=== PATIENT | male | born 1940 | race Caucasian/White ===

== ENCOUNTER 2019-03-25 20:19 | Inpatient (IN) | payer OTHER ==
[~2019-03-25] VITALS: Ht 180.3 cm; Wt 81.6 kg
[~2019-03-25 20:19] MED LIST: METF-370 PO
[2019-03-25 21:56] LABS: Alanine Aminotransferase 54 U/L (16-61); Albumin 3.9 g/dL (3.4-5.0); Anion Gap 9 (5-15); Aspartate Aminotransferase 32 U/L (15-37); BUN/Creatinine Ratio 21.2; Blood Urea Nitrogen 28 mg/dL (7-18); Carbon Dioxide 22 mmol/L (21-32); Chloride 105 mmol/L (98-107); GFR African American 68 mL/min; GFR Non-African American 56 mL/min; Glucose 263 mg/dL (74-106); Potassium 4.4 mmol/L (3.5-5.1); Sodium 136 mmol/L (136-145)
[2019-03-25 22:01] LABS: Alkaline Phosphatase 55 U/L (45-117); Bilirubin, Total 0.8 mg/dL (0.2-1.0); Partial Thromboplastin Time 23.2 sec (23.64-32.05); Total Protein 7.2 g/dL (6.4-8.2)
[2019-03-25 22:23] LABS: Basophils # (auto) 0.1 uL; Basophils % (auto) 0.8 % (0.0-2.0); Eosinophils # (auto) 0.1 uL; Eosinophils % (auto) 1.8 % (0.0-7.0); Hematocrit 40.2 % (41.0-53.0); Hemoglobin 14.5 g/dL (13.5-17.5); Lymphocytes # (auto) 1.3 uL; Lymphocytes % (auto) 18.1 % (10.0-50.0); Mean Corpuscular Hemoglobin 32.6 pg (28.0-32.0); Mean Corpuscular Volume 90.7 fL (80.0-100.0); Monocytes # (auto) 0.6 uL; Monocytes % (auto) 8.8 % (0.0-12.0); Neutrophils # (auto) 4.9 uL; Neutrophils % (auto) 70.5 % (37.0-80.0); Nucleated Red Blood Cells % 0.1 %; Platelet Count (auto) 210 10^3/uL (140-450); Red Blood Cells 4.43 10^6/uL (4.5-5.90); Red Cell Distribution Width 13.5 % (11.8-14.3)
[2019-03-26 03:18] LABS: Alcohol, Urine < 3.0 mg/dL (0-5); Amphetamine Screen, Urine NEGATIVE (NEGATIVE); Barbiturate Scree,Urine NEGATIVE (NEGATIVE); Benzodiazephine Screen, Urine NEGATIVE (NEGATIVE); Cannabinoid Screen, Urine POSITIVE (NEGATIVE); Cocaine Screen, Urine NEGATIVE (NEGATIVE)
[2019-03-26 03:26] LABS: Opiate Scree,Urine NEGATIVE (NEGATIVE); Phencyclidine Screen, Urine NEGATIVE (NEGATIVE)
[2019-03-26 03:48] LABS: Urine Bacteria NONE SEEN /hpf (None Seen); Urine Blood Negative /uL (Negative); Urine Specific Gravity 1.028 (1.001-1.035); Urine WBC 15 /hpf (0 - 3)
[2019-03-26] MEDS ORDERED: DEXTROSE (50%) 50ML SYRG IV PRN (06:45)
[2019-03-26] MEDS ORDERED: ACETAMINOPHEN 325 MG TAB PO PRN (06:45)
[2019-03-26] MEDS ORDERED: TEMAZEPAM 15 MG CAP PO PRN (06:45)
[2019-03-26] MEDS ORDERED: ONDANSETRON HCL 4 MG/2 ML VIAL IV PRN (06:45)
[2019-03-26] MEDS ORDERED: cefTRIAXone 1GM/50ML D5W 50 ML IV ONE (07:30)
[2019-03-26] MEDS ORDERED: ASPirin-EC 81 mg tab PO SCH (10:00)
[2019-03-26] MEDS ORDERED: LISINOPRIL 10 MG TAB PO SCH (10:00)
[2019-03-26] MEDS ORDERED: ENOXAPARIN SOD 30 MG/0.3 ML SYRINGE SC SCH (10:00)
[2019-03-26] MEDS ORDERED: PANTOPRAZOLE 40 MG TAB PO SCH (10:00)
[2019-03-26] MEDS ORDERED: GEMFIBROZIL 600 MG TAB PO SCH (10:00)
[2019-03-26 11:41] VITALS: BP 125/79
[2019-03-26] MEDS ORDERED: ACCU-CHEK COMFORT CURVE STRIP VI SCH (12:00)
[2019-03-26] MEDS ORDERED: InsuLIN REG 1unit/0.01ml Soln (100units/ml) SC SCH (12:00)
[2019-03-26] MEDS ORDERED: INFLUENZA QUAD 2019-2020 0.5ml SYRG IM ONE (12:45)
[2019-03-26 12:55] VITALS: BP 144/79
[2019-03-26] MEDS ORDERED: TAMSULOSIN HYDROCHLORIDE 0.4 MG CAP PO SCH (18:00)
[2019-03-26] MEDS ORDERED: ATORVASTATIN 20 MG TAB PO SCH (22:00)
== END 2019-03-26 13:45 | disposition left against medical advice (07) | DRG 689 ==
LOC: ER 20:21 → MERGE 21:22 → OVERFLOW 21:22 → TELE-WESTW 03-26 10:46
PROVIDERS: ADMIT Nurse Practitioner; ATTEND Internal Medicine Pulmonary Disease
DX: N39.0 Urinary tract infection, site not specified (principal); G93.41 Metabolic encephalopathy; G45.9 Transient cerebral ischemic attack, unspecified; E11.22 Type 2 diabetes mellitus with diabetic chronic kidney disease; N40.0 Benign prostatic hyperplasia without lower urinary tract symptoms; N18.2 Chronic kidney disease, stage 2 (mild); E66.9 Obesity, unspecified; Z53.21 Procedure and treatment not carried out due to patient leaving prior to being seen by health care provider; I13.10 Hypertensive heart and chronic kidney disease without heart failure, with stage 1 through stage 4 chronic kidney disease, or unspecified chronic kidney disease; I67.2 Cerebral atherosclerosis; Z79.899 Other long term (current) drug therapy; Z79.82 Long term (current) use of aspirin; Z90.49 Acquired absence of other specified parts of digestive tract; Z83.3 Family history of diabetes mellitus; Z68.25 Body mass index [BMI] 25.0-25.9, adult; Z88.2 Allergy status to sulfonamides; Z79.84 Long term (current) use of oral hypoglycemic drugs
CPT/HCPCS: 36415; 70450; 71045; 80053; 80307; 80320; 81001; 82962; 83036; 84484; 85025; 85610; 85730; 93005; 93886; 96365; 96372; G0378; J0696; J1815

== ENCOUNTER → 2019-08-13 | Outpatient (CLI) | payer OTHER | END | disposition home or self-care (01) | LOC: XYW 09:57 | PROVIDERS: ATTEND Internal Medicine | DX: R94.31 Abnormal electrocardiogram [ECG] [EKG] (principal) | CPT/HCPCS: 93306 ==

== ENCOUNTER → 2020-10-19 | Outpatient (CLI) | payer OTHER ==
[2020-10-19 09:53] LABS: Urine Bacteria NONE SEEN /hpf (None Seen); Urine Blood Negative /uL (Negative); Urine Hyaline Cast FEW /lpf (0 - 2); Urine Mucus FEW (None Seen); Urine Specific Gravity 1.029 (1.001-1.035); Urine WBC 2 /hpf (0 - 3)
[2020-10-19 10:26] LABS: Albumin 4.2 g/dL (3.4-5.0); Potassium 4.1 mmol/L (3.5-5.1)
[2020-10-19 10:32] LABS: Basophils # (auto) 0 10 ^3/uL (0-0.2); Basophils % (auto) 0.6 % (0.0-2.0); Eosinophils # (auto) 0.2 10 ^3/uL (0-0.8); Eosinophils % (auto) 3.1 % (0.0-7.0); Hematocrit 46.6 % (41.0-53.0); Hemoglobin 16.4 g/dL (13.5-17.5); Lymphocytes # (auto) 1.5 10 ^3/uL (0.4-5.4); Lymphocytes % (auto) 22.2 % (10.0-50.0); Mean Corpuscular Hemoglobin 32.2 pg (28.0-32.0); Mean Corpuscular Hgb Conc. 35.1 g/dL (32.0-36.0); Mean Corpuscular Volume 91.8 fL (80.0-100.0); Monocytes # (auto) 0.6 10 ^3/uL (0-1.3); Neutrophils # (auto) 4.4 10 ^3/uL (1.6-8.6); Neutrophils % (auto) 65.1 % (37.0-80.0); Nucleated Red Blood Cells % 0.1 %; Platelet Count (auto) 198 10^3/uL (140-450); Red Blood Cells 5.07 10^6/uL (4.5-5.90); White Blood Cell 6.8 10^3/uL (4.4-10.8)
[2020-10-19 10:33] LABS: Protein, Urine 60.8 mg/dL (0.0-11.9)
[2020-10-19 10:34] LABS: BUN/Creatinine Ratio 21.9; Bilirubin, Total 1.3 mg/dL (0.2-1.0); Calcium 9.5 mg/dL (8.5-10.1); Total Protein 7.6 g/dL (6.4-8.2)
== END | disposition home or self-care (01) ==
LOC: LAB 09:27
PROVIDERS: ATTEND Internal Medicine Nephrology
DX: E11.9 Type 2 diabetes mellitus without complications (principal); I10 Essential (primary) hypertension
CPT/HCPCS: 36415; 80053; 80061; 81001; 82043; 82570; 83036; 84156; 85025

== ENCOUNTER → 2020-12-27 | Outpatient (CLI) | payer OTHER | END | disposition home or self-care (01) | LOC: XYW 09:48 | PROVIDERS: ATTEND Internal Medicine Nephrology | DX: I08.1 Rheumatic disorders of both mitral and tricuspid valves (principal); R06.02 Shortness of breath | CPT/HCPCS: 93306 ==

== ENCOUNTER → 2021-04-06 | Outpatient (CLI) | payer OTHER ==
[2021-04-06 13:33] LABS: Calcium 9.3 mg/dL (8.5-10.1); Potassium 4.3 mmol/L (3.5-5.1)
[2021-04-06 13:35] LABS: BUN/Creatinine Ratio 19.5
== END | disposition home or self-care (01) ==
LOC: LAB 12:52
PROVIDERS: ATTEND Internal Medicine Nephrology
DX: E11.9 Type 2 diabetes mellitus without complications (principal); I10 Essential (primary) hypertension
CPT/HCPCS: 36415; 80048; 83036

== ENCOUNTER → 2021-11-26 | Outpatient (CLI) | payer OTHER ==
[2021-11-26 09:54] LABS: Potassium 4.5 mmol/L (3.5-5.1)
[2021-11-26 09:55] LABS: Urine Bacteria NONE SEEN /hpf (None Seen); Urine Blood Negative /uL (Negative); Urine Specific Gravity 1.032 (1.001-1.035); Urine WBC 1 /hpf (0 - 3)
[2021-11-26 09:58] LABS: Eosinophils # (auto) 0.3 10 ^3/uL (0-0.8); Hemoglobin 17.9 g/dL (13.5-17.5); Mean Corpuscular Hemoglobin 32.5 pg (28.0-32.0); Monocytes # (auto) 0.9 10 ^3/uL (0-1.3); Red Blood Cells 5.51 10^6/uL (4.5-5.90)
[2021-11-26 09:59] LABS: Basophils # (auto) 0.1 10 ^3/uL (0-0.2); Basophils % (auto) 1.1 % (0.0-2.0); Eosinophils % (auto) 3.6 % (0.0-7.0); Hematocrit 48.9 % (41.0-53.0); Lymphocytes # (auto) 2.1 10 ^3/uL (0.4-5.4); Lymphocytes % (auto) 24.1 % (10.0-50.0); Mean Corpuscular Volume 88.7 fL (80.0-100.0); Monocytes % (auto) 9.9 % (0.0-12.0); Neutrophils # (auto) 5.4 10 ^3/uL (1.6-8.6); Neutrophils % (auto) 61.3 % (37.0-80.0); Nucleated Red Blood Cells % 0.6 %; Red Cell Distribution Width 13.2 % (11.8-14.3); White Blood Cell 8.7 10^3/uL (4.4-10.8)
[2021-11-26 10:00] LABS: Mean Corpuscular Hgb Conc. 36.2 g/dL (32.0-36.0)
[2021-11-26 10:03] LABS: Albumin 4.2 g/dL (3.4-5.0); BUN/Creatinine Ratio 23.3; Bilirubin, Total 1.6 mg/dL (0.2-1.0); Calcium 9.4 mg/dL (8.5-10.1)
[2021-11-26 10:24] LABS: Micro Albumin 17.6 mg/L (0-30.0)
== END | disposition home or self-care (01) ==
LOC: LAB 08:19
PROVIDERS: ATTEND Internal Medicine Nephrology
DX: I10 Essential (primary) hypertension (principal); E11.9 Type 2 diabetes mellitus without complications
CPT/HCPCS: 36415; 80053; 80061; 81001; 82043; 82570; 83036; 84439; 84443; 85025

== ENCOUNTER → 2022-01-01 | Outpatient (CLI) | payer OTHER | END | disposition home or self-care (01) | LOC: XYW 13:17 | PROVIDERS: ATTEND Internal Medicine Nephrology | DX: I07.1 Rheumatic tricuspid insufficiency (principal); I42.0 Dilated cardiomyopathy | CPT/HCPCS: 93306 ==

== ENCOUNTER → 2022-10-01 | Outpatient (CLI) | payer OTHER ==
[2022-10-01 10:34] LABS: Basophils # (auto) 0 10 ^3/uL (0-0.2); Basophils % (auto) 0.4 % (0.0-2.0); Eosinophils # (auto) 0.2 10 ^3/uL (0-0.8); Eosinophils % (auto) 2.8 % (0.0-7.0); Hematocrit 50.1 % (41.0-53.0); Hemoglobin 17.6 g/dL (13.5-17.5); Lymphocytes # (auto) 1.5 10 ^3/uL (0.4-5.4); Lymphocytes % (auto) 17.8 % (10.0-50.0); Mean Corpuscular Hemoglobin 31.4 pg (28.0-32.0); Mean Corpuscular Hgb Conc. 35.2 g/dL (32.0-36.0); Mean Corpuscular Volume 89.1 fL (80.0-100.0); Monocytes # (auto) 0.7 10 ^3/uL (0-1.3); Monocytes % (auto) 8.5 % (0.0-12.0); Neutrophils # (auto) 5.9 10 ^3/uL (1.6-8.6); Neutrophils % (auto) 70.5 % (37.0-80.0); Nucleated Red Blood Cells % 0.1 %; Red Blood Cells 5.62 10^6/uL (4.5-5.90); Red Cell Distribution Width 13.2 % (11.8-14.3); White Blood Cell 8.4 10^3/uL (4.4-10.8)
[2022-10-01 10:56] LABS: Potassium 4.5 mmol/L (3.5-5.1)
[2022-10-01 11:00] LABS: Free T4 (Free Thyroxine) 0.97 ng/dL (0.89-1.76)
[2022-10-01 11:02] LABS: Prostate Specific Antigen 4.65 ng/mL (0.0-4.0)
[2022-10-01 11:05] LABS: Albumin 4.1 g/dL (3.4-5.0); BUN/Creatinine Ratio 24.3 (10.0-20.0); Bilirubin, Total 1.4 mg/dL (0.2-1.0); Calcium 9.8 mg/dL (8.5-10.1); Total Protein 8.3 g/dL (6.4-8.2)
[2022-10-01 13:10] LABS: Micro Albumin 19.6 mg/L (0-30.0)
== END | disposition home or self-care (01) ==
LOC: LAB 09:25
PROVIDERS: ATTEND Nurse Practitioner Family
DX: I13.0 Hypertensive heart and chronic kidney disease with heart failure and stage 1 through stage 4 chronic kidney disease, or unspecified chronic kidney disease (principal); E11.65 Type 2 diabetes mellitus with hyperglycemia; N18.9 Chronic kidney disease, unspecified
CPT/HCPCS: 36415; 80053; 80061; 82043; 82570; 83036; 84153; 84154; 84439; 84443; 85025

== ENCOUNTER 2022-10-10 18:11 | Emergency (ER) | payer OTHER ==
[~2022-10-10] VITALS: Ht 170.2 cm; Wt 78.1 kg
[2022-10-10 18:25] VITALS: BP 159/81
== END 2022-10-10 20:03 | disposition home or self-care (01) ==
LOC: ER 18:11
DX: M77.31 Calcaneal spur, right foot (principal); E11.9 Type 2 diabetes mellitus without complications; I10 Essential (primary) hypertension; Z88.2 Allergy status to sulfonamides; Z90.49 Acquired absence of other specified parts of digestive tract
CPT/HCPCS: 73630

== ENCOUNTER 2023-04-18 22:36 | Inpatient (IN) | payer OTHER ==
[~2023-04-18] VITALS: Ht 172.7 cm; Wt 75.5 kg
[2023-04-18 23:18] LABS: Basophils # (auto) 0 10 ^3/uL (0-0.2); Basophils % (auto) 0.3 % (0.0-2.0); Eosinophils # (auto) 0 10 ^3/uL (0-0.8); Eosinophils % (auto) 0.2 % (0.0-7.0); Hematocrit 50.2 % (41.0-53.0); Hemoglobin 16.7 g/dL (13.5-17.5); Lymphocytes # (auto) 1.3 10 ^3/uL (0.4-5.4); Lymphocytes % (auto) 9.5 % (10.0-50.0); Mean Corpuscular Hemoglobin 31.1 pg (28.0-32.0); Mean Corpuscular Hgb Conc. 33.3 g/dL (32.0-36.0); Mean Corpuscular Volume 93.4 fL (80.0-100.0); Monocytes % (auto) 7.6 % (0.0-12.0); Neutrophils # (auto) 11.3 10 ^3/uL (1.6-8.6); Neutrophils % (auto) 82.4 % (37.0-80.0); Red Blood Cells 5.37 10^6/uL (4.5-5.90); Red Cell Distribution Width 14.3 % (11.8-14.3); White Blood Cell 13.7 10^3/uL (4.4-10.8)
[2023-04-18 23:25] LABS: Alanine Aminotransferase 66 U/L (7-40); Albumin 4.5 g/dL (3.2-4.8); Alkaline Phosphatase 82 U/L (46-116); Anion Gap 9 (5-15); Aspartate Aminotransferase 44 U/L (13-40); BUN/Creatinine Ratio 15.8 (10.0-20.0); Bilirubin, Total 1.5 mg/dL (0.2-1.0); Blood Urea Nitrogen 22 mg/dL (9-23); Calcium 9.4 mg/dL (8.7-10.4); Carbon Dioxide 21 mmol/L (20-30); Chloride 107 mmol/L (98-107); Glucose 325 mg/dL (74-106); Magnesium 2.4 mg/dL (1.6-2.6); Potassium 5.1 mmol/L (3.5-5.1); Sodium 137 mmol/L (136-145); Total Protein 7.1 g/dL (5.7-8.2)
[2023-04-18 23:37] LABS: INR 1.23 (0.9-1.15); Partial Thromboplastin Time 26.7 SEC (24.5-34.5); Prothrombin Time 12.7 sec (9.3-11.8)
[2023-04-18 23:44] LABS: COVID19 ANTIGEN SOFIA FIA NEGATIVE (NEGATIVE); Rapid Influenza A Negative (Negative); Rapid Influenza B Negative (Negative)
[2023-04-19 00:45] LABS: Urine Bacteria NONE SEEN /hpf (None Seen); Urine Blood Negative /uL (Negative); Urine Clarity Clear (Clear); Urine Color Yellow (Yellow); Urine Protein, UAD TRACE (Negative); Urine Specific Gravity 1.028 (1.001-1.035); Urine Urobilinogen Normal (Negative); Urine WBC <1 /hpf (0 - 3)
[2023-04-19] MEDS ORDERED: ENOXAPARIN SOD 40 MG/0.4 ML SYRINGE SC ONE (02:00)
[2023-04-19] MEDS ORDERED: INSULIN LISPRO (HUMAN) 100 UNITS/ML ML SC ONE (02:00)
[2023-04-19] MEDS ORDERED: FUROSEMIDE 40 MG/4 ML VIAL IV ONE (02:00)
[2023-04-19 03:15] VITALS: PULSE 89; RESP 27
[2023-04-19] MEDS ORDERED: IOHEXOL 350 MG/ML 100ML IJ ONE (09:07)
[2023-04-19] MEDS ORDERED: AZITHROMYCIN 500MG/ 250ML 250 ML IV ONE (10:45)
[2023-04-19] MEDS ORDERED: DEXTROSE (50%) 50ML SYRG IV PRN (10:45)
[2023-04-19] MEDS ORDERED: DOCUSATE SOD 100 MG CAP PO PRN (10:45)
[2023-04-19] MEDS ORDERED: NITROGLYCERIN 0.4 MG SL TAB SL PRN (10:45)
[2023-04-19] MEDS ORDERED: MORPHINE SULFATE INJ 2 MG/ml SYRG IV PRN (10:45)
[2023-04-19] MEDS ORDERED: ACETAMINOPHEN 325 MG TAB PO PRN (10:45)
[2023-04-19] MEDS ORDERED: cefTRIAXone 1GM/50ML D5W 50 ML IV ONE (10:45)
[2023-04-19] MEDS ORDERED: CARV3.1240 PO (10:46)
[2023-04-19] MEDS ORDERED: EMPA1TAB PO (10:46)
[2023-04-19] MEDS ORDERED: TAMS0.4C36 PO (10:46)
[2023-04-19] MEDS ORDERED: ALBUTEROL MEDNEB 2.5 mg/3ml NEB NEB PRN (11:00)
[2023-04-19] MEDS ORDERED: IPRATROPIUM BROM 0.5 MG/2.5ML INH SOL NEB PRN (11:00)
[2023-04-19] MEDS: DOXYCYCLINE 100MG/250ML 250 ML IV SCH ×2 (11:15→23:27)
[2023-04-19] MEDS: InsuLIN REG 1unit/0.01ml Soln (100units/ml) SC SCH ×3 (11:30→21:50)
[2023-04-19] MEDS: ACCU-CHEK COMFORT CURVE STRIP VI SCH ×3 (11:50→21:35)
[2023-04-19 11:56] VITALS: BP 143/93; PULSE 85; RESP 22; TEMP 98.1; O2SAT 96
[2023-04-19 15:30] VITALS: PULSE 95; RESP 22; O2SAT 96
[2023-04-19] MEDS: FUROSEMIDE 20 MG/2 ML VIAL IV SCH (18:30)
[2023-04-19 18:55] VITALS: O2SAT 97
[2023-04-19 18:59] LABS: Chloride 107 mmol/L (98-107); Sodium 141 mmol/L (136-145)
[2023-04-19 19:00] LABS: Anion Gap 9 (5-15); Calcium 9.6 mg/dL (8.5-10.1); Carbon Dioxide 25 mmol/L (20-30)
[2023-04-19 19:05] LABS: BUN/Creatinine Ratio 19.1 (10.0-20.0); Blood Urea Nitrogen 25 mg/dL (9-23)
[2023-04-19 19:06] LABS: Glucose 140 mg/dL (74-106)
[2023-04-19 19:38] VITALS: PULSE 77; RESP 19; O2SAT 93
[2023-04-19] MEDS: CARVEDILOL 3.125 MG TAB PO SCH (21:53)
[2023-04-20] VITALS (12 sets, daily range): BP systolic 91–139; BP diastolic 53–95; PULSE 44–99; RESP 17–22; TEMP 96.5–97.9; O2SAT 95–99
[2023-04-20] MEDS ORDERED: TAMS-35 PO (02:20)
[2023-04-20] MEDS: FUROSEMIDE 20 MG/2 ML VIAL IV SCH ×2 (06:17→17:47)
[2023-04-20] MEDS: ACCU-CHEK COMFORT CURVE STRIP VI SCH ×4 (06:17→22:02)
[2023-04-20] MEDS: InsuLIN REG 1unit/0.01ml Soln (100units/ml) SC SCH ×4 (06:20→22:08)
[2023-04-20 08:03] LABS: Basophils # (auto) 0.1 10 ^3/uL (0-0.2); Eosinophils # (auto) 0.4 10 ^3/uL (0-0.8); Mean Corpuscular Volume 91.3 fL (80.0-100.0); Monocytes # (auto) 1.5 10 ^3/uL (0-1.3)
[2023-04-20 08:06] LABS: Basophils % (auto) 0.8 % (0.0-2.0); Eosinophils % (auto) 3.2 % (0.0-7.0); Hematocrit 51.7 % (41.0-53.0); Hemoglobin 17.8 g/dL (13.5-17.5); Lymphocytes # (auto) 2.1 10 ^3/uL (0.4-5.4); Lymphocytes % (auto) 14.7 % (10.0-50.0); Mean Corpuscular Hemoglobin 31.5 pg (28.0-32.0); Mean Corpuscular Hgb Conc. 34.5 g/dL (32.0-36.0); Monocytes % (auto) 10.4 % (0.0-12.0); Neutrophils # (auto) 9.9 10 ^3/uL (1.6-8.6); Neutrophils % (auto) 70.9 % (37.0-80.0); Nucleated Red Blood Cells % 0.1 %; Red Blood Cells 5.66 10^6/uL (4.5-5.90)
[2023-04-20 08:22] LABS: Alanine Aminotransferase 69 U/L (7-40); Albumin 4.8 g/dL (3.2-4.8); Alkaline Phosphatase 85 U/L (46-116); Anion Gap 10 (5-15); Aspartate Aminotransferase 33 U/L (13-40); BUN/Creatinine Ratio 29.1 (10.0-20.0); Calcium 9.9 mg/dL (8.5-10.1); Carbon Dioxide 24 mmol/L (20-30); Chloride 106 mmol/L (98-107); Glucose 156 mg/dL (74-106); Potassium 4.5 mmol/L (3.5-5.1); Sodium 140 mmol/L (136-145); Total Protein 7.3 g/dL (5.7-8.2)
[2023-04-20 08:24] LABS: Blood Urea Nitrogen 39 mg/dL (9-23)
[2023-04-20] MEDS: cefTRIAXone 1GM/50ML D5W 50 ML IV SCH (09:41)
[2023-04-20] MEDS: CARVEDILOL 3.125 MG TAB PO SCH ×2 (09:42→22:00)
[2023-04-20] MEDS: TAMSULOSIN HYDROCHLORIDE 0.4 MG CAP PO SCH (09:42)
[2023-04-20] MEDS: EMPAGLIFLOZIN 10 MG TAB PO SCH (09:42)
[2023-04-20] MEDS ORDERED: AZITHROMYCIN 500MG/ 250ML 250 ML IV SCH (10:00)
[2023-04-20 11:04] LABS: Urine Bacteria NONE SEEN /hpf (None Seen); Urine Blood Negative /uL (Negative); Urine Clarity Clear (Clear); Urine Color Yellow (Yellow); Urine Protein, UAD TRACE (Negative); Urine Specific Gravity 1.024 (1.001-1.035); Urine Urobilinogen Normal (Negative); Urine WBC 1 /hpf (0 - 3); Urine pH 5.5 (5.0-8.0)
[2023-04-20] MEDS: DOXYCYCLINE 100MG/250ML 250 ML IV SCH ×2 (11:35→22:10)
[2023-04-21] VITALS (7 sets, daily range): BP systolic 104–121; BP diastolic 62–72; PULSE 56–67; RESP 17–20; TEMP 97.8–98.2; O2SAT 95–99
[2023-04-21] MEDS: FUROSEMIDE 20 MG/2 ML VIAL IV SCH (06:18)
[2023-04-21] MEDS: ACCU-CHEK COMFORT CURVE STRIP VI SCH ×3 (06:21→17:00)
[2023-04-21] MEDS: InsuLIN REG 1unit/0.01ml Soln (100units/ml) SC SCH ×3 (06:25→17:00)
[2023-04-21 08:18] LABS: Basophils # (auto) 0.1 10 ^3/uL (0-0.2); Basophils % (auto) 0.7 % (0.0-2.0); Eosinophils # (auto) 0.5 10 ^3/uL (0-0.8); Eosinophils % (auto) 5.1 % (0.0-7.0); Lymphocytes # (auto) 1.4 10 ^3/uL (0.4-5.4); Monocytes # (auto) 1.1 10 ^3/uL (0-1.3); Neutrophils # (auto) 6.4 10 ^3/uL (1.6-8.6)
[2023-04-21 08:20] LABS: Hematocrit 51.4 % (41.0-53.0); Hemoglobin 17.7 g/dL (13.5-17.5); Mean Corpuscular Hemoglobin 31.5 pg (28.0-32.0); Mean Corpuscular Hgb Conc. 34.4 g/dL (32.0-36.0); Mean Corpuscular Volume 91.5 fL (80.0-100.0); Monocytes % (auto) 11.8 % (0.0-12.0); Neutrophils % (auto) 67.4 % (37.0-80.0); Nucleated Red Blood Cells % 0.3 %; Red Blood Cells 5.62 10^6/uL (4.5-5.90); Red Cell Distribution Width 13.7 % (11.8-14.3); White Blood Cell 9.5 10^3/uL (4.4-10.8)
[2023-04-21 08:41] LABS: Alanine Aminotransferase 57 U/L (7-40); Albumin 4.5 g/dL (3.2-4.8); Alkaline Phosphatase 85 U/L (46-116); Anion Gap 9 (5-15); Aspartate Aminotransferase 29 U/L (13-40); Calcium 9.6 mg/dL (8.5-10.1); Carbon Dioxide 25 mmol/L (20-30); Chloride 104 mmol/L (98-107); Glucose 161 mg/dL (74-106); Potassium 4.1 mmol/L (3.5-5.1); Sodium 138 mmol/L (136-145)
[2023-04-21 08:42] LABS: Bilirubin, Total 2.2 mg/dL (0.2-1.0); Total Protein 7.5 g/dL (5.7-8.2)
[2023-04-21 08:52] LABS: Blood Urea Nitrogen 24 mg/dL (9-23)
[2023-04-21] MEDS: CARVEDILOL 3.125 MG TAB PO SCH (09:45)
[2023-04-21] MEDS: cefTRIAXone 1GM/50ML D5W 50 ML IV SCH (09:45)
[2023-04-21] MEDS: TAMSULOSIN HYDROCHLORIDE 0.4 MG CAP PO SCH (09:45)
[2023-04-21] MEDS: EMPAGLIFLOZIN 10 MG TAB PO SCH (09:46)
[2023-04-21] MEDS: DOXYCYCLINE 100MG/250ML 250 ML IV SCH (12:26)
[2023-04-21 17:13] LABS: Triglycerides 185 mg/dL (< 150)
[2023-04-21 17:14] LABS: LDL Cholesterol 97 mg/dL (< 100)
[2023-04-21 17:15] LABS: Cholesterol 150 mg/dL (< 200); HDL Cholesterol 29 mg/dL (40-59)
== END 2023-04-21 17:09 | disposition home or self-care (01) | DRG 193 ==
LOC: ER 22:36 → TELE 04-19 10:42 → TELE-WESTW 04-19 23:39
PROVIDERS: ADMIT Internal Medicine
DX: J18.9 Pneumonia, unspecified organism (principal); I50.43 Acute on chronic combined systolic (congestive) and diastolic (congestive) heart failure; J96.01 Acute respiratory failure with hypoxia; I13.0 Hypertensive heart and chronic kidney disease with heart failure and stage 1 through stage 4 chronic kidney disease, or unspecified chronic kidney disease; N17.9 Acute kidney failure, unspecified; I42.0 Dilated cardiomyopathy; R74.01 Elevation of levels of liver transaminase levels; N40.0 Benign prostatic hyperplasia without lower urinary tract symptoms; E11.65 Type 2 diabetes mellitus with hyperglycemia; Z20.822 Contact with and (suspected) exposure to COVID-19; I27.20 Pulmonary hypertension, unspecified; N18.2 Chronic kidney disease, stage 2 (mild); I44.0 Atrioventricular block, first degree; E11.22 Type 2 diabetes mellitus with diabetic chronic kidney disease; E78.5 Hyperlipidemia, unspecified; E66.9 Obesity, unspecified; I34.0 Nonrheumatic mitral (valve) insufficiency; Z79.899 Other long term (current) drug therapy; Z90.49 Acquired absence of other specified parts of digestive tract; Z68.25 Body mass index [BMI] 25.0-25.9, adult
CPT/HCPCS: 36415; 71045; 71275; 76775; 80048; 80053; 80061; 81001; 82962; 83036; 83735; 83880; 84443; 84484; 85025; 85379; 85610; 85730; 87040; 87070; 87205; 87426; 87804; 93005; 93306; G0378; J0696; J1815; J3490

== ENCOUNTER → 2023-04-22 | Outpatient (CLI) | payer OTHER ==
[~2023-04-22] MED LIST changes: +CARV3.1240 PO; +EMPA1TAB PO; +TAMS-35 PO; +TAMS0.4C36 PO
[2023-04-22 12:21] LABS: Alanine Aminotransferase 56 U/L (7-40); Albumin 4.5 g/dL (3.2-4.8); Alkaline Phosphatase 87 U/L (46-116); Anion Gap 10 (5-15); Aspartate Aminotransferase 32 U/L (13-40); BUN/Creatinine Ratio 20.9 (10.0-20.0); Blood Urea Nitrogen 28 mg/dL (9-23); Calcium 10.3 mg/dL (8.5-10.1); Carbon Dioxide 25 mmol/L (20-30); Chloride 103 mmol/L (98-107); Glucose 201 mg/dL (74-106); Potassium 4.7 mmol/L (3.5-5.1); Sodium 138 mmol/L (136-145)
[2023-04-22 12:22] LABS: Total Protein 7.4 g/dL (5.7-8.2)
== END | disposition home or self-care (01) ==
LOC: LAB 11:31
PROVIDERS: ATTEND Student in an Organized Health Care Education/Training Program
DX: I50.42 Chronic combined systolic (congestive) and diastolic (congestive) heart failure (principal); E11.9 Type 2 diabetes mellitus without complications; R06.2 Wheezing; J42 Unspecified chronic bronchitis
CPT/HCPCS: 36415; 80053; 83880

== ENCOUNTER 2023-05-28 06:43 | Day surgery (SDC) | payer OTHER ==
[2023-05-26 15:15] LABS: Basophils # (auto) 0.1 10 ^3/uL (0-0.2); Basophils % (auto) 0.9 % (0.0-2.0); Eosinophils # (auto) 0.5 10 ^3/uL (0-0.8); Eosinophils % (auto) 5.9 % (0.0-7.0); Hematocrit 49.6 % (41.0-53.0); Lymphocytes # (auto) 1.6 10 ^3/uL (0.4-5.4); Lymphocytes % (auto) 19.9 % (10.0-50.0); Mean Corpuscular Hemoglobin 30.7 pg (28.0-32.0); Mean Corpuscular Hgb Conc. 34.2 g/dL (32.0-36.0); Mean Corpuscular Volume 89.8 fL (80.0-100.0); Monocytes % (auto) 12.1 % (0.0-12.0); Neutrophils # (auto) 4.8 10 ^3/uL (1.6-8.6); Neutrophils % (auto) 61.2 % (37.0-80.0); Nucleated Red Blood Cells % 0.2 %; Red Blood Cells 5.52 10^6/uL (4.5-5.90); Red Cell Distribution Width 13.9 % (11.8-14.3); White Blood Cell 7.9 10^3/uL (4.4-10.8)
[2023-05-26 15:30] LABS: INR 1.07 (0.9-1.15); Partial Thromboplastin Time 26.2 SEC (24.5-34.5); Prothrombin Time 11.2 sec (9.3-11.8)
[2023-05-26 17:43] LABS: Alanine Aminotransferase 27 U/L (7-40); Albumin 4.6 g/dL (3.2-4.8); Alkaline Phosphatase 75 U/L (46-116); Anion Gap 8 (5-15); Aspartate Aminotransferase 24 U/L (13-40); Blood Urea Nitrogen 29 mg/dL (9-23); Carbon Dioxide 24 mmol/L (20-30); Chloride 105 mmol/L (98-107); Glucose 135 mg/dL (74-106); Potassium 4.9 mmol/L (3.5-5.1); Sodium 137 mmol/L (136-145)
[2023-05-26 17:44] LABS: Bilirubin, Total 0.9 mg/dL (0.2-1.0); Total Protein 7.2 g/dL (5.7-8.2)
[~2023-05-28] VITALS: Ht 172.7 cm; Wt 76.7 kg
[~2023-05-28 06:43] MED LIST changes: +ASPI-543 PO; +ATOR20TA50 PO; +FURO20TA3 PO; +HYDR-4296 PO; -METF-370 PO; +PANT40TA2 PO; +POTA1TAB61 PO; -TAMS-35 PO
[2023-05-28] MEDS ORDERED: IODIXANOL 320MG/ML 100ML BTL IV ONE (11:29)
[2023-05-28] MEDS ORDERED: LIDOCAINE 2%HCL (LOCAL ANESTH.) INJ 20ML MDV ONE (11:29)
[2023-05-28] MEDS ORDERED: ANGIOMAX 250 MG VIAL IV ONE (12:18)
[2023-05-28] MEDS ORDERED: VERAPAMIL 2.5MG/ML INJ 2ML VIAL IV ONE (12:19)
[2023-05-28] MEDS ORDERED: HEPARIN SODIUM (PORCINE) 5000 UNITS/ML 1ML VIAL ONE (12:19)
[2023-05-28] MEDS ORDERED: fentaNYL CITRATE 100 MCG/2 ML VL ONE (12:19)
[2023-05-28] MEDS ORDERED: MIDAZOLAM HCL 2MG/2ML 2ml VIAL (1mg/ml) ONE (12:19)
[2023-05-28] MEDS ORDERED: SODIUM CHL 0.9% 0 ML ONE (12:20)
== END 2023-05-28 14:58 | disposition home or self-care (01) ==
LOC: CATH 06:43
PROVIDERS: ATTEND Student in an Organized Health Care Education/Training Program
DX: I25.10 Atherosclerotic heart disease of native coronary artery without angina pectoris (principal); I13.0 Hypertensive heart and chronic kidney disease with heart failure and stage 1 through stage 4 chronic kidney disease, or unspecified chronic kidney disease; E11.22 Type 2 diabetes mellitus with diabetic chronic kidney disease; N18.30 Chronic kidney disease, stage 3 unspecified; I50.43 Acute on chronic combined systolic (congestive) and diastolic (congestive) heart failure; I34.0 Nonrheumatic mitral (valve) insufficiency; I27.20 Pulmonary hypertension, unspecified; E78.5 Hyperlipidemia, unspecified; E11.65 Type 2 diabetes mellitus with hyperglycemia; G47.33 Obstructive sleep apnea (adult) (pediatric); Z88.8 Allergy status to other drugs, medicaments and biological substances; Z79.82 Long term (current) use of aspirin; Z79.51 Long term (current) use of inhaled steroids; Z79.899 Other long term (current) drug therapy
CPT/HCPCS: 36415; 80053; 85025; 85610; 85730; 93458; C1887; C1894; J1644; J2250; J3010; Q9967; 99152

== ENCOUNTER → 2023-06-09 | Outpatient (CLI) | payer OTHER ==
[2023-06-09 10:42] LABS: Alanine Aminotransferase 16 U/L (7-40); Albumin 4.5 g/dL (3.2-4.8); Alkaline Phosphatase 70 U/L (46-116); Anion Gap 7 (5-15); Aspartate Aminotransferase 20 U/L (13-40); BUN/Creatinine Ratio 17.2 (10.0-20.0); Bilirubin, Total 1.2 mg/dL (0.2-1.0); Blood Urea Nitrogen 20 mg/dL (9-23); Calcium 10.1 mg/dL (8.5-10.1); Carbon Dioxide 25 mmol/L (20-30); Chloride 106 mmol/L (98-107); Glucose 166 mg/dL (74-106); Potassium 4.3 mmol/L (3.5-5.1); Sodium 138 mmol/L (136-145); Total Protein 7.3 g/dL (5.7-8.2)
== END | disposition home or self-care (01) ==
LOC: LAB 10:05
PROVIDERS: ATTEND Student in an Organized Health Care Education/Training Program
DX: I11.0 Hypertensive heart disease with heart failure (principal); I50.33 Acute on chronic diastolic (congestive) heart failure; I34.0 Nonrheumatic mitral (valve) insufficiency
CPT/HCPCS: 36415; 80053

== ENCOUNTER 2024-03-27 10:44 | Inpatient (IN) | payer OTHER ==
[~2024-03-27] VITALS: Ht 171.4 cm; Wt 75.8 kg
[~2024-03-27 10:44] MED LIST changes: -HYDR-4296 PO; +HYDR25TA88 PO; +ISOS1TAB28 PO; +POTA-215 PO; -POTA1TAB61 PO; -TAMS0.4C36 PO; +TAMS0.4C39 PO
[2024-03-27 11:09] LABS: Basophils # (auto) 0 10 ^3/uL (0-0.2); Basophils % (auto) 0.5 % (0.0-2.0); Eosinophils # (auto) 0.1 10 ^3/uL (0-0.8); Eosinophils % (auto) 1.2 % (0.0-7.0); Hematocrit 44.2 % (41.0-53.0); Lymphocytes # (auto) 1.4 10 ^3/uL (0.4-5.4); Mean Corpuscular Hemoglobin 32.3 pg (28.0-32.0); Mean Corpuscular Hgb Conc. 36.2 g/dL (32.0-36.0); Mean Corpuscular Volume 89.5 fL (80.0-100.0); Monocytes # (auto) 0.9 10 ^3/uL (0-1.3); Monocytes % (auto) 9.4 % (0.0-12.0); Neutrophils # (auto) 7.3 10 ^3/uL (1.6-8.6); Neutrophils % (auto) 74.9 % (37.0-80.0); Nucleated Red Blood Cells % 0.1 %; Platelet Count (auto) 209 10^3/uL (140-450); Red Blood Cells 4.94 10^6/uL (4.5-5.90); Red Cell Distribution Width 13.2 % (11.8-14.3); White Blood Cell 9.8 10^3/uL (4.4-10.8)
[2024-03-27 11:17] VITALS: PULSE 83; RESP 14; O2SAT 94
[2024-03-27] MEDS: ASPirin 81 mg TAB PO ONE (11:24)
[2024-03-27 11:30] LABS: Alanine Aminotransferase 44 U/L (7-40); Albumin 4.5 g/dL (3.2-4.8); Alkaline Phosphatase 91 U/L (46-116); Anion Gap 8 (5-15); Aspartate Aminotransferase 30 U/L (13-40); BUN/Creatinine Ratio 18.2 (10.0-20.0); Blood Urea Nitrogen 24 mg/dL (9-23); Calcium 9.4 mg/dL (8.7-10.4); Carbon Dioxide 21 mmol/L (20-31); Chloride 105 mmol/L (98-107); Glucose 274 mg/dL (74-106); Magnesium 2.1 mg/dL (1.6-2.6); Potassium 4.5 mmol/L (3.5-5.1); Sodium 134 mmol/L (136-145)
[2024-03-27 11:31] LABS: Bilirubin, Total 2.2 mg/dL (0.2-1.0); Total Protein 7.1 g/dL (5.7-8.2)
[2024-03-27 11:35] LABS: Urine Bacteria None Seen /hpf (None Seen)
[2024-03-27 11:44] LABS: Urine Blood Negative /uL (Negative); Urine Clarity Clear (Clear); Urine Color Light-Yellow (Yellow); Urine Hyaline Cast FEW /lpf (0 - 2); Urine Protein, UAD Negative (Negative); Urine Urobilinogen Normal (Negative); Urine WBC 2 /hpf (0 - 3)
[2024-03-27 12:00] LABS: Rapid Influenza A Negative (Negative); Rapid Influenza B Negative (Negative)
[2024-03-27 12:01] LABS: COVID19 ANTIGEN SOFIA FIA NEGATIVE (NEGATIVE)
[2024-03-27] MEDS: ALPRAZolam 0.25 MG TAB PO ONE (15:04)
[2024-03-27 15:06] LABS: Base Excess -2.3 mmol/L (-2.0-3.0)
[2024-03-27] MEDS ORDERED: HYDROcodone-ACET 5/325MG TAB PO PRN (17:30)
[2024-03-27] MEDS ORDERED: ONDANSETRON HCL 4 MG/2 ML VIAL IV PRN (17:30)
[2024-03-27] MEDS ORDERED: ACETAMINOPHEN 325 MG TAB PO PRN (17:30)
[2024-03-27] MEDS ORDERED: NITROGLYCERIN 0.4 MG SL TAB SL PRN (17:30)
[2024-03-27] MEDS ORDERED: DOCUSATE SOD 100 MG CAP PO PRN (17:30)
[2024-03-27] MEDS ORDERED: DEXTROSE (50%) 50ML SYRG IV PRN (17:30)
[2024-03-27] MEDS ORDERED: MORPHINE SULFATE INJ 2 MG/ml SYRG IV PRN (17:30)
[2024-03-27] MEDS: FUROSEMIDE 20 MG/2 ML VIAL IV ONE (18:24)
[2024-03-27 19:20] VITALS: PULSE 74; RESP 13; O2SAT 94
[2024-03-27 21:00] VITALS: BP 111/74; PULSE 67; RESP 18; TEMP 98; O2SAT 94
[2024-03-27] MEDS: hydrALAZINE HCL 25 MG TAB PO SCH (22:00)
[2024-03-27] MEDS: ATORVASTATIN 20 MG TAB PO SCH (23:22)
[2024-03-27] MEDS: CARVEDILOL 3.125 MG TAB PO SCH (23:22)
[2024-03-27] MEDS: InsuLIN REG 1unit/0.01ml Soln (100units/ml) SC SCH (23:24)
[2024-03-27] MEDS: SODIUM CHLOR 0.9% PF (SALINE LOCK) 10ML VIAL/SYR IV SCH (23:29)
[2024-03-27] MEDS: ACCU-CHEK COMFORT CURVE STRIP VI SCH (23:29)
[2024-03-27 23:31] VITALS: BP 111/74; PULSE 67; RESP 18; TEMP 98; O2SAT 94
[2024-03-28] VITALS (14 sets, daily range): BP systolic 105–128; BP diastolic 64–80; PULSE 39–84; RESP 15–20; TEMP 96.3–97.9; O2SAT 94–99
[2024-03-28] MEDS: InsuLIN REG 1unit/0.01ml Soln (100units/ml) SC SCH (06:32)
[2024-03-28 08:01] LABS: Basophils # (auto) 0 10 ^3/uL (0-0.2); Basophils % (auto) 0.4 % (0.0-2.0); Eosinophils # (auto) 0.2 10 ^3/uL (0-0.8); Eosinophils % (auto) 2.1 % (0.0-7.0); Hemoglobin 15.5 g/dL (13.5-17.5); Lymphocytes # (auto) 1.7 10 ^3/uL (0.4-5.4); Lymphocytes % (auto) 18.9 % (10.0-50.0); Mean Corpuscular Hemoglobin 32.1 pg (28.0-32.0); Mean Corpuscular Hgb Conc. 35.3 g/dL (32.0-36.0); Monocytes % (auto) 11.1 % (0.0-12.0); Neutrophils # (auto) 6.1 10 ^3/uL (1.6-8.6); Neutrophils % (auto) 67.5 % (37.0-80.0); Nucleated Red Blood Cells % 0.3 %; Platelet Count (auto) 190 10^3/uL (140-450); Red Blood Cells 4.83 10^6/uL (4.5-5.90); Red Cell Distribution Width 13.4 % (11.8-14.3); White Blood Cell 9.1 10^3/uL (4.4-10.8)
[2024-03-28 08:19] LABS: Alanine Aminotransferase 38 U/L (7-40); Albumin 4.3 g/dL (3.2-4.8); Alkaline Phosphatase 81 U/L (46-116); Anion Gap 9 (5-15); Aspartate Aminotransferase 31 U/L (13-40); BUN/Creatinine Ratio 22.2 (10.0-20.0); Blood Urea Nitrogen 28 mg/dL (9-23); Calcium 9.5 mg/dL (8.7-10.4); Carbon Dioxide 23 mmol/L (20-31); Chloride 106 mmol/L (98-107); Magnesium 2.4 mg/dL (1.6-2.6); Potassium 4.1 mmol/L (3.5-5.1); Sodium 138 mmol/L (136-145)
[2024-03-28 08:20] LABS: Total Protein 6.7 g/dL (5.7-8.2)
[2024-03-28 08:21] LABS: Glucose 162 mg/dL (74-106)
[2024-03-28] MEDS: ALBUTEROL SULF 2.5 MG/0.5ML(0.5%) NEB SOLN NEB PRN (08:40)
[2024-03-28] MEDS: TAMSULOSIN HYDROCHLORIDE 0.4 MG CAP PO SCH (10:06)
[2024-03-28] MEDS: PANTOPRAZOLE 40 MG TAB PO SCH (10:07)
[2024-03-28] MEDS: FUROSEMIDE 20 MG TAB PO SCH (10:07)
[2024-03-28] MEDS: EMPAGLIFLOZIN 10 MG TAB PO SCH (10:07)
[2024-03-28] MEDS: ASPirin-EC 81 mg tab PO SCH (10:08)
[2024-03-28] MEDS: SPIRONOLACTONE 25 MG TAB PO ONE (12:18)
[2024-03-28] MEDS: FUROSEMIDE 40 MG/4 ML VIAL IV ONE (15:13)
[2024-03-28] MEDS: ISOSORBIDE MONONITRATE ER 60 MG TAB PO ONE (16:53)
[2024-03-28] MEDS ORDERED: FUROSEMIDE 40 MG/4 ML VIAL IV SCH (18:00)
[2024-03-28] MEDS: FUROSEMIDE 40 MG/4 ML VIAL IV SCH (18:00)
[2024-03-28] MEDS ORDERED: SACUBITRIL-VALSARTAN 24mg/26mg TAB PO SCH (22:00)
[2024-03-29] VITALS (7 sets, daily range): BP systolic 97–119; BP diastolic 48–75; PULSE 52–67; RESP 18–20; TEMP 96.1–97.8; O2SAT 93–97
[2024-03-29 07:12] LABS: Basophils # (auto) 0 10 ^3/uL (0-0.2); Basophils % (auto) 0.4 % (0.0-2.0); Eosinophils # (auto) 0.3 10 ^3/uL (0-0.8); Eosinophils % (auto) 3.2 % (0.0-7.0); Hematocrit 42.9 % (41.0-53.0); Hemoglobin 15.6 g/dL (13.5-17.5); Lymphocytes # (auto) 1.7 10 ^3/uL (0.4-5.4); Mean Corpuscular Hgb Conc. 36.4 g/dL (32.0-36.0); Mean Corpuscular Volume 90.6 fL (80.0-100.0); Monocytes # (auto) 0.8 10 ^3/uL (0-1.3); Monocytes % (auto) 9.3 % (0.0-12.0); Neutrophils # (auto) 5.4 10 ^3/uL (1.6-8.6); Neutrophils % (auto) 66.1 % (37.0-80.0); Nucleated Red Blood Cells % 0.5 %; Platelet Count (auto) 193 10^3/uL (140-450); Red Blood Cells 4.74 10^6/uL (4.5-5.90); Red Cell Distribution Width 13.4 % (11.8-14.3); White Blood Cell 8.2 10^3/uL (4.4-10.8)
[2024-03-29 07:20] LABS: Anion Gap 7 (5-15); Calcium 9.7 mg/dL (8.7-10.4); Carbon Dioxide 27 mmol/L (20-31); Chloride 106 mmol/L (98-107); Potassium 3.9 mmol/L (3.5-5.1); Sodium 140 mmol/L (136-145)
[2024-03-29 07:25] LABS: Glucose 111 mg/dL (74-106)
[2024-03-29 07:27] LABS: Magnesium 2.4 mg/dL (1.6-2.6)
[2024-03-29 08:05] LABS: BUN/Creatinine Ratio 21.6 (10.0-20.0); Blood Urea Nitrogen 30 mg/dL (9-23)
[2024-03-29] MEDS: ISOSORBIDE MONONITRATE ER 60 MG TAB PO SCH (10:00)
[2024-03-29] MEDS ORDERED: SPIRONOLACTONE 25 MG TAB PO SCH (10:00)
[2024-03-29] MEDS ORDERED: FURO1TAB33 PO (14:38)
[2024-03-29] MEDS ORDERED: FUROSEMIDE 20 MG TAB PO SCH (18:00)
== END 2024-03-29 17:10 | disposition home or self-care (01) | DRG 291 ==
LOC: ER 10:44 → TELE 17:31 → TELE-WESTW 20:20
PROVIDERS: ADMIT Internal Medicine; ATTEND Internal Medicine
DX: I13.0 Hypertensive heart and chronic kidney disease with heart failure and stage 1 through stage 4 chronic kidney disease, or unspecified chronic kidney disease (principal); I50.23 Acute on chronic systolic (congestive) heart failure; J96.21 Acute and chronic respiratory failure with hypoxia; J44.1 Chronic obstructive pulmonary disease with (acute) exacerbation; E11.22 Type 2 diabetes mellitus with diabetic chronic kidney disease; N18.9 Chronic kidney disease, unspecified; I08.1 Rheumatic disorders of both mitral and tricuspid valves; I25.10 Atherosclerotic heart disease of native coronary artery without angina pectoris; N40.0 Benign prostatic hyperplasia without lower urinary tract symptoms; I35.8 Other nonrheumatic aortic valve disorders; E78.5 Hyperlipidemia, unspecified; Z79.899 Other long term (current) drug therapy; Z79.84 Long term (current) use of oral hypoglycemic drugs; Z79.82 Long term (current) use of aspirin; Z82.3 Family history of stroke; Z82.0 Family history of epilepsy and other diseases of the nervous system; I27.20 Pulmonary hypertension, unspecified
CPT/HCPCS: 36415; 36600; 71046; 80048; 80053; 81001; 82805; 82962; 83036; 83735; 83880; 84443; 84484; 85025; 85379; 87426; 87804; 93005; 93306; 94640; 99291; G0378; J1815

== ENCOUNTER 2024-04-26 16:59 | Inpatient (IN) | payer OTHER ==
[~2024-04-26] VITALS: Ht 170.2 cm; Wt 72.8 kg
[~2024-04-26 16:59] MED LIST changes: -EMPA1TAB PO; +FURO1TAB33 PO; -PANT40TA2 PO; -POTA-215 PO
--- NOTE | 2024-04-26 17:48 | ED.PDOC ---
SOB-HPI HPI Comments This is an 83-year-old male comes to the ED with chief complain of shortness of breath. He has a past medical history relevant for type 2 diabetes, hypertension, hyperlipidemia, CHF with an ejection fraction of 10%, severe mitral regurgitation, pulmonary hypertension, BPH. Patient stated that since the last two weeks he has been experiencing worsening shortness of breath, dry cough, he says it was associated with fevers, chills, weakness, fatigue, low appetite. He said that his was recently discharged with pneumonia. He also mentioned that he has unable to lay flat due to shortness of breath. Patient also stated to the he fell lightheaded and has a loss of consciousness event, he said that it was unwitnessed, and at her thought he was sleeping so he does not know for how long he passed out but denies any loss of sphincters. He currently denies any chest pain, abdominal pain, nausea, vomiting, dizziness, lightheadedness, gait disturbances. Chief Complaint: Shortness of Breath Time Seen by MD: 17:07 Primary Care Provider: ELLIOTT August notes: Nurses Notes Information Source: Patient Mode of Arrival: Ambulatory Severity: Moderate Timing: Weeks Duration: Since onset Context: At Rest, With Light Exertion History of: CHF Modifying Factors: Laying flat If cough with SOB: Non-Productive Past Medical History PAST MEDICAL HISTORY: CHF, DM, HTN Surgical History: Appendectomy Family History Family History: Reviewed,noncontributory to illness Social History Smoker: Non-Smoker Alcohol: Denies ETOH Use Drugs: Denies Drug Use Lives In: Home Constitutional: reports: chills, fatigue, fever, malaise, weakness; denies: camilo phoresis, sweats, others EENTM: reports: nasal discharge, nose congestion, throat pain; denies: blurred vision, double vision, ear bleeding, ear discharge, ear drainage, ear pain, ear ringing, eye pain, eye redness, hearing loss, mouth pain, mouth swelling, nose bleeding, nose pain, photophobia, tearing, throat swelling, voice changes, others Respiratory: reports: cough, orthopnea, SOB at rest, shortness of breath, SOB with excertion; denies: hemoptysis, stridor, wheezing, others Cardiovascular: reports: lightheadedness, syncope; denies: chest pain, dizzy spells, diaphoresis, Dyspnea on exertion, edema, irregular heart beat, left arm pain, palpitations, PND, others Gastrointestinal: denies: abdomen distended, abdominal pain, blood streaked bowels, constipated, diarrhea, dysphagia, difficulty swallowing, hematemesis, melena, nausea, poor appetite, poor fluid intake, rectal bleeding, rectal pain, vomiting, others Genitourinary: denies: burning, dysuria, flank pain, frequency, hematuria, incontinence, penile discharge, penile sore, pain, testicle pain, testicle swelling, urgency, others Neurological: denies: dizziness, fainting, headache, left sided numbness, left sided weakness, numbness, paresthesia, pre-existing deficit, right sided numbness, right sided weakness, seizure, speech problems, tingling, tremors, weakness, others Musculoskeletal: denies: back pain, gout, joint pain, joint swelling, muscle pain, muscle stiffness, neck pain, others Integumetry: denies: bruises, change in color, change in hair/nails, dryness, laceration, lesions, lumps, rash, wounds, others Allergic/Immunocompromised: denies: Difficulty Healing, Frequent Infections, Hives, Itching, others Hematologic/Lymphatic: denies: anemia, blood clots, easy bleeding, easy bruising, swollen glands, others Endocrine: denies: excessive hunger, excessive sweating, excessive thirst, excessive urination, flushing, intolerance to cold, intolerance to heat, unexplained weight gain, unexplained weight loss, others Psychiatric: denies: anxiety, bipolar disorder, depression, hopeless, panic disorder, schizophrenia, sleepless, suicidal, others Physical Exam General Appearance: Mild Distress, Normal HEENT: Normal ENT Inspection, Pharynx Normal, TMs Normal Neck: Full Range of Motion, Non-Tender, Normal, Normal Inspection Respiratory: Chest Non-Tender, Crackles, Inspiration, No Accessory Muscle Use, Respiratory Distress Cardiovascular: Irregular, No Edema, No JVD, No Gallop, Normal Peripheral Pulses, Regular Rate/Rhythm, Systolic Murmur Breast Exam: Deferred Gastrointestinal: No Organomegaly, Non Tender, No Pulsatile Mass, Normal Bowel Sounds, Soft Genitalia: Deferred Pelvic: Deferred Rectal: Deferred Extremities: No calf tenderness, Normal capillary refill, Normal inspection, Normal range of motion, Non-tender, No pedal edema Neurologic: Alert, steel plate caulker II-XII nml as Tested, No Motor Deficits, Normal Affect, Normal Mood, No Sensory Deficits Cerebellar Function: NOT DONE Reflexes: NOT DONE Skin: Dry, Normal Color, Warm Lymphatic: No Adenopathy Was a procedure done? Was a procedure done?: No Differential Dx Differential Diagnosis: Bronchitis, CHF, Pneumonia, Pulmonary Embolism, Respiratory Distress, URI X-Ray, Labs, Meds, VS Vital Signs Date Time Temp Pulse Resp B/P (MAP) Pulse Ox O2 Delivery O2 Flow Rate FiO2 04/26/24 18:08 94 94 Room Air* 0 21 04/26/24 17:30 98.4 94 19 120/85 (97) 96 04/26/24 17:25 93 04/26/24 17:20 19 96 Room Air* 0 21 Lab Test 04/26/24 18:55 04/26/24 18:16 04/26/24 18:12 Range/Units Urine Color Pending Urine Clarity Pending Urine pH Pending Urine Specific [place] Pending Urine Protein Pending Urine Ketones Pending Urine Blood Pending Urine Nitrite Pending Urine Bilirubin Pending Urine Urobilinogen Pending Urine Leukocyte Esterase Pending Urine RBC Pending Urine WBC Pending Urine Squamous Epithelial Cells Pending Urine Bacteria Pending Urine Glucose Pending Influenza Type A Antigen Pending Influenza Type B Antigen Pending SARS-CoV-2 Antigen (Rapid) Pending White Blood Count 11.9 H 4.4-10.8 10^3/uL Red Blood Count 5.01 4.5-5.90 10^6/uL Hemoglobin 16.2 13.5-17.5 g/dL Hematocrit 45.0 41.0-53.0 % Mean Corpuscular Volume 89.7 80.0-100.0 fL Mean Corpuscular Hemoglobin 32.3 H 28.0-32.0 pg Mean Corpuscular Hemoglobin Concent 36.0 32.0-36.0 g/dL Red Cell Distribution Width 13.1 11.8-14.3 % Platelet Count 285 140-450 10^3/uL Mean Platelet Volume 8.1 6.9-10.8 fL Neutrophils (%) (Auto) 75.1 37.0-80.0 % Lymphocytes (%) (Auto) 13.1 10.0-50.0 % Monocytes (%) (Auto) 10.4 0.0-12.0 % Eosinophils (%) (Auto) 0.9 0.0-7.0 % Basophils (%) (Auto) 0.5 0.0-2.0 % Neutrophils # (Auto) 9.0 H 1.6-8.6 10 ^3/uL Lymphocytes # (Auto) 1.6 0.4-5.4 10 ^3/uL Monocytes # (Auto) 1.2 0-1.3 10 ^3/uL Eosinophils # (Auto) 0.1 0-0.8 10 ^3/uL Basophils # (Auto) 0.1 0-0.2 10 ^3/uL Nucleated Red Blood Cells 0.0 % Sodium Level 132 L 136-145 mmol/L Potassium Level 4.8 3.5-5.1 mmol/L Chloride Level 99 98-107 mmol/L Carbon Dioxide Level 25 20-31 mmol/L Anion Gap 8 5-15 Blood Urea Nitrogen 32 H 9-23 mg/dL Creatinine 1.74 H 0.700-1.30 mg/dL Glomerular Filtration Rate Calc 39 >90 mL/min BUN/Creatinine Ratio 18.4 10.0-20.0 Serum Glucose 400 H 74-106 mg/dL Calcium Level 10.3 8.7-10.4 mg/dL Magnesium Level 2.5 1.6-2.6 mg/dL Troponin I High Sensitivity 27 </=54 ng/L B-Type Natriuretic Peptide 3260.56 0-100 pg/mL Current Medications Medications (Trade) Dose Ordered Sig/Peter Route Start Time Stop Time Status Last Admin Levalbuterol HCl (Xopenex Medneb) 0.625 mg ONCE ONCE NEB 04/26/24 17:30 04/26/24 17:34 DC 04/26/24 18:07 Ipratropium [place] (Atrovent Medneb) 0.5 mg ONCE ONCE NEB 04/26/24 17:30 04/26/24 17:34 DC 04/26/24 18:07 On my initial examination, patient is in mild distress due to shortness of breath, we will order a CBC, BMP, BNP, magnesium, UA, head CT, chest x-ray, DuoNebs, influenza test, COVID test. We will continue to reassess WBC count was 11.9, BNP was about 3000, patient is noted to have an DEVAN, we will prescribe Lasix 40 mg IV once, patient will be admitted for further management of CHF exacerbation Images Reviewed?: Images reviewed and evaluated by me Time of 1ST Reevaluation: 17:42 Reevaluation 1ST: Unchanged Time of 2ND Reevaluation: 19:10 Reevaluation 2ND: Unchanged Patient Education/Counseling: Diagnosis, Treatment Family Education/Counseling: No Family Present Departure 1 Departure Time of Disposition: 19:12 Impression: Primary Impression: CHF (congestive heart failure) Additional Impressions: Hyperglycemia due to diabetes mellitus Renal failure (ARF), acute on chronic Shortness of breath Disposition: ADMITTED INPATIENT Condition: Guarded Critical Care Note Critical Care Time?: No Stability Stability form required: No Heart Score Heart Score: Heart Score Response (Comments) Value History Slightly Suspicious 0 EKG Normal 0 Age >65 2 Risk Factors >3 or Hx ASHD 2 Troponin Normal limit 0 Total 4 DIPAK IBARRA RESIDENT Apr 26, 2024 17:48
[2024-04-26] MEDS: LEVALBUTEROL HCL 1.25 MG/3 ML NEB NEB ONE (18:07)
[2024-04-26] MEDS: IPRATROPIUM BROM 0.5 MG/2.5ML INH SOL NEB ONE (18:07)
--- NOTE | 2024-04-26 18:08 | DVH ---
EXAM: CT HEAD WITHOUT CONTRAST INDICATION: syncope TECHNIQUE: CT of the head without intravenous contrast. Radiation dose : Head: CT Dose: CTDI volume is 50.77 mGy. Dose-length product is 813.99 mGy*cm The dose indicators for CT are the volume computed tomography (CT) dose index (CTDIvol) and the dose length product (DLP), and are measured in units of mGy and mGy-cm, respectively. These indicators are not patient dose, but values generated from the CT scanner acquisition factors. The report includes radiation exposure data for exposures received during this examination. COMPARISON: None FINDINGS: There is no evidence of acute intracranial hemorrhage, extra-axial collection, mass effect, midline s hift, herniation or hydrocephalus. The ventricles, sulci and cisterns are age appropriate. The marmolejo-white differentiation is intact. 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 The surrounding soft tissues and osseous structures are unremarkable. IMPRESSION: 1. No acute intracranial abnormality. 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 This could be further evaluated with MRI of the brain if clinically indicated Radiation optimization: All CT scans at this facility use at least one of these dose optimization rudy hniques: Automated exposure control mA and/or kV adjustment per patient size (includes targeted exams where dose is matched to clinical indication) or iterative reconstruction. HS:Y
--- NOTE | 2024-04-26 18:10 | DVH ---
EXAM: XY CHEST TWO VIEWS ROUTINE TECHNIQUE: Two radiographic views of the chest CLINICAL HISTORY: sob COMPARISON: XY CHEST TWO VIEWS ROUTINE on DOS: 03/27/24, XY CHEST TWO VIEWS ROUTINE on DOS: 04/19/23 Findings/Impression: Frontal and lateral chest radiographs demonstrate no acute osseous or superficial soft tissue abnorma lities. The trachea is midline. Mild cardiomegaly. Prominent right pulmonary artery. Correlate for pulmonary artery hypertension. No pneumothorax, pleural effusions, or consolidations.
[2024-04-26 18:35] LABS: Basophils # (auto) 0.1 10 ^3/uL (0-0.2); Basophils % (auto) 0.5 % (0.0-2.0); Eosinophils # (auto) 0.1 10 ^3/uL (0-0.8); Eosinophils % (auto) 0.9 % (0.0-7.0); Hemoglobin 16.2 g/dL (13.5-17.5); Lymphocytes # (auto) 1.6 10 ^3/uL (0.4-5.4); Lymphocytes % (auto) 13.1 % (10.0-50.0); Mean Corpuscular Hemoglobin 32.3 pg (28.0-32.0); Mean Corpuscular Volume 89.7 fL (80.0-100.0); Monocytes # (auto) 1.2 10 ^3/uL (0-1.3); Monocytes % (auto) 10.4 % (0.0-12.0); Neutrophils % (auto) 75.1 % (37.0-80.0); Platelet Count (auto) 285 10^3/uL (140-450); Red Blood Cells 5.01 10^6/uL (4.5-5.90); Red Cell Distribution Width 13.1 % (11.8-14.3); White Blood Cell 11.9 10^3/uL (4.4-10.8)
[2024-04-26 18:50] LABS: Chloride 99 mmol/L (98-107); Potassium 4.8 mmol/L (3.5-5.1); Sodium 132 mmol/L (136-145)
[2024-04-26 18:51] LABS: Anion Gap 8 (5-15); Calcium 10.3 mg/dL (8.7-10.4); Carbon Dioxide 25 mmol/L (20-31)
[2024-04-26 18:55] LABS: Urine Bacteria None Seen /hpf (None Seen)
[2024-04-26 18:56] LABS: BUN/Creatinine Ratio 18.4 (10.0-20.0); Blood Urea Nitrogen 32 mg/dL (9-23); Glucose 400 mg/dL (74-106)
[2024-04-26 18:57] LABS: Magnesium 2.5 mg/dL (1.6-2.6)
[2024-04-26 19:38] LABS: Urine Blood Negative /uL (Negative); Urine Clarity Turbid (Clear); Urine Color Dark-Yellow (Yellow); Urine Hyaline Cast MANY /lpf (0 - 2); Urine Mucus FEW (None Seen); Urine Protein, UAD 1+ (Negative); Urine Specific Gravity 1.025 (1.001-1.035); Urine Urobilinogen Normal (Negative); Urine WBC 6 /hpf (0 - 3)
[2024-04-26 19:40] LABS: Rapid Influenza A Negative (Negative); Rapid Influenza B Negative (Negative)
[2024-04-26 19:41] LABS: COVID19 ANTIGEN SOFIA FIA NEGATIVE (NEGATIVE)
[2024-04-26] MEDS ORDERED: ONDANSETRON HCL 4 MG/2 ML VIAL IV PRN (21:00)
[2024-04-26] MEDS ORDERED: NITROGLYCERIN 0.4 MG SL TAB SL PRN (21:00)
[2024-04-26] MEDS ORDERED: MORPHINE SULFATE INJ 2 MG/ml SYRG IV PRN ×2 (21:00)
[2024-04-26] MEDS ORDERED: DEXTROSE (50%) 50ML SYRG IV PRN (21:15)
[2024-04-26] MEDS: FUROSEMIDE 40 MG/4 ML VIAL IV ONE (21:20)
[2024-04-26 21:45] VITALS: PULSE 70; RESP 15; O2SAT 99
[2024-04-26] MEDS: FUROSEMIDE 40 MG/4 ML VIAL IV SCH (21:45)
--- NOTE | 2024-04-26 21:50 | DVHHPRES ---
History of Present Illness Resident Creating Document: FRANCINE MCDONNELL RESIDENT History of Present Illness CRUZ JO is a 83-year-old male with PMH of diabetes, hypertension, hyperlipidemia, CHF, severe mitral valve regurgitation, pulmonary hypertension, and BPH who comes in with complaints of shortness of breath since 2 weeks. Patient reported has been having shortness of breath for the last 2 weeks which is worsening with dry cough, cold, sore throat but for past 2 days has been having fever and chills. Friday he went to PCP and use some antibiotic but patient did not find any relief. Patient reported having difficulty in sleeping due to orthopnea and PND. On my assessment patient denies palpitations, nausea, vomiting, diarrhea, chest pain, and other associated symptoms Past Medical History T2 DM, hypertension, hyperlipidemia, CHF, severe mitral valve regurgitation, pulmonary hypertension, and BPH Past Surgical History Appendectomy Family History: None Past Social History Lives with . Denies smoking, alcohol and other drug abuse Review of Systems Constitutional: Yes: Fever, Chills, Weakness Eyes: No: Pain, Vision change, Conjunctivae inflammation, Eyelid inflammation, Other, Redness ENT: No: Ear pain, Ear discharge, Nose pain, Nose discharge, Nose congestion, Mouth pain, Mouth swelling, Throat pain, Throat swelling, Other Respiratory: Cough, Dry, Shortness of breath, SOB with excertion Cardiovascular: Orthopnea, Paroxysmal Noc. Dyspnea, Lt Headedness Gastrointestinal: No: Nausea, Vomiting, Abdominal Pain, Diarrhea, Constipation, Melena, Hematochezia, Other Genitourinary: No Dysuria, No Frequency, No Incontinence, No Hematuria, No Retention, No Other Musculoskeletal: No: other, neck pain, shoulder pain, arm pain, back pain, hand pain, leg pain, foot pain Skin: No: Rash, Lesions, Jaundice, Bruising, Other Neurological: No: Weakness, Numbness, Incoordination, Change in speech, Confusion, Seizures, Other Allergies: Coded Allergies: Glipizide (Verified Allergy, Intermediate, 05/28/23) Hydromorphone (Verified Allergy, Unknown, 04/26/24) Medications Current Medications Medications Dose Ordered Sig/Peter Route Start Time Stop Time Status Last Admin Dose Admin Sodium Chloride 10 ml Q8HR IV 04/26/24 22:00 Acetaminophen 325 mg Q4HP PRN PO 04/26/24 21:00 Ondansetron HCl 4 mg Q4HP PRN IV 04/26/24 21:00 Morphine Sulfate 2 mg Q4HPRN PRN IV 04/26/24 21:00 Enoxaparin Sodium 40 mg DAILY@2100 SC 04/26/24 21:00 Nitroglycerin 0.4 mg Q5MINP PRN SL 04/26/24 21:00 Morphine Sulfate 2 mg Q30M PRN IV 04/26/24 21:00 Diagnostic Test (Pha) 1 strip ACHS 04/26/24 22:00 Insulin Human Regular HS SC 04/26/24 22:00 Insulin Human Regular AC SC 04/27/24 07:00 Dextrose 50 ml UD PRN IV 04/26/24 21:15 Insulin Glargine 15 units QAM SC 04/27/24 07:00 Furosemide 40 mg DAILY IV 04/26/24 21:45 UNV Aspirin 81 mg DAILY PO 04/27/24 10:00 UNV Atorvastatin Calcium 20 mg DAILY PO 04/27/24 10:00 UNV Carvedilol 3.125 mg BID PO 04/26/24 22:00 UNV Hydralazine HCl 25 mg BID PO 04/26/24 22:00 UNV Tamsulosin HCl 0.4 mg DAILY PO 04/27/24 10:00 UNV Exam Vital Signs Vital Signs Date Time Temp Pulse Resp B/P (MAP) Pulse Ox O2 Delivery O2 Flow Rate FiO2 04/26/24 21:20 119/85 04/26/24 21:01 97 16 97 Room Air 04/26/24 21:01 97.4 97.4 04/26/24 18:08 0 21 Exam Pt is lying on bed General Appearance: Alert, Oriented X3, Cooperative, Not in acute distress HEENT: Atraumatic, Mucous membranes moist/pink Respiratory: Clear to auscultation, Normal air movement, No added sounds Cardiovascular: Systolic murmur heard at apex Abdominal: Active bowel sounds, Soft, no distention, no tenderness Extremities: No edema, Normal pulses, No tenderness/swelling Skin: No Significant rash, except past surgical scars Neuro: Normal speech, sensorimotor deficits none Psych/Mental Status: Mental status NL, Mood NL Nurse was there as sharperone during examination Labs/Xrays Labs Test 04/26/24 18:55 04/26/24 18:16 04/26/24 18:12 Range/Units Urine Color Dark-yellow Yellow Urine Clarity Turbid H Clear Urine pH 5.0 5.0-9.0 Urine Specific [place] 1.025 1.001-1.035 Urine Protein 1+ H Negative Urine Ketones Negative Negative Urine Blood Negative Negative /uL Urine Nitrite Negative Negative Urine Bilirubin Negative Negative Urine Urobilinogen Normal Negative mg/dL Urine Leukocyte Esterase Negative Negative /uL Urine RBC 7 0 - 3 /hpf Urine WBC 6 0 - 3 /hpf Urine Squamous Epithelial Cells Few <5 /hpf Urine Bacteria None seen None Seen /hpf Urine Hyaline Casts Many 0 - 2 /lpf Urine Mucus Few None Seen Urine Glucose 4+ H Normal mg/dL Influenza Type A Antigen Negative Negative Influenza Type B Antigen Negative Negative SARS-CoV-2 Antigen (Rapid) Negative NEGATIVE White Blood Count 11.9 H 4.4-10.8 10^3/uL Red Blood Count 5.01 4.5-5.90 10^6/uL Hemoglobin 16.2 13.5-17.5 g/dL Hematocrit 45.0 41.0-53.0 % Mean Corpuscular Volume 89.7 80.0-100.0 fL Mean Corpuscular Hemoglobin 32.3 H 28.0-32.0 pg Mean Corpuscular Hemoglobin Concent 36.0 32.0-36.0 g/dL Red Cell Distribution Width 13.1 11.8-14.3 % Platelet Count 285 140-450 10^3/uL Mean Platelet Volume 8.1 6.9-10.8 fL Neutrophils (%) (Auto) 75.1 37.0-80.0 % Lymphocytes (%) (Auto) 13.1 10.0-50.0 % Monocytes (%) (Auto) 10.4 0.0-12.0 % Eosinophils (%) (Auto) 0.9 0.0-7.0 % Basophils (%) (Auto) 0.5 0.0-2.0 % Neutrophils # (Auto) 9.0 H 1.6-8.6 10 ^3/uL Lymphocytes # (Auto) 1.6 0.4-5.4 10 ^3/uL Monocytes # (Auto) 1.2 0-1.3 10 ^3/uL Eosinophils # (Auto) 0.1 0-0.8 10 ^3/uL Basophils # (Auto) 0.1 0-0.2 10 ^3/uL Nucleated Red Blood Cells 0.0 % Sodium Level 132 L 136-145 mmol/L Potassium Level 4.8 3.5-5.1 mmol/L Chloride Level 99 98-107 mmol/L Carbon Dioxide Level 25 20-31 mmol/L Anion Gap 8 5-15 Blood Urea Nitrogen 32 H 9-23 mg/dL Creatinine 1.74 H 0.700-1.30 mg/dL Glomerular Filtration Rate Calc 39 >90 mL/min BUN/Creatinine Ratio 18.4 10.0-20.0 Serum Glucose 400 H 74-106 mg/dL Calcium Level 10.3 8.7-10.4 mg/dL Magnesium Level 2.5 1.6-2.6 mg/dL Troponin I High Sensitivity 27 </=54 ng/L B-Type Natriuretic Peptide 3260.56 0-100 pg/mL Assessment/Plan Assessment/Plan # acute on chronic HFrEF # Severe mitral regurgitation # Pulmonary HTN -elevated BNP -echo on 03/28/2024 showed severely dilated LV with EF 10%, dilated RV with RV pressure 70, dilated right and left atrium -consulted cardiology for further management -strict I&O -continue IV Lasix -monitor lab and correct electrolytes if needed -resumed home meds # leukocytosis unspecified # rule out sepsis -continuously monitor lab -elevated WBC # uncontrolled type 2 DM -pending HbA1c -moderate ISS and Lantus 15 units -continuously monitor # Ronal likely VMN -continuously monitor lab # mild hyponatremia -monitor lab Lovenox for now No GI PPX Cardiac diet Reconciled home meds Goals of care discussed with the patient for more than 27 minutes: Full code status Case management discussed with Dr. Leiva, patient and nurse Plan discussed with: Patient My Orders Orders - FRANCINE MCDONNELL RESIDENT Procedure Category Date Status Time Admit ADMIT 04/26/24 Transmitted 20:54 Allergies MANUEL 04/26/24 In Process 20:54 Code Status CODE 04/26/24 Transmitted 20:54 2 Gm Sodium Diet DIET 04/27/24 Transmitted Breakfast Sodium Chloride Lock PHA 04/26/24 In Process (Saline Lock Ns) 22:00 Acetaminophen Tablet PHA 04/26/24 In Process (Tylenol Tablet) 21:00 Ondansetron Hcl PHA 04/26/24 In Process (Zofran) 21:00 Complete Blood Count LAB 04/27/24 Verified 04:00 Comprehensive LAB 04/27/24 Verified Metabolic Panel 04:00 Cardiac DIET 04/27/24 Transmitted Diet-2gna,Lofat,Lochol Breakfast Echo 2d Mode Cardiac US 04/26/24 Logged DOP 20:54 Carotid Duplx W Color US 04/26/24 Taken DOP 20:54 Morphine Sulfate PHA 04/26/24 In Process Injection 21:00 Enoxaparin Sodium PHA 04/26/24 In Process (Lovenox) 21:00 Nitroglycerin PHA 04/26/24 In Process Sublingual (Ntrostat 21:00 Morphine Sulfate PHA 04/26/24 In Process Injection 21:00 Oxygen By Nasal RT 04/26/24 Transmitted Cannula 20:54 Stat Ekg For Chest MANUEL 04/26/24 In Process Pain 20:54 Notify Of Changes MANUEL 04/26/24 In Process From Base 20:54 Gymnastics Coach Or Instructor For [facility] 04/26/24 In Process 24 Hours 20:54 Emergency Dysrhythmia [facility] 04/26/24 In Process Protocol 20:54 Rhythm Strips Once [facility] 04/26/24 In Process Every Shift 20:54 Glucose Blood PHA 04/26/24 In Process (Accu-Chek Comfort 22:00 Insulin R (Human) PHA 04/26/24 In Process (Insulin R) 22:00 Insulin R (Human) PHA 04/27/24 In Process (Insulin R) 07:00 Dextrose 50% Syringe PHA 04/26/24 In Process 21:15 Insulin Lantus PHA 04/27/24 In Process (Glargine) (Lantus) 07:00 * Cardiology Consult CONS 04/26/24 Transmitted 21:08 Comprehensive LAB 04/26/24 Logged Metabolic Panel 21:10 PTPTT LAB 04/27/24 Verified 04:00 Thyroid Stimulating LAB 04/26/24 Logged Hormone 21:10 Vitamin B12 LAB 04/26/24 Logged 21:10 Vitamin D, 25-Hydroxy LAB 04/26/24 Logged 21:10 Furosemide Injection PHA 04/26/24 Logged (Lasix Injection) 21:45 Aspirin Enteric PHA 04/27/24 Logged Coated Tablet 10:00 Atorvastatin (Lipitor) PHA 04/27/24 Logged 10:00 Carvedilol Tablet PHA 04/26/24 Logged (Coreg Tablet) 22:00 Hydralazine Hcl PHA 04/26/24 Logged Tablet (Apresoline 22:00 Tamsulosin PHA 04/27/24 Logged Hydrochloride (Flomax) 10:00 Date of Service: Apr 26, 2024 Billing Provider: ROSETTE LEIVA MD Common Visit Codes: [id number] INP/OBS CARE (HIGH) Secondary Visit Codes: 48811-OERNIPID CARE PLAN 30 MINUTES FRANCINE MCDONNELL RESIDENT Apr 26, 2024 21:50 ROSETTE LEIVA MD Apr 27, 2024 09:32
[2024-04-26] MEDS: ACETAMINOPHEN 325 MG TAB PO PRN (22:04)
[2024-04-26] MEDS: ENOXAPARIN SOD 40 MG/0.4 ML SYRINGE SC SCH (22:05)
[2024-04-26] MEDS: ACCU-CHEK COMFORT CURVE STRIP VI SCH (22:05)
[2024-04-26] MEDS: SODIUM CHLOR 0.9% PF (SALINE LOCK) 10ML VIAL/SYR IV SCH (22:05)
[2024-04-26] MEDS: hydrALAZINE HCL 25 MG TAB PO SCH (22:09)
[2024-04-26] MEDS: InsuLIN REG 1unit/0.01ml Soln (100units/ml) SC SCH (22:10)
[2024-04-26] MEDS: CARVEDILOL 3.125 MG TAB PO SCH (22:10)
--- NOTE | 2024-04-26 22:12 | DVH ---
Carotid Doppler Examination CLINICAL HISTORY: dizziness TECHNIQUE: Real-time high resolution grayscale imaging and color Doppler flow imaging with pulsed du plex sonography of the carotid and vertebral arteries is performed. Velocity criteria are extrapolated from angiographic diameter data as defined by the Society of Radio logists in Ultrasound Consensus Conference (Radiology 2003; 229: 340-346). FINDINGS: There is no significant marmolejo scale stenosis. Scattered plaquing noted bilaterally. Arterial wavefor ms are satisfactory. Antegrade flow noted in the bilateral vertebral arteries. Peak systolic velocities: Right ICA proximal: 25.7 Right ICA mid: 29.8 Right ICA distal: 37.7 Right systolic ICA/CCA ratio: 1.4 Left ICA proximal:21.0 Left ICA mid:23.6 Left ICA distal:26.7 Left systolic ICA/CCA ratio:1.6 IMPRESSION: No hemodynamically significant carotid stenosis or occlusion identified at this time. Antegrade flow in the vertebral arteries.
[2024-04-26] MEDS ORDERED: AZITHROMYCIN 500MG/ 250ML 250 ML IV SCH (23:00)
[2024-04-27] VITALS (10 sets, daily range): BP systolic 79–110; BP diastolic 50–81; PULSE 48–85; RESP 16–24; TEMP 96.7–98.3; O2SAT 94–98
[2024-04-27] MEDS: FUROSEMIDE 40 MG/4 ML VIAL IV ONE (04:30)
[2024-04-27] MEDS: InsuLIN REG 1unit/0.01ml Soln (100units/ml) SC SCH (05:21)
[2024-04-27] MEDS: INSULIN LANTUS (GLARGINE) 1 /0.01ml (100units/ml) SC SCH (05:26)
[2024-04-27 06:15] LABS: Alanine Aminotransferase 69 U/L (7-40); Albumin 4.1 g/dL (3.2-4.8); Alkaline Phosphatase 98 U/L (46-116); Anion Gap 9 (5-15); Aspartate Aminotransferase 68 U/L (13-40); BUN/Creatinine Ratio 20.8 (10.0-20.0); Bilirubin, Total 1.7 mg/dL (0.2-1.0); Blood Urea Nitrogen 33 mg/dL (9-23); Calcium 9.7 mg/dL (8.7-10.4); Carbon Dioxide 25 mmol/L (20-31); Chloride 101 mmol/L (98-107); INR 1.19 (0.9-1.15); Partial Thromboplastin Time 30.2 SEC (24.5-34.5); Potassium 4.2 mmol/L (3.5-5.1); Prothrombin Time 12.5 sec (9.3-11.8); Sodium 135 mmol/L (136-145)
[2024-04-27 06:16] LABS: Total Protein 6.9 g/dL (5.7-8.2)
[2024-04-27 06:18] LABS: Glucose 141 mg/dL (74-106)
[2024-04-27 06:21] LABS: Hematocrit 43.6 % (41.0-53.0); Hemoglobin 15.2 g/dL (13.5-17.5); Mean Corpuscular Hemoglobin 31.2 pg (28.0-32.0); Mean Corpuscular Hgb Conc. 34.9 g/dL (32.0-36.0); Mean Corpuscular Volume 89.4 fL (80.0-100.0); Platelet Count (auto) 259 10^3/uL (140-450); Red Blood Cells 4.88 10^6/uL (4.5-5.90); Red Cell Distribution Width 13.3 % (11.8-14.3); White Blood Cell 11.7 10^3/uL (4.4-10.8)
[2024-04-27 06:29] LABS: Band Neutrophils % (manual) 0; Basophils % (manual) 0 (0.0-2.0); Blast Cells 0; Myelocytes % 0; Promyelocytes % 0; Reactive Lymphocytes 0
--- NOTE | 2024-04-27 07:14 | ECG ---
[facility] Test Date: 2024-04-26 Test Time: 17:25:00 Pat Name: CRUZ JO Department: ER Room: 0250T A Gender: M Van Loader: AMEE : 1940 Requested By: DIPAK WILDE Order Number: [id number] Reading MD: Mark Correa Measurements Intervals [place] Rate: 93 P: 182 SD: 227 QRS: 146 QRSD: 168 T: 1 QT: 437 QTc: 544 Interpretive Statements Sinus or ectopic atrial rhythm Prolonged SD interval Nonspecific intraventricular conduction delay Anterolateral infarct, old Baseline wander in lead(s) V3,V5 Electronically Signed On 04-29-2024 11:17:45 PST by Mark Correa Please click the below link to view image of tracing.
[2024-04-27 08:29] LABS: Eosinophils % (manual) 2 (0-7); Lymphocytes % (manual) 22 (10.0-50.0); Metamyelocytes % 3; Monocytes % (manual) 4 (0-12); Platelet Estimate Adequate
[2024-04-27] MEDS ORDERED: LEVALBUTEROL HCL 1.25 MG/3 ML NEB NEB PRN (08:30)
[2024-04-27] MEDS ORDERED: IPRATROPIUM BROM 0.5 MG/2.5ML INH SOL NEB PRN (08:30)
--- NOTE | 2024-04-27 08:40 | DVH ---
INDICATION: Transaminitis. TECHNIQUE: Multiple real-time sonographic images of the abdomen were obtained. COMPARISON: None FINDINGS: The liver is homogenous in echogenicity. Nodular contour of the liver. The liver measures 14.4 cm. No intrahepatic biliary ductal dilatation is noted. Hepatopetal flow in the main portal vei n. The gallbladder wall measures 0.6 cm and is unremarkable. No gallstones or sludge is seen. Common b ile duct is not visualized. There is pericholecystic free fluid. The right kidney measures 9.3 cm. No hydronephrosis. The pancreas is not well visualized due to obscuration from bowel gas. The visualized portions of the IVC and aorta are grossly unremarkable. IMPRESSION: 1. Nodular contour of the liver which may reflect cirrhosis. 2. Gallbladder wall thickening and pericholecystic free fluid, nonspecific. No positive sonographic m urphy's sign or gallstones are present to suggest acute cholecystitis.
[2024-04-27] MEDS ORDERED: DOXYCYCLINE 100MG/250ML 250 ML IV ONE (08:45)
[2024-04-27] MEDS ORDERED: cefTRIAXone 1GM/50ML D5W 50 ML IV SCH ×2 (09:00)
[2024-04-27 09:31] LABS: Amphetamine Screen, Urine Neg (NEGATIVE); Barbiturate Scree,Urine Neg (NEGATIVE); Benzodiazephine Screen, Urine Neg (NEGATIVE); Cocaine Screen, Urine Neg (NEGATIVE); Opiate Scree,Urine Neg (NEGATIVE)
[2024-04-27 09:32] LABS: Cannabinoid Screen, Urine Neg (NEGATIVE); Phencyclidine Screen, Urine Neg (NEGATIVE)
[2024-04-27] MEDS: ATORVASTATIN 20 MG TAB PO SCH (09:39)
[2024-04-27] MEDS: cefTRIAXone 1GM/50ML D5W 50 ML IV ONE (09:39)
[2024-04-27] MEDS: FUROSEMIDE 40 MG/4 ML VIAL IV SCH (09:40)
[2024-04-27] MEDS: ASPirin-EC 81 mg tab PO SCH (09:40)
[2024-04-27] MEDS: PIPERACILLIN-TAZOB 3.375GM 100 ML IV SCH (10:30)
[2024-04-27] MEDS: DOXYCYCLINE 100MG/250ML 250 ML IV SCH (10:52)
--- NOTE | 2024-04-27 13:55 | CONS ---
Pharmacy Clinical Information: From Concurrent Heart Failure CQM, Nestor Grimes is a 83 year old male with PMH of DM, HTN, HLD, CHF (LVEF 10%), mitral valve regurgitation, pulmonary hypertension, and BPH. His home medications for heart failure include carvedilol, furosemide, hydralazine, and isosorbide mononitrate. Previous hospitalization discharge [facility] [place] from 03/29/24 noted that patient was continued on empaglilozin, spironolactone, entresto, carvedilol, hydralazine, and isosorbide mononitrate. His current inpatient medications include carvedilol, furosemide. ARNi/ARB/ACEi and SGLT2i are not recommended due to elevated sCr and BUN, and hypotensive episodes. Consider initiating spironolactone 12.5 mg PO QD since patient is symptomatic with K <5 and eGFR > 30. Consider initiating entresto 24/ PO BID and empagliflzoin 10 mg PO QD once patient is hemodynamically stable and renal function stabilizes. TONE ROJAS PHARMACIST Apr 27, 2024 13:55
[2024-04-27] MEDS ORDERED: AUG875T PO (14:33)
--- NOTE | 2024-04-27 14:55 | DVHINCON2 ---
Date Seen: Apr 27, [address] Ambrose Reason for Consultation CHF exacerbation History of Present Illness Nestor Grimes is a 83-year-old male patient who presents to the ED with chief complaint of progressive dyspnea which started in functional class II and progressive functional class IV one week before admission, he also reports paroxysmal nocturnal dyspnea which evolved to orthopnea, fever, chills, sore throat and productive cough with white phlegm. Denies palpitation, chest pain, syncope, nausea, vomiting, diarrhea, bleeding, dysuria, unintentional weight loss, sick contacts and motor or sensory deficits. Past medical history: Hypertension, diabetes, dyslipidemia, CAD, ischemic cardiomyopathy with severe biventricular dilation, HFrEF (LVEF 10%, RVSP 70 mmHg), severe MR, planning to be evaluated by Korey Cardona to decide treatment (CABG plus MVR versus mitral clip), pending evaluation. Patient had refused LifeVest previously. Intestinal perforation, BPH Surgical history: 2009 intestinal resection due to perforation. 05/2023 coronary angiography with severe multivessel disease (proximal LAD 75%, distal LAD 80%, distal circumflex 90%, 2nd OM 70%, RCA diffuse 90%) Family history: Noncontributory Social history: Lives in [place] with . Denies current tobacco, alcoho l and other drug abuse. Allergies: Glipizide, Dilaudid. Home medication: Tamsulosin 0.4 mg p.o. daily, hydralazine 25 mg p.o. daily, carvedilol 3.125 mg p.o. b.i.d., atorvastatin 20 mg p.o. daily, isosorbide mononitrate 30 mg p.o. daily, aspirin 81 mg p.o. daily Patient seen and examined at bedside. Currently has no new complaints. Past Medical History Per HPI Past Surgical History Per HPI Family History: Alcoholism G8 SISTER, Onset:50's - 60 Alzheimer's disease G8 SISTER, Onset:50's - 60 Cerebrovascular accident (CVA) G8 FATHER, Onset:60 years & older Family History Per HPI Social History Per HPI Allergies: Coded Allergies: Glipizide (Verified Allergy, Intermediate, 05/28/23) Hydromorphone (Verified Allergy, Unknown, 04/26/24) Home Meds Active Scripts Amoxicillin & Pot Clavulanate (AUGMENTIN TABLET) 875 Mg Tb, 875 MG PO BID for 7 Days, #14 TAB Prov:DRUDEMETRIO RESIDENT 04/27/24 Furosemide (Lasix) 20 Mg Tb, 20 MG PO BID for 30 Days, #60 TAB Prov:DELISA GAFFNEY RESIDENT 03/29/24 Reported Medications Isosorbide Mononitrate (Isosorbide Mononitrate Er) 30 Mg Tab, 1 TAB PO DAILY for 30 Days, #30 03/29/24 Aspirin (Aspir-Low) 81 Mg Tab, 81 MG PO DAILY for 30 Days, MG 05/26/23 Hydralazine Hcl (Hydralazine Hcl) 25 Mg Tab, 25 MG PO BID for 30 Days, MG 05/26/23 Furosemide (Furosemide) 20 Mg Tab, 20 MG PO DAILY for 30 Days, MG 05/26/23 Atorvastatin Calcium (ATORVASTATIN CALCIUM) 20 Mg Tab, 1 TAB PO DAILY, #30 TAB 5 Refills 05/26/23 Tamsulosin Hcl (Tamsulosin Hcl) 0.4 Mg Cap, 1 CAP PO DAILY 04/19/23 Carvedilol (Carvedilol) 3.125 Mg Tab, 1 TAB PO BID 04/19/23 Current Medications Current Medications Medications (Trade) Dose Ordered Sig/Peter Route PRN Reason Start Time Stop Time Status Last Admin Sodium Chloride (Saline Lock Ns) 10 ml Q8HR IV 04/26/24 22:00 04/27/24 14:06 Acetaminophen (Tylenol Tablet) 325 mg Q4HP PRN PO MILD PAIN (1-3 PAIN SCALE) 04/26/24 21:00 04/26/24 22:04 Ondansetron HCl (Zofran) 4 mg Q4HP PRN IV NAUSEA / VOMITING 04/26/24 21:00 Morphine Sulfate 2 mg Q4HPRN PRN IV SEVERE PAIN (7-10 PAIN SCALE) 04/26/24 21:00 Enoxaparin Sodium (Lovenox) 40 mg DAILY@2100 SC 04/26/24 21:00 04/26/24 22:05 Nitroglycerin (Ntrostat Sublingual) 0.4 mg Q5MINP PRN SL FOR CHEST PAIN 04/26/24 21:00 Morphine Sulfate 2 mg Q30M PRN IV FOR CHEST PAIN 04/26/24 21:00 Diagnostic Test (Pha) (Accu-Chek Comfort Curve T) 1 strip ACHS 04/26/24 22:00 04/27/24 12:36 Insulin Human Regular (InsuLIN R) HS SC 04/26/24 22:00 04/26/24 22:10 Insulin Human Regular (InsuLIN R) AC SC 04/27/24 07:00 04/27/24 12:41 Dextrose 50 ml UD PRN IV Blood Sugar LESS THAN 60 04/26/24 21:15 Insulin Glargine (Lantus) 15 units QAM SC 04/27/24 07:00 04/27/24 05:26 Furosemide (Lasix Injection) 40 mg DAILY IV 04/26/24 21:45 04/27/24 08:58 DC Aspirin (Ecotrin Enteric Coated Tablet) 81 mg DAILY PO 04/27/24 10:00 04/27/24 09:40 Atorvastatin Calcium (Lipitor) 20 mg HS PO 04/27/24 22:00 04/27/24 08:58 DC Carvedilol (Coreg Tablet) 3.125 mg BID PO 04/26/24 22:00 Hold 04/26/24 22:10 Hydralazine HCl (Apresoline Tablet) 25 mg BID PO 04/26/24 22:00 04/26/24 22:09 Tamsulosin HCl (Flomax) 0.4 mg QPM PO 04/27/24 18:00 04/27/24 09:01 DC Azithromycin 250 ml @ 125 mls/hr DAILY IV 04/26/24 23:00 04/27/24 08:44 DC Levalbuterol HCl (Xopenex Medneb) 0.625 mg Q6HR PRN NEB SHORTNESS OF BREATH 04/27/24 08:30 Ipratropium [place] (Atrovent Medneb) 0.5 mg Q6HPRN PRN NEB SHORTNESS OF BREATH 04/27/24 08:30 Doxycycline Hyclate 250 ml @ 125 mls/hr Q12H IV 04/27/24 08:45 04/27/24 10:52 Ceftriaxone Sodium 50 ml @ 100 mls/hr DAILY@09 IV 04/27/24 09:00 04/27/24 08:46 DC Ceftriaxone Sodium 50 ml @ 100 mls/hr DAILY@ IV 04/27/24 09:00 04/27/24 08:46 DC Ceftriaxone Sodium 50 ml @ 100 mls/hr DAILY@09 IV 04/28/24 09:00 04/27/24 10:26 DC Atorvastatin Calcium (Lipitor) 40 mg HS PO 04/27/24 09:00 04/27/24 09:39 Furosemide (Lasix Injection) 20 mg DAILY IV 04/27/24 10:00 Piperacillin Sod/ Tazobactam Sod 100 ml @ 25 mls/hr Q8HR IV 04/27/24 10:30 04/27/24 14:05 Review of Systems Per HPI Vital Signs Vital Signs Date Time Temp Pulse Resp B/P (MAP) Pulse Ox O2 Delivery O2 Flow Rate FiO2 04/27/24 14:11 98 Room Air* 0 21 04/27/24 14:07 98.3 48 18 107/65 98.3 Physical Exam Patient lying in bed, in no acute distress General: Lucid, afebrile, mucosae are moist Cardiovascular: Normal S1 and S2. No murmurs, gallops or rubs Respiratory: Normal ventilation mechanics. Clear lung sounds on auscultation Abdomen: Soft, nontender, no organomegaly, normal bowel sounds MSK/skin: Mobilizes 4 limbs. Skin is dry and cool, capillary refill approximately 3 seconds. Has dark macule in right hallux. Neurological: Oriented in 3 spheres. No motor no sensitive deficits. Pupils are isocoric and reactive Labs/Diagnostic Data Labs Test 04/27/24 12:35 04/27/24 10:08 04/27/24 04:50 04/26/24 18:55 Range/Units POC Glucose 226 H 70-106 mg/dl Lactic Acid Level 1.5 0.4-2.0 mmol/L White Blood Count 11.7 H 4.4-10.8 10^3/uL Red Blood Count 4.88 4.5-5.90 10^6/uL Hemoglobin 15.2 13.5-17.5 g/dL Hematocrit 43.6 41.0-53.0 % Mean Corpuscular Volume 89.4 80.0-100.0 fL Mean Corpuscular Hemoglobin 31.2 28.0-32.0 pg Mean Corpuscular Hemoglobin Concent 34.9 32.0-36.0 g/dL Red Cell Distribution Width 13.3 11.8-14.3 % Platelet Count 259 140-450 10^3/uL Mean Platelet Volume 8.4 6.9-10.8 fL Neutrophils (%) (Auto) 37.0-80.0 % Lymphocytes (%) (Auto) 10.0-50.0 % Monocytes (%) (Auto) 0.0-12.0 % Basophils (%) (Auto) 0.0-2.0 % Neutrophils # (Auto) 1.6-8.6 10 ^3/uL Lymphocytes # (Auto) 0.4-5.4 10 ^3/uL Monocytes # (Auto) 0-1.3 10 ^3/uL Differential Total Cells Counted 100.0 100 Neutrophils % (Manual) 69 37.0-80.0 Band Neutrophils % (Manual) 0 Lymphocytes % (Manual) 22 10.0-50.0 Monocytes % (Manual) 4 0-12 Eosinophils % (Manual) 2 0-7 Basophils % (Manual) 0 0.0-2.0 Metamyelocytes % (manual) 3 Myelocytes % (Manual) 0 Promyelocytes % (Manual) 0 Blast Cells % (Manual) 0 Reactive Lymphocytes 0 Platelet Estimate Adequate Prothrombin Time 12.5 H 9.3-11.8 sec Prothrombin Time INR 1.19 H 0.9-1.15 Activated Partial Thromboplast Time 30.2 24.5-34.5 SEC Sodium Level 135 L 136-145 mmol/L Potassium Level 4.2 3.5-5.1 mmol/L Chloride Level 101 98-107 mmol/L Carbon Dioxide Level 25 20-31 mmol/L Anion Gap 9 5-15 Blood Urea Nitrogen 33 H 9-23 mg/dL Creatinine 1.59 H 0.700-1.30 mg/dL Glomerular Filtration Rate Calc 43 >90 mL/min BUN/Creatinine Ratio 20.8 H 10.0-20.0 Serum Glucose 141 #H 74-106 mg/dL Calcium Level 9.7 8.7-10.4 mg/dL Total Bilirubin 1.7 H 0.2-1.0 mg/dL Aspartate Amino Transferase (AST) 68 H 13-40 U/L Alanine Aminotransferase (ALT) 69 H 7-40 U/L Alkaline Phosphatase 98 46-116 U/L Total Protein 6.9 5.7-8.2 g/dL Albumin 4.1 3.2-4.8 g/dL Vitamin B12 Level 2485 H 211-911 pg/mL Vitamin D 25-Hydroxy 108.3 H 30.0-100 ng/mL Thyroid Stimulating Hormone (TSH) 3.24 0.55-4.78 uIU/mL Urine Color Dark-yellow Yellow Urine Clarity Turbid H Clear Urine pH 5.0 5.0-9.0 Urine Specific [place] 1.025 1.001-1.035 Urine Protein 1+ H Negative Urine Ketones Negative Negative Urine Blood Negative Negative /uL Urine Nitrite Negative Negative Urine Bilirubin Negative Negative Urine Urobilinogen Normal Negative mg/dL Urine Leukocyte Esterase Negative Negative /uL Urine RBC 7 0 - 3 /hpf Urine WBC 6 0 - 3 /hpf Urine Squamous Epithelial Cells Few <5 /hpf Urine Bacteria None seen None Seen /hpf Urine Hyaline Casts Many 0 - 2 /lpf Urine Mucus Few None Seen Urine Microalbumin 261.0 H <30.0 mg/L Urine Glucose 4+ H Normal mg/dL Urine Opiates Screen Neg NEGATIVE Urine Fentanyl Screen Neg NEGATIVE Urine Barbiturates Screen Neg NEGATIVE Urine Phencyclidine Screen Neg NEGATIVE Urine Amphetamines Screen Neg NEGATIVE Urine Benzodiazepines Screen Neg NEGATIVE Urine Cocaine Screen Neg NEGATIVE Urine Cannabinoids Screen Neg NEGATIVE Test 04/26/24 18:16 04/26/24 18:12 Range/Units Influenza Type A Antigen Negative Negative Influenza Type B Antigen Negative Negative SARS-CoV-2 Antigen (Rapid) Negative NEGATIVE Eosinophils (%) (Auto) 0.9 0.0-7.0 % Eosinophils # (Auto) 0.1 0-0.8 10 ^3/uL Basophils # (Auto) 0.1 0-0.2 10 ^3/uL Nucleated Red Blood Cells 0.0 % Magnesium Level 2.5 1.6-2.6 mg/dL Troponin I High Sensitivity 27 </=54 ng/L B-Type Natriuretic Peptide 3260.56 0-100 pg/mL Assessment Acute on chronic systolic congestive heart failure (HFrEF, LVEF 10%, RVSP 70 mmHg) Ischemic cardiomyopathy with severe biventricular dilation Probable community-acquired pneumonia Gram-positive/Gram-negative Transaminitis DEVAN hemodynamically mediated on CKD Coronary artery disease pending evaluation higher level of care Severe mitral regurgitation Prolonged QT Plan/Recommendation Patient is compliant with medication, also is compliant with diet (avoids sodium in diet and process foods). Probable cause of CHF exacerbation is pneumonia. Continue IV antibiotics per hospitalist, recommend avoiding azithromycin due to prolonged QT. Patient presents soft blood pressures at this point. Had to discontinue GDM T. suggest re titrating once pneumonia has resolved. Patient also has DEVAN on CKD, titrating GDM T at low dose once acute disease has resolved. Patient currently is on furosemide 40 mg IV daily. Can eventually switch to p.o. Patient refused once again life vest. Patient will benefit from annual COVID and influenza vaccination, and pneumococcal vaccination. Discussed plan with Dr. Hopkins, patient and nurses: Patient has acute on chronic CHF exacerbation secondary to probable pneumonia, suggest adjusting GDMT once blood pressure and EDVAN on CKD has resolved, IV antibiotics per hospitalist, recommended annual vaccination for flu and COVID and pneumococcal vaccination, patient refused once again life vest. Patient has poor prognosis. Pending evaluation by higher level of care center ([place]) Plan discussed with: Patient, Other (Nurses) Date of Service: Apr 27, 2024 Billing Provider: NIGEL HOPKINS MD Cardiology Common Codes: [id number] INP/OBS CARE (High), [id number] CARE 30-74 MIN TREVOR TEAGUE RESIDENT Apr 27, 2024 14:55
--- NOTE | 2024-04-27 16:09 | DVHDSRES ---
Discharge Summary Date of Admission Resident Creating Document: KAMI AMAYA RESIDENT Apr 26, 2024 at 20:54 Date of Discharge: Apr 27, 2024 Admitting Diagnosis Shortness of breath Labs/Diagnostic Data: Laboratory Results Test 04/27/24 12:35 04/27/24 10:08 04/27/24 04:50 04/26/24 18:55 POC Glucose 226 mg/dl (70-106) Lactic Acid Level 1.5 mmol/L (0.4-2.0) White Blood Count 11.7 10^3/uL (4.4-10.8) Red Blood Count 4.88 10^6/uL (4.5-5.90) Hemoglobin 15.2 g/dL (13.5-17.5) Hematocrit 43.6 % (41.0-53.0) Mean Corpuscular Volume 89.4 fL (80.0-100.0) Mean Corpuscular Hemoglobin 31.2 pg (28.0-32.0) Mean Corpuscular Hemoglobin Concent 34.9 g/dL (32.0-36.0) Red Cell Distribution Width 13.3 % (11.8-14.3) Platelet Count 259 10^3/uL (140-450) Mean Platelet Volume 8.4 fL (6.9-10.8) Neutrophils (%) (Auto) % (37.0-80.0) Lymphocytes (%) (Auto) % (10.0-50.0) Monocytes (%) (Auto) % (0.0-12.0) Basophils (%) (Auto) % (0.0-2.0) Neutrophils # (Auto) 10 ^3/uL (1.6-8.6) Lymphocytes # (Auto) 10 ^3/uL (0.4-5.4) Monocytes # (Auto) 10 ^3/uL (0-1.3) Differential Total Cells Counted 100.0 (100) Neutrophils % (Manual) 69 (37.0-80.0) Band Neutrophils % (Manual) 0 Lymphocytes % (Manual) 22 (10.0-50.0) Monocytes % (Manual) 4 (0-12) Eosinophils % (Manual) 2 (0-7) Basophils % (Manual) 0 (0.0-2.0) Metamyelocytes % (manual) 3 Myelocytes % (Manual) 0 Promyelocytes % (Manual) 0 Blast Cells % (Manual) 0 Reactive Lymphocytes 0 Platelet Estimate Adequate Prothrombin Time 12.5 sec (9.3-11.8) Prothrombin Time INR 1.19 (0.9-1.15) Activated Partial Thromboplast Time 30.2 SEC (24.5-34.5) Sodium Level 135 mmol/L (136-145) Potassium Level 4.2 mmol/L (3.5-5.1) Chloride Level 101 mmol/L (98-107) Carbon Dioxide Level 25 mmol/L (20-31) Anion Gap 9 (5-15) Blood Urea Nitrogen 33 mg/dL (9-23) Creatinine 1.59 mg/dL (0.700-1.30) Glomerular Filtration Rate Calc 43 mL/min (>90) BUN/Creatinine Ratio 20.8 (10.0-20.0) Serum Glucose 141 mg/dL (74-106) Calcium Level 9.7 mg/dL (8.7-10.4) Total Bilirubin 1.7 mg/dL (0.2-1.0) Aspartate Amino Transferase (AST) 68 U/L (13-40) Alanine Aminotransferase (ALT) 69 U/L (7-40) Alkaline Phosphatase 98 U/L (46-116) Total Protein 6.9 g/dL (5.7-8.2) Albumin 4.1 g/dL (3.2-4.8) Vitamin B12 Level 2485 pg/mL (211-911) Vitamin D 25-Hydroxy 108.3 ng/mL (30.0-100) Thyroid Stimulating Hormone (TSH) 3.24 uIU/mL (0.55-4.78) Urine Color Dark-yellow (Yellow) Urine Clarity Turbid (Clear) Urine pH 5.0 (5.0-9.0) Urine Specific Rousseau 1.025 (1.001-1.035) Urine Protein 1+ (Negative) Urine Ketones Negative (Negative) Urine Blood Negative /uL (Negative) Urine Nitrite Negative (Negative) Urine Bilirubin Negative (Negative) Urine Urobilinogen Normal mg/dL (Negative) Urine Leukocyte Esterase Negative /uL (Negative) Urine RBC 7 /hpf (0 - 3) Urine WBC 6 /hpf (0 - 3) Urine Squamous Epithelial Cells Few /hpf (<5) Urine Bacteria None seen /hpf (None Seen) Urine Hyaline Casts Many /lpf (0 - 2) Urine Mucus Few (None Seen) Urine Microalbumin 261.0 mg/L (<30.0) Urine Glucose 4+ mg/dL (Normal) Urine Opiates Screen Neg (NEGATIVE) Urine Fentanyl Screen Neg (NEGATIVE) Urine Barbiturates Screen Neg (NEGATIVE) Urine Phencyclidine Screen Neg (NEGATIVE) Urine Amphetamines Screen Neg (NEGATIVE) Urine Benzodiazepines Screen Neg (NEGATIVE) Urine Cocaine Screen Neg (NEGATIVE) Urine Cannabinoids Screen Neg (NEGATIVE) Test 04/26/24 18:16 04/26/24 18:12 Influenza Type A Antigen Negative (Negative) Influenza Type B Antigen Negative (Negative) SARS-CoV-2 Antigen (Rapid) Negative (NEGATIVE) Eosinophils (%) (Auto) 0.9 % (0.0-7.0) Eosinophils # (Auto) 0.1 10 ^3/uL (0-0.8) Basophils # (Auto) 0.1 10 ^3/uL (0-0.2) Nucleated Red Blood Cells 0.0 % Magnesium Level 2.5 mg/dL (1.6-2.6) Troponin I High Sensitivity 27 ng/L (</=54) B-Type Natriuretic Peptide 3260.56 pg/mL (0-100) Other Laboratory Tests 04/27/24 04:50 Brief Hx & Hospital Course: Nestor Grimes is a 83-year-old male patient with PMHx of congestive heart failure ejection fraction diagnosed 8 months back EF 10%, seizure mitral regurgitation, pulmonary hypertension, type 2 diabetes mellitus, dyslipidemia, BPH who presented to the ER with the chief complaint of shortness of breath. Patient reports that he was experiencing sore throat for the past week associated with fever and chills and generalized weakness for which he visited his primary care physician Paulina Gallagher who prescribed antibiotics starting 04/23 which the patient took for the next 3 days. Following this, patient reports worsening shortness of breath, orthopnea, paroxysmal nocturnal dyspnea associated with generalized fatigue, low appetite and a dry cough. Denies chest pain, syncope, nausea, vomiting, diarrhea, dysuria, or palpitations. He reports taking his heart failure medications regularly. Patient could not speak in full sentences when he came in. Patient was last seen in this facility on March 29 for CHF exacerbation, Cardiology was consulted he was recommended to follow with [facility] for mitral valve repair versus CABG which the patient never did. During the hospital workup, troponin was stable at 27. BNP was elevated at 3260. Chest x-ray was completed which showed mild cardiomegaly and prominent right pulmonary artery. EKG was completed which showed prolonged QTC. Cardiology was consulted and patient was diagnosed with acute on chronic systolic congestive heart failure exacerbation probably secondary to community- acquired pneumonia and therefore he was started on IV Zosyn and doxycycline given his recent hospitalization. Patient received 1 dose of furosemide 40 mg IV and was continued on furosemide 20 mg daily IV which was later put on hold given the low blood pressure. He was also continued on aspirin 81 mg and atorvastatin 40 mg daily along with nebulized treatment with levalbuterol and ipratropium. Coreg was discontinued given the low blood pressure. Given his recent echocardiogram which was completed on 03/28/2024 which showed LVEF 10%. Dilated RV with RVSP 70 mmHg and dilated RA and LA, cardiology suggested the placement of LifeVest which the patient refused. Cardiology also suggested adjusting GDMT once the blood pressure and DEVAN on CKD resolve along with a strong recommendation to receive annual flu/COVID/pneumococcal vaccinations. Patient has poor prognosis per Cardiology. 04/27/2024-patient feels fine, wants to go home, clinically and hemodynamically stable and is therefore being discharged home with the recommendation to follow up with higher level of care - [place] for severe MR versus CABG, he is also advised to follow up with his discharge clinic appointment, follow up with his primary care physician within 7-14 days and follow up with his minister helper within 7-14 days of discharge. Patient is being discharged on Augmentin 875 mg twice daily for the next 7 days. Examination on the day of discharge: Elderly male patient lying in bed, in no acute distress General: Well-built, afebrile, palor, mucosae are moist Cardiovascular: Regular S1 and S2. No murmurs, gallops or rubs. No JVD elevation. 1+ lower extremity pitting edema noticed. Respiratory: Normal B/L air entry on room air. Clear lung sounds on auscultation Abdomen: Midline umbilical scar seen. Soft, nontender, nondistended, normoactive bowel sounds, no rebound tenderness, no organomegaly, no masses Genitourinary: Deferred MSK/skin: Mobilizes 4 limbs. Skin is dry and warm Neurological: No motor, no sensitive deficits, normal speech. Pupils are isocoric and reactive. Psych/Mental Status: A/Ox4 Goals of care discussed with the patient and his for 20 minutes; undecided Discussed with Dr. Michaels Consults/Reason for consult Cardiology consulted for CHF exacerbation Operations or Procedures ORDERING PHYSICIAN: KAMI AMAYA PROCEDURE(s): LIVUS - LIVER REASON: transamnitis ORDER NUMBER(s): [id number], ACCESSION NUMBER(s): [id number] INDICATION: Transaminitis. TECHNIQUE: Multiple real-time sonographic images of the abdomen were obtained. COMPARISON: None FINDINGS: The liver is homogenous in echogenicity. Nodular contour of the liver. The liver measures 14.4 cm. No intrahepatic biliary ductal dilatation is noted. Hepatopetal flow in the main portal vein. The gallbladder wall measures 0.6 cm and is unremarkable. No gallstones or sludge is seen. Common bile duct is not visualized. There is pericholecystic free fluid. The right kidney measures 9.3 cm. No hydronephrosis. The pancreas is not well visualized due to obscuration from bowel gas. The visualized portions of the IVC and aorta are grossly unremarkable. IMPRESSION: 1. Nodular contour of the liver which may reflect cirrhosis. 2. Gallbladder wall thickening and pericholecystic free fluid, nonspecific. No positive sonographic dodson's sign or gallstones are present to suggest acute cholecystitis. ATED BY: ALMAS BLANCO MD DICTATED DATE/TIME: 04/27/24836 SIGNED BY: ALMAS BLANCO MD SIGNED DATE/TIME: 04/27/24836 CC: ORDERING PHYSICIAN: FRANCINE MCDONNELL PROCEDURE(s): CARCL - CAROTID DUPLX W COLOR DOP REASON: dizziness ORDER NUMBER(s): [id number], ACCESSION NUMBER(s): [id number] Carotid Doppler Examination CLINICAL HISTORY: dizziness TECHNIQUE: Real-time high resolution grayscale imaging and color Doppler flow imaging with pulsed duplex sonography of the carotid and vertebral arteries is performed. Velocity criteria are extrapolated from angiographic diameter data as defined by the Society of Radiologists in Ultrasound Consensus Conference (Radiology 2003; 229: 340-346). FINDINGS: There is no significant marmolejo scale stenosis. Scattered plaquing noted bilaterally. Arterial waveforms are satisfactory. Antegrade flow noted in the bilateral vertebral arteries. Peak systolic velocities: Right ICA proximal: 25.7 Right ICA mid: 29.8 Right ICA distal: 37.7 Right systolic ICA/CCA ratio: 1.4 Left ICA proximal:21.0 Left ICA mid:23.6 Left ICA distal:26.7 Left systolic ICA/CCA ratio:1.6 IMPRESSION: No hemodynamically significant carotid stenosis or occlusion identified at this time. Antegrade flow in the vertebral arteries. ATED BY: ANDREW SEN MD DICTATED DATE/TIME: 04/26/242209 SIGNED BY: ANDREW SEN MD SIGNED DATE/TIME: 04/26/242209 CC: ORDERING PHYSICIAN: DIPAK IBARRA PROCEDURE(s): HWOCT - HEAD WITHOUT CONTRAST REASON: syncope ORDER NUMBER(s): [id number], ACCESSION NUMBER(s): [id number] EXAM: CT HEAD WITHOUT CONTRAST INDICATION: syncope TECHNIQUE: CT of the head without intravenous contrast. Radiation dose : Head: CT Dose: CTDI volume is 50.77 mGy. Dose-length product is 813.99 mGy*cm The dose indicators for CT are the volume computed tomography (CT) dose index (CTDIvol) and the dose length product (DLP), and are measured in units of mGy and mGy-cm, respectively. These indicators are not patient dose, but values generated from the CT scanner acquisition factors. The report includes radiation exposure data for exposures received during this examination. COMPARISON: None FINDINGS: There is no evidence of acute intracranial hemorrhage, extra-axial collection, mass effect, midline shift, herniation or hydrocephalus. The ventricles, sulci and cisterns are age appropriate. The marmolejo-white differentiation is intact. 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 The surrounding soft tissues and osseous structures are unremarkable. IMPRESSION: 1. No acute intracranial abnormality. 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 This could be further evaluated with MRI of the brain if clinically indicated Radiation optimization: All CT scans at this facility use at least one of these dose optimization techniques: Automated exposure control mA and/or kV adjustment per patient size (includes targeted exams where dose is matched to clinical indication) or iterative reconstruction. HS:Y ATED BY: ANGELO PALOMO MD DICTATED DATE/TIME: 04/26/241804 SIGNED BY: ANGELO PALOMO MD SIGNED DATE/TIME: 04/26/241804 CC: ORDERING PHYSICIAN: DIPAK IBARRA RESIDENT PROCEDURE(s): CXR2 - CHEST TWO VIEWS ROUTINE REASON: sob ORDER NUMBER(s): [id number], ACCESSION NUMBER(s): [id number] EXAM: XY CHEST TWO VIEWS ROUTINE TECHNIQUE: Two radiographic views of the chest CLINICAL HISTORY: sob COMPARISON: XY CHEST TWO VIEWS ROUTINE on DOS: 03/27/24, XY CHEST TWO VIEWS ROUTINE on DOS: 04/19/23 Findings/Impression: Frontal and lateral chest radiographs demonstrate no acute osseous or superficial soft tissue abnormalities. The trachea is midline. Mild cardiomegaly. Prominent right pulmonary artery. Correlate for pulmonary artery hypertension. No pneumothorax, pleural effusions, or consolidations. ATED BY: BETTY CARROLL DO DICTATED DATE/TIME: 04/26/241808 SIGNED BY: BETTY CARROLL DO SIGNED DATE/TIME: 04/26/241808 CC: Condition at Discharge: Poor (The patient refused LifeVest) Final Diagnosis/Problems List Acute on chronic congestive heart failure exacerbation(HFrEF, LVEF 10%, RVSP 70 mmHg) Acute community-acquired pneumonia, Gram-positive and Gram-negative Presyncope/Dizziness secondary to above Severe mitral regurgitation Ischemic cardiomyopathy with severe biventricular dilation Transaminitis secondary to probable acalculous cholecystitis Coronary artery disease pending evaluation at eye level of care Prolonged QTC Type 2 diabetes mellitus-hemoglobin A1c 7.0 DEVAN likely secondary to vasomotor nephropathy-resolving Dyslipidemia Probable Pulmonary hypertension Benign prostatic hyperplasia Discharge Disposition: Home Discharge Instruct/Medications Diet: Consistent carbohydrate, Cardiac 2g Na,low cholest Activity: Light activity Follow Up/Referral: Follow up with a higher level of care-[facility] for severe MR Follow up with discharge clinic appointment Follow up with primary care physician within 7-14 days for resuming GDMT after the pneumonia resolves Follow up with minister helper outpatient within 7-14 days Medications: Augmentin tablets 875 mg twice daily for the next 7 days Continue home medications Discharge Statement: "Patient was advised to return to the ER or call 911 if any headaches, dizziness, shortness of breath, chest pain, abdominal pain, bleeding, fevers, or worsening of medical condition. Patient was counseled about treatment plan, medications, possible side effects, patientverbalized understanding. All questions were answered to the best of my ability. This discharge took greater then 30 minutes in planning, reviewing documentation, counseling the patient, and discussing with other team members." ASSESSMENT ASSESSMENT Assessment Acute on chronic congestive heart failure exacerbation Acute community-acquired pneumonia, Gram-positive and Gram-negative Addendum Addendum Addendum I was physically present for the camarena portions of the service provided to patient by THE RESIDENT. I have reviewed the documentation, discussed the case with resident and agree with the resident's documentation except as noted. Also the patient's clinical case was discussed with the patient's nurse. This medical document was created using an electronic medical record system with computerized dictation system. Although this document has been carefully reviewed, there might still be some phonetic and typographical errors. These areas are purely typographical due to imperfections of the software programs, and do not reflect any compromise in the patient's medical care. Late signature. Date of Service: Apr 27, 2024 Billing Provider: YOLANDE MICHAELS MD Common Visit Codes: 19506-CQK/OBS DISCH DAY >30min Secondary Visit Codes: 76150-[id number] CARE PLAN 30 MINUTES (20 minutes) KAMI AMAYA RESIDENT Apr 27, 2024 16:09 YOLANDE MICHAELS MD Apr 28, 2024 04:47
[2024-04-27] MEDS ORDERED: TAMSULOSIN HYDROCHLORIDE 0.4 MG CAP PO SCH (18:00)
[2024-04-27] MEDS ORDERED: ATORVASTATIN 20 MG TAB PO SCH (22:00)
[2024-04-28] MEDS ORDERED: cefTRIAXone 1GM/50ML D5W 50 ML IV SCH (09:00)
== END 2024-04-27 18:55 | disposition home or self-care (01) | DRG 177 ==
LOC: ER 17:02 → TELE 20:54 → TELE-EAST 23:32
PROVIDERS: ADMIT Internal Medicine; ATTEND Internal Medicine
DX: J15.69 Pneumonia due to other Gram-negative bacteria (principal); I50.23 Acute on chronic systolic (congestive) heart failure; N17.0 Acute kidney failure with tubular necrosis; I13.0 Hypertensive heart and chronic kidney disease with heart failure and stage 1 through stage 4 chronic kidney disease, or unspecified chronic kidney disease; J15.9 Unspecified bacterial pneumonia; Z20.822 Contact with and (suspected) exposure to COVID-19; I34.0 Nonrheumatic mitral (valve) insufficiency; I27.20 Pulmonary hypertension, unspecified; E11.22 Type 2 diabetes mellitus with diabetic chronic kidney disease; E11.65 Type 2 diabetes mellitus with hyperglycemia; N18.9 Chronic kidney disease, unspecified; N40.0 Benign prostatic hyperplasia without lower urinary tract symptoms; E78.5 Hyperlipidemia, unspecified; I25.5 Ischemic cardiomyopathy; I25.10 Atherosclerotic heart disease of native coronary artery without angina pectoris; R94.31 Abnormal electrocardiogram [ECG] [EKG]; Z90.49 Acquired absence of other specified parts of digestive tract; Z82.3 Family history of stroke; Z82.0 Family history of epilepsy and other diseases of the nervous system; Z88.5 Allergy status to narcotic agent; Z88.8 Allergy status to other drugs, medicaments and biological substances; Z79.899 Other long term (current) drug therapy
CPT/HCPCS: 36415; 70450; 71046; 76705; 80048; 80053; 80307; 81001; 82043; 82306; 82607; 82962; 83605; 83735; 83880; 84443; 84484; 85007; 85025; 85027; 85610; 85730; 87040; 87081; 87426; 87804; 93005; 93886; 94640; G0378; J1815; J2543; J3490

== ENCOUNTER 2024-05-17 15:38 | Emergency (ER) | payer OTHER ==
[~2024-05-17] VITALS: Ht 160 cm; Wt 84.0 kg
[~2024-05-17 15:38] MED LIST changes: +AUG875T PO
[2024-05-17 15:40] VITALS: BP 122/81; RESP 28; O2SAT 99
[2024-05-17 15:42] VITALS: PULSE 84
--- NOTE | 2024-05-17 18:40 | ED.PDOC ---
HPI Comments 83-year-old male complaining of shortness a breath over the last 10 months. Patient was frequent visits to this emergency department. Called EMS today because he was feeling more short of breath. Last visit was on . He was admitted overnight. Patient has a history of CHF. Ejection fraction 10%. Patient states he did make a phone call to [place] and has been appointment next week. Patient was requesting to be transferred/transported down to [place] since he has appointments there. Patient refused x-rays and lab works. Chief Complaint: Shortness of Breath Time Seen by MD: 15:44 Primary Care Provider: ELLIOTT Reviewed Notes: Nurses Notes Allergies: Coded Allergies: Glipizide (Verified Allergy, Intermediate, 05/28/23) Hydromorphone (Verified Allergy, Unknown, 04/26/24) Home Meds Active Scripts Amoxicillin & Pot Clavulanate (AUGMENTIN TABLET) 875 Mg Tb, 875 MG PO BID for 7 Days, #14 TAB Prov:DEMETRIO GONSALES RESIDENT 04/27/24 Furosemide (Lasix) 20 Mg Tb, 20 MG PO BID for 30 Days, #60 TAB Prov:DELISA GAFFNEY RESIDENT 03/29/24 Reported Medications Isosorbide Mononitrate (Isosorbide Mononitrate Er) 30 Mg Tab, 1 TAB PO DAILY for 30 Days, #30 03/29/24 Aspirin (Aspir-Low) 81 Mg Tab, 81 MG PO DAILY for 30 Days, MG 05/26/23 Hydralazine Hcl (Hydralazine Hcl) 25 Mg Tab, 25 MG PO BID for 30 Days, MG 05/26/23 Furosemide (Furosemide) 20 Mg Tab, 20 MG PO DAILY for 30 Days, MG 05/26/23 Atorvastatin Calcium (ATORVASTATIN CALCIUM) 20 Mg Tab, 1 TAB PO DAILY, #30 TAB 5 Refills 05/26/23 Tamsulosin Hcl (Tamsulosin Hcl) 0.4 Mg Cap, 1 CAP PO DAILY 04/19/23 Carvedilol (Carvedilol) 3.125 Mg Tab, 1 TAB PO BID 04/19/23 Information Source: Patient Mode of Arrival: EMS Past Medical History PAST MEDICAL HISTORY: CHF, DM, HTN Surgical History: Appendectomy Family History Family History: Reviewed,noncontributory to illness Social History Smoker: Non-Smoker Alcohol: Denies ETOH Use Drugs: Denies Drug Use Lives In: Home Constitutional: denies: chills, diaphoresis, fatigue, fever, malaise, sweats, weakness, others EENTM: denies: blurred vision, double vision, ear bleeding, ear discharge, ear drainage, ear pain, ear ringing, eye pain, eye redness, hearing loss, mouth brianna n, mouth swelling, nasal discharge, nose bleeding, nose congestion, nose pain, photophobia, tearing, throat pain, throat swelling, voice changes, others Respiratory: reports: SOB at rest, shortness of breath; denies: cough, hemoptysis, orthopnea, SOB with excertion, stridor, wheezing, others Cardiovascular: denies: chest pain, dizzy spells, diaphoresis, Dyspnea on exertion, edema, irregular heart beat, left arm pain, lightheadedness, palpitations, PND, syncope, others Gastrointestinal: denies: abdomen distended, abdominal pain, blood streaked bowels, constipated, diarrhea, dysphagia, difficulty swallowing, hematemesis, melena, nausea, poor appetite, poor fluid intake, rectal bleeding, rectal pain, vomiting, others Genitourinary: denies: burning, dysuria, flank pain, frequency, hematuria, incontinence, penile discharge, penile sore, pain, testicle pain, testicle swelling, urgency, others Neurological: denies: dizziness, fainting, headache, left sided numbness, left sided weakness, numbness, paresthesia, pre-existing deficit, right sided numbness, right sided weakness, seizure, speech problems, tingling, tremors, weakness, others Musculoskeletal: denies: back pain, gout, joint pain, joint swelling, muscle pain, muscle stiffness, neck pain, others Integumetry: denies: bruises, change in color, change in hair/nails, dryness, laceration, lesions, lumps, rash, wounds, others Physical Exam General Appearance: Moderate Distress, Normal HEENT: Normal ENT Inspection, Pharynx Normal, TMs Normal Neck: Full Range of Motion, Non-Tender, Normal, Normal Inspection Respiratory: Chest Non-Tender, Lungs Clear, No Accessory Muscle Use, No Respiratory Distress, Normal Breath Sounds Cardiovascular: No Edema, No JVD, No Murmur, No Gallop, Normal Peripheral Pulses, Regular Rate/Rhythm Breast Exam: Deferred Gastrointestinal: No Organomegaly, Non Tender, No Pulsatile Mass, Normal Bowel Sounds, Soft Genitalia: Deferred Pelvic: Deferred Rectal: Deferred Extremities: No calf tenderness, Normal capillary refill, No pedal edema Musculoskeletal : Apperance: Normal Neurologic: Alert, rfp writer II-XII nml as Tested, No Motor Deficits, Normal Affect, Normal Mood, No Sensory Deficits Cerebellar Function: Normal Reflexes: Normal Skin: Dry, Normal Color, Warm Lymphatic: No Adenopathy Was a procedure done? Was a procedure done?: No CP Differential Dx Differential Diagnosis: Angina, Anxiety / Panic Attack, Atrial Dysrhythmia, Heart Failure X-Ray, Labs, Meds, VS Vital Signs Date Time Temp Pulse Resp B/P (MAP) Pulse Ox O2 Delivery O2 Flow Rate FiO2 05/17/24 15:42 84 05/17/24 15:40 97.8 90 28 122/81 (95) 99 X-Ray, Labs, Meds, VS Comment Patient refusing medical treatment. Patient adamant that he would prefer to be transferred to [place]. He was explained to patient that patient could not be transferred, that he will need medical transport to take him down to [place]. Patient states he has had multiple blood work and chest x-rays he does not want any further work done in his facility he would prefer to have it done at [facility]. 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 Patient signed AMA paperwork Time of 1ST Reevaluation: 18:40 Reevaluation 1ST: Unchanged Patient Education/Counseling: Diagnosis, Treatment Family Education/Counseling: Diagnosis, Treatment Departure 1 Departure Time of Disposition: 18:39 Impression: Primary Impression: CHF (congestive heart failure) Qualified Codes: I50.22 - Chronic systolic (congestive) heart failure Disposition: LEFT AGAINST MEDICAL ADVICE Condition: Stable Discharged With: Self Critical Care Note Critical Care Time?: No Stability Stability form required: No Heart Score Heart Score: Heart Score Response (Comments) Value History Slightly Suspicious 0 EKG Normal 0 Age >65 2 Risk Factors >3 or Hx ASHD 2 Troponin N/A 0 Total 4 RADHA MONROE May 17, 2024 18:40
--- NOTE | 2024-05-18 10:58 | ECG ---
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
== END 2024-05-17 20:39 | disposition left against medical advice (07) ==
LOC: ER 15:38 → EDBD 15:38 → ER 20:39
DX: I11.0 Hypertensive heart disease with heart failure (principal); I50.9 Heart failure, unspecified; E11.9 Type 2 diabetes mellitus without complications; Z79.82 Long term (current) use of aspirin; Z79.899 Other long term (current) drug therapy; Z90.49 Acquired absence of other specified parts of digestive tract; Z88.5 Allergy status to narcotic agent
CPT/HCPCS: 93005

== ENCOUNTER 2024-06-10 15:39 | Emergency (ER) | payer OTHER ==
[~2024-06-10] VITALS: Ht 172.7 cm; Wt 67.0 kg
[2024-06-10 16:00] VITALS: BP 118/71; PULSE 90; RESP 16; TEMP 98.3; O2SAT 95
--- NOTE | 2024-06-10 16:01 | ED.PDOC ---
History of Present Illness HPI Comments 84 year old male presents to the ED with chief complaint of surgical site bleeding. Patient reports that he had a pacemaker placed 2 weeks ago at [place], however, since then he has been experiencing uncontrolled bleeding to the surgical site. Patient relays that on Friday he had visited [place] due to the bleeding and had the site glued and wrapped with relief noted, however, the site opened again and the bleeding continued. Patient states he has bruising to the site, but there is no pain or discomfort due to it. Patient notes his post- op follow up is on 06/21/24. Patient denies any chest pain, SOB, discharge, or fever. Chief Complaint: Wound Check Time Seen by MD: 15:54 Primary Care Provider: ELLIOTT Reviewed Notes: Nurses Notes, Medications, Allergies Allergies: Coded Allergies: Glipizide (Verified Allergy, Intermediate, 05/28/23) Hydromorphone (Verified Allergy, Unknown, 04/26/24) Home Meds Active Scripts Amoxicillin & Pot Clavulanate (AUGMENTIN TABLET) 875 Mg Tb, 875 MG PO BID for 7 Days, #14 TAB Prov:DEMETRIO GONSALES RESIDENT 04/27/24 Furosemide (Lasix) 20 Mg Tb, 20 MG PO BID for 30 Days, #60 TAB Prov:DELISA GAFFNEY RESIDENT 03/29/24 Reported Medications Isosorbide Mononitrate (Isosorbide Mononitrate Er) 30 Mg Tab, 1 TAB PO DAILY for 30 Days, #30 03/29/24 Aspirin (Aspir-Low) 81 Mg Tab, 81 MG PO DAILY for 30 Days, MG 05/26/23 Hydralazine Hcl (Hydralazine Hcl) 25 Mg Tab, 25 MG PO BID for 30 Days, MG 05/26/23 Furosemide (Furosemide) 20 Mg Tab, 20 MG PO DAILY for 30 Days, MG 05/26/23 Atorvastatin Calcium (ATORVASTATIN CALCIUM) 20 Mg Tab, 1 TAB PO DAILY, #30 TAB 5 Refills 05/26/23 Tamsulosin Hcl (Tamsulosin Hcl) 0.4 Mg Cap, 1 CAP PO DAILY 04/19/23 Carvedilol (Carvedilol) 3.125 Mg Tab, 1 TAB PO BID 04/19/23 Information Source: Patient Mode of Arrival: Ambulatory Severity: Mild Timing: Days Duration: Since onset Prehospital treatment: None Past Medical History PAST MEDICAL HISTORY: CHF, DM, HTN Surgical History: Appendectomy, Pacemaker Surgical History (Other): Intestinal surgery Family History Family History: Reviewed,noncontributory to illness Social History Smoker: Non-Smoker Alcohol: Denies ETOH Use Drugs: Denies Drug Use Lives In: Home Constitutional: denies: chills, diaphoresis, fatigue, fever, malaise, sweats, weakness, others EENTM: denies: blurred vision, double vision, ear bleeding, ear discharge, ear drainage, ear pain, ear ringing, eye pain, eye redness, hearing loss, mouth pain, mouth swelling, nasal discharge, nose bleeding, nose congestion, nose pain, photophobia, tearing, throat pain, throat swelling, voice changes, others Respiratory: denies: cough, hemoptysis, orthopnea, SOB at rest, shortness of breath, SOB with excertion, stridor, wheezing, others Cardiovascular: denies: chest pain, dizzy spells, diaphoresis, Dyspnea on exertion, edema, irregular heart beat, left arm pain, lightheadedness, palpitations, PND, syncope, others Gastrointestinal: denies: abdomen distended, abdominal pain, blood streaked bowels, constipated, diarrhea, dysphagia, difficulty swallowing, hematemesis, melena, nausea, poor appetite, poor fluid intake, rectal bleeding, rectal pain, vomiting, others Genitourinary: denies: burning, dysuria, flank pain, frequency, hematuria, inc ontinence, penile discharge, penile sore, pain, testicle pain, testicle swelling, urgency, others Neurological: denies: dizziness, fainting, headache, left sided numbness, left sided weakness, numbness, paresthesia, pre-existing deficit, right sided numbness, right sided weakness, seizure, speech problems, tingling, tremors, weakness, others Musculoskeletal: denies: back pain, gout, joint pain, joint swelling, muscle pain, muscle stiffness, neck pain, others Integumetry: reports: bruises, wounds (surgical site wound to chest with bleeding); denies: change in color, change in hair/nails, dryness, laceration, lesions, lumps, rash, others Allergic/Immunocompromised: denies: Difficulty Healing, Frequent Infections, Hives, Itching, others Hematologic/Lymphatic: denies: anemia, blood clots, easy bleeding, easy bruising, swollen glands, others Endocrine: denies: excessive hunger, excessive sweating, excessive thirst, excessive urination, flushing, intolerance to cold, intolerance to heat, unexplained weight gain, unexplained weight loss, others Psychiatric: denies: anxiety, bipolar disorder, depression, hopeless, panic disorder, schizophrenia, sleepless, suicidal, others All Other Systems: Reviewed and Negative Physical Exam General Appearance: No Apparent Distress (Patient is in no distress at time of evaluation.), Normal HEENT: Normal ENT Inspection, Pharynx Normal, TMs Normal Neck: Full Range of Motion, Non-Tender, Normal, Normal Inspection Respiratory: Chest Non-Tender, Lungs Clear, No Accessory Muscle Use, No Respiratory Distress, Normal Breath Sounds Cardiovascular: No Edema, No JVD, No Murmur, No Gallop, Normal Peripheral Pulses, Regular Rate/Rhythm Breast Exam: Deferred Gastrointestinal: No Organomegaly, Non Tender, No Pulsatile Mass, Normal Bowel Sounds, Soft Genitalia: Deferred Pelvic: Deferred Rectal: Deferred Extremities: No calf tenderness, Normal capillary refill, Normal inspection, Normal range of motion, Non-tender, No pedal edema Neurologic: Alert, antenna specialist II-XII nml as Tested, No Motor Deficits, Normal Affect, Normal Mood, No Sensory Deficits Cerebellar Function: Normal Reflexes: Normal Skin: Wounds (Serosanguineous weepage noted from a surgical site on the left side superior chest were a pacemaker was placed. No signs of infection. Distal and lateral end of the incision site shows some mild dehiscence.) Lymphatic: No Adenopathy Was a procedure done? Was a procedure done?: Yes Sedation Sedation?: No Other Procedure Notes Copious irrigation was performed throughout the site area. Dermabond was utilized on the distal end of the surgical site with the mild dehiscence that occurred. Clean dressing was applied afterwards. Patient tolerated procedure well. Differential Dx Considerations may include: Complication at surgical site X-Ray, Labs, Meds, VS Vital Signs Date Time Temp Pulse Resp B/P (MAP) Pulse Ox O2 Delivery O2 Flow Rate FiO2 06/10/24 15:54 98.3 90 16 118/71 (87) 95 X-Ray, Labs, Meds, VS Comment Patient tolerated procedure well and wound was secured. Advised patient to gino oviedo his surgical follow up appointment in 10 days. Time of 1ST Reevaluation: 16:23 Reevaluation 1ST: Improved Consultation: PCP, Other (Surgery center) Patient Education/Counseling: Diagnosis, Treatment Family Education/Counseling: Diagnosis, Treatment, No Family Present Departure 1 Departure Time of Disposition: 16:23 Impression: Primary Impression: Reaction at surgical site Disposition: HOME / SELF CARE / HOMELESS Condition: Stable Additional Instructions: Advised patient continue with daily dressing changes and follow up with his surgeon as scheduled. Discharged With: Self, Friend Critical Care Note Critical Care Time?: No Stability Stability form required: No Heart Score Heart Score: Heart Score Response (Comments) Value History N/A 0 EKG N/A 0 Age N/A 0 Risk Factors N/A 0 Troponin N/A 0 Total 0 I personally scribed for CARRIE RAWLS PAC ([email or web address]) on 06/10/24 at 16:01. Electronically submitted by Keyshawn Langley ([email or web address]). CARRIE RAWLS PAC Jun 10, 2024 16:01
== END 2024-06-10 17:22 | disposition home or self-care (01) ==
LOC: ER 15:39
DX: T81.89XA Other complications of procedures, not elsewhere classified, initial encounter (principal); E11.9 Type 2 diabetes mellitus without complications; I11.0 Hypertensive heart disease with heart failure; I50.89 Other heart failure; Z88.6 Allergy status to analgesic agent; Z79.899 Other long term (current) drug therapy; Z79.84 Long term (current) use of oral hypoglycemic drugs; Z90.49 Acquired absence of other specified parts of digestive tract; Z90.89 Acquired absence of other organs; Z98.890 Other specified postprocedural states

== ENCOUNTER → 2024-09-15 | Outpatient (CLI) | payer OTHER ==
[~2024-09-15] MED LIST changes: +DIPH25CA66 PO; +EMPA1TAB PO; +LOSA-533 PO; +METO25TA93 PO; +PANT40T PO
[2024-09-15 09:10] VITALS: BP 133/67; PULSE 65; RESP 18; O2SAT 97
--- NOTE | 2024-09-15 11:05 | DVH ---
XY CHEST TWO VIEWS ROUTINE CLINICAL HISTORY: PRE OP COMPARISON: XY CHEST TWO VIEWS ROUTINE on DOS: 04/26/24, XY CHEST TWO VIEWS ROUTINE on DOS: 03/27/24, X Y CHEST TWO VIEWS ROUTINE on DOS: 04/19/23 TECHNIQUE: Frontal and lateral view of the chest was obtained FINDINGS: Lines and Tubes: Left pacemaker/ AICD. Lungs: No focal consolidation. Pleura: No effusion. No pneumothorax. Cardiomediastinal contours: Unremarkable Bones: No acute osseous abnormality. IMPRESSION: No acute cardiopulmonary disease.
== END | disposition home or self-care (01) ==
LOC: Rad HDHVI 08:39
PROVIDERS: ATTEND Internal Medicine Cardiovascular Disease
DX: Z01.818 Encounter for other preprocedural examination (principal)
CPT/HCPCS: 71046; G0463

== ENCOUNTER 2024-09-17 11:34 | Inpatient (IN) | payer OTHER ==
[2024-09-15 10:16] LABS: INR 1.08 (0.9-1.15); Partial Thromboplastin Time 26.2 SEC (24.5-34.5); Prothrombin Time 11.4 sec (9.3-11.8)
[2024-09-15 10:34] LABS: Basophils # (auto) 0 10 ^3/uL (0-0.2); Basophils % (auto) 0.5 % (0.0-2.0); Eosinophils # (auto) 0.3 10 ^3/uL (0-0.8); Eosinophils % (auto) 3.8 % (0.0-7.0); Hemoglobin 16.7 g/dL (13.5-17.5); Lymphocytes # (auto) 1.7 10 ^3/uL (0.4-5.4); Lymphocytes % (auto) 19.4 % (10.0-50.0); Mean Corpuscular Hemoglobin 31.5 pg (28.0-32.0); Mean Corpuscular Hgb Conc. 34.7 g/dL (32.0-36.0); Mean Corpuscular Volume 90.8 fL (80.0-100.0); Monocytes # (auto) 0.8 10 ^3/uL (0-1.3); Monocytes % (auto) 9.5 % (0.0-12.0); Neutrophils # (auto) 5.8 10 ^3/uL (1.6-8.6); Neutrophils % (auto) 66.8 % (37.0-80.0); Nucleated Red Blood Cells % 0.1 %; Platelet Count (auto) 172 10^3/uL (140-450); Red Blood Cells 5.29 10^6/uL (4.5-5.90); Red Cell Distribution Width 14.5 % (11.8-14.3); White Blood Cell 8.7 10^3/uL (4.4-10.8)
[2024-09-15 10:37] LABS: Calcium 10.1 mg/dL (8.7-10.4); Chloride 104 mmol/L (98-107); Potassium 4.3 mmol/L (3.5-5.1); Sodium 140 mmol/L (136-145)
[2024-09-15 10:38] LABS: Anion Gap 10 (5-15); Carbon Dioxide 26 mmol/L (20-31)
[2024-09-15 10:43] LABS: BUN/Creatinine Ratio 18.7 (10.0-20.0)
[2024-09-15 10:46] LABS: Blood Urea Nitrogen 23 mg/dL (9-23); Glucose 202 mg/dL (74-106)
[~2024-09-17] VITALS: Ht 172.7 cm; Wt 72.6 kg
[2024-09-17] VITALS (11 sets, daily range): BP systolic 104–130; BP diastolic 65–79; PULSE 61–82; RESP 16–18; TEMP 97.7–98.3; O2SAT 91–98
[~2024-09-17 11:34] MED LIST changes: -ASPI-543 PO; -AUG875T PO; -CARV3.1240 PO; -FURO1TAB33 PO; -HYDR25TA88 PO; -ISOS1TAB28 PO
[2024-09-17] MEDS: fentaNYL CITRATE 100 MCG/2 ML VL ONE (12:30)
[2024-09-17] MEDS: MIDAZOLAM HCL 2MG/2ML 2ml VIAL (1mg/ml) ONE (12:30)
[2024-09-17] MEDS: LIDOCAINE 2%HCL (LOCAL ANESTH.) INJ 20ML MDV ONE (12:31)
[2024-09-17] MEDS: VANCOMYCIN 1GM/200ML PM 250 ML IV ONE ×2 (12:31→12:53)
[2024-09-17] MEDS: VANCOMYCIN HCL 1000 MG VL ONE (12:57)
[2024-09-17] MEDS: ceFAZolin 1GM VL ONE (13:33)
--- NOTE | 2024-09-17 14:39 | DVHOP ---
DATE OF SURGERY: 09/17/2024 PROCEDURES PERFORMED: * Explantation of Bi-V AICD. * Extraction of all leads including LV lead, RV lead, and RA lead. * Conscious sedation. DESCRIPTION OF PROCEDURE: The patient was prepped and draped under sterile condition. Xylocaine 1% used to anesthetize the left subclavicular region. The patient had an AICD implanted some two to three months ago at [place] which has dehisced and has been managed by [facility] physicians for the last three months without any avail. He now has an infected and exposed dehisced pacemaker with exposure of the leads. The patient now to undergo emergent extraction of all leads and the AICD since the patient is infected and has episodes of bacteremia. The patient has been maintained on antibiotic therapy. Now to undergo the above-mentioned procedure. The patient was given 1% Xylocaine. Then, using 2% lidocaine, the entire pocket was then appropriately anesthetized. Using a 10 blade, linear incision was made. Using blunt dissection and electrocautery, the pocket was then dissected out and all the leads were exposed. The leads were removed from the suture sleeves. Then, gentle countertraction was applied. The LV lead, RV lead, and the RA lead were easily extracted. The pocket was then completely debrided. Irrigated with vancomycin and saline solution and was closed using surgical grant. There were no complications. The patient tolerated the procedure well. Thus, the patient with infected AICD Bi-V with dehisced wound. Now, the patient is clinically stable. All leads were exposed. The patient is not pacemaker/AICD dependent at this time. I will keep him on antibiotics for at least three to four days and then will re-implant an AICD on the right side early next week. Risks and benefits were explained to the patient. The patient understands and agrees. Mark Rubi MD SA/LILLIAM/JESUS MANUEL TID: [id number] RECEIPT: [id number]
[2024-09-17] MEDS ORDERED: DEXTROSE (50%) 50ML SYRG IV PRN (16:00)
[2024-09-17] MEDS: ceFAZolin 2 GM/D5W50ml 50 ML IV SCH (16:38)
[2024-09-17] MEDS: InsuLIN REG 1unit/0.01ml Soln (100units/ml) SC SCH (17:09)
[2024-09-17] MEDS: TAMSULOSIN HYDROCHLORIDE 0.4 MG CAP PO SCH (17:09)
[2024-09-17] MEDS: ACCU-CHEK COMFORT CURVE STRIP VI SCH (17:09)
[2024-09-17] MEDS: ATORVASTATIN 20 MG TAB PO SCH (21:40)
[2024-09-18] VITALS (8 sets, daily range): BP systolic 105–143; BP diastolic 55–80; PULSE 40–78; RESP 16–18; TEMP 97.4–98.3; O2SAT 93–100
[2024-09-18] MEDS: FUROSEMIDE 20 MG TAB PO SCH (09:46)
[2024-09-18] MEDS: LOSARTAN POTASSIUM 25 MG TAB PO SCH (09:46)
[2024-09-18] MEDS: METOPROLOL SUCCINATE XL 50 MG TAB PO SCH (09:49)
[2024-09-19] VITALS (8 sets, daily range): BP systolic 105–123; BP diastolic 42–72; PULSE 45–85; RESP 16–18; TEMP 97.4–98.1; O2SAT 96–99
--- NOTE | 2024-09-19 12:08 | ECG ---
[facility] Test Date: 2024-09-17 Test Time: 18:03:35 Pat Name: CRUZ JO Department: Room: 0298T A Gender: M Manager Rental: : 1940 Requested By: ALENA RENEE Order Number: [id number] Reading MD: Mark Correa Measurements Intervals Ramona Rate: 126 P: 0 RI: 0 QRS: -22 QRSD: 167 T: 166 QT: 475 QTc: 688 Interpretive Statements Atrial fibrillation Paired ventricular premature complexes Left bundle branch block Electronically Signed On 09-22-2024 20:52:59 PDT by Mark Correa Please click the below link to view image of tracing.
[2024-09-19 12:53] LABS: Basophils # (auto) 0 10 ^3/uL (0-0.2); Basophils % (auto) 0.4 % (0.0-2.0); Eosinophils # (auto) 0.4 10 ^3/uL (0-0.8); Eosinophils % (auto) 5.1 % (0.0-7.0); Hematocrit 44.9 % (41.0-53.0); Hemoglobin 16.2 g/dL (13.5-17.5); Lymphocytes # (auto) 1.6 10 ^3/uL (0.4-5.4); Lymphocytes % (auto) 19.3 % (10.0-50.0); Mean Corpuscular Hemoglobin 32.5 pg (28.0-32.0); Mean Corpuscular Hgb Conc. 36.2 g/dL (32.0-36.0); Mean Corpuscular Volume 89.9 fL (80.0-100.0); Monocytes # (auto) 0.9 10 ^3/uL (0-1.3); Monocytes % (auto) 10.7 % (0.0-12.0); Neutrophils # (auto) 5.4 10 ^3/uL (1.6-8.6); Neutrophils % (auto) 64.5 % (37.0-80.0); Nucleated Red Blood Cells % 0.1 %; Platelet Count (auto) 157 10^3/uL (140-450); Red Cell Distribution Width 14.2 % (11.8-14.3); White Blood Cell 8.4 10^3/uL (4.4-10.8)
[2024-09-19 13:16] LABS: Alanine Aminotransferase 13 U/L (7-40); Albumin 4.2 g/dL (3.2-4.8); Alkaline Phosphatase 85 U/L (46-116); Anion Gap 8 (5-15); Aspartate Aminotransferase 17 U/L (13-40); BUN/Creatinine Ratio 21.5 (10.0-20.0); Calcium 9.7 mg/dL (8.7-10.4); Carbon Dioxide 27 mmol/L (20-31); Chloride 101 mmol/L (98-107); Magnesium 2.1 mg/dL (1.6-2.6); Potassium 4.6 mmol/L (3.5-5.1); Sodium 136 mmol/L (136-145); Total Protein 6.8 g/dL (5.7-8.2)
[2024-09-19 13:17] LABS: Bilirubin, Total 1.4 mg/dL (0.2-1.0); Blood Urea Nitrogen 26 mg/dL (9-23); Glucose 202 mg/dL (74-106)
[2024-09-20] VITALS (9 sets, daily range): BP systolic 95–124; BP diastolic 47–80; PULSE 64–82; RESP 16–18; TEMP 97.3–97.9; O2SAT 95–98
--- NOTE | 2024-09-20 09:15 | DVHPN2 ---
Progress Note - Dictate Date Seen: Sep 20, 2024 Subjective PT WITH ISCHEMIC CM S/P AICD IMPLANTATION AT [facility] NOW WITH INFECTED AICD S/P EXPLANTATION OF AICD ABX vital signs Vital Sign Date Time Temp Pulse Resp B/P (MAP) Pulse Ox O2 Delivery O2 Flow Rate FiO2 09/20/24 05:00 97.3 66 18 116/66 (83) 98 97.3 09/19/24 20:00 Room Air* 0 21 Total Intake and Output 09/19/24 09/19/24 09/20/24 14:59 22:59 06:59 Intake Total 1150 ml 500 ml Balance 1150 ml 500 ml medications Current Medications Medications Dose Ordered Sig/Peter Route Start Time Stop Time Status Last Admin Dose Admin Cefazolin Sodium/ Dextrose 50 ml @ 50 mls/hr Q8HR IV 09/17/24 15:00 09/20/24 06:43 50 MLS/HR Atorvastatin Calcium 20 mg HS PO 09/17/24 22:00 09/19/24 21:42 20 MG Furosemide 20 mg DAILY PO 09/18/24 10:00 09/19/24 11:28 20 MG Losartan Potassium 25 mg DAILY PO 09/18/24 10:00 09/19/24 11:29 25 MG Metoprolol Succinate 25 mg DAILY PO 09/18/24 10:00 09/18/24 09:49 25 MG Tamsulosin HCl 0.4 mg QPM PO 09/17/24 18:00 09/19/24 17:08 0.4 MG Diagnostic Test (Pha) 1 strip ACHS 09/17/24 17:00 09/20/24 06:23 1 STRIP Insulin Human Regular ACHS SC 09/17/24 17:00 09/20/24 06:43 3 UNITS Dextrose 50 ml UD PRN IV 09/17/24 16:00 laboratory and microbiology Laboratory Tests 09/19/24 12:38 Test 09/19/24 12:38 Range/Units Serum Glucose 202 H 74-106 mg/dL Problem List ISCHEMIC CM S/P AICD IMPLANTATION AT [facility] NOW WITH INFECTED AICD S/P EXPLANTATION OF AICD ABX Assessment/Plan ABX X 5 DAYS IV IMPLANTATION OF AICD 09/21/24 Plan discussed with: Patient ALENA RENEE MD Sep 20, 2024 09:15
--- NOTE | 2024-09-20 09:16 | DVHPN2 ---
Progress Note - Dictate Date Seen: Sep 19, 2024 Subjective PT WITH ISCHEMIC CM S/P AICD IMPLANTATION AT [facility] NOW WITH INFECTED AICD S/P EXPLANTATION OF AICD ABX vital signs Vital Sign Date Time Temp Pulse Resp B/P (MAP) Pulse Ox O2 Delivery O2 Flow Rate FiO2 09/20/24 05:00 97.3 66 18 116/66 (83) 98 97.3 09/19/24 20:00 Room Air* 0 21 Total Intake and Output 09/19/24 09/19/24 09/20/24 14:59 22:59 06:59 Intake Total 1150 ml 500 ml Balance 1150 ml 500 ml medications Current Medications Medications Dose Ordered Sig/Peter Route Start Time Stop Time Status Last Admin Dose Admin Cefazolin Sodium/ Dextrose 50 ml @ 50 mls/hr Q8HR IV 09/17/24 15:00 09/20/24 06:43 50 MLS/HR Atorvastatin Calcium 20 mg HS PO 09/17/24 22:00 09/19/24 21:42 20 MG Furosemide 20 mg DAILY PO 09/18/24 10:00 09/19/24 11:28 20 MG Losartan Potassium 25 mg DAILY PO 09/18/24 10:00 09/19/24 11:29 25 MG Metoprolol Succinate 25 mg DAILY PO 09/18/24 10:00 09/18/24 09:49 25 MG Tamsulosin HCl 0.4 mg QPM PO 09/17/24 18:00 09/19/24 17:08 0.4 MG Diagnostic Test (Pha) 1 strip ACHS 09/17/24 17:00 09/20/24 06:23 1 STRIP Insulin Human Regular ACHS SC 09/17/24 17:00 09/20/24 06:43 3 UNITS Dextrose 50 ml UD PRN IV 09/17/24 16:00 laboratory and microbiology Laboratory Tests 09/19/24 12:38 Test 09/19/24 12:38 Range/Units Serum Glucose 202 H 74-106 mg/dL Problem List ISCHEMIC CM S/P AICD IMPLANTATION AT [facility] NOW WITH INFECTED AICD S/P EXPLANTATION OF AICD ABX Assessment/Plan ABX X 5 DAYS IV IMPLANTATION OF AICD 09/21/24 Plan discussed with: Patient ALENA RENEE MD Sep 20, 2024 09:16
--- NOTE | 2024-09-20 12:58 | DVHHP2 ---
Review of Systems Allergies: Coded Allergies: Glipizide (Verified Allergy, Intermediate, 09/15/24) Hydromorphone (Verified Allergy, Unknown, 09/15/24) Medications Current Medications Medications Dose Ordered Sig/Peter Route Start Time Stop Time Status Last Admin Dose Admin Cefazolin Sodium/ Dextrose 50 ml @ 50 mls/hr Q8HR IV 09/17/24 15:00 09/20/24 06:43 50 MLS/HR Atorvastatin Calcium 20 mg HS PO 09/17/24 22:00 09/19/24 21:42 20 MG Furosemide 20 mg DAILY PO 09/18/24 10:00 09/20/24 09:55 20 MG Losartan Potassium 25 mg DAILY PO 09/18/24 10:00 09/20/24 09:54 25 MG Metoprolol Succinate 25 mg DAILY PO 09/18/24 10:00 09/20/24 09:54 25 MG Tamsulosin HCl 0.4 mg QPM PO 09/17/24 18:00 09/19/24 17:08 0.4 MG Diagnostic Test (Pha) 1 strip ACHS 09/17/24 17:00 09/20/24 06:23 1 STRIP Insulin Human Regular ACHS SC 09/17/24 17:00 09/20/24 10:59 3 UNITS Dextrose 50 ml UD PRN IV 09/17/24 16:00 Exam Vital Signs Vital Signs Date Time Temp Pulse Resp B/P (MAP) Pulse Ox O2 Delivery O2 Flow Rate FiO2 09/20/24 09:55 124/80 09/20/24 09:54 68 09/20/24 09:00 97.5 18 98 97.5 09/20/24 08:10 Room Air* 0 21 Labs/Xrays Labs Test 09/20/24 10:42 09/19/24 12:38 09/15/24 09:38 Range/Units POC Glucose 200 H 70-106 mg/dl White Blood Count 8.4 4.4-10.8 10^3/uL Red Blood Count 5.00 4.5-5.90 10^6/uL Hemoglobin 16.2 13.5-17.5 g/dL Hematocrit 44.9 41.0-53.0 % Mean Corpuscular Volume 89.9 80.0-100.0 fL Mean Corpuscular Hemoglobin 32.5 H 28.0-32.0 pg Mean Corpuscular Hemoglobin Concent 36.2 H 32.0-36.0 g/dL Red Cell Distribution Width 14.2 11.8-14.3 % Platelet Count 157 140-450 10^3/uL Mean Platelet Volume 8.2 6.9-10.8 fL Neutrophils (%) (Auto) 64.5 37.0-80.0 % Lymphocytes (%) (Auto) 19.3 10.0-50.0 % Monocytes (%) (Auto) 10.7 0.0-12.0 % Eosinophils (%) (Auto) 5.1 0.0-7.0 % Basophils (%) (Auto) 0.4 0.0-2.0 % Neutrophils # (Auto) 5.4 1.6-8.6 10 ^3/uL Lymphocytes # (Auto) 1.6 0.4-5.4 10 ^3/uL Monocytes # (Auto) 0.9 0-1.3 10 ^3/uL Eosinophils # (Auto) 0.4 0-0.8 10 ^3/uL Basophils # (Auto) 0 0-0.2 10 ^3/uL Nucleated Red Blood Cells 0.1 % Sodium Level 136 136-145 mmol/L Potassium Level 4.6 3.5-5.1 mmol/L Chloride Level 101 98-107 mmol/L Carbon Dioxide Level 27 20-31 mmol/L Anion Gap 8 5-15 Blood Urea Nitrogen 26 H 9-23 mg/dL Creatinine 1.21 0.700-1.30 mg/dL Glomerular Filtration Rate Calc 59 >90 mL/min BUN/Creatinine Ratio 21.5 H 10.0-20.0 Serum Glucose 202 H 74-106 mg/dL Calcium Level 9.7 8.7-10.4 mg/dL Magnesium Level 2.1 1.6-2.6 mg/dL Total Bilirubin 1.4 H 0.2-1.0 mg/dL Aspartate Amino Transferase (AST) 17 13-40 U/L Alanine Aminotransferase (ALT) 13 7-40 U/L Alkaline Phosphatase 85 46-116 U/L Total Protein 6.8 5.7-8.2 g/dL Albumin 4.2 3.2-4.8 g/dL Prothrombin Time 11.4 9.3-11.8 sec Prothrombin Time INR 1.08 0.9-1.15 Activated Partial Thromboplast Time 26.2 24.5-34.5 SEC Assessment/Plan Assessment/Plan see dictated note Plan discussed with: Patient My Orders Orders - ELVIS ANGULO MD Procedure Category Date Status Time Urinalysis LAB 09/20/24 Uncollected 12:56 Date of Service: Sep 20, 2024 Billing Provider: ELVIS ANGULO MD Common Visit Codes: 80617-URRFGNQ INP/OBS CARE (HIGH) Secondary Visit Codes: 91416-[id number] CARE PLAN 30 MINUTES ELVIS ANGULO MD Sep 20, 2024 12:58
--- NOTE | 2024-09-20 13:10 | DVHHP ---
ADMIT DATE: 09/17/2024 HISTORY OF PRESENT ILLNESS: The patient is an 84-year-old gentleman who has been admitted after he had an infected AICD that had been placed at [place]. The patient had the AICD removed and is scheduled to have a new AICD. At this time, he denies any chest pain. No shortness of breath. No nausea or vomiting. No history of fevers. REVIEW OF SYSTEMS: Review of rest of systems are otherwise currently negative. PAST MEDICAL HISTORY: Significant for chronic systolic heart failure, ischemic cardiomyopathy, severe mitral regurgitation, pulmonary hypertension, diabetes mellitus, BPH, and hyperlipidemia. MEDICATIONS: Include Lasix, Jardiance, Lipitor, metoprolol, losartan, Flomax. ALLERGIES: GLIPIZIDE and HYDROMORPHONE. SOCIAL HISTORY: Denies smoking or alcohol. Lives at home with his . FAMILY HISTORY: Negative. PHYSICAL EXAMINATION: GENERAL: The patient is awake and alert. VITAL SIGNS: Temperature 97.5, pulse 68 per minute, blood pressure 124/80. SHEENT: Unremarkable. There is no JVD. No pedal edema. LUNGS: Equal bilaterally. No added sounds. CARDIOVASCULAR: S1 and S2 is regular. There are no murmurs. ABDOMEN: Soft. There is no organomegaly. NEUROLOGIC: Nonfocal. MUSCULOSKELETAL: There is a dressing at the site of the recently removed AICD. ASSESSMENT AND PLAN: * Automatic implantable cardioverter-defibrillator infection, status post removal with plan to install new automatic implantable cardioverter-defibrillator. * Ischemic cardiomyopathy with chronic systolic heart failure. * Severe mitral regurgitation. * Diabetes mellitus. * Hypertension. * Benign prostatic hypertrophy. * Hyperlipidemia. ADVANCE CARE PLANNING: The patient is a full code Time spent was 18 minutes. MD DAXA Leon/LILLIAM TID: [id number] RECEIPT: [id number]
[2024-09-20 17:06] LABS: Urine Bacteria None Seen /hpf (None Seen)
--- NOTE | 2024-09-20 17:09 | DVHPN2 ---
Progress Note - Dictate Date Seen: Sep 18, 2024 Subjective PT WITH ISCHEMIC CM S/P AICD IMPLANTATION AT [facility] NOW WITH INFECTED AICD S/P EXPLANTATION OF AICD ABX vital signs Vital Sign Date Time Temp Pulse Resp B/P (MAP) Pulse Ox O2 Delivery O2 Flow Rate FiO2 09/20/24 17:00 97.9 64 16 95/49 (64) 96 97.9 09/20/24 08:10 Room Air* 0 21 Total Intake and Output 09/19/24 09/19/24 09/20/24 15:00 23:00 07:00 Intake Total 1150 ml 500 ml Balance 1150 ml 500 ml medications Current Medications Medications Dose Ordered Sig/Peter Route Start Time Stop Time Status Last Admin Dose Admin Cefazolin Sodium/ Dextrose 50 ml @ 50 mls/hr Q8HR IV 09/17/24 15:00 09/20/24 06:43 50 MLS/HR Atorvastatin Calcium 20 mg HS PO 09/17/24 22:00 09/19/24 21:42 20 MG Furosemide 20 mg DAILY PO 09/18/24 10:00 09/20/24 09:55 20 MG Losartan Potassium 25 mg DAILY PO 09/18/24 10:00 09/20/24 09:54 25 MG Metoprolol Succinate 25 mg DAILY PO 09/18/24 10:00 09/20/24 09:54 25 MG Tamsulosin HCl 0.4 mg QPM PO 09/17/24 18:00 09/19/24 17:08 0.4 MG Diagnostic Test (Pha) 1 strip ACHS 09/17/24 17:00 09/20/24 06:23 1 STRIP Insulin Human Regular ACHS SC 09/17/24 17:00 09/20/24 10:59 3 UNITS Dextrose 50 ml UD PRN IV 09/17/24 16:00 laboratory and microbiology Laboratory Tests 09/19/24 12:38 Test 09/19/24 12:38 Range/Units Serum Glucose 202 H 74-106 mg/dL Problem List ISCHEMIC CM S/P AICD IMPLANTATION AT [facility] NOW WITH INFECTED AICD S/P EXPLANTATION OF AICD ABX Assessment/Plan ABX X 5 DAYS IV IMPLANTATION OF AICD 09/21/24 Dietary Evaluation Review Comments: 1) CCHO 75 + cardiac diet 2) Continue current plan of care Expected Outcomes/Goals: Pt will have improved lab results fu 3-5 days Plan discussed with: Patient ALENA RENEE MD Sep 20, 2024 17:09
--- NOTE | 2024-09-20 17:12 | DVHDS2 ---
Discharge Summary Date of Admission Sep 17, 2024 at 13:57 Date of Discharge: Sep 20, 2024 Admitting Diagnosis ISCHEMIC CM S/P AICD IMPLANTATION AT [facility] NOW WITH INFECTED AICD S/P EXPLANTATION OF AICD ABX Wounds: EXPLANTED AICD Labs/Diagnostic Data: Laboratory Results Test 09/20/24 16:50 09/20/24 10:42 09/19/24 12:38 09/15/24 09:38 POC Glucose 200 mg/dl (70-106) White Blood Count 8.4 10^3/uL (4.4-10.8) Red Blood Count 5.00 10^6/uL (4.5-5.90) Hemoglobin 16.2 g/dL (13.5-17.5) Hematocrit 44.9 % (41.0-53.0) Mean Corpuscular Volume 89.9 fL (80.0-100.0) Mean Corpuscular Hemoglobin 32.5 pg (28.0-32.0) Mean Corpuscular Hemoglobin Concent 36.2 g/dL (32.0-36.0) Red Cell Distribution Width 14.2 % (11.8-14.3) Platelet Count 157 10^3/uL (140-450) Mean Platelet Volume 8.2 fL (6.9-10.8) Neutrophils (%) (Auto) 64.5 % (37.0-80.0) Lymphocytes (%) (Auto) 19.3 % (10.0-50.0) Monocytes (%) (Auto) 10.7 % (0.0-12.0) Eosinophils (%) (Auto) 5.1 % (0.0-7.0) Basophils (%) (Auto) 0.4 % (0.0-2.0) Neutrophils # (Auto) 5.4 10 ^3/uL (1.6-8.6) Lymphocytes # (Auto) 1.6 10 ^3/uL (0.4-5.4) Monocytes # (Auto) 0.9 10 ^3/uL (0-1.3) Eosinophils # (Auto) 0.4 10 ^3/uL (0-0.8) Basophils # (Auto) 0 10 ^3/uL (0-0.2) Nucleated Red Blood Cells 0.1 % Sodium Level 136 mmol/L (136-145) Potassium Level 4.6 mmol/L (3.5-5.1) Chloride Level 101 mmol/L (98-107) Carbon Dioxide Level 27 mmol/L (20-31) Anion Gap 8 (5-15) Blood Urea Nitrogen 26 mg/dL (9-23) Creatinine 1.21 mg/dL (0.700-1.30) Glomerular Filtration Rate Calc 59 mL/min (>90) BUN/Creatinine Ratio 21.5 (10.0-20.0) Serum Glucose 202 mg/dL (74-106) Calcium Level 9.7 mg/dL (8.7-10.4) Magnesium Level 2.1 mg/dL (1.6-2.6) Total Bilirubin 1.4 mg/dL (0.2-1.0) Aspartate Amino Transferase (AST) 17 U/L (13-40) Alanine Aminotransferase (ALT) 13 U/L (7-40) Alkaline Phosphatase 85 U/L (46-116) Total Protein 6.8 g/dL (5.7-8.2) Albumin 4.2 g/dL (3.2-4.8) Prothrombin Time 11.4 sec (9.3-11.8) Prothrombin Time INR 1.08 (0.9-1.15) Activated Partial Thromboplast Time 26.2 SEC (24.5-34.5) Other Laboratory Tests 09/19/24 12:38 Brief Hx & Hospital Course: ISCHEMIC CM S/P AICD IMPLANTATION AT [facility] NOW WITH INFECTED AICD S/P EXPLANTATION OF AICD ABX Operations or Procedures EXPLANTATION OF BiV AICD Condition at Discharge: Good Final Diagnosis/Problems List ISCHEMIC CM S/P AICD IMPLANTATION AT [facility] NOW WITH INFECTED AICD S/P EXPLANTATION OF AICD ABX Discharge Disposition: Home Discharge Instruct/Medications Diet: Cardiac 2g Na,low cholest Activity: No Restrictions, As Tolerated Follow Up/Referral: 1 WEEK Medications: CONT HOME MEDS Discharge Statement: "Patient was advised to return to the ER or call 911 if any headaches, dizziness, shortness of breath, chest pain, abdominal pain, bleeding, fevers, or worsening of medical condition. Patient was counseled about treatment plan, medications, possible side effects, patientverbalized understanding. All questions were answered to the best of my ability. This discharge took greater then 30 minutes in planning, reviewing documentation, counseling the patient, and discussing with other team members." ASSESSMENT ASSESSMENT Assessment ALENA RENEE MD Sep 20, 2024 17:12
[2024-09-20 17:31] LABS: Urine Blood Negative /uL (Negative); Urine Clarity Clear (Clear); Urine Color Light-Yellow (Yellow); Urine Protein, UAD Negative (Negative); Urine Specific Gravity 1.015 (1.001-1.035); Urine Squamous Epithelial Cell None Seen /hpf (<5); Urine Urobilinogen Normal (Negative); Urine WBC 1 /HPF (0-3)
[2024-09-21] VITALS (10 sets, daily range): BP systolic 100–125; BP diastolic 50–73; PULSE 62–77; RESP 12–20; TEMP 97.6–97.8; O2SAT 93–97
--- NOTE | 2024-09-21 12:20 | DVHPN2 ---
Progress Note Date Seen: Sep 21, 2024 Medical Necessity Reason Pt with a Central, PICC or Fol: No Subjective Patient reports: No new complaints Review of Systems: HEENT:Normal, CVS:Normal, RESPIRATORY:Normal, GI:Normal, :Normal, MSK:Normal, NEURO:Normal Objective vital signs Vital Sign Date Time Temp Pulse Resp B/P (MAP) Pulse Ox O2 Delivery O2 Flow Rate FiO2 09/21/24 10:00 63 111/72 09/21/24 09:00 97.6 20 95 97.6 09/21/24 08:15 Room Air* 0 21 Total Intake and Output 09/20/24 09/20/24 09/21/24 15:00 23:00 07:00 Intake Total 50 ml 1140 ml 50 ml Balance 50 ml 1140 ml 50 ml medications Current Medications Medications Dose Ordered Sig/Peter Route Start Time Stop Time Status Last Admin Dose Admin Cefazolin Sodium/ Dextrose 50 ml @ 50 mls/hr Q8HR IV 09/17/24 15:00 09/21/24 05:32 50 MLS/HR Atorvastatin Calcium 20 mg HS PO 09/17/24 22:00 09/20/24 21:39 20 MG Furosemide 20 mg DAILY PO 09/18/24 10:00 09/20/24 09:55 20 MG Losartan Potassium 25 mg DAILY PO 09/18/24 10:00 09/20/24 09:54 25 MG Metoprolol Succinate 25 mg DAILY PO 09/18/24 10:00 09/20/24 09:54 25 MG Tamsulosin HCl 0.4 mg QPM PO 09/17/24 18:00 09/20/24 18:00 0.4 MG Diagnostic Test (Pha) 1 strip ACHS 09/17/24 17:00 09/21/24 11:58 1 STRIP Insulin Human Regular ACHS SC 09/17/24 17:00 09/20/24 21:28 6 UNITS Dextrose 50 ml UD PRN IV 09/17/24 16:00 Examination: GENERAL:Normal, HEENT:Normal, NECK:Normal, LUNGS:Normal, CVS:Normal, ABDOMEN:Normal, MSK:Normal, SKIN:Normal, NEURO:Normal, :Normal laboratory and microbiology Laboratory Tests 09/19/24 12:38 Test 09/19/24 12:38 Range/Units Serum Glucose 202 H 74-106 mg/dL Problem List/Assessment/Plan Problem List/Assessment/Plan * Automatic implantable cardioverter-defibrillator infection, status post removal with plan to install new automatic implantable cardioverter-defibrillator today * Ischemic cardiomyopathy with chronic systolic heart failure. * Severe mitral regurgitation. * Diabetes mellitus. * Hypertension. * Benign prostatic hypertrophy. * Hyperlipidemia. advance care planning- full code- time spent 19 mins Plan discussed with: Other (rn) My Orders My Orders Orders - ELVIS ANGULO MD Procedure Category Date Status Time Basic Metabolic Panel LAB 09/22/24 Verified 06:00 Complete Blood Count LAB 09/22/24 Verified 06:00 Chest Portable XY 09/22/24 Verified 06:00 Dietary Evaluation Review Comments: 1) CCHO 75 + cardiac diet 2) Continue current plan of care Expected Outcomes/Goals: Pt will have improved lab results fu 3-5 days Date of Service: Sep 21, 2024 Billing Provider: ELVIS ANGULO MD Common Visit Codes: 09430-[id number] INP/OBS CARE(HIGH) Secondary Visit Codes: [id number] CARE PLAN 30 MINUTES ELVIS ANGULO MD Sep 21, 2024 12:20
[2024-09-21] MEDS: VANCOMYCIN HCL 1000 MG VL ONE (12:43)
[2024-09-21] MEDS: HEPARIN IN NS 1000Units/500mL 0 ML ONE (12:44)
[2024-09-21] MEDS: VANCOMYCIN 1GM/200ML PM 250 ML IV ONE (12:44)
[2024-09-21] MEDS: LIDOCAINE 2%HCL (LOCAL ANESTH.) INJ 20ML MDV ONE ×3 (12:44→14:08)
[2024-09-21] MEDS: MIDAZOLAM HCL 2MG/2ML 2ml VIAL (1mg/ml) ONE (12:44)
[2024-09-21] MEDS: fentaNYL CITRATE 100 MCG/2 ML VL ONE (12:44)
[2024-09-21] MEDS: IOHEXOL 350 MG/ML 100ML IJ ONE (13:09)
[2024-09-21] MEDS: FUROSEMIDE 20 MG/2 ML VIAL ONE (14:50)
--- NOTE | 2024-09-21 15:56 | DVH ---
CHEST RADIOGRAPH Indication: S/P PACEMAKER Technique: Single frontal view of the chest was obtained Comparison: XY CHEST PORTABLE on DOS: 04/21/23 FINDINGS: Lines and Tubes: Biventricular AICD pacemaker in place with pulse generator over the right chest. Lungs: No focal consolidation. Pleura: No effusion. No pneumothorax. Cardiomediastinal contours: Cardiac size is normal. Bones: No acute osseous abnormality. IMPRESSION: 1. Biventricular AICD pacemaker in place with pulse generator over the right chest. 2. No pneumothorax
--- NOTE | 2024-09-21 16:08 | DVHPN2 ---
Progress Note - Dictate Date Seen: Sep 21, 2024 Medical Necessity Reason Pt with a Central, PICC or Fol: No Subjective PT WITH ISCHEMIC CM S/P AICD IMPLANTATION AT [facility] NOW WITH INFECTED AICD S/P EXPLANTATION OF AICD ABX vital signs Vital Sign Date Time Temp Pulse Resp B/P (MAP) Pulse Ox O2 Delivery O2 Flow Rate FiO2 09/21/24 10:00 63 111/72 09/21/24 09:00 97.6 20 95 97.6 09/21/24 08:15 Room Air* 0 21 Total Intake and Output 09/20/24 09/20/24 09/21/24 15:00 23:00 07:00 Intake Total 50 ml 1140 ml 50 ml Balance 50 ml 1140 ml 50 ml medications Current Medications Medications Dose Ordered Sig/Peter Route Start Time Stop Time Status Last Admin Dose Admin Cefazolin Sodium/ Dextrose 50 ml @ 50 mls/hr Q8HR IV 09/17/24 15:00 09/21/24 05:32 50 MLS/HR Atorvastatin Calcium 20 mg HS PO 09/17/24 22:00 09/20/24 21:39 20 MG Furosemide 20 mg DAILY PO 09/18/24 10:00 09/20/24 09:55 20 MG Losartan Potassium 25 mg DAILY PO 09/18/24 10:00 09/20/24 09:54 25 MG Metoprolol Succinate 25 mg DAILY PO 09/18/24 10:00 09/20/24 09:54 25 MG Tamsulosin HCl 0.4 mg QPM PO 09/17/24 18:00 09/20/24 18:00 0.4 MG Diagnostic Test (Pha) 1 strip ACHS 09/17/24 17:00 09/21/24 11:58 1 STRIP Insulin Human Regular ACHS SC 09/17/24 17:00 09/20/24 21:28 6 UNITS Dextrose 50 ml UD PRN IV 09/17/24 16:00 Vancomycin HCl 200 ml @ 200 mls/hr Q12HR IV 09/22/24 02:00 09/22/24 02:59 laboratory and microbiology Laboratory Tests 09/19/24 12:38 Test 09/19/24 12:38 Range/Units Serum Glucose 202 H 74-106 mg/dL Problem List ISCHEMIC CM S/P AICD IMPLANTATION AT [facility] NOW WITH INFECTED AICD S/P EXPLANTATION OF AICD ABX Assessment/Plan ABX X 5 DAYS IV IMPLANTATION OF AICD 09/21/24 S/P BiV AICD IMPLANTATION Dietary Evaluation Review Comments: 1) CCHO 75 + cardiac diet 2) Continue current plan of care Expected Outcomes/Goals: Pt will have improved lab results fu 3-5 days Plan discussed with: Patient ALENA RENEE MD Sep 21, 2024 16:08
--- NOTE | 2024-09-21 16:35 | ECG ---
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
--- NOTE | 2024-09-21 16:45 | DVHOP ---
DATE OF SURGERY: 09/21/2024 INDICATIONS: The patient is an 84-year-old with ischemic cardiomyopathy, depressed left ventricular ejection fraction, explantation of Bi-V AICD, underlying rhythm is atrial fibrillation. The initial AICD was implanted at [place] with erosion of the pocket. In fact, the pocket has been ongoing now for months. The patient finally now underwent explantation of the Bi-V AICD approximately 5 days ago. Now to undergo an implantation of Bi-V AICD through the right subclavian. Risks and benefits were explained to the patient. The patient understands and agrees. DESCRIPTION OF PROCEDURE: The patient was prepped and draped in a sterile condition. 1% Xylocaine used to anesthetize the right subclavicular region. Venography was performed. Then, following that, Conscious sedation was given and using a #10 blade, linear incision was made using blunt dissection, electrocautery, pocket was then dissected out. Two wires were placed into the left subclavian. The initial Glidewire was used for 10.5-American sheath and a right coronary sinus guide catheter was implanted. The coronary sinus lead was then appropriately positioned. Threshold parameters obtained, lead was secured to the wall using 0 Ethibond. Similarly, another 10.5-American sheath through the second Glidewire was inserted and using that, right ventricular shock lead then was appropriately positioned. Threshold parameters obtained and lead was secured to the chest wall using 0 Ethibond. Similarly, a 7-American peel-away sheath was implanted, through which RA lead was then implanted. Threshold parameters obtained, lead was secured to the chest wall using 0 Ethibond. Generator was implanted. Pocket was irrigated using vancomycin saline solution. Pocket was then closed using the 3.0 Monoderm subcutaneous sutures and 3.0 Monoderm subcuticular sutures. There were no complications. The patient tolerated the procedure well. RESULTS: The patient had implantation of Biotronik Rivacor 7 HF-T QP, model #466789, serial #[id number]. LV lead is Sentus ProMRI, model #011101, serial #[id number]. RV lead is Plexa ProMRI, model #031258, serial #[id number]. RA lead is Solia S45, model #129848, serial #[id number]. The patient's underlying rhythm is atrial fibrillation, but the RA lead was placed for better discrimination of VT versus SVT. Threshold parameters: Atrium P-wave amplitude of 3.9 millivolts, threshold of 0.9 volts at 0.4 milliseconds pulse duration, pacing impedance of 615 ohms. Right ventricular lead, R-wave amplitude of 24.2 millivolts, threshold of 0.5 volts at 0.4 milliseconds pulse duration, pacing impedance of 577 ohms. Left ventricular lead threshold parameters, R-wave amplitude of 11.4 millivolts, capture 0.8 volts at 0.4 milliseconds pulse duration, pacing impedance of 655 ohms. CONCLUSION: The patient has successful implantation of Bi-V AICD Biotronik MRI compatible system. Mark Rubi MD SA/MERRILL TID: [id number] RECEIPT: [id number]
--- NOTE | 2024-09-21 16:45 | DVHHP ---
ADMIT DATE: 09/17/2024 ADMITTING DIAGNOSES: * Congestive heart failure. * Permanent pacemaker, implanted right, left subclavian approach has infected and dehisced. Initial pacemaker was implanted in [facility]. It is dehisced now to undergo explantation and the implantation of new AICD at a later date. Risks and benefits were explained to the patient. The patient understands and agrees. PERTINENT MEDICAL HISTORY: Significant for hypertension, hyperlipidemia, history of congestive heart failure, history of COPD, history of peripheral vascular disease. No history of CVA. No history of premature coronary stenosis. The patient, however, has severe mitral regurgitation resulted in decompensation. Positive for diabetes. History of heart failure, systolic. EF less than 30%. CURRENT MEDICATIONS: Include Lipitor, losartan, Lasix and metoprolol. Now with a dehisced permanent pacemaker/AICD and infected septic. Antibiotics have been maintained for the last 2 weeks in preparation for explantation of the device. The patient denies any seizure disorder. No melena, hematochezia. No hematemesis, hemoptysis. No history of bleeding diathesis. The patient however is infected and septic and bacteremic. Gram-positive cocci are positive. No valvular vegetation noted on echocardiography at this time. FAMILY HISTORY: Negative. SOCIAL HISTORY: Negative. Denies any history of any CVA. No history of movement disorder. No history of irritable bowel syndrome, inflammatory bowel disease, or rheumatologic disorders. PHYSICAL EXAMINATION: VITAL SIGNS: Blood pressure is 129/68, pulse of 60-70 and regular, O2 saturation 98%. HEENT: Pupils are reactive. Funduscopic exam is benign. Sclerae anicteric. Extraocular muscles are intact. Oral mucosa moist. Posterior pharynx without any exudate. No JVD appreciated. PULMONARY: Clear to auscultation. Tympanic to percussion. CARDIOVASCULAR: Regular rate without S3, without S4. PMI is slightly diffuse, laterally and inferiorly displaced. ABDOMEN: Obese. Unable to appreciate organomegaly. Stool guaiac is negative. EXTREMITIES: 1+ pulses bilaterally. ASSESSMENT AND PLAN: Thus, the patient with heart failure, systolic, chronic. Now with the infected AICD. The patient will be put on antibiotics and admitted for explantation, and in about 5 days time to undergo reimplantation on the right side. Mark Rubi MD SA/MELLY TID: [id number] RECEIPT: [id number]
[2024-09-21] MEDS: ACETAMINOPHEN 325 MG TAB PO PRN (17:17)
[2024-09-22 01:00] VITALS: BP 134/67; PULSE 58; RESP 20; TEMP 97.8; O2SAT 94
[2024-09-22] MEDS: VANCOMYCIN 1GM/200ML PM 200 ML IV SCH (01:32)
[2024-09-22 05:00] VITALS: BP 119/62; PULSE 70; RESP 19; TEMP 97.6; O2SAT 94
--- NOTE | 2024-09-22 05:14 | DVHDS ---
DATE OF DISCHARGE: 09/22/2024 ANTICIPATED DATE OF DISCHARGE: 09/22/2024 DISCHARGE DIAGNOSES: The patient underwent successful explantation of Bi-V AICD, implantation of new Bi-V AICD through the right subclavian approach and venography. HOSPITAL COURSE: The patient is clinically stable at this time, may be discharged home. Follow up with me in 1 week. Stable at the time of discharge. Activity as instructed. Antibiotics will be continued, Keflex 500 mg q.i.d. for 7 days. Mark Rubi MD SA/THEODORE/JESUS MANUEL TID: [id number] RECEIPT: [id number]
--- NOTE | 2024-09-22 07:08 | DVH ---
EXAM: XR Chest, 1 View CLINICAL INDICATION: chf TECHNIQUE: Frontal view of the chest. COMPARISON: XY CHEST PORTABLE on DOS: 09/21/24, XY CHEST PORTABLE on DOS: 04/21/23 FINDINGS: LUNGS AND PLEURAL SPACES: Pulmonary venous congestion. No consolidation. No pneumothorax. HEART: Unremarkable. No cardiomegaly. MEDIASTINUM: Unremarkable. Normal mediastinal contour. BONES/JOINTS: Unremarkable. No acute fracture. TUBES, LINES AND DEVICES: Right-sided cardiac pacemaker. OTHER FINDINGS: . .. IMPRESSION: Pulmonary venous congestion.
[2024-09-22 07:50] LABS: Chloride 106 mmol/L (98-107); Potassium 4.3 mmol/L (3.5-5.1)
[2024-09-22 07:51] LABS: Anion Gap 9 (5-15); Basophils # (auto) 0 10 ^3/uL (0-0.2); Basophils % (auto) 0.3 % (0.0-2.0); Calcium 9.4 mg/dL (8.7-10.4); Carbon Dioxide 21 mmol/L (20-31); Eosinophils # (auto) 0.7 10 ^3/uL (0-0.8); Hematocrit 42.5 % (41.0-53.0); Hemoglobin 15.5 g/dL (13.5-17.5); Lymphocytes # (auto) 1.2 10 ^3/uL (0.4-5.4); Lymphocytes % (auto) 12.2 % (10.0-50.0); Mean Corpuscular Hemoglobin 32.6 pg (28.0-32.0); Mean Corpuscular Hgb Conc. 36.4 g/dL (32.0-36.0); Mean Corpuscular Volume 89.5 fL (80.0-100.0); Monocytes % (auto) 9.9 % (0.0-12.0); Neutrophils # (auto) 6.9 10 ^3/uL (1.6-8.6); Neutrophils % (auto) 70.6 % (37.0-80.0); Nucleated Red Blood Cells % 0.2 %; Platelet Count (auto) 144 10^3/uL (140-450); Red Blood Cells 4.75 10^6/uL (4.5-5.90); Red Cell Distribution Width 14.1 % (11.8-14.3); White Blood Cell 9.8 10^3/uL (4.4-10.8)
[2024-09-22 07:53] LABS: Sodium 136 mmol/L (136-145)
[2024-09-22 07:56] LABS: BUN/Creatinine Ratio 21.3 (10.0-20.0); Blood Urea Nitrogen 23 mg/dL (9-23)
[2024-09-22 07:57] LABS: Glucose 171 mg/dL (74-106)
[2024-09-22 08:15] VITALS: PULSE 77
[2024-09-22 08:39] VITALS: BP 134/66; PULSE 78; RESP 18; TEMP 98.1; O2SAT 98
--- NOTE | 2024-09-22 08:47 | DVHPN2 ---
Progress Note - Dictate Date Seen: Sep 22, 2024 Medical Necessity Reason Pt with a Central, PICC or Fol: No Subjective PT WITH ISCHEMIC CM S/P AICD IMPLANTATION AT [facility] NOW WITH INFECTED AICD S/P EXPLANTATION OF AICD ABX vital signs Vital Sign Date Time Temp Pulse Resp B/P (MAP) Pulse Ox O2 Delivery O2 Flow Rate FiO2 09/22/24 08:39 98.1 78 18 134/66 (88) 98 98.1 09/21/24 20:00 Room Air* 0 21 Total Intake and Output 09/21/24 09/21/24 09/22/24 15:00 23:00 07:00 Intake Total 300 ml 280 ml Output Total 200 ml Balance 100 ml 280 ml medications Current Medications Medications Dose Ordered Sig/Peter Route Start Time Stop Time Status Last Admin Dose Admin Cefazolin Sodium/ Dextrose 50 ml @ 50 mls/hr Q8HR IV 09/17/24 15:00 09/22/24 05:09 50 MLS/HR Atorvastatin Calcium 20 mg HS PO 09/17/24 22:00 09/21/24 21:15 20 MG Furosemide 20 mg DAILY PO 09/18/24 10:00 09/20/24 09:55 20 MG Losartan Potassium 25 mg DAILY PO 09/18/24 10:00 09/20/24 09:54 25 MG Metoprolol Succinate 25 mg DAILY PO 09/18/24 10:00 09/20/24 09:54 25 MG Tamsulosin HCl 0.4 mg QPM PO 09/17/24 18:00 09/21/24 17:17 0.4 MG Diagnostic Test (Pha) 1 strip ACHS 09/17/24 17:00 09/22/24 06:13 1 STRIP Insulin Human Regular ACHS SC 09/17/24 17:00 09/22/24 06:28 3 UNITS Dextrose 50 ml UD PRN IV 09/17/24 16:00 Acetaminophen 650 mg Q6HP PRN PO 09/21/24 17:00 09/22/24 05:16 650 MG laboratory and microbiology Laboratory Tests 09/22/24 06:47 Test 09/22/24 06:47 Range/Units Serum Glucose 171 H 74-106 mg/dL Problem List ISCHEMIC CM S/P AICD IMPLANTATION AT [facility] NOW WITH INFECTED AICD S/P EXPLANTATION OF AICD ABX Assessment/Plan ABX X 5 DAYS IV IMPLANTATION OF AICD 09/21/24 S/P BiV AICD IMPLANTATION MAY DC HOME ON KEFLEX X 10DAYS F/U IN 1 WEEK Dietary Evaluation Review Comments: 1) CCHO 75 + cardiac diet 2) Continue current plan of care Expected Outcomes/Goals: Pt will have improved lab results fu 3-5 days Plan discussed with: Patient ALENA RENEE MD Sep 22, 2024 08:47
[2024-09-22] MEDS ORDERED: CEPH250C PO (10:16)
== END 2024-09-22 12:15 | disposition home or self-care (01) | DRG 277 ==
LOC: CATH 11:34 → OVERFLOW 13:57 → TELE-WESTW 15:26
PROVIDERS: ADMIT Internal Medicine; ATTEND Internal Medicine
PROC: 02PA0MZ Removal of Cardiac Lead from Heart, Open Approach (ICD-10-PCS; principal; 2024-09-17)
PROC: 0JPT0PZ Removal of Cardiac Rhythm Related Device from Trunk Subcutaneous Tissue and Fascia, Open Approach (ICD-10-PCS; 2024-09-17)
PROC: 0JH609Z Insertion of Cardiac Resynchronization Defibrillator Pulse Generator into Chest Subcutaneous Tissue and Fascia, Open Approach (ICD-10-PCS; 2024-09-21)
PROC: 02HK3KZ Insertion of Defibrillator Lead into Right Ventricle, Percutaneous Approach (ICD-10-PCS; 2024-09-21)
PROC: 02HL3KZ Insertion of Defibrillator Lead into Left Ventricle, Percutaneous Approach (ICD-10-PCS; 2024-09-21)
PROC: 02H63KZ Insertion of Defibrillator Lead into Right Atrium, Percutaneous Approach (ICD-10-PCS; 2024-09-21)
PROC: B5161ZZ Fluoroscopy of Right Subclavian Vein using Low Osmolar Contrast (ICD-10-PCS; 2024-09-21)
DX: T82.7XXA Infection and inflammatory reaction due to other cardiac and vascular devices, implants and grafts, initial encounter (principal); T81.30XA Disruption of wound, unspecified, initial encounter; I50.22 Chronic systolic (congestive) heart failure; R78.81 Bacteremia; E11.51 Type 2 diabetes mellitus with diabetic peripheral angiopathy without gangrene; I11.0 Hypertensive heart disease with heart failure; I25.5 Ischemic cardiomyopathy; I27.20 Pulmonary hypertension, unspecified; I34.0 Nonrheumatic mitral (valve) insufficiency; I48.91 Unspecified atrial fibrillation; J44.9 Chronic obstructive pulmonary disease, unspecified; N40.0 Benign prostatic hyperplasia without lower urinary tract symptoms; E78.5 Hyperlipidemia, unspecified; Z79.899 Other long term (current) drug therapy; Y83.8 Other surgical procedures as the cause of abnormal reaction of the patient, or of later complication, without mention of misadventure at the time of the procedure; Y92.89 Other specified places as the place of occurrence of the external cause; Z88.5 Allergy status to narcotic agent; Z95.810 Presence of automatic (implantable) cardiac defibrillator
CPT/HCPCS: 33241; 33244; 33249; 36012; 36415; 71045; 71046; 80048; 80053; 81001; 82962; 83735; 85025; 85610; 85730; 93005; 99152; 99153; G0378; G0463; J0690; J1815; J2250

== ENCOUNTER 2025-02-26 07:26 | Emergency (ER) | payer OTHER ==
[~2025-02-26] VITALS: Ht 172.7 cm; Wt 80.8 kg
[~2025-02-26 07:26] MED LIST changes: +CEPH250C PO
--- NOTE | 2025-02-26 07:44 | ED.PDOC ---
History of Present Illness HPI Comments 84-year-old male presents to the ER with prior medical history of CHF, diabetes, hypertension: Surgical history of appendectomy, pacemaker, intestinal surgery and the chief complaint of chest pain. Patient reports on having body numbness, headache, shortness a breath left-sided aching chest pain which all started at midnight last night. Patient notes the chest pain to be an 8/10, as well as having current discomfort. Patient states on having soft bowel movement for the past three weeks. Denies chills, fever, N/V/D. No other associated symptoms, modifiers, recent injuries or sick contacts present at this time. Chief Complaint: Chest Pain Time Seen by MD: 07:40 Primary Care Provider: ELLIOTT Reviewed Notes: Nurses Notes, Medications, Allergies Allergies: Coded Allergies: Glipizide (Verified Allergy, Intermediate, 09/15/24) Hydromorphone (Verified Allergy, Unknown, 09/15/24) Home Meds Active Scripts Metronidazole (Flagyl) 500 Mg Tab, 1 TAB PO TID for 7 Days, #21 TAB Prov:MARION EGAN MD 02/26/25 Sulfamethoxazole W/Trimethopri (Bactrim Ds Tablet) 1 Tab Tb, 1 TAB PO BID for 7 Days, #14 TAB Prov:MARION EGAN MD 02/26/25 Cephalexin (KEFLEX CAPSULE) 250 Mg Cp, 500 MG PO TID for 10 Days, #30 CAP Prov:ROSETTE TOBIAS MD 09/22/24 Reported Medications Diphenhydramine Hcl (Benadryl Allergy) 25 Mg Cap, 1 CAP PO BIDP PRN for RASH, #30 CAP 1 Refill 09/15/24 Empagliflozin (Jardiance) 10 Mg Tab, 10 MG PO QAM for DIABETES, TAB 09/15/24 Furosemide (Furosemide) 20 Mg Tab, 20 MG PO DAILY for EDEMA, MG 09/15/24 Pantoprazole Sodium Sesquihydr (Pantoprazole Sodium) 40 Mg Tab, 40 MG PO DAILY for GERD, TAB 09/15/24 Metoprolol Succinate (Metoprolol Succinate Er) 25 Mg Tab, 25 MG PO DAILY for HEART for 30 Days, MG 09/15/24 Losartan Potassium (Losartan Potassium) 25 Mg Tab, 25 MG PO DAILY for HTN for 30 Days, MG 09/15/24 Atorvastatin Calcium (ATORVASTATIN CALCIUM) 20 Mg Tab, 1 TAB PO DAILY, #30 TAB 5 Refills 05/26/23 Tamsulosin Hcl (Tamsulosin Hcl) 0.4 Mg Cap, 1 CAP PO DAILY 04/19/23 Information Source: Patient Mode of Arrival: Ambulatory Severity: Moderate Timing: Hours Duration: Since onset, Hours Prehospital treatment: None Past Medical History PAST MEDICAL HISTORY: CHF, DM, HTN Surgical History: Appendectomy, Pacemaker Surgical History (Other): Intestinal surgery Family History Family History: Reviewed,noncontributory to illness, Unknown Social History Smoker: Non-Smoker Alcohol: Denies ETOH Use Drugs: Denies Drug Use Lives In: Home Constitutional: reports: others (Body numbness); denies: chills, diaphoresis, fatigue, fever, malaise, sweats, weakness EENTM: denies: blurred vision, double vision, ear bleeding, ear discharge, ear drainage, ear pain, ear ringing, eye pain, eye redness, hearing loss, mouth pain, mouth swelling, nasal discharge, nose bleeding, nose congestion, nose pain, photophobia, tearing, throat pain, throat swelling, voice changes, others Respiratory: reports: shortness of breath; denies: cough, hemoptysis, orthopnea, SOB at rest, SOB with excertion, stridor, wheezing, others Cardiovascular: reports: chest pain; denies: dizzy spells, diaphoresis, Dyspnea on exertion, edema, irregular heart beat, left arm pain, lightheadedness, palpitations, PND, syncope, others Gastrointestinal: denies: abdomen distended, abdominal pain, blood streaked bowels, constipated, diarrhea, dysphagia, difficulty swallowing, hematemesis, melena, nausea, poor appetite, poor fluid intake, rectal bleeding, rectal pain, vomiting, others Genitourinary: denies: burning, dysuria, flank pain, frequency, hematuria, incontinence, penile discharge, penile sore, pain, testicle pain, testicle swelling, urgency, others Neurological: reports: headache; denies: dizziness, fainting, left sided numbness, left sided weakness, numbness, paresthesia, pre-existing deficit, right sided numbness, right sided weakness, seizure, speech problems, tingling, tremors, weakness, others Musculoskeletal: denies: back pain, gout, joint pain, joint swelling, muscle pain, muscle stiffness, neck pain, others Integumetry: denies: bruises, change in color, change in hair/nails, dryness, laceration, lesions, lumps, rash, wounds, others Allergic/Immunocompromised: denies: Difficulty Healing, Frequent Infections, Hives, Itching, others Hematologic/Lymphatic: denies: anemia, blood clots, easy bleeding, easy bruising, swollen glands, others Endocrine: denies: excessive hunger, excessive sweating, excessive thirst, excessive urination, flushing, intolerance to cold, intolerance to heat, unexplained weight gain, unexplained weight loss, others Psychiatric: denies: anxiety, bipolar disorder, depression, hopeless, panic disorder, schizophrenia, sleepless, suicidal, others All Other Systems: Reviewed and Negative Physical Exam General Appearance: Moderate Distress, Normal HEENT: Normal ENT Inspection, Pharynx Normal, TMs Normal Neck: Full Range of Motion, Non-Tender, Normal, Normal Inspection Respiratory: Chest Non-Tender, Lungs Clear, No Accessory Muscle Use, No Respiratory Distress, Normal Breath Sounds Cardiovascular: No Edema, No JVD, No Murmur, No Gallop, Normal Peripheral Pu lses, Regular Rate/Rhythm Breast Exam: Deferred Gastrointestinal: No Organomegaly, Non Tender, No Pulsatile Mass, Normal Bowel Sounds, Soft Genitalia: Deferred Pelvic: Deferred Rectal: Deferred Extremities: No calf tenderness, Normal capillary refill, Normal inspection, Normal range of motion, Non-tender, No pedal edema Musculoskeletal : Apperance: Normal Neurologic: Alert, computer aide II-XII nml as Tested, No Motor Deficits, Normal Affect, Normal Mood, No Sensory Deficits Cerebellar Function: NOT DONE Reflexes: NOT DONE Skin: Dry, Normal Color, Warm Peripheral Pulses: 3+ Radial (R), 3+ Radial (L) Lymphatic: No Adenopathy Was a procedure done? Was a procedure done?: No EKG EKG : Pulse Rate (adult): 80 [place]: Normal Cardiac Rhythm: Afib, Paced (Ventricular paced rhythm) Block: None Hypertrophy: None ST: Normal Differential Dx Considerations may include: Anemia Electrolyte imbalance X-Ray, Labs, Meds, VS Vital Signs Date Time Temp Pulse Resp B/P (MAP) Pulse Ox O2 Delivery O2 Flow Rate FiO2 02/26/25 12:18 97 Room Air* 0 21 02/26/25 12:18 126/53 02/26/25 12:14 83 17 97 Room Air* 0 21 02/26/25 12:11 97.6 83 17 126/53 (77) 97 97.6 02/26/25 09:41 97.6 82 24 121/81 (94) 96 97.6 02/26/25 07:44 80 02/26/25 07:33 97.5 85 18 125/89 97 97.5 02/26/25 07:26 80 Lab Test 02/26/25 10:46 02/26/25 08:42 02/26/25 07:47 Range/Units Troponin I High Sensitivity 18 19 20 </=54 ng/L White Blood Count 12.0 H 4.4-10.8 10^3/uL Red Blood Count 4.76 4.5-5.90 10^6/uL Hemoglobin 15.2 13.5-17.5 g/dL Hematocrit 43.0 41.0-53.0 % Mean Corpuscular Volume 90.4 80.0-100.0 fL Mean Corpuscular Hemoglobin 31.9 28.0-32.0 pg Mean Corpuscular Hemoglobin Concent 35.3 32.0-36.0 g/dL Red Cell Distribution Width 13.8 11.8-14.3 % Platelet Count 235 140-450 10^3/uL Mean Platelet Volume 8.1 6.9-10.8 fL Neutrophils (%) (Auto) 72.9 37.0-80.0 % Lymphocytes (%) (Auto) 13.9 10.0-50.0 % Monocytes (%) (Auto) 11.3 0.0-12.0 % Eosinophils (%) (Auto) 1.4 0.0-7.0 % Basophils (%) (Auto) 0.5 0.0-2.0 % Neutrophils # (Auto) 8.8 H 1.6-8.6 10 ^3/uL Lymphocytes # (Auto) 1.7 0.4-5.4 10 ^3/uL Monocytes # (Auto) 1.4 H 0-1.3 10 ^3/uL Eosinophils # (Auto) 0.2 0-0.8 10 ^3/uL Basophils # (Auto) 0.1 0-0.2 10 ^3/uL Nucleated Red Blood Cells 0.1 % Sodium Level 137 136-145 mmol/L Potassium Level 4.5 3.5-5.1 mmol/L Chloride Level 106 98-107 mmol/L Carbon Dioxide Level 18 L 20-31 mmol/L Anion Gap 13 5-15 Blood Urea Nitrogen 21 9-23 mg/dL Creatinine 1.64 H 0.700-1.30 mg/dL Glomerular Filtration Rate Calc 41 >90 mL/min BUN/Creatinine Ratio 12.8 10.0-20.0 Serum Glucose 261 H 74-106 mg/dL Calcium Level 9.4 8.7-10.4 mg/dL Current Medications Medications (Trade) Dose Ordered Sig/Peter Route Start Time Stop Time Status Last Admin Furosemide (Lasix Injection) 20 mg ONCE ONCE IV 02/26/25 11:30 02/26/25 12:46 DC 02/26/25 12:18 [place] [address] Ph: [phone] DIAGNOSTIC IMAGING Diagnostic Imaging Report : [id number] Signed PATIENT: CRUZ JO ACCT: [id number] UNIT: [id number] : 1940 LOC: ER ROOM / BED: / AGE / SEX: 84 / M ADM STATUS: REG ER SERVICE ORDERING PHYSICIAN: MARION EGAN MD PROCEDURE(s): CXRP - CHEST PORTABLE REASON: sob ORDER NUMBER(s): [id number], ACCESSION NUMBER(s): [id number] XY CHEST PORTABLE, HISTORY: sob COMPARISON: XY CHEST PORTABLE on DOS: 09/22/24, XY CHEST PORTABLE on DOS: 09/21/24, XY CHEST TWO VIEWS ROUTINE on DOS: 09/15/24 XY CHEST PORTABLE on DOS: 09/22/24, XY CHEST PORTABLE on DOS: 09/21/24, XY CHEST TWO VIEWS ROUTINE on DOS: 09/15/24 TECHNICAL DATA: 1 view of the chest was obtained. FINDINGS: Lines and tubes: A cardiac pacer is noted. Cardiomediastinal silhouette: Enlarged Pulmonary vasculature: prominent Lung expansion: normal Lung airspace: normal Lung interstitium: normal Pleura: normal Pneumothorax: no Bones: Unremarkable Other: no IMPRESSION: Cardiomegaly with pulmonary vascular congestion. ATED BY: MAC COREAS MD DICTATED DATE/TIME: 02/26/25820 SIGNED BY: MAC COREAS MD SIGNED DATE/TIME: 02/26/25820 CC: [address] [address] Ph: [phone] DIAGNOSTIC IMAGING Diagnostic Imaging Report : [id number] Signed PATIENT: CRUZ JO ACCT: [id number] UNIT: [id number] : 1940 LOC: ER ROOM / BED: / AGE / SEX: 84 / M ADM STATUS: REG ER SERVICE 9 ORDERING PHYSICIAN: MARION EGAN MD PROCEDURE(s): ABPL - CT AB PEL WO CON-NO ORAL OR IV REASON: distended ORDER NUMBER(s): [id number], ACCESSION NUMBER(s): [id number] CLINICAL INFORMATION: Abdominal pain and distention. TECHNIQUE: Axial CT images of the abdomen and pelvis were obtained after the uneventful administration of 100 mL Omnipaque 300 IV contrast. Coronal and sagittal reformatted images were obtained, reviewed, and stored. All CT scans at this medical facility are performed using dose modulation techniques as appropriate to a performed exam including the following: Automated exposure control was utilized; adjustment of the MA and/or KV according to patient size; and use of iterative reconstruction technique. CTDIvol = 19.36 mGy DLP = 876.71 mGy-cm COMPARISON: Correlation made to ultrasound dated 04/27/2024. FINDINGS: Lung bases: Dependent atelectasis in the lung bases. Liver: Nodular contour of the liver, may be seen with cirrhosis in the appropriate clinical setting. Mild perihepatic fluid. Biliary: No calcified gallstones or biliary ductal dilatation. Spleen: Moderate perisplenic fluid. Pancreas: Moderate atrophy. Adrenal glands: Unremarkable. No mass. Kidneys: No hydronephrosis or mass. Aorta/Vascular: Dense arterial calcification. No abdominal aortic aneurysm. Retroperitoneum: Mildly prominent para-aortic and interaortocaval lymph nodes, with the largest measuring up to 1.4 x 0.8 cm, likely reactive lymph nodes. Bowel/mesentery: No small bowel obstruction. Small volume ascites. No free air. Appendix is not visualized. Mild to moderate stranding adjacent to the rectum with small amount of fluid, possible proctitis in the appropriate clinical setting. Pelvic organs: Grossly unremarkable. Bladder: Unremarkable. No mass. Abdominal wall: No mass or hernia. Bones: No acute fracture or focal intraosseous lesion. IMPRESSION: 1. Cirrhotic liver morphology. 2. Small volume ascites in the abdomen and pelvis. 3. Perirectal inflammatory stranding and small amount of fluid, possible proctitis in the appropriate clinical setting. 4. Additional nonacute findings as described above. ATED BY: CEM BARRIOS DO DICTATED DATE/TIME: 02/26/25828 SIGNED BY: CEM BARRIOS DO SIGNED DATE/TIME: 02/26/25828 CC: Patient alert. Paced rhythm. Vitals stable. Answering questions. Chronic condition. Abdomen is soft. No leg swelling. EKG does show paced rhythm. Reviewed his history. Blood sugar elevated. Was told to take his diabetic medication. Was given Lasix. Cardiac marker within normal limits. Chest x-ray does show mild fluid. CT scan of the abdomen does show proctitis. Was given prescription of Bactrim. Explained to the patient. Continue monitoring. Was told to follow up with his primary care physician. Was told to come back if there is any problem. Time of 1ST Reevaluation: 08:10 Reevaluation 1ST: Unchanged Patient Education/Counseling: Diagnosis, Treatment, Prognosis Family Education/Counseling: No Family Present SEPSIS Sepsis Screen Physician Orders Urinalysis (02/26/25 07:34) Electrocardigram (02/26/25 07:39) Electrocardigram (02/26/25 08:39) Electrocardigram (02/26/25 10:39) Ct Ab Pel Wo Con-No Oral Or Iv (02/26/25 07:40) Chest Portable (02/26/25 07:40) Vital Signs Date Time Temp Pulse Resp B/P (MAP) Pulse Ox O2 Delivery O2 Flow Rate FiO2 02/26/25 12:18 97 Room Air* 0 21 02/26/25 12:18 126/53 02/26/25 12:14 83 17 97 Room Air* 0 21 02/26/25 12:11 97.6 83 17 126/53 (77) 97 97.6 02/26/25 09:41 97.6 82 24 121/81 (94) 96 97.6 02/26/25 07:44 80 02/26/25 07:33 97.5 85 18 125/89 97 97.5 02/26/25 07:26 80 Laboratory Tests Test 02/26/25 07:47 White Blood Count 12.0 10^3/uL (4.4-10.8) H Medications Medications Dose Ordered Sig/Peter Route Start Time Stop Time Status Last Admin Dose Admin Furosemide 20 mg ONCE ONCE IV 02/26/25 11:30 02/26/25 12:46 DC 02/26/25 12:18 Departure 1 Departure Time of Disposition: 07:52 Impression: Primary Impression: CHF (congestive heart failure) Qualified Codes: I50.43 - Acute on chronic combined systolic (congestive) and diastolic (congestive) heart failure Additional Impression: Proctitis Disposition: 01 HOME / SELF CARE / HOMELESS Condition: Good e-Prescriptions Metronidazole (Flagyl) 500 Mg Tab 1 TAB PO TID for 7 Days, #21 TAB Prov: MARION EGAN MD 02/26/25 Sulfamethoxazole W/Trimethopri (Bactrim Ds Tablet) 1 Tab Tb 1 TAB PO BID for 7 Days, #14 TAB Prov: MARION EGAN MD 02/26/25 Discharged With: Self Critical Care Note Critical Care Time?: No Stability Stability form required: No Heart Score Heart Score: Heart Score Response (Comments) Value History Slightly Suspicious 0 EKG Normal 0 Age >65 2 Risk Factors >3 or Hx ASHD 2 Troponin Normal limit 0 Total 4 I personally scribed for MARION EGAN MD ([email or web address]) on 02/26/25 at 07:44. Electronically submitted by Navneet Little ([email or web address]). I personally scribed for MARION EGAN MD ([email or web address]) on 02/26/25 at 14:09. Electronically submitted by Donn Goldstein ([email or web address]). MARION EGAN MD Feb 26, 2025 07:44
[2025-02-26 08:08] LABS: Hematocrit 43.0 % (41.0-53.0); Hemoglobin 15.2 g/dL (13.5-17.5); Mean Corpuscular Hemoglobin 31.9 pg (28.0-32.0); Mean Corpuscular Volume 90.4 fL (80.0-100.0); Nucleated Red Blood Cells % 0.1 %
[2025-02-26 08:13] LABS: Chloride 106 mmol/L (98-107); Potassium 4.5 mmol/L (3.5-5.1); Sodium 137 mmol/L (136-145)
[2025-02-26 08:14] LABS: Anion Gap 13 (5-15); Calcium 9.4 mg/dL (8.7-10.4)
[2025-02-26 08:17] LABS: Carbon Dioxide 18 mmol/L (20-31)
[2025-02-26 08:19] LABS: BUN/Creatinine Ratio 12.8 (10.0-20.0); Blood Urea Nitrogen 21 mg/dL (9-23)
[2025-02-26 08:22] LABS: Glucose 261 mg/dL (74-106)
--- NOTE | 2025-02-26 08:24 | DVH ---
XY CHEST PORTABLE, HISTORY: sob COMPARISON: XY CHEST PORTABLE on DOS: 09/22/24, XY CHEST PORTABLE on DOS: 09/21/24, XY CHEST TWO VIEWS RO UTINE on DOS: 09/15/24 XY CHEST PORTABLE on DOS: 09/22/24, XY CHEST PORTABLE on DOS: 09/21/24, XY CHEST TWO VIEWS ROUTINE on DOS : 09/15/24 TECHNICAL DATA: 1 view of the chest was obtained. FINDINGS: Lines and tubes: A cardiac pacer is noted. Cardiomediastinal silhouette: Enlarged Pulmonary vasculature: prominent Lung expansion: normal Lung airspace: normal Lung interstitium: normal Pleura: normal Pneumothorax: no Bones: Unremarkable Other: no IMPRESSION: Cardiomegaly with pulmonary vascular congestion.
--- NOTE | 2025-02-26 08:31 | DVH ---
CLINICAL INFORMATION: Abdominal pain and distention. TECHNIQUE: Axial CT images of the abdomen and pelvis were obtained after the uneventful administrati on of 100 mL Omnipaque 300 IV contrast. Coronal and sagittal reformatted images were obtained, review ed, and stored. All CT scans at this medical facility are performed using dose modulation techniques as appropriate to a performed exam including the following: Automated exposure control was utilized; adjustment of the MA and/or KV according to patient size; and use of iterative reconstruction technSoftware 2000 ue. CTDIvol = 19.36 mGy DLP = 876.71 mGy-cm COMPARISON: Correlation made to ultrasound dated 04/27/2024. FINDINGS: Lung bases: Dependent atelectasis in the lung bases. Liver: Nodular contour of the liver, may be seen with cirrhosis in the appropriate clinical setting. Mild perihepatic fluid. Biliary: No calcified gallstones or biliary ductal dilatation. Spleen: Moderate perisplenic fluid. Pancreas: Moderate atrophy. Adrenal glands: Unremarkable. No mass. Kidneys: No hydronephrosis or mass. Aorta/Vascular: Dense arterial calcification. No abdominal aortic aneurysm. Retroperitoneum: Mildly prominent para-aortic and interaortocaval lymph nodes, with the largest measu ring up to 1.4 x 0.8 cm, likely reactive lymph nodes. Bowel/mesentery: No small bowel obstruction. Small volume ascites. No free air. Appendix is not visua lized. Mild to moderate stranding adjacent to the rectum with small amount of fluid, possible proctit is in the appropriate clinical setting. Pelvic organs: Grossly unremarkable. Bladder: Unremarkable. No mass. Abdominal wall: No mass or hernia. Bones: No acute fracture or focal intraosseous lesion. IMPRESSION: 1. Cirrhotic liver morphology. 2. Small volume ascites in the abdomen and pelvis. 3. Perirectal inflammatory stranding and small amount of fluid, possible proctitis in the appropriate clinical setting. 4. Additional nonacute findings as described above.
[2025-02-26] MEDS ORDERED: BACDST PO (11:30)
[2025-02-26 12:14] VITALS: PULSE 83; RESP 17; O2SAT 97
[2025-02-26] MEDS: FUROSEMIDE 20 MG/2 ML VIAL IV ONE (12:18)
[2025-02-26] MEDS ORDERED: METR-344 PO (13:38)
[2025-02-26 14:51] LABS: Urine Protein, UAD Negative (Negative)
[2025-02-26 16:31] VITALS: BP 118/62; PULSE 88; RESP 18; TEMP 97; O2SAT 98
--- NOTE | 2025-02-28 06:20 | ECG ---
[facility] Test Date: 2025-02-26 Test Time: 07:25:09 Pat Name: CRUZ JO Department: ED Room: Gender: M Casing Mixer: [place] : 1940 Requested By: MARION EGAN Order Number: [id number] Reading MD: Mark Correa Measurements Intervals [place] Rate: 80 P: 0 ND: 0 QRS: 209 QRSD: 136 T: 27 QT: 433 QTc: 500 Interpretive Statements Afib/flutter and ventricular-paced rhythm No further analysis attempted due to paced rhythm Electronically Signed On 02-28-2025 13:35:42 PDT by Mark Correa Please click the below link to view image of tracing.
== END 2025-02-26 16:34 | disposition home or self-care (01) ==
LOC: ER 07:26
DX: R06.02 Shortness of breath (principal); I11.0 Hypertensive heart disease with heart failure; I50.9 Heart failure, unspecified; K62.89 Other specified diseases of anus and rectum; E11.65 Type 2 diabetes mellitus with hyperglycemia; I48.91 Unspecified atrial fibrillation; I48.92 Unspecified atrial flutter; Z79.84 Long term (current) use of oral hypoglycemic drugs; Z79.899 Other long term (current) drug therapy; Z90.49 Acquired absence of other specified parts of digestive tract; Z88.5 Allergy status to narcotic agent; Z95.0 Presence of cardiac pacemaker
CPT/HCPCS: 36415; 71045; 74176; 80048; 81001; 84484; 85025; 93005; 96374; 99285; J1938

== ENCOUNTER 2025-03-07 10:09 | Inpatient (IN) | payer OTHER ==
[~2025-03-07] VITALS: Ht 172.7 cm; Wt 77.4 kg
[~2025-03-07 10:09] MED LIST changes: +BACDST PO; +METR-344 PO
[2025-03-07] MEDS ORDERED: ONDANSETRON HCL 4 MG/2 ML VIAL IV ONE (10:45)
--- NOTE | 2025-03-07 10:54 | ED.PDOC ---
GI ASSESSMENT HPI Comments 84y M with a history of CHF, diabetes, hypertension and pacemaker presents to the ED for chief complaint of abdominal pain and diarrhea. Pt states he has been having abdominal pain, distention and watery diarrhea for the past 3 months constantly, and states he was referred to the ED by his PCP for further evaluation. Pt states his abdomen has been "hard" and has been having associated symptoms of shortness of breath, nausea, vomiting and subjective fever for the last 2 days. Pt states he has been having diarrhea for the past 3 months and states he has been taking Metamucil which only occasionally helps. Pt states he has been having vomiting for the past 2 days and states he has been having difficulty keeping food down when attempting to eat. Pt has noted BP of 130/93, temp of 97.5 , and heart rate 119 but otherwise stable vitals including 02 sat of 96% on room air and RR of 20. Chief Complaint: Abdominal Pain Time Seen by MD: 10:52 Primary Care Provider: ELLIOTT August Notes: Medications, Allergies Allergies: Coded Allergies: Glipizide (Verified Allergy, Intermediate, 09/15/24) Hydromorphone (Verified Allergy, Unknown, 09/15/24) Home Meds Active Scripts Metronidazole (Flagyl) 500 Mg Tab, 1 TAB PO TID for 7 Days, #21 TAB Prov:MARION EGAN MD 02/26/25 Sulfamethoxazole W/Trimethopri (Bactrim Ds Tablet) 1 Tab Tb, 1 TAB PO BID for 7 Days, #14 TAB Prov:MARION EGAN MD 02/26/25 Cephalexin (KEFLEX CAPSULE) 250 Mg Cp, 500 MG PO TID for 10 Days, #30 CAP Prov:ROSETTE TOBIAS MD 09/22/24 Reported Medications Diphenhydramine Hcl (Benadryl Allergy) 25 Mg Cap, 1 CAP PO BIDP PRN for RASH, #30 CAP 1 Refill 09/15/24 Empagliflozin (Jardiance) 10 Mg Tab, 10 MG PO QAM for DIABETES, TAB 09/15/24 Furosemide (Furosemide) 20 Mg Tab, 20 MG PO DAILY for EDEMA, MG 09/15/24 Pantoprazole Sodium Sesquihydr (Pantoprazole Sodium) 40 Mg Tab, 40 MG PO DAILY for GERD, TAB 09/15/24 Metoprolol Succinate (Metoprolol Succinate Er) 25 Mg Tab, 25 MG PO DAILY for HEART for 30 Days, MG 09/15/24 Losartan Potassium (Losartan Potassium) 25 Mg Tab, 25 MG PO DAILY for HTN for 30 Days, MG 09/15/24 Atorvastatin Calcium (ATORVASTATIN CALCIUM) 20 Mg Tab, 1 TAB PO DAILY, #30 TAB 5 Refills 05/26/23 Tamsulosin Hcl (Tamsulosin Hcl) 0.4 Mg Cap, 1 CAP PO DAILY 04/19/23 Information Source: Patient Mode of Arrival: Ambulatory Past Medical History PAST MEDICAL HISTORY: CHF, DM, HTN Surgical History: Appendectomy, Pacemaker Family History Family History: Reviewed,noncontributory to illness, Unknown Social History Smoker: Non-Smoker Alcohol: Denies ETOH Use Drugs: Denies Drug Use Lives In: Home All Other Systems: Reviewed and Negative (see HPI) Physical Exam General Appearance: No Apparent Distress HEENT: Other (Pupils and face symmetric. Moist mucous membranes.) Neck: Full Range of Motion, Normal Inspection Respiratory: Lungs Clear, No Accessory Muscle Use, No Respiratory Distress, Normal Breath Sounds Cardiovascular: No Edema, No JVD, Tachycardia Breast Exam: Deferred Gastrointestinal: Diffuse (Mild diffuse tenderness), Distended (Moderate distention.), Soft, Tenderness Genitalia: Deferred Pelvic: Deferred Rectal: Deferred Extremities: Normal inspection, Normal range of motion, Non-tender, No pedal edema Neurologic: Alert (Oriented x4), Normal Affect, Normal Mood, Other (Ambulatory) Cerebellar Function: NOT DONE Reflexes: NOT DONE Skin: Dry, Normal Color, Warm Lymphatic: NOT DONE EKG EKG : Comments AFib RVR, rate 118, prolonged QRS 150, prolonged QTC 540, left axis deviation, possible old anteroseptal infarct, lateral T-wave inversion with ST depression Was a procedure done? Was a procedure done?: No GI differential Dx Differential Diagnosis: Constipation, Diverticular disease, Gastroenteritis, Inflammatory BD, Ischemic Bowel, Pancreatitis, UTI, Dehydration, Electrolyte Imbalance, Food Poisoning, Bacterial, Viral, Hypovolemia, Malnutrition, Renal Failure, Stress Ulcer Other Differential Diagnosis colitis, enteritis, CHF, among others X-Ray, Labs, Meds, VS Vital Signs Date Time Temp Pulse Resp B/P (MAP) Pulse Ox O2 Delivery O2 Flow Rate FiO2 03/07/25 10:13 97.5 119 20 130/93 96 97.5 Lab Test 9/15/25 12:41 03/07/25 11:12 03/07/25 10:38 Range/Units Lactic Acid Level 1.9 2.6 *H 0.4-2.0 mmol/L Troponin I High Sensitivity 32 30 </=54 ng/L White Blood Count 13.7 H 4.4-10.8 10^3/uL Red Blood Count 4.78 4.5-5.90 10^6/uL Hemoglobin 15.1 13.5-17.5 g/dL Hematocrit 43.6 41.0-53.0 % Mean Corpuscular Volume 91.2 80.0-100.0 fL Mean Corpuscular Hemoglobin 31.6 28.0-32.0 pg Mean Corpuscular Hemoglobin Concent 34.7 32.0-36.0 g/dL Red Cell Distribution Width 14.2 11.8-14.3 % Platelet Count 253 140-450 10^3/uL Mean Platelet Volume 8.4 6.9-10.8 fL Neutrophils (%) (Auto) 81.7 H 37.0-80.0 % Lymphocytes (%) (Auto) 7.8 L 10.0-50.0 % Monocytes (%) (Auto) 9.6 0.0-12.0 % Eosinophils (%) (Auto) 0.6 0.0-7.0 % Basophils (%) (Auto) 0.3 0.0-2.0 % Neutrophils # (Auto) 11.2 H 1.6-8.6 10 ^3/uL Lymphocytes # (Auto) 1.1 0.4-5.4 10 ^3/uL Monocytes # (Auto) 1.3 0-1.3 10 ^3/uL Eosinophils # (Auto) 0.1 0-0.8 10 ^3/uL Basophils # (Auto) 0 0-0.2 10 ^3/uL Nucleated Red Blood Cells 0.1 % Sodium Level 133 L 136-145 mmol/L Potassium Level 4.2 3.5-5.1 mmol/L Chloride Level 103 98-107 mmol/L Carbon Dioxide Level 18 L 20-31 mmol/L Anion Gap 12 5-15 Blood Urea Nitrogen 28 H 9-23 mg/dL Creatinine 1.66 H 0.700-1.30 mg/dL Glomerular Filtration Rate Calc 41 >90 mL/min BUN/Creatinine Ratio 16.9 10.0-20.0 Serum Glucose 241 H 74-106 mg/dL Calcium Level 8.9 8.7-10.4 mg/dL Total Bilirubin 1.7 H 0.2-1.0 mg/dL Aspartate Amino Transferase (AST) 65 H 13-40 U/L Alanine Aminotransferase (ALT) 63 H 7-40 U/L Alkaline Phosphatase 115 46-116 U/L B-Type Natriuretic Peptide 1224.77 0-100 pg/mL Total Protein 6.8 5.7-8.2 g/dL Albumin 4.1 3.2-4.8 g/dL Lipase 84 H 12-53 U/L Urine Color Yellow Yellow Urine Clarity Clear Clear Urine pH 5.5 5.0-9.0 Urine Specific [place] 1.028 1.001-1.035 Urine Protein 1+ H Negative Urine Ketones Trace Negative Urine Blood Negative Negative /uL Urine Nitrite Negative Negative Urine Bilirubin Negative Negative Urine Urobilinogen Normal Negative mg/dL Urine Leukocyte Esterase Negative Negative /uL Urine RBC 3 0 - 3 /hpf Urine Microscopic WBC 3 0-3 /HPF Urine Squamous Epithelial Cells None seen <5 /hpf Urine Bacteria Many H None Seen /hpf Urine Hyaline Casts Few 0 - 2 /lpf Urine Mucus Few None Seen Urine Glucose 2+ H Normal mg/dL PROCEDURE(s): CXR1 - CHEST XRAY 1 VIEW REASON: sob ORDER NUMBER(s): [id number], ACCESSION NUMBER(s): [id number] EXAM: XY CHEST XRAY 1 VIEW Indication: sob Technique: Single frontal view of the chest was obtained Comparison: XY CHEST PORTABLE on DOS: 02/26/25, XY CHEST PORTABLE on DOS: 09/22/24, XY CHEST PORTABLE on DOS: 09/21/24, XY CHEST TWO VIEWS ROUTINE on DOS: 09/15/24, XY CHEST TWO VIEWS ROUTINE on DOS: 09/07/24 FINDINGS: Lines and Tubes: Cardiac pacemaker projects over the right chest wall. Lungs: No focal consolidation. Pleura: No effusion. No pneumothorax. Cardiomediastinal contours: Cardiomegaly. Atherosclerotic vascular calcifications of the thoracic aorta are noted. Bones: No acute osseous abnormality. IMPRESSION: Cardiomegaly. No acute cardiopulmonary disease. EDURE(s): ABPL - CT AB PEL WO CON-NO ORAL OR IV REASON: abd distention, diffuse pain, diarrhea x 3 mo ORDER NUMBER(s): [id number], ACCESSION NUMBER(s): [id number] EXAM: CT CT AB PEL WO CON-NO ORAL OR IV HISTORY: abd distention, diffuse pain, diarrhea x 3 mo COMPARISON: CT CT AB PEL WO CON-NO ORAL OR IV on DOS: 02/26/25, ECIDC on DOS: 12/21 08/14 TECHNIQUE: Helical CT images of the abdomen and pelvis were performed without IV contrast. Sagittal and coronal reformatted images were obtained. This CT exam was performed using one or more of the following dose reduction techniques: Automated exposure control, adjustment of the mA and/or kv according to patient size, or the use of iterative reconstruction techniques. Radiation Dose: Abdomen/Pelvis: CTDIvol 13.62 mGy, DLP 847.31 mGy*cm. FINDINGS: CT abdomen: There is mild scarring in the lung bases. There is a partially visualized right chest AICD. The heart is enlarged. There are coronary artery calcifications. There is moderate volume upper abdominal ascites. The liver measures 18.5 cm longitudinal. The spleen measures 12 cm longitudinal. There are punctate calcifications in the pancreatic parenchyma. The noncontrast gallbladder, kidneys, and adrenal glands are unremarkable. No abdominal aortic aneurysm. There is possible duodenal wall thickening versus artifactual appearance (images 36-45, series 2). There is a small proximal jejunal diverticulum (image 39, series 2). CT pelvis: No abnormal bowel dilatation or free air. There is low volume free fluid in the pelvis. The appendix is not definitely visualized, and there is no specific evidence of acute appendicitis. The noncontrast urinary bladder is unremarkable. The prostate is mildly enlarged. There is a small fatty right inguinal indirect hernia. 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 There is a chronic appearing mild compression fracture of L2. There is advanced lumbar degenerative disc disease and facet arthropathy. IMPRESSION: 1. Cardiomegaly, coronary artery disease, and right chest AICD. 2. Low to moderate volume abdominopelvic ascites. 3. Possible duodenal wall thickening versus artifactual appearance. Correlate for signs and symptoms of duodenitis. 4. Mild prostatic enlargement. 5. Advanced lumbar degenerative disc disease and facet arthropathy. 6. No evidence of bowel obstruction or other acute process in the abdomen or pelvis. X-Ray, Labs, Meds, VS Comment 84y M with a history of CHF, diabetes, hypertension and pacemaker present referred by his primary doctor for evaluation of diarrhea for 3 months, abdominal distention and pain, associated with nausea and vomiting for the last 2 days Vitals remarkable for heart rate 119, BP 139/93 Exam remarkable for irregularly irregular tachycardic heart rhythm, diffuse abdominal distention and mild tenderness Rhythm strip independently interpreted by me: AFib RVR, rate 119 Chest x-ray unremarkable CT abdomen and pelvis remarkable for abdominal pelvic ascites and possible duodenal wall thickening which may represent duodenitis. No other acute process. CBC WBC 13.7, CMP sodium 133, BUN 28, creatinine 1.66, glucose 241, lipase 84, BNP 1224.77, troponin within normal limit, UA pending Patient treated with the following in the ED: Zofran 4 mg IV, Protonix 40 mg IV, Zosyn 4.5 g IV On re-evaluation, patient is well-appearing. Heart rate is in the low 100s. Ascites may be due to CHF/fluid overload, abdominal pain, nausea and vomiting may be due to duodenitis, history of AFib was concerned for intestinal angina. Plan is to admit the patient for IV antibiotics, possible diuresis, GI evalu ation. Time of 1ST Reevaluation: 11:43 Reevaluation 1ST: Unchanged Patient Education/Counseling: Diagnosis, Treatment Family Education/Counseling: No Family Present SEPSIS Sepsis Screen Date sepsis recognized/suspect: Mar 07, 2025 Time Sepsis recognized/suspect: 1017 Recent Procedure: No On Antibiotic Therapy: No Respiratory Rate >20: No Heart Rate >90: Yes Temp<36 C (96.8 F) or >38.3 C: No SBP <90 or MAP <65 mmHG: No New Acute Mental Status Change: No Is the patient on CPAP, BIPAP,: No SEPSIS EXCLUSION NOTE: Sepsis Exclusion Note: Patient presents with SIRS criteria, but the SIRS response is attributed to [ cardiac arrhythmia/rapid AFib], not sepsis. Sepsis bundle is not initiated at this time, due to this reason. Further management will focus on the treatment of the above condition (s). Physician Orders Ct Ab Pel Wo Con-No Oral Or Iv (03/07/25 10:38) Chest Xray 1 View (03/07/25 10:38) Blood Culture (03/07/25 10:38) Stool Bacterial Culture (03/07/25 10:38) Stool Wbc (03/07/25 10:38) Clostridium Difficile Toxin (03/07/25 10:38) Place Under Ed Observation (03/07/25 12:24) Heplock Iv (03/07/25 12:24) Choir Director (03/07/25 12:24) Blood Pressure (03/07/25 12:24) Pulse Oximetry (03/07/25 12:24) Vital Signs Date Time Temp Pulse Resp B/P (MAP) Pulse Ox O2 Delivery O2 Flow Rate FiO2 03/07/25 10:13 97.5 119 20 130/93 96 97.5 Laboratory Tests Test 03/07/25 11:12 03/07/25 12:41 Lactic Acid Level 2.6 mmol/L (0.4-2.0) *H 1.9 mmol/L (0.4-2.0) White Blood Count 13.7 10^3/uL (4.4-10.8) H Departure 1 Departure Time of Disposition: 13:00 Impression: Primary Impression: Rapid atrial fibrillation Additional Impressions: Duodenitis Ascites Transaminitis Elevated lipase Disposition: ADMITTED INPATIENT Admit to: Tele Condition: Guarded Critical Care Note Critical Care Time?: No Stability Stability form required: No Heart Score Heart Score: Heart Score Response (Comments) Value History N/A 0 EKG N/A 0 Age N/A 0 Risk Factors N/A 0 Troponin N/A 0 Total 0 I personally scribed for MARIANNE LUONG MD ([facility]) on 03/07/25 at 10:54. Electronically submitted by Tash Armas ([facility] MARIANNE LUONG MD Mar 07, 2025 10:54
--- NOTE | 2025-03-07 11:23 | DVH ---
EXAM: XY CHEST XRAY 1 VIEW Indication: sob Technique: Single frontal view of the chest was obtained Comparison: XY CHEST PORTABLE on DOS: 02/26/25, XY CHEST PORTABLE on DOS: 09/22/24, XY CHEST PORTABLE on DOS: 09/21/24, XY CHEST TWO VIEWS ROUTINE on DOS: 09/15/24, XY CHEST TWO VIEWS ROUTINE on DOS: 09/07/24 FINDINGS: Lines and Tubes: Cardiac pacemaker projects over the right chest wall. Lungs: No focal consolidation. Pleura: No effusion. No pneumothorax. Cardiomediastinal contours: Cardiomegaly. Atherosclerotic vascular calcifications of the thoracic ao rta are noted. Bones: No acute osseous abnormality. IMPRESSION: Cardiomegaly. No acute cardiopulmonary disease.
--- NOTE | 2025-03-07 11:42 | DVH ---
EXAM: CT CT AB PEL WO CON-NO ORAL OR IV HISTORY: abd distention, diffuse pain, diarrhea x 3 mo COMPARISON: CT CT AB PEL WO CON-NO ORAL OR IV on DOS: 02/26/25, ECIDC on DOS: 01/01/22 TECHNIQUE: Helical CT images of the abdomen and pelvis were performed without IV contrast. Sagittal a nd coronal reformatted images were obtained. This CT exam was performed using one or more of the foll owing dose reduction techniques: Automated exposure control, adjustment of the mA and/or kv according to patient size, or the use of iterative reconstruction techniques. Radiation Dose: Abdomen/Pelvis: CTDIvol 13.62 mGy, DLP 847.31 mGy*cm. FINDINGS: CT abdomen: There is mild scarring in the lung bases. There is a partially visualized right chest AI CD. The heart is enlarged. There are coronary artery calcifications. There is moderate volume upper a bdominal ascites. The liver measures 18.5 cm longitudinal. The spleen measures 12 cm longitudinal. T here are punctate calcifications in the pancreatic parenchyma. The noncontrast gallbladder, kidneys, and adrenal glands are unremarkable. No abdominal aortic aneurysm. There is possible duodenal wall t hickening versus artifactual appearance (images 36-45, series 2). There is a small proximal jejunal d iverticulum (image 39, series 2). CT pelvis: No abnormal bowel dilatation or free air. There is low volume free fluid in the pelvis. Th e appendix is not definitely visualized, and there is no specific evidence of acute appendicitis. Th e noncontrast urinary bladder is unremarkable. The prostate is mildly enlarged. There is a small fatt y right inguinal indirect hernia. 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 There is a chronic appearing mild compression fracture of L2. There is advanced lumbar degenerative disc disease and facet arthropathy. IMPRESSION: 1. Cardiomegaly, coronary artery disease, and right chest AICD. 2. Low to moderate volume abdominopelvic ascites. 3. Possible duodenal wall thickening versus artifactual appearance. Correlate for signs and symptoms of duodenitis. 4. Mild prostatic enlargement. 5. Advanced lumbar degenerative disc disease and facet arthropathy. 6. No evidence of bowel obstruction or other acute process in the abdomen or pelvis.
[2025-03-07 11:50] LABS: Hematocrit 43.6 % (41.0-53.0); Hemoglobin 15.1 g/dL (13.5-17.5); Mean Corpuscular Hemoglobin 31.6 pg (28.0-32.0); Mean Corpuscular Volume 91.2 fL (80.0-100.0); Nucleated Red Blood Cells % 0.1 %
[2025-03-07] MEDS ORDERED: PANTOPRAZOLE 40 MG/10 ML VIAL INJ IV ONE (12:00)
[2025-03-07 12:10] LABS: Albumin 4.1 g/dL (3.2-4.8); Alkaline Phosphatase 115 U/L (46-116); Anion Gap 12 (5-15); BUN/Creatinine Ratio 16.9 (10.0-20.0); Calcium 8.9 mg/dL (8.7-10.4); Chloride 103 mmol/L (98-107); Potassium 4.2 mmol/L (3.5-5.1); Total Protein 6.8 g/dL (5.7-8.2)
[2025-03-07 12:11] LABS: Alanine Aminotransferase 63 U/L (7-40); Bilirubin, Total 1.7 mg/dL (0.2-1.0); Blood Urea Nitrogen 28 mg/dL (9-23); Carbon Dioxide 18 mmol/L (20-31); Glucose 241 mg/dL (74-106); Lipase 84 U/L (12-53); Sodium 133 mmol/L (136-145)
[2025-03-07 12:13] LABS: Lactic Acid w/Reflex 2.6 mmol/L (0.4-2.0)
[2025-03-07] MEDS ORDERED: MORPHINE SULFATE INJ 2 MG/ml SYRG IV PRN ×2 (14:15)
[2025-03-07] MEDS ORDERED: ACETAMINOPHEN 325 MG TAB PO PRN (14:15)
[2025-03-07] MEDS ORDERED: NITROGLYCERIN 0.4 MG SL TAB SL PRN (14:15)
[2025-03-07] MEDS ORDERED: ONDANSETRON HCL 4 MG/2 ML VIAL IV PRN (14:15)
[2025-03-07 14:29] LABS: Urine Protein, UAD 1+ (Negative)
[2025-03-07] MEDS ORDERED: DEXTROSE (50%) 50ML SYRG IV PRN (14:45)
[2025-03-07] MEDS ORDERED: ENOXAPARIN SOD 40 MG/0.4 ML SYRINGE SC ONE (14:45)
--- NOTE | 2025-03-07 14:55 | DVHHPRES ---
History of Present Illness Resident Creating Document: FRANCINE MCDONNELL RESIDENT History of Present Illness Cata JO a 84-year-old male with a PMH of ischemic CHF status post Bi-V AICD,HTN, type 2 DM presented to the ED with the chief complaints of persistent diarrhea for approximately 1.5 months accompanied by abdominal pain, nausea and vomiting. Patient reports experiencing diarrhea for about a on 0.5 month ago with a episodes occurring 5-6 times daily, even though he has been not eating well patient is still having diarrhea patient also reported he has been having stomach feeling like a bowling ball and notes it has been expanding. He experiences pain in the center of his abdomen which worsens with the food intake. Patient also reported having nausea and vomiting almost 2 months ago which has been improved with Metamucil. Patient also reported he has been experiencing fevers before coming to hospital. Today he called his primary care advised him to visit ER. PMH: Type 2 DM, HFrEF status post AICD, HTN, type 2 DM PSH: Major surgery for perforation and large intestines, knee surgery, AICD implantation Family history: Noncontributory Social history: Lives with the . Denies smoking, alcohol and other drug abuse Allergies: Dilaudid Home medications: Lipitor 20 mg, Jardiance 10 mg, Lasix 20, losartan 25 mg, metoprolol succinate 25 mg, Protonix 40 mg, tamsulosin 0.4 mg Patient seen and examined at the bedside in the ED. patient reported he has been having nausea, vomiting, diarrhea, abdominal pain and occasional shortness of breath but rest of ROS is negative Review of Systems Allergies: Coded Allergies: Glipizide (Verified Allergy, Intermediate, 09/15/24) Hydromorphone (Verified Allergy, Unknown, 09/15/24) Medications Current Medications Medications Dose Ordered Sig/Peter Route Start Time Stop Time Status Last Admin Dose Admin Sodium Chloride 10 ml Q8HR IV 03/07/25 22:00 Ondansetron HCl 4 mg Q4HP PRN IV 03/07/25 14:15 Acetaminophen 650 mg Q6HP PRN PO 03/07/25 14:15 Morphine Sulfate 2 mg Q4HPRN PRN IV 03/07/25 14:15 Nitroglycerin 0.4 mg Q5MINP PRN SL 03/07/25 14:15 Morphine Sulfate 2 mg Q30M PRN IV 03/07/25 14:15 Atorvastatin Calcium 20 mg DAILY PO 03/08/25 10:00 UNV Empaglifozin 10 mg QAM PO 03/08/25 07:00 UNV Losartan Potassium 25 mg DAILY PO 03/08/25 10:00 UNV Pantoprazole Sodium 40 mg DAILY PO 03/08/25 10:00 UNV Tamsulosin HCl 0.4 mg DAILY PO 03/08/25 10:00 UNV Exam Vital Signs Vital Signs Date Time Temp Pulse Resp B/P (MAP) Pulse Ox O2 Delivery O2 Flow Rate FiO2 03/07/25 10:13 97.5 119 20 130/93 96 97.5 Exam Pt is lying on bed General Appearance: Alert, Oriented X3, Cooperative, Not in acute distress HEENT: Atraumatic, Mucous membranes moist/pink Respiratory: Clear to auscultation, Normal air movement, No added sounds Cardiovascular: Irregularly regular rate, Normal S1, Normal S2, No murmurs Abdominal: Active bowel sounds, Soft, no distention, no tenderness Extremities: No edema, Normal pulses, No tenderness/swelling Skin: No Significant rash, except past surgical scars Neuro: Normal speech, sensorimotor deficits none Psych/Mental Status: Mental status NL, Mood NL Nurse was there as extension specialist during examination Labs/Xrays Labs Test 03/07/25 12:41 03/07/25 11:12 03/07/25 10:38 Range/Units Lactic Acid Level 1.9 0.4-2.0 mmol/L Troponin I High Sensitivity 32 </=54 ng/L White Blood Count 13.7 H 4.4-10.8 10^3/uL Red Blood Count 4.78 4.5-5.90 10^6/uL Hemoglobin 15.1 13.5-17.5 g/dL Hematocrit 43.6 41.0-53.0 % Mean Corpuscular Volume 91.2 80.0-100.0 fL Mean Corpuscular Hemoglobin 31.6 28.0-32.0 pg Mean Corpuscular Hemoglobin Concent 34.7 32.0-36.0 g/dL Red Cell Distribution Width 14.2 11.8-14.3 % Platelet Count 253 140-450 10^3/uL Mean Platelet Volume 8.4 6.9-10.8 fL Neutrophils (%) (Auto) 81.7 H 37.0-80.0 % Lymphocytes (%) (Auto) 7.8 L 10.0-50.0 % Monocytes (%) (Auto) 9.6 0.0-12.0 % Eosinophils (%) (Auto) 0.6 0.0-7.0 % Basophils (%) (Auto) 0.3 0.0-2.0 % Neutrophils # (Auto) 11.2 H 1.6-8.6 10 ^3/uL Lymphocytes # (Auto) 1.1 0.4-5.4 10 ^3/uL Monocytes # (Auto) 1.3 0-1.3 10 ^3/uL Eosinophils # (Auto) 0.1 0-0.8 10 ^3/uL Basophils # (Auto) 0 0-0.2 10 ^3/uL Nucleated Red Blood Cells 0.1 % Sodium Level 133 L 136-145 mmol/L Potassium Level 4.2 3.5-5.1 mmol/L Chloride Level 103 98-107 mmol/L Carbon Dioxide Level 18 L 20-31 mmol/L Anion Gap 12 5-15 Blood Urea Nitrogen 28 H 9-23 mg/dL Creatinine 1.66 H 0.700-1.30 mg/dL Glomerular Filtration Rate Calc 41 >90 mL/min BUN/Creatinine Ratio 16.9 10.0-20.0 Serum Glucose 241 H 74-106 mg/dL Calcium Level 8.9 8.7-10.4 mg/dL Total Bilirubin 1.7 H 0.2-1.0 mg/dL Aspartate Amino Transferase (AST) 65 H 13-40 U/L Alanine Aminotransferase (ALT) 63 H 7-40 U/L Alkaline Phosphatase 115 46-116 U/L B-Type Natriuretic Peptide 1224.77 0-100 pg/mL Total Protein 6.8 5.7-8.2 g/dL Albumin 4.1 3.2-4.8 g/dL Lipase 84 H 12-53 U/L Urine Color Yellow Yellow Urine Clarity Clear Clear Urine pH 5.5 5.0-9.0 Urine Specific [place] 1.028 1.001-1.035 Urine Protein 1+ H Negative Urine Ketones Trace Negative Urine Blood Negative Negative /uL Urine Nitrite Negative Negative Urine Bilirubin Negative Negative Urine Urobilinogen Normal Negative mg/dL Urine Leukocyte Esterase Negative Negative /uL Urine RBC 3 0 - 3 /hpf Urine Microscopic WBC 3 0-3 /HPF Urine Squamous Epithelial Cells None seen <5 /hpf Urine Bacteria Many H None Seen /hpf Urine Hyaline Casts Few 0 - 2 /lpf Urine Mucus Few None Seen Urine Glucose 2+ H Normal mg/dL SEPSIS Sepsis Screen Date sepsis recognized/suspect: Mar 07, 2025 Time Sepsis recognized/suspect: 1017 Recent Procedure: No On Antibiotic Therapy: No Respiratory Rate >20: No Heart Rate >90: Yes Temp<36 C (96.8 F) or >38.3 C: No SBP <90 or MAP <65 mmHG: No New Acute Mental Status Change: No Is the patient on CPAP, BIPAP,: No Physician Orders Ct Ab Pel Wo Con-No Oral Or Iv (03/07/25 10:38) Chest Xray 1 View (03/07/25 10:38) Troponin-I Hs (03/07/25 13:38) Blood Culture (03/07/25 10:38) Stool Bacterial Culture (03/07/25 10:38) Stool Wbc (03/07/25 10:38) Clostridium Difficile Toxin (03/07/25 10:38) Place Under Ed Observation (03/07/25 12:24) Heplock Iv (03/07/25 12:24) Elementary Librarian (03/07/25 12:24) Blood Pressure (03/07/25 12:24) Pulse Oximetry (03/07/25 12:24) Admit (03/07/25 14:12) Allergies (03/07/25 14:12) Code Status (03/07/25 14:12) Sodium Chloride Lock (Saline Lock Ns) (03/07/25 22:00) Ondansetron Hcl (Zofran) (03/07/25 14:15) Complete Blood Count (03/08/25 04:00) Comprehensive Metabolic Panel (03/08/25 04:00) Condition: Fair (03/07/25 14:12) Acetaminophen Tablet (Tylenol Tablet) (03/07/25 14:15) Clear Liq Diet (03/07/25 Dinner) Morphine Sulfate Injection (03/07/25 14:15) Sequential Compression Device (03/07/25 ) Nitroglycerin Sublingual (Ntrostat Subli (03/07/25 14:15) Morphine Sulfate Injection (03/07/25 14:15) Oxygen By Nasal Cannula (03/07/25 14:12) Stat Ekg For Chest Pain (03/07/25 14:12) Notify Md Of Changes From Base (03/07/25 14:12) Draw Fire Operator For 24 Hours (03/07/25 14:12) Emergency Dysrhythmia Protocol (03/07/25 14:12) Rhythm Strips Once Every Shift (03/07/25 14:12) Atorvastatin (Lipitor) (03/08/25 10:00) Empagliflozin (Jardiance) (03/08/25 07:00) Losartan Tablet (Cozaar Tablet) (03/08/25 10:00) Pantoprazole Tablet (Protonix Tablet) (03/08/25 10:00) Tamsulosin Hydrochloride (Flomax) (03/08/25 10:00) Hemoglobin A1c (03/07/25 14:34) Magnesium (03/07/25 14:34) PTPTT (03/07/25 14:34) Covid19 Antigen Mera (03/07/25 14:34) Rapid Influenza A&B (03/07/25 14:34) Urine Bacterial Culture (03/07/25 14:34) Respiratory Culture W/ Gs (03/07/25 14:34) Echo 2d Mode Cardiac Dop (03/07/25 14:34) Stool Wbc (03/07/25 14:34) *Consult Dr. Mark Rubi (03/07/25 14:41) Glucose Blood (Accu-Chek Comfort Curve T (03/07/25 17:00) Mild Sliding Scale (03/07/25 17:00) Dextrose 50% Syringe (03/07/25 14:45) Enoxaparin Sodium (Lovenox) (03/08/25 10:00) Enoxaparin Sodium (Lovenox) (03/07/25 14:45) Vital Signs Date Time Temp Pulse Resp B/P (MAP) Pulse Ox O2 Delivery O2 Flow Rate FiO2 03/07/25 10:13 97.5 119 20 130/93 96 97.5 Laboratory Tests Test 03/07/25 11:12 03/07/25 12:41 Lactic Acid Level 2.6 mmol/L (0.4-2.0) *H 1.9 mmol/L (0.4-2.0) White Blood Count 13.7 10^3/uL (4.4-10.8) H Assessment/Plan Assessment/Plan # Possible acute gastroenteritis likely infectious etiology # Possible sepsis likely due to above # Rule out pancreatitis - telemetry - supportive management with the Protonix, Zofran - CT abdominal pelvis showed duodenal wall thickening - given 1 dose of Zosyn - ordered pancultures along with the stool studies and C diff - continuously monitor lab - caution with IV fluids because of HFrEF - Elevated lipase # Acute on chronic HFrEF status post Bi V AICD # AFib with RVR with a secondary hypercoagulable state # Ischemic cardiomyopathy - telemetry - EKG showed pacer rhythm with a AFib - BNP elevated - troponins x3 were negative - resumed home medications GDM T as tolerated - avoid Lasix as patient has been dehydration - consulted Dr. Flores - ordered new echo # DEVAN likely due to VMN on CKD - monitor lab - avoid nephrotoxic agents # Transaminitis - Monitor for now # Uncontrolled type 2 DM, HbA1c - continuously monitor - mild sliding scale GI PPX: Protonix VTE ppx: SCDs /Lovenox Diet: clear liquids for now Goals of care addressed with the patient for more than 27 minutes: Full code status Case discussed with ,patient and nurse Plan discussed with: Patient My Orders Orders - FRANCINE MCDONNELL RESIDENT Procedure Category Date Status Time Admit ADMIT 03/07/25 Transmitted 14:12 Allergies MANUEL 03/07/25 In Process 14:12 Code Status CODE 03/07/25 Transmitted 14:12 Sodium Chloride Lock PHA 03/07/25 In Process (Saline Lock Ns) 22:00 Ondansetron Hcl PHA 03/07/25 In Process (Zofran) 14:15 Complete Blood Count LAB 03/08/25 Verified 04:00 Comprehensive LAB 03/08/25 Verified Metabolic Panel 04:00 Condition: Fair MANUEL 03/07/25 In Process 14:12 Acetaminophen Tablet PHA 03/07/25 In Process (Tylenol Tablet) 14:15 Clear Liq Diet DIET 03/07/25 Transmitted Dinner Morphine Sulfate PHA 03/07/25 In Process Injection 14:15 Sequential MANUEL 03/07/25 In Process Compression Device Nitroglycerin PHA 03/07/25 In Process Sublingual (Ntrostat 14:15 Morphine Sulfate PHA 03/07/25 In Process Injection 14:15 Oxygen By Nasal RT 03/07/25 Transmitted Cannula 14:12 Stat Ekg For Chest MANUEL 03/07/25 In Process Pain 14:12 Notify Of Changes [facility] 03/07/25 In Process From Base 14:12 Draw Fire Operator For [facility] 03/07/25 In Process 24 Hours 14:12 Emergency Dysrhythmia [facility] 03/07/25 In Process Protocol 14:12 Rhythm Strips Once [facility] 03/07/25 In Process Every Shift 14:12 Atorvastatin (Lipitor) PHA 03/08/25 Logged 10:00 Empagliflozin PHA 03/08/25 Logged (Jardiance) 07:00 Losartan Tablet PHA 03/08/25 Logged (Cozaar Tablet) 10:00 Pantoprazole Tablet PHA 03/08/25 Logged (Protonix Tablet) 10:00 Tamsulosin PHA 03/08/25 Logged Hydrochloride (Flomax) 10:00 Hemoglobin A1c LAB 03/07/25 Logged 14:34 Magnesium LAB 03/07/25 Logged 14:34 PTPTT LAB 03/07/25 Logged 14:34 Covid19 Antigen Mera LAB 03/07/25 Logged 14:34 Rapid Influenza A&B LAB 03/07/25 Logged 14:34 Urine Bacterial KEVEN 03/07/25 Logged Culture 14:34 Respiratory Culture KEVEN 03/07/25 Logged W/ Gs 14:34 Echo 2d Mode Cardiac US 03/07/25 Logged DOP 14:34 Stool Wbc LAB 03/07/25 Logged 14:34 *Consult Dr. Flores CONS 03/07/25 Transmitted [place] 14:41 Glucose Blood PHA 03/07/25 Verified (Accu-Chek Comfort 17:00 Mild Sliding Scale PHA 03/07/25 Verified 17:00 Dextrose 50% Syringe PHA 03/07/25 Verified 14:45 Enoxaparin Sodium PHA 03/08/25 Verified (Lovenox) 10:00 Enoxaparin Sodium PHA 03/07/25 Verified (Lovenox) 14:45 FRANCINE MCDONNELL RESIDENT Mar 07, 2025 14:55
[2025-03-07] MEDS ORDERED: METOPROLOL SUCCINATE XL 50 MG TAB PO ONE (15:00)
[2025-03-07 15:43] LABS: INR 1.42 (0.9-1.15); Partial Thromboplastin Time 29.3 SEC (24.5-34.5); Prothrombin Time 14.5 sec (9.3-11.8)
[2025-03-07] MEDS ORDERED: TAMSULOSIN HYDROCHLORIDE 0.4 MG CAP PO SCH (18:00)
[2025-03-07 22:35] VITALS: PULSE 84; RESP 16; O2SAT 97
[2025-03-07 23:33] VITALS: BP 111/88; PULSE 84; RESP 19; TEMP 97.9; O2SAT 97
[2025-03-07 23:35] VITALS: BP 111/88; PULSE 84; RESP 16; TEMP 97.9; O2SAT 97
[2025-03-08] VITALS (7 sets, daily range): BP systolic 102–113; BP diastolic 70–86; PULSE 64–90; RESP 17–19; TEMP 96.5–98.1; O2SAT 96–98
[2025-03-08] MEDS: PIPERACILLIN-TAZO 4.5GM 100 ML IV ONE (00:39)
[2025-03-08] MEDS: InsuLIN REG 1unit/0.01ml Soln (100units/ml) SC SCH (00:50)
[2025-03-08] MEDS: ACCU-CHEK COMFORT CURVE STRIP VI SCH (01:25)
[2025-03-08] MEDS: SODIUM CHLOR 0.9% PF (SALINE LOCK) 10ML VIAL/SYR IV SCH (01:27)
[2025-03-08 05:45] LABS: Hematocrit 42.9 % (41.0-53.0); Hemoglobin 15.3 g/dL (13.5-17.5); Mean Corpuscular Hemoglobin 31.8 pg (28.0-32.0); Mean Corpuscular Volume 89.0 fL (80.0-100.0); Nucleated Red Blood Cells % 0.1 %
[2025-03-08 06:12] LABS: Albumin 4.0 g/dL (3.2-4.8); Alkaline Phosphatase 107 U/L (46-116); Anion Gap 12 (5-15); BUN/Creatinine Ratio 18.4 (10.0-20.0); Calcium 8.8 mg/dL (8.7-10.4); Carbon Dioxide 21 mmol/L (20-31); Chloride 104 mmol/L (98-107); Potassium 3.8 mmol/L (3.5-5.1); Sodium 137 mmol/L (136-145); Total Protein 6.6 g/dL (5.7-8.2)
[2025-03-08 06:23] LABS: Alanine Aminotransferase 59 U/L (7-40); Bilirubin, Total 1.8 mg/dL (0.2-1.0); Blood Urea Nitrogen 26 mg/dL (9-23); Glucose 150 mg/dL (74-106)
[2025-03-08] MEDS: EMPAGLIFLOZIN 10 MG TAB PO SCH (06:44)
[2025-03-08 08:44] LABS: COVID19 ANTIGEN SOFIA FIA NEGATIVE (NEGATIVE)
[2025-03-08] MEDS ORDERED: FUROSEMIDE 20 MG TAB PO SCH (10:00)
[2025-03-08] MEDS: LOSARTAN POTASSIUM 25 MG TAB PO SCH (11:06)
[2025-03-08] MEDS: PANTOPRAZOLE 40 MG TAB PO SCH (11:07)
[2025-03-08] MEDS: ATORVASTATIN 20 MG TAB PO SCH (11:07)
[2025-03-08] MEDS: METOPROLOL SUCCINATE XL 50 MG TAB PO SCH (11:07)
[2025-03-08] MEDS: ENOXAPARIN SOD 40 MG/0.4 ML SYRINGE SC SCH (11:09)
--- NOTE | 2025-03-08 13:59 | DVHPN2 ---
Progress Note - Dictate Date Seen: Mar 07, 2025 Medical Necessity Reason Pt with a Central, PICC or Fol: No Subjective PT WITH ABD PAIN PERSISTENT DIARRHEA CONSISTENT WITH ENTEROCOLITIS PMH ; * Congestive heart failure. * Permanent pacemaker, implanted right, left subclavian approach has infected and dehisced. Initial pacemaker was implanted in [facility]. It is dehisced now to undergo explantation and the implantation of new AICD at a later date. Risks and benefits were explained to the patient. The patient understands and agrees. PERTINENT MEDICAL HISTORY: Significant for hypertension, hyperlipidemia, history of congestive heart failure, history of COPD, history of peripheral vascular disease. No history of CVA. No history of premature coronary stenosis. The patient, however, has severe mitral regurgitation resulted in decompensation. Positive for diabetes. History of heart failure, systolic. EF less than 30%. CURRENT MEDICATIONS: Include Lipitor, losartan, Lasix and metoprolol. Now with a dehisced permanent pacemaker/AICD and infected septic. Antibiotics have been maintained for the last 2 weeks in preparation for explantation of the device. The patient denies any seizure disorder. No melena, hematochezia. No hematemesis, hemoptysis. No history of bleeding diathesis. The patient however is infected and septic and bacteremic. Gram-positive cocci are positive. No valvular vegetation noted on echocardiography at this time. FAMILY HISTORY: Negative. SOCIAL HISTORY: Negative. Denies any history of any CVA. No history of movement disorder. No history of irritable bowel syndrome, inflammatory bowel disease, or rheumatologic disorders. vital signs Vital Sign Date Time Temp Pulse Resp B/P (MAP) Pulse Ox O2 Delivery O2 Flow Rate FiO2 03/08/25 13:32 97.9 77 18 110/70 (83) 98 97.9 03/08/25 07:58 Nasal Cannula* 3 32 Total Intake and Output 03/07/25 03/07/25 03/08/25 15:00 23:00 07:00 Intake Total 168 ml Balance 168 ml medications Current Medications Medications Dose Ordered Sig/Peter Route Start Time Stop Time Status Last Admin Dose Admin Sodium Chloride 10 ml Q8HR IV 03/07/25 22:00 03/08/25 01:27 10 ML Ondansetron HCl 4 mg Q4HP PRN IV 03/07/25 14:15 Acetaminophen 650 mg Q6HP PRN PO 03/07/25 14:15 Morphine Sulfate 2 mg Q4HPRN PRN IV 03/07/25 14:15 Nitroglycerin 0.4 mg Q5MINP PRN SL 03/07/25 14:15 Morphine Sulfate 2 mg Q30M PRN IV 03/07/25 14:15 Atorvastatin Calcium 20 mg DAILY PO 03/08/25 10:00 03/08/25 11:07 20 MG Empaglifozin 10 mg QAM PO 03/08/25 07:00 03/08/25 06:44 10 MG Losartan Potassium 25 mg DAILY PO 03/08/25 10:00 03/08/25 11:06 25 MG Pantoprazole Sodium 40 mg DAILY PO 03/08/25 10:00 03/08/25 11:07 40 MG Tamsulosin HCl 0.4 mg QPM PO 03/07/25 18:00 Diagnostic Test (Pha) 1 strip ACHS 03/07/25 17:00 03/08/25 11:57 1 STRIP Insulin Human Regular ACHS SC 03/07/25 17:00 03/08/25 12:11 3 UNITS Dextrose 50 ml UD PRN IV 03/07/25 14:45 Enoxaparin Sodium 40 mg DAILY SC 03/08/25 10:00 03/08/25 11:09 40 MG Metoprolol Succinate 25 mg DAILY PO 03/08/25 10:00 03/08/25 11:07 25 MG objective PHYSICAL EXAMINATION: VITAL SIGNS: Blood pressure is 129/68, pulse of 60-70 and regular, O2 saturation 98%. HEENT: Pupils are reactive. Funduscopic exam is benign. Sclerae anicteric. Extraocular muscles are intact. Oral mucosa moist. Posterior pharynx without any exudate. No JVD appreciated. PULMONARY: Clear to auscultation. Tympanic to percussion. CARDIOVASCULAR: Regular rate without S3, without S4. PMI is slightly diffuse, laterally and inferiorly displaced. ABDOMEN: Obese. Unable to appreciate organomegaly. Stool guaiac is negative. EXTREMITIES: 1+ pulses bilaterally. laboratory and microbiology Laboratory Tests 03/08/25 04:43 Test 03/08/25 04:43 Range/Units Serum Glucose 150 H 74-106 mg/dL Problem List ENTEROCOLITIS ORG HD HFrEF CHRONIC PAD COPD Assessment/Plan CDIFF ABX Plan discussed with: Patient ALENA RENEE MD Mar 08, 2025 13:59
--- NOTE | 2025-03-08 14:04 | DVHPN2 ---
Progress Note - Dictate Date Seen: Mar 08, 2025 Medical Necessity Reason Pt with a Central, PICC or Fol: No Subjective PT WITH ABD PAIN PERSISTENT DIARRHEA CONSISTENT WITH ENTEROCOLITIS PMH ; * Congestive heart failure. * Permanent pacemaker, implanted right, left subclavian approach has infected and dehisced. Initial pacemaker was implanted in [facility]. It is dehisced now to undergo explantation and the implantation of new AICD at a later date. Risks and benefits were explained to the patient. The patient understands and agrees. PERTINENT MEDICAL HISTORY: Significant for hypertension, hyperlipidemia, history of congestive heart failure, history of COPD, history of peripheral vascular disease. No history of CVA. No history of premature coronary stenosis. The patient, however, has severe mitral regurgitation resulted in decompensation. Positive for diabetes. History of heart failure, systolic. EF less than 30%. CURRENT MEDICATIONS: Include Lipitor, losartan, Lasix and metoprolol. Now with a dehisced permanent pacemaker/AICD and infected septic. Antibiotics have been maintained for the last 2 weeks in preparation for explantation of the device. The patient denies any seizure disorder. No melena, hematochezia. No hematemesis, hemoptysis. No history of bleeding diathesis. The patient however is infected and septic and bacteremic. Gram-positive cocci are positive. No valvular vegetation noted on echocardiography at this time. FAMILY HISTORY: Negative. SOCIAL HISTORY: Negative. Denies any history of any CVA. No history of movement disorder. No history of irritable bowel syndrome, inflammatory bowel disease, or rheumatologic disorders. vital signs Vital Sign Date Time Temp Pulse Resp B/P (MAP) Pulse Ox O2 Delivery O2 Flow Rate FiO2 03/08/25 13:32 97.9 77 18 110/70 (83) 98 97.9 03/08/25 07:58 Nasal Cannula* 3 32 Total Intake and Output 03/07/25 03/07/25 03/08/25 15:00 23:00 07:00 Intake Total 168 ml Balance 168 ml medications Current Medications Medications Dose Ordered Sig/Peter Route Start Time Stop Time Status Last Admin Dose Admin Sodium Chloride 10 ml Q8HR IV 03/07/25 22:00 03/08/25 01:27 10 ML Ondansetron HCl 4 mg Q4HP PRN IV 03/07/25 14:15 Acetaminophen 650 mg Q6HP PRN PO 03/07/25 14:15 Morphine Sulfate 2 mg Q4HPRN PRN IV 03/07/25 14:15 Nitroglycerin 0.4 mg Q5MINP PRN SL 03/07/25 14:15 Morphine Sulfate 2 mg Q30M PRN IV 03/07/25 14:15 Atorvastatin Calcium 20 mg DAILY PO 03/08/25 10:00 03/08/25 11:07 20 MG Empaglifozin 10 mg QAM PO 03/08/25 07:00 03/08/25 06:44 10 MG Losartan Potassium 25 mg DAILY PO 03/08/25 10:00 03/08/25 11:06 25 MG Pantoprazole Sodium 40 mg DAILY PO 03/08/25 10:00 03/08/25 11:07 40 MG Tamsulosin HCl 0.4 mg QPM PO 03/07/25 18:00 Diagnostic Test (Pha) 1 strip ACHS 03/07/25 17:00 03/08/25 11:57 1 STRIP Insulin Human Regular ACHS SC 03/07/25 17:00 03/08/25 12:11 3 UNITS Dextrose 50 ml UD PRN IV 03/07/25 14:45 Enoxaparin Sodium 40 mg DAILY SC 03/08/25 10:00 03/08/25 11:09 40 MG Metoprolol Succinate 25 mg DAILY PO 03/08/25 10:00 03/08/25 11:07 25 MG objective PHYSICAL EXAMINATION: VITAL SIGNS: Blood pressure is 129/68, pulse of 60-70 and regular, O2 saturation 98%. HEENT: Pupils are reactive. Funduscopic exam is benign. Sclerae anicteric. Extraocular muscles are intact. Oral mucosa moist. Posterior pharynx without any exudate. No JVD appreciated. PULMONARY: Clear to auscultation. Tympanic to percussion. CARDIOVASCULAR: Regular rate without S3, without S4. PMI is slightly diffuse, laterally and inferiorly displaced. ABDOMEN: Obese. Unable to appreciate organomegaly. Stool guaiac is negative. EXTREMITIES: 1+ pulses bilaterally. laboratory and microbiology Laboratory Tests 03/08/25 04:43 Test 03/08/25 04:43 Range/Units Serum Glucose 150 H 74-106 mg/dL Problem List ENTEROCOLITIS ORG HD HFrEF CHRONIC PAD COPD Assessment/Plan CDIFF ABX DUODENITIS BY CT CONSIDER ORAL ABX WITH FLAGYL AND PENICILLIN ANALOG Plan discussed with: Patient ALENA RENEE MD Mar 08, 2025 14:04
[2025-03-08] MEDS ORDERED: CEPH250C PO (14:53)
[2025-03-08] MEDS ORDERED: METR-344 PO (14:53)
--- NOTE | 2025-03-08 15:20 | DVHDSRES ---
Discharge Summary Date of Admission Resident Creating Document: FRANCINE MCDONNELL RESIDENT Mar 07, 2025 at 14:12 Date of Discharge: Mar 08, 2025 Admitting Diagnosis Gastroenteritis Labs/Diagnostic Data: Laboratory Results Test 03/08/25 11:55 03/08/25 04:43 03/08/25 04:30 03/08/25 00:00 POC Glucose 187 mg/dl (70-106) White Blood Count 12.5 10^3/uL (4.4-10.8) Red Blood Count 4.82 10^6/uL (4.5-5.90) Hemoglobin 15.3 g/dL (13.5-17.5) Hematocrit 42.9 % (41.0-53.0) Mean Corpuscular Volume 89.0 fL (80.0-100.0) Mean Corpuscular Hemoglobin 31.8 pg (28.0-32.0) Mean Corpuscular Hemoglobin Concent 35.7 g/dL (32.0-36.0) Red Cell Distribution Width 14.2 % (11.8-14.3) Platelet Count 234 10^3/uL (140-450) Mean Platelet Volume 8.3 fL (6.9-10.8) Neutrophils (%) (Auto) 72.3 % (37.0-80.0) Lymphocytes (%) (Auto) 12.9 % (10.0-50.0) Monocytes (%) (Auto) 12.8 % (0.0-12.0) Eosinophils (%) (Auto) 1.7 % (0.0-7.0) Basophils (%) (Auto) 0.3 % (0.0-2.0) Neutrophils # (Auto) 9.1 10 ^3/uL (1.6-8.6) Lymphocytes # (Auto) 1.6 10 ^3/uL (0.4-5.4) Monocytes # (Auto) 1.6 10 ^3/uL (0-1.3) Eosinophils # (Auto) 0.2 10 ^3/uL (0-0.8) Basophils # (Auto) 0 10 ^3/uL (0-0.2) Nucleated Red Blood Cells 0.1 % Sodium Level 137 mmol/L (136-145) Potassium Level 3.8 mmol/L (3.5-5.1) Chloride Level 104 mmol/L (98-107) Carbon Dioxide Level 21 mmol/L (20-31) Anion Gap 12 (5-15) Blood Urea Nitrogen 26 mg/dL (9-23) Creatinine 1.41 mg/dL (0.700-1.30) Glomerular Filtration Rate Calc 49 mL/min (>90) BUN/Creatinine Ratio 18.4 (10.0-20.0) Serum Glucose 150 mg/dL (74-106) Calcium Level 8.8 mg/dL (8.7-10.4) Total Bilirubin 1.8 mg/dL (0.2-1.0) Aspartate Amino Transferase (AST) 54 U/L (13-40) Alanine Aminotransferase (ALT) 59 U/L (7-40) Alkaline Phosphatase 107 U/L (46-116) Total Protein 6.6 g/dL (5.7-8.2) Albumin 4.0 g/dL (3.2-4.8) Stool for White Cells None seen Influenza Type A Antigen Negative (Negative) Influenza Type B Antigen Negative (Negative) SARS-CoV-2 Antigen (Rapid) Negative (NEGATIVE) Test 03/07/25 15:13 03/07/25 12:41 03/07/25 11:12 03/07/25 10:38 Prothrombin Time 14.5 sec (9.3-11.8) Prothrombin Time INR 1.42 (0.9-1.15) Activated Partial Thromboplast Time 29.3 SEC (24.5-34.5) Hemoglobin A1c 8.0 % A1C (<5.7) Magnesium Level 2.2 mg/dL (1.6-2.6) Troponin I High Sensitivity 33 ng/L (</=54) Lactic Acid Level 1.9 mmol/L (0.4-2.0) B-Type Natriuretic Peptide 1224.77 pg/mL (0-100) Lipase 84 U/L (12-53) Urine Color Yellow (Yellow) Urine Clarity Clear (Clear) Urine pH 5.5 (5.0-9.0) Urine Specific [place] 1.028 (1.001-1.035) Urine Protein 1+ (Negative) Urine Ketones Trace (Negative) Urine Blood Negative /uL (Negative) Urine Nitrite Negative (Negative) Urine Bilirubin Negative (Negative) Urine Urobilinogen Normal mg/dL (Negative) Urine Leukocyte Esterase Negative /uL (Negative) Urine RBC 3 /hpf (0 - 3) Urine Microscopic WBC 3 /HPF (0-3) Urine Squamous Epithelial Cells None seen /hpf (<5) Urine Bacteria Many /hpf (None Seen) Urine Hyaline Casts Few /lpf (0 - 2) Urine Mucus Few (None Seen) Urine Glucose 2+ mg/dL (Normal) Other Laboratory Tests 03/08/25 04:43 Brief Hx & Hospital Course: Mr. Nestor Grimes, an 84-year-old male with a past medical history of ischemic cardiomyopathy with chronic heart failure (HFrEF) status post Bi-V AICD placement, hypertension, and type 2 diabetes mellitus, presented to the Emergency Department with persistent diarrhea for approximately 1.5 months, associated with abdominal pain, nausea, vomiting, and a sensation of abdominal distension. He reported experiencing diarrhea 56 times daily despite poor oral intake, with worsening abdominal discomfort post meals and a sensation described as a bowling ball in his stomach. He also endorsed intermittent fevers prior to arrival. Following advice from his primary care provider, he presented to the ED for evaluation. The patient was admitted for further management of possible acute gastroenteritis of infectious etiology and suspected sepsis. Pancreatitis was ruled out. CT imaging revealed duodenal wall thickening, and he was started on Zosyn. Pancultures and stool studies were obtained, preliminary were negative. Supportive care included Protonix and Zofran, with telemetry monitoring and cautious IV fluid administration due to underlying HFrEF. Elevated lipase was noted. Cardiac evaluation revealed AFib with RVR on EKG and elevated BNP, though serial troponins were negative. Home medications were resumed as tolerated, and Lasix was avoided due to dehydration. Cardiology consultation was obtained with Dr. Flores, and a new echocardiogram was ordered. Renal function showed acute kidney injury likely on chronic kidney disease, prompting careful monitoring and avoidance of nephrotoxic agents. Transaminitis was noted and monitored. Diabetes management included mild sliding scale insulin and continuous glucose monitoring, with HbA1c indicating poor control. The patients condition improved during hospitalization, and he became hemodynamically stable. He was discharged home with optimal medical therapy and counseled on healthy lifestyle modifications including diet and exercise. Follow-up was arranged with his human resources officer Dr. Flores, primary care provider, and the discharge clinic. Pt is lying on bed General Appearance: Alert, Oriented X3, Cooperative, Not in acute distress HEENT: Atraumatic, Mucous membranes moist/pink Respiratory: Clear to auscultation, Normal air movement, No added sounds Cardiovascular: Irregularly regular rate, Normal S1, Normal S2, No murmurs Abdominal: Active bowel sounds, Soft, no distention, no tenderness Extremities: No edema, Normal pulses, No tenderness/swelling Skin: No Significant rash, except past surgical scars Neuro: Normal speech, sensorimotor deficits none Psych/Mental Status: Mental status NL, Mood NL Nurse was there as physician gynecologist during examination Operations or Procedures EXAM: CT CT AB PEL WO CON-NO ORAL OR IV HISTORY: abd distention, diffuse pain, diarrhea x 3 mo COMPARISON: CT CT AB PEL WO CON-NO ORAL OR IV on DOS: 02/26/25, ECIDC on DOS: 01/01/22 IMPRESSION: 1. Cardiomegaly, coronary artery disease, and right chest AICD. 2. Low to moderate volume abdominopelvic ascites. 3. Possible duodenal wall thickening versus artifactual appearance. Correlate for signs and symptoms of duodenitis. 4. Mild prostatic enlargement. 5. Advanced lumbar degenerative disc disease and facet arthropathy. 6. No evidence of bowel obstruction or other acute process in the abdomen or pelvis. Condition at Discharge: Fair Final Diagnosis/Problems List # Possible acute gastroenteritis likely infectious etiology # Possible sepsis likely due to above # Ruled out pancreatitis # Acute on chronic HFrEF status post Bi V AICD # AFib with RVR with a secondary hypercoagulable state # Ischemic cardiomyopathy # DEVAN likely due to VMN on CKD # Transaminitis # Uncontrolled type 2 DM, HbA1c # BPH Discharge Disposition: Home Discharge Instruct/Medications Diet: Consistent carbohydrate, Cardiac 2g Na,low cholest Activity: No Restrictions, As Tolerated Follow Up/Referral: PCP DC clinic Dr Flores GI f/u Medications: per emr Scheduled Atorvastatin Calcium (Atorvastatin Calcium), 1 TAB PO DAILY, (Reported) Cephalexin (Keflex Capsule), 500 MG PO TID Cephalexin (Keflex Capsule), 500 MG PO BID Empagliflozin (Jardiance), 10 MG PO QAM, (Reported) Furosemide (Furosemide), 20 MG PO DAILY, (Reported) Losartan Potassium (Losartan Potassium), 25 MG PO DAILY, (Reported) Metoprolol Succinate (Metoprolol Succinate Er), 25 MG PO DAILY, (Reported) Metronidazole (Flagyl), 1 TAB PO TID Metronidazole (Flagyl), 500 MG PO BID Pantoprazole Sodium Sesquihydr (Pantoprazole Sodium), 40 MG PO DAILY, (Reported) Sulfamethoxazole W/Trimethopri (Bactrim Ds Tablet), 1 TAB PO BID Tamsulosin Hcl (Tamsulosin Hcl), 1 CAP PO DAILY, (Reported) Scheduled PRN Diphenhydramine Hcl (Benadryl Allergy), 1 CAP PO BIDP PRN for RASH, (Reported) Discharge Statement: "Patient was advised to return to the ER or call 911 if any headaches, dizziness, shortness of breath, chest pain, abdominal pain, bleeding, fevers, or worsening of medical condition. Patient was counseled about treatment plan, medications, possible side effects, patientverbalized understanding. All questions were answered to the best of my ability. This discharge took greater then 30 minutes in planning, reviewing documentation, counseling the patient, and discussing with other team members." ASSESSMENT ASSESSMENT Assessment # Possible acute gastroenteritis likely infectious etiology # Possible sepsis likely due to above # Ruled out pancreatitis # Acute on chronic HFrEF status post Bi V AICD # AFib with RVR with a secondary hypercoagulable state # Ischemic cardiomyopathy # DEVAN likely due to VMN on CKD # Transaminitis # Uncontrolled type 2 DM, HbA1c FRANCINE MCDONNELL RESIDENT Mar 08, 2025 15:20
--- NOTE | 2025-03-09 07:36 | DVHSR ---
APPROVED REPORT EXAM: Two-dimensional and M-mode echocardiogram with Doppler and color Doppler. Blood Pressure: 102/79 mmHg INDICATION Heart Failure RISK FACTORS Height: 5'8", Weight: 170 DIMENSIONS LVDd5.8 (3.8-5.7cm)LA (2D)5.4 (1.9-4.0cm)Aortic Root3.0 (2.0-3.7cm) LVDs5.5 (2.5-4.0cm)LA (MM) (1.9-4.0cm)Aortic Cusp Exc1.0 (1.5-2.0cm) EF (%) 11.0 (55-70%)Rt. Atrium5.5 (1.9-4.0cm)Asc. 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
--- NOTE | 2025-03-10 09:58 | ECG ---
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
== END 2025-03-08 18:35 | disposition home or self-care (01) | DRG 871 ==
LOC: ER 10:09 → OVERFLOW 14:12 → TELE-CENTR 23:33
PROVIDERS: ADMIT Internal Medicine Geriatric Medicine; ATTEND Internal Medicine Geriatric Medicine
DX: A41.9 Sepsis, unspecified organism (principal); I50.23 Acute on chronic systolic (congestive) heart failure; N17.0 Acute kidney failure with tubular necrosis; R18.8 Other ascites; A09 Infectious gastroenteritis and colitis, unspecified; I13.0 Hypertensive heart and chronic kidney disease with heart failure and stage 1 through stage 4 chronic kidney disease, or unspecified chronic kidney disease; D68.69 Other thrombophilia; Z20.822 Contact with and (suspected) exposure to COVID-19; R74.01 Elevation of levels of liver transaminase levels; N18.9 Chronic kidney disease, unspecified; I25.5 Ischemic cardiomyopathy; I48.91 Unspecified atrial fibrillation; K29.80 Duodenitis without bleeding; E11.51 Type 2 diabetes mellitus with diabetic peripheral angiopathy without gangrene; J44.9 Chronic obstructive pulmonary disease, unspecified; N40.0 Benign prostatic hyperplasia without lower urinary tract symptoms; E78.5 Hyperlipidemia, unspecified; E11.22 Type 2 diabetes mellitus with diabetic chronic kidney disease; Z79.84 Long term (current) use of oral hypoglycemic drugs; Z79.899 Other long term (current) drug therapy
CPT/HCPCS: 36415; 71045; 74176; 80053; 81001; 82962; 83036; 83605; 83690; 83735; 83880; 84484; 85025; 85048; 85610; 85730; 87040; 87045; 87081; 87086; 87426; 87427; 87804; 93005; 93306; 96365; 96372; G0378; J1815; J2543

== ENCOUNTER 2025-03-11 13:33 | Emergency (ER) | payer OTHER ==
[~2025-03-11] VITALS: Ht 172.7 cm; Wt 80.5 kg
[2025-03-11 13:38] VITALS: BP 99/64; PULSE 96; RESP 18; TEMP 97.7; O2SAT 98
--- NOTE | 2025-03-11 14:26 | ED.PDOC ---
GI ASSESSMENT HPI Comments 84-year-old male presents here with shortness of breath. He states he was just admitted to the hospital earlier in the week for abdominal pain and diarrhea. He states however at night he has been short of breath and his oxygen level has been dropping. He states he was so short of breath tonight that his called 911. Patient denies any recent illness. Denies any cough cold runny nose fever or chills. Patient states while at rest patient is not short of breath. Patient is here because he wants the ER to give him a tank of oxygen for home. Chief Complaint: Abdominal Pain Time Seen by MD: 14:30 Primary Care Provider: ELLIOTT Reviewed Notes: Medications, Allergies Allergies: Coded Allergies: Glipizide (Verified Allergy, Intermediate, 09/15/24) Hydromorphone (Verified Allergy, Unknown, 09/15/24) Home Meds Active Scripts Metronidazole (Flagyl) 500 Mg Tab, 500 MG PO BID for 5 Days, #10 TAB Prov:FRANCINE MCDONNELL RESIDENT 03/08/25 Cephalexin (KEFLEX CAPSULE) 250 Mg Cp, 500 MG PO BID for 5 Days, #20 CAP Prov:FRANCINE MCDONNELL RESIDENT 03/08/25 Metronidazole (Flagyl) 500 Mg Tab, 1 TAB PO TID for 7 Days, #21 TAB Prov:MARION EGAN MD 02/26/25 Sulfamethoxazole W/Trimethopri (Bactrim Ds Tablet) 1 Tab Tb, 1 TAB PO BID for 7 Days, #14 TAB Prov:MARION EGAN MD 02/26/25 Cephalexin (KEFLEX CAPSULE) 250 Mg Cp, 500 MG PO TID for 10 Days, #30 CAP Prov:ROSETTE LEIVA MD 09/22/24 Reported Medications Diphenhydramine Hcl (Benadryl Allergy) 25 Mg Cap, 1 CAP PO BIDP PRN for RASH, #30 CAP 1 Refill 09/15/24 Empagliflozin (Jardiance) 10 Mg Tab, 10 MG PO QAM for DIABETES, TAB 09/15/24 Furosemide (Furosemide) 20 Mg Tab, 20 MG PO DAILY for EDEMA, MG 09/15/24 Pantoprazole Sodium Sesquihydr (Pantoprazole Sodium) 40 Mg Tab, 40 MG PO DAILY for GERD, TAB 09/15/24 Metoprolol Succinate (Metoprolol Succinate Er) 25 Mg Tab, 25 MG PO DAILY for HEART for 30 Days, MG 09/15/24 Losartan Potassium (Losartan Potassium) 25 Mg Tab, 25 MG PO DAILY for HTN for 30 Days, MG 09/15/24 Atorvastatin Calcium (ATORVASTATIN CALCIUM) 20 Mg Tab, 1 TAB PO DAILY, #30 TAB 5 Refills 05/26/23 Tamsulosin Hcl (Tamsulosin Hcl) 0.4 Mg Cap, 1 CAP PO DAILY 04/19/23 Information Source: Patient, Emergency Med Personnel Mode of Arrival: EMS Timing: Months Duration: Since onset Prehospital treatment: None Quality: Sharp Vomitus: None Stool: Loose Severity: Moderate Recent: None Recent Hx of: None Pain Location: Diffuse Modifying Factors: Nothing Associated sign and symptoms: Diarrhea, Abdominal Pain Past Medical History PAST MEDICAL HISTORY: CHF, DM, HTN Surgical History: Appendectomy, Pacemaker Family History Family History: Reviewed,noncontributory to illness, Unknown Social History Smoker: Non-Smoker Alcohol: Denies ETOH Use Drugs: Denies Drug Use Lives In: Home Constitutional: denies: chills, diaphoresis, fatigue, fever, malaise, sweats, weakness, others EENTM: denies: blurred vision, double vision, ear bleeding, ear discharge, ear drainage, ear pain, ear ringing, eye pain, eye redness, hearing loss, mouth pain, mouth swelling, nasal discharge, nose bleeding, nose congestion, nose pain, photophobia, tearing, throat pain, throat swelling, voice changes, others Respiratory: reports: SOB with excertion; denies: cough, hemoptysis, orthopnea, SOB at rest, shortness of breath, stridor, wheezing, others Cardiovascular: denies: chest pain, dizzy spells, diaphoresis, Dyspnea on exertion, edema, irregular heart beat, left arm pain, lightheadedness, palpitations, PND, syncope, others Gastrointestinal: reports: abdominal pain (diffused), diarrhea; denies: abdomen distended, blood streaked bowels, constipated, dysphagia, difficulty swallowing, hematemesis, melena, nausea, poor appetite, poor fluid intake, rectal bleeding, rectal pain, vomiting, others Genitourinary: denies: burning, dysuria, flank pain, frequency, hematuria, incontinence, penile discharge, penile sore, pain, testicle pain, testicle swelling, urgency, others Neurological: denies: dizziness, fainting, headache, left sided numbness, left sided weakness, numbness, paresthesia, pre-existing deficit, right sided numbness, right sided weakness, seizure, speech problems, tingling, tremors, weakness, others Musculoskeletal: denies: back pain, gout, joint pain, joint swelling, muscle pain, muscle stiffness, neck pain, others Integumetry: denies: bruises, change in color, change in hair/nails, dryness, laceration, lesions, lumps, rash, wounds, others Allergic/Immunocompromised: denies: Difficulty Healing, Frequent Infections, Hives, Itching, others Hematologic/Lymphatic: denies: anemia, blood clots, easy bleeding, easy bruising, swollen glands, others Endocrine: denies: excessive hunger, excessive sweating, excessive thirst, excessive urination, flushing, intolerance to cold, intolerance to heat, unexplained weight gain, unexplained weight loss, others Psychiatric: denies: anxiety, bipolar disorder, depression, hopeless, panic disorder, schizophrenia, sleepless, suicidal, others All Other Systems: Reviewed and Negative Physical Exam General Appearance: No Apparent Distress, Normal HEENT: Normal ENT Inspection, Pharynx Normal, TMs Normal Neck: Full Range of Motion, Non-Tender, Normal, Normal Inspection Respiratory: Chest Non-Tender, Lungs Clear, No Accessory Muscle Use, No Respiratory Distress, Normal Breath Sounds Cardiovascular: No Edema, No JVD, No Murmur, No Gallop, Normal Peripheral Pulses, Regular Rate/Rhythm Breast Exam: Deferred Gastrointestinal: No Organomegaly, Non Tender, No Pulsatile Mass, Normal Bowel Sounds, Soft Genitalia: Deferred Pelvic: Deferred Rectal: Deferred Extremities: No calf tenderness, Normal capillary refill, Normal inspection, Normal range of motion, Non-tender, No pedal edema Musculoskeletal : Apperance: Normal Neurologic: Alert, No Motor Deficits, Normal Affect, Normal Mood, No Sensory Deficits Cerebellar Function: Normal Reflexes: Normal Skin: Dry, Normal Color, Warm Lymphatic: No Adenopathy Was a procedure done? Was a procedure done?: No GI differential Dx Differential Diagnosis: Other Other Differential Diagnosis Hypoxia, COPD exacerbation, CHF exacerbation, pneumonia, PE X-Ray, Labs, Meds, VS Vital Signs Date Time Temp Pulse Resp B/P (MAP) Pulse Ox O2 Delivery O2 Flow Rate FiO2 03/11/25 13:38 97.7 96 18 99/64 98 97.7 Lab Test 03/11/25 15:21 Range/Units Blood Gas Specimen Type Arterial Blood Gas Sample Site Left radial Blood Gas Patient Temperature 37.0 Arterial Blood Date Drawn [id number] Arterial Blood pH 7.440 7.350-7.450 Arterial Blood Partial Pressure CO2 21.6 L 35.0-48.0 mmHg Arterial Blood Partial Pressure O2 90.7 83.0-108.0 mmHg Arterial Blood HCO3 14.3 L 21.0-28.0 mmol/L Arterial Blood Oxygen Saturation 97.0 94.0-98.0 % Arterial Blood Base Excess -7.2 L -2.0-3.0 mmol/L Arterial Blood Oxyhemoglobin 95.9 94.0-98.0 % Arterial Blood Carboxyhemoglobin 0.7 0.5-1.5 % Arterial Blood Methemoglobin 0.4 0.0-1.5 % Vignesh Test Yes Blood Gas Total Hemoglobin 15.70 13.5-17.5 g/dL Blood Gas Modality Room air FiO2 % 21.0 84-year-old male presents here with hypoxia at home at nighttime. Patient is here requesting a tank of oxygen from the ER. I offered him admission and evaluation for the nocturnal hypoxia however patient refused. Patient continued to demand that I gave the patient oxygen here in the ER, I advised him that has criteria that must be met. I spoke to Tamera charge nurse who spoke to fun house operator . I initially ordered blood work and chest x-ray however patient refused all treatment. I advised him that he has to walk for 6 minutes to de termine oxygen saturation. Initially he refused and only walked back and forth in the hallway. Ultimately patient did agree to obtain a 6 minute walk and oxygen saturation. Additionally I attempted to get a hold of patient's PCP Dr. Rondon but unable to do so. I called Dr. Leiva and we were able to arrange for stat case management consult. Patient did drop to 87% on room air while walking at around the 4 minute lore. ABG was done after. However ABG demonstrates PO2 of 90.7. At this time per family service caseworker does not meet criteria for home oxygen use at this time. She has made an appointment for him with the irrigation service technician this week. I have placed a consult for home clinic evaluation also. Patient also has a an appointment with his klystrom tube tester Dr. Flores in 2 weeks. I did offer him admission however patient refused. Advised him if he changes his mind to return back to the ER. Patient agreeable. Time of 1ST Reevaluation: 15:00 Reevaluation 1ST: Unchanged Patient Education/Counseling: Diagnosis, Treatment Family Education/Counseling: No Family Present SEPSIS Sepsis Screen Date sepsis recognized/suspect: Mar 11, 2025 Time Sepsis recognized/suspect: 1339 Recent Procedure: No On Antibiotic Therapy: No Respiratory Rate >20: No Heart Rate >90: Yes Temp<36 C (96.8 F) or >38.3 C: No SBP <90 or MAP <65 mmHG: No New Acute Mental Status Change: No Is the patient on CPAP, BIPAP,: No Physician Orders Troponin-I Hs (03/11/25 15:00) Troponin-I Hs (03/11/25 18:00) Troponin-I Hs (03/12/25 00:00) Complete Blood Count (03/11/25 14:03) Comprehensive Metabolic Panel (03/11/25 14:03) Lipase (03/11/25 14:03) Troponin-I Hs (03/11/25 15:03) Pls Schedule Appt With [facility] (03/11/25 15:06) Abg W/ Co-Ox (03/11/25 15:06) Vital Signs Date Time Temp Pulse Resp B/P (MAP) Pulse Ox O2 Delivery O2 Flow Rate FiO2 03/11/25 13:38 97.7 96 18 99/64 98 97.7 Departure 1 Departure Time of Disposition: 16:30 Impression: Primary Impression: Shortness of breath Disposition: 01 HOME / SELF CARE / HOMELESS Condition: Fair Additional Instructions: Return back to the ER if symptoms worsen or persist. If you have difficulty breathing at home please call 911 for immediately for assistance. Critical Care Note Critical Care Time?: No Stability Stability form required: No Heart Score Heart Score: Heart Score Response (Comments) Value History N/A 0 EKG N/A 0 Age N/A 0 Risk Factors N/A 0 Troponin N/A 0 Total 0 I personally scribed for DEISI ROWELL MD ([email or web address]) on 03/11/25 at 14:26. Electronically submitted by Dora Khan ([email or web address]). DEISI ROWELL MD Mar 11, 2025 14:26
[2025-03-11 15:32] LABS: Base Excess -7.2 mmol/L (-2.0-3.0)
[2025-03-11] MEDS: SODIUM CHLORIDE 0.9% 500 ML IVB ONE (17:21)
== END 2025-03-11 17:22 | disposition home or self-care (01) ==
LOC: ER 13:33 → EDBD 13:33 → ER 17:22
DX: R06.02 Shortness of breath (principal); I11.0 Hypertensive heart disease with heart failure; I50.9 Heart failure, unspecified; E11.9 Type 2 diabetes mellitus without complications; Z79.899 Other long term (current) drug therapy; Z95.0 Presence of cardiac pacemaker; Z90.49 Acquired absence of other specified parts of digestive tract; Z88.5 Allergy status to narcotic agent; Z79.84 Long term (current) use of oral hypoglycemic drugs
CPT/HCPCS: 36600; 82805

== ENCOUNTER 2025-03-13 15:17 | Inpatient (IN) | payer OTHER ==
[~2025-03-13] VITALS: Ht 172.7 cm; Wt 77.3 kg
--- NOTE | 2025-03-13 15:28 | ED.PDOC ---
History of Present Illness HPI Comments 84-year-old male with PMHx CHF, DM2, HTN brought in by EMS presents with a chief complaint of headache and generalized weakness x 1 hour. Patient states that his headache is localized to his neck line, radiating down into his shoulders, and rates his pain a 10/10. Patient denies any fall or trauma prior to onset of symptoms. Patient was hypotensive at 90 systolic and was given 300mL of fluids by EMS. Time Seen by MD: 15:21 Primary Care Provider: ELLIOTT Reviewed Notes: Medications, Allergies Allergies: Coded Allergies: Glipizide (Verified Allergy, Intermediate, 09/15/24) Hydromorphone (Verified Allergy, Unknown, 09/15/24) Home Meds Active Scripts Metronidazole (Flagyl) 500 Mg Tab, 500 MG PO BID for 5 Days, #10 TAB Prov:FRANCINE MCDONNELL RESIDENT 03/08/25 Cephalexin (KEFLEX CAPSULE) 250 Mg Cp, 500 MG PO BID for 5 Days, #20 CAP Prov:FRANCINE MCDONNELL RESIDENT 03/08/25 Metronidazole (Flagyl) 500 Mg Tab, 1 TAB PO TID for 7 Days, #21 TAB Prov:MARION EGAN MD 02/26/25 Sulfamethoxazole W/Trimethopri (Bactrim Ds Tablet) 1 Tab Tb, 1 TAB PO BID for 7 Days, #14 TAB Prov:MARION EGAN MD 02/26/25 Cephalexin (KEFLEX CAPSULE) 250 Mg Cp, 500 MG PO TID for 10 Days, #30 CAP Prov:ROSETTE TOBIAS MD 09/22/24 Reported Medications Diphenhydramine Hcl (Benadryl Allergy) 25 Mg Cap, 1 CAP PO BIDP PRN for RASH, #30 CAP 1 Refill 09/15/24 Empagliflozin (Jardiance) 10 Mg Tab, 10 MG PO QAM for DIABETES, TAB 09/15/24 Furosemide (Furosemide) 20 Mg Tab, 20 MG PO DAILY for EDEMA, MG 09/15/24 Pantoprazole Sodium Sesquihydr (Pantoprazole Sodium) 40 Mg Tab, 40 MG PO DAILY for GERD, TAB 09/15/24 Metoprolol Succinate (Metoprolol Succinate Er) 25 Mg Tab, 25 MG PO DAILY for HEART for 30 Days, MG 09/15/24 Losartan Potassium (Losartan Potassium) 25 Mg Tab, 25 MG PO DAILY for HTN for 30 Days, MG 09/15/24 Atorvastatin Calcium (ATORVASTATIN CALCIUM) 20 Mg Tab, 1 TAB PO DAILY, #30 TAB 5 Refills 05/26/23 Tamsulosin Hcl (Tamsulosin Hcl) 0.4 Mg Cap, 1 CAP PO DAILY 04/19/23 Information Source: Patient, Emergency Med Personnel Mode of Arrival: EMS Severity: Moderate Timing: Hours Duration: Since onset Prehospital treatment: Board Runner, IVF, Oxygen Past Medical History PAST MEDICAL HISTORY: CHF, DM, HTN Surgical History: Appendectomy, Pacemaker Family History Family History: Reviewed,noncontributory to illness, Unknown Social History Smoker: Non-Smoker Alcohol: Denies ETOH Use Drugs: Denies Drug Use Lives In: Home Constitutional: reports: weakness; denies: chills, diaphoresis, fatigue, fever, malaise, sweats, others EENTM: denies: blurred vision, double vision, ear bleeding, ear discharge, ear drainage, ear pain, ear ringing, eye pain, eye redness, hearing loss, mouth pain, mouth swelling, nasal discharge, nose bleeding, nose congestion, nose pain, photophobia, tearing, throat pain, throat swelling, voice changes, others Respiratory: denies: cough, hemoptysis, orthopnea, SOB at rest, shortness of breath, SOB with excertion, stridor, wheezing, others Cardiovascular: denies: chest pain, dizzy spells, diaphoresis, Dyspnea on exertion, edema, irregular heart beat, left arm pain, lightheadedness, palpitations, PND, syncope, others Gastrointestinal: denies: abdomen distended, abdominal pain, blood streaked bowels, constipated, diarrhea, dysphagia, difficulty swallowing, hematemesis, melena, nausea, poor appetite, poor fluid intake, rectal bleeding, rectal pain, vomiting, others Genitourinary: denies: burning, dysuria, flank pain, frequency, hematuria, incontinence, penile discharge, penile sore, pain, testicle pain, testicle swelling, urgency, others Neurological: reports: headache; denies: dizziness, fainting, left sided n umbness, left sided weakness, numbness, paresthesia, pre-existing deficit, right sided numbness, right sided weakness, seizure, speech problems, tingling, tremors, weakness, others Musculoskeletal: denies: back pain, gout, joint pain, joint swelling, muscle pain, muscle stiffness, neck pain, others Integumetry: denies: bruises, change in color, change in hair/nails, dryness, laceration, lesions, lumps, rash, wounds, others Allergic/Immunocompromised: denies: Difficulty Healing, Frequent Infections, Hives, Itching, others Hematologic/Lymphatic: denies: anemia, blood clots, easy bleeding, easy bruising, swollen glands, others Endocrine: denies: excessive hunger, excessive sweating, excessive thirst, excessive urination, flushing, intolerance to cold, intolerance to heat, unexpl ained weight gain, unexplained weight loss, others Psychiatric: denies: anxiety, bipolar disorder, depression, hopeless, panic disorder, schizophrenia, sleepless, suicidal, others All Other Systems: Reviewed and Negative Physical Exam General Appearance: Moderate Distress, Normal HEENT: Normal ENT Inspection, Pharynx Normal, TMs Normal Neck: Full Range of Motion, Non-Tender, Normal, Normal Inspection Respiratory: Chest Non-Tender, Lungs Clear, No Accessory Muscle Use, No Respiratory Distress, Normal Breath Sounds Cardiovascular: No Edema, No JVD, No Murmur, No Gallop, Normal Peripheral Pulses, Regular Rate/Rhythm Breast Exam: Deferred Gastrointestinal: No Organomegaly, Non Tender, No Pulsatile Mass, Normal Bowel Sounds, Soft Genitalia: Deferred Pelvic: Deferred Rectal: Deferred Extremities: No calf tenderness, Normal capillary refill, Normal inspection, Normal range of motion, Non-tender, No pedal edema Musculoskeletal : Apperance: Normal Neurologic: Alert, multigraph operator II-XII nml as Tested, No Motor Deficits, Normal Affect, Normal Mood, No Sensory Deficits Cerebellar Function: NOT DONE Reflexes: NOT DONE Skin: Dry, Normal Color, Warm Peripheral Pulses: 3+ Radial (R), 3+ Radial (L) Lymphatic: No Adenopathy Was a procedure done? Was a procedure done?: No EKG EKG : Pulse Rate (adult): 97 Cardiac Rhythm: Paced Differential Dx Considerations may include: Autonomic disorder Electrolyte imbalance X-Ray, Labs, Meds, VS Vital Signs Date Time Temp Pulse Resp B/P (MAP) Pulse Ox O2 Delivery O2 Flow Rate FiO2 03/13/25 15:34 96.4 81 18 131/80 93 96.4 03/13/25 15:32 97 03/13/25 15:29 97 Lab Test 03/13/25 15:40 Range/Units White Blood Count 10.6 4.4-10.8 10^3/uL Red Blood Count 4.84 4.5-5.90 10^6/uL Hemoglobin 15.5 13.5-17.5 g/dL Hematocrit 45.7 41.0-53.0 % Mean Corpuscular Volume 94.3 # 80.0-100.0 fL Mean Corpuscular Hemoglobin 32.1 H 28.0-32.0 pg Mean Corpuscular Hemoglobin Concent 34.0 32.0-36.0 g/dL Red Cell Distribution Width 15.3 H 11.8-14.3 % Platelet Count 193 140-450 10^3/uL Mean Platelet Volume 7.8 6.9-10.8 fL Neutrophils (%) (Auto) 76.0 37.0-80.0 % Lymphocytes (%) (Auto) 11.1 10.0-50.0 % Monocytes (%) (Auto) 11.4 0.0-12.0 % Eosinophils (%) (Auto) 1.0 0.0-7.0 % Basophils (%) (Auto) 0.5 0.0-2.0 % Neutrophils # (Auto) 8.0 1.6-8.6 10 ^3/uL Lymphocytes # (Auto) 1.2 0.4-5.4 10 ^3/uL Monocytes # (Auto) 1.2 0-1.3 10 ^3/uL Eosinophils # (Auto) 0.1 0-0.8 10 ^3/uL Basophils # (Auto) 0.1 0-0.2 10 ^3/uL Nucleated Red Blood Cells 0.2 % Sodium Level 133 L 136-145 mmol/L Potassium Level 4.7 3.5-5.1 mmol/L Chloride Level 105 98-107 mmol/L Carbon Dioxide Level 17 L 20-31 mmol/L Anion Gap 11 5-15 Blood Urea Nitrogen 29 H 9-23 mg/dL Creatinine 1.73 H 0.700-1.30 mg/dL Glomerular Filtration Rate Calc 39 >90 mL/min BUN/Creatinine Ratio 16.8 10.0-20.0 Serum Glucose 267 #H 74-106 mg/dL Calcium Level 8.8 8.7-10.4 mg/dL Troponin I High Sensitivity 16 </=54 ng/L Patient alert. Came in because of headache. No recent injury. Vitals stable. Answering questions. Chronic history. He was given fluids prior to coming to the ER. Blood pressure normalized. Denies chest pain. Denies shortness a breath. No leg swelling. EKG reviewed does show paced rhythm. Explained to the patient. Continue monitoring. CT of the head reviewed with radiologist does show possible ischemia possibly chronic. He will need MRI. Time of 1ST Reevaluation: 15:51 Reevaluation 1ST: Unchanged Patient Education/Counseling: Diagnosis, Treatment, Need For Follow Up Family Education/Counseling: No Family Present SEPSIS Sepsis Screen Physician Orders Head Without Contrast (03/13/25 15:24) Chest Portable (03/13/25 15:24) Electrocardigram (03/13/25 15:34) Vital Signs Date Time Temp Pulse Resp B/P (MAP) Pulse Ox O2 Delivery O2 Flow Rate FiO2 03/13/25 15:34 96.4 81 18 131/80 93 96.4 03/13/25 15:32 97 03/13/25 15:29 97 Laboratory Tests Test 03/13/25 15:40 White Blood Count 10.6 10^3/uL (4.4-10.8) Departure 1 Departure Time of Disposition: 15:30 Impression: Primary Impression: Renal failure (ARF), acute on chronic Qualified Codes: N17.9 - Acute kidney failure, unspecified; N18.9 - Chronic kidney disease, unspecified Additional Impressions: Hyperglycemia due to diabetes mellitus Chronic cerebrovascular accident (CVA) Disposition: ADMITTED INPATIENT Admit to: Med Surg Condition: Guarded Critical Care Note Critical Care Time?: No Stability Stability form required: No Heart Score Heart Score: Heart Score Response (Comments) Value History N/A 0 EKG N/A 0 Age N/A 0 Risk Factors N/A 0 Troponin N/A 0 Total 0 I personally scribed for MARION EGAN MD ([email or web address]) on 03/13/25 at 15:28. Electronically submitted by Darion Judge ([email or web address]). MARION EGAN MD Mar 13, 2025 15:28
[2025-03-13 15:47] LABS: Hematocrit 45.7 % (41.0-53.0); Hemoglobin 15.5 g/dL (13.5-17.5); Mean Corpuscular Hemoglobin 32.1 pg (28.0-32.0); Mean Corpuscular Volume 94.3 fL (80.0-100.0); Nucleated Red Blood Cells % 0.2 %
[2025-03-13 16:00] VITALS: PULSE 85; RESP 25; O2SAT 98
[2025-03-13 16:00] LABS: Chloride 105 mmol/L (98-107); Potassium 4.7 mmol/L (3.5-5.1)
[2025-03-13 16:01] LABS: Anion Gap 11 (5-15); Calcium 8.8 mg/dL (8.7-10.4)
[2025-03-13 16:06] LABS: Carbon Dioxide 17 mmol/L (20-31); Sodium 133 mmol/L (136-145)
[2025-03-13 16:07] LABS: BUN/Creatinine Ratio 16.8 (10.0-20.0); Blood Urea Nitrogen 29 mg/dL (9-23); Glucose 267 mg/dL (74-106)
--- NOTE | 2025-03-13 16:28 | DVH ---
CHEST RADIOGRAPH Indication: sob Technique: Single frontal view of the chest was obtained COMPARISON: XY CHEST XRAY 1 VIEW on DOS: 03/07/25, XY CHEST PORTABLE on DOS: 02/26/25, XY CHEST PORTABLE on DOS: 09/22/24, XY CHEST PORTABLE on DOS: 09/21/24, XY CHEST TWO VIEWS ROUTINE on DOS: 09/15/24 FINDINGS: Lines and Tubes: None Lungs: Clear Pleura: No effusion. No pneumothorax. Cardiomediastinal contours: Moderately severe cardiomegaly. No pulmonary infiltrates Bones: Unremarkable IMPRESSION: 1. Moderately severe cardiomegaly.
--- NOTE | 2025-03-13 16:46 | DVH ---
Procedure: CT HEAD WITHOUT CONTRAST Study Date and Requested Time: 03/13/2025 03:49 PM History: headache Comparison: CT HEAD WITHOUT CONTRAST on DOS: 04/26/24 Dose: CTDI: 53.48 mGy DLP: 966.04 mGycm Technique: Multiplanar images obtained through the brain without intravenous contrast. Findings: Bhph-pz-ekehvoef diffuse brain Atrophy. Mild chronic small vessel ischemic changes. Left occipital lo be hypodensity No hemorrhages, masses, midline shift, or herniation. No intra-axial or extra-axial fluid collections . No evidence of hydrocephalus. The basal cisterns are patent. The pituitary gland, sella and parasellar regions are unremarkable. The cerebellar tonsils are in nor mal position. The cerebellum is unremarkable. The orbits and globes are unremarkable. The paranasal sinuses and mastoids are clear. There are no wo rrisome calvarial lesions. Bilateral nasal polyps. Impression: Left occipital lobe hypodensity which may represent an area of acute/subacute infarct. MRI would be h elpful for further evaluation. Critical Result: Stroke Alert Findings discussed with Dr. Gayle , at 03/13/2025 04:42 PM, and acknowledged receipt and understand ing of the findings. ..
[2025-03-13] MEDS: CLOPIDOGREL BISULFATE 75 MG TAB PO ONE (17:35)
[2025-03-13] MEDS ORDERED: ONDANSETRON HCL 4 MG/2 ML VIAL IV PRN (19:00)
[2025-03-13] MEDS ORDERED: DEXTROSE (50%) 50ML SYRG IV PRN (19:00)
[2025-03-13] MEDS ORDERED: ACETAMINOPHEN 325 MG TAB PO PRN (19:00)
[2025-03-13 19:52] VITALS: PULSE 88; RESP 16; O2SAT 98
[2025-03-13] MEDS: HYDROcodone-ACET 5/325MG TAB PO PRN (20:32)
[2025-03-13] MEDS: ATORVASTATIN 20 MG TAB PO SCH (22:00)
[2025-03-13] MEDS: ACCU-CHEK COMFORT CURVE STRIP VI SCH (22:01)
[2025-03-13] MEDS: InsuLIN REG 1unit/0.01ml Soln (100units/ml) SC SCH (22:29)
[2025-03-14] VITALS (7 sets, daily range): BP systolic 99–109; BP diastolic 71–78; PULSE 51–92; RESP 13–20; TEMP 97.1–98.7; O2SAT 90–100
--- NOTE | 2025-03-14 04:44 | DVHHP2 ---
History of Present Illness Reason for Visit: Headache History of Present Illness 84-year-old male presents for evaluation of headache. Patient endorses a one day history of sharp headache that radiates down to his shoulders. Denies unilateral weakness, slurred speech or blurred vision. She also reports having diarrhea intermittently for the past three months and he is to see a front desk admin this week. Denies fever or chills. No other acute com plaints reported. Past Medical History Hypertension, diabetes mellitus and congestive heart failure Past Surgical History Pacemaker and appendectomy Family History Noncontributory Smoke: No ALCOHOL: none Drugs: None Lives: with Family Review of Systems Review of Systems Review of systems are currently negative otherwise addressed in HPI. Allergies: Coded Allergies: Glipizide (Verified Allergy, Intermediate, 09/15/24) Hydromorphone (Verified Allergy, Unknown, 09/15/24) Medications Current Medications Medications Dose Ordered Sig/Peter Route Start Time Stop Time Status Last Admin Dose Admin Atorvastatin Calcium 20 mg HS PO 03/13/25 22:00 03/13/25 22:00 20 MG Empaglifozin 10 mg DAILY PO 03/14/25 10:00 Losartan Potassium 25 mg DAILY PO 03/14/25 10:00 Metoprolol Succinate 25 mg DAILY PO 03/14/25 10:00 Pantoprazole Sodium 40 mg DAILY@0600 PO 03/14/25 06:00 Tamsulosin HCl 0.4 mg QPM PO 03/14/25 18:00 Diagnostic Test (Pha) 1 strip ACHS 03/13/25 22:00 03/13/25 22:01 1 STRIP Insulin Human Regular ACHS SC 03/13/25 22:00 03/13/25 22:29 6 UNITS Dextrose 50 ml UD PRN IV 03/13/25 19:00 Acetaminophen/ Hydrocodone Bitart 1 tab Q4HP PRN PO 03/13/25 19:00 03/13/25 20:32 1 TAB Ondansetron HCl 4 mg Q4HP PRN IV 03/13/25 19:00 Enoxaparin Sodium 30 mg DAILY SC 03/14/25 10:00 Acetaminophen 650 mg Q6HP PRN PO 03/13/25 19:00 Exam Vital Signs Vital Signs Date Time Temp Pulse Resp B/P (MAP) Pulse Ox O2 Delivery O2 Flow Rate FiO2 03/14/25 04:10 91 20 111/79 (90) 96 03/14/25 02:20 98.4 98.4 03/13/25 19:52 Nasal Cannula* 2 28 Exam Gen: 84-year-old male in mild distress. Skin: Warm, dry, normal color and texture, no rash. HEENT: Normocephalic atraumatic, mucous membranes moist and pink. Neck: Cervical and supraclavicular nodes normal without enlargement, trachea is midline, thyroid gland is normal without masses. Pulmonary: Clear to auscultation and percussion bilaterally. Cardiac: Regular rate and rhythm. No murmur Abdomen: Soft, nontender, nondistended, bowel sounds present all 4 quadrants, no guarding, no rigidity, no organomegaly. Extremities: No cyanosis, clubbing, no edema Neuro: Cranial nerves II through XII grossly intact, normal affect and speech, no focal motor deficits. Labs/Xrays ORDERING PHYSICIAN: MAROIN EGAN MD PROCEDURE(s): HWOCT - HEAD WITHOUT CONTRAST REASON: headache ORDER NUMBER(s): [id number], ACCESSION NUMBER(s): [id number] Procedure: CT HEAD WITHOUT CONTRAST Study Date and Requested Time: 03/13/2025 03:49 PM History: headache Comparison: CT HEAD WITHOUT CONTRAST on DOS: 04/26/24 Dose: CTDI: 53.48 mGy DLP: 966.04 mGycm Technique: Multiplanar images obtained through the brain without intravenous contrast. Findings: Enba-ep-hxubowuv diffuse brain Atrophy. Mild chronic small vessel ischemic changes. Left occipital lobe hypodensity No hemorrhages, masses, midline shift, or herniation. No intra-axial or extra- axial fluid collections. No evidence of hydrocephalus. The basal cisterns are patent. The pituitary gland, sella and parasellar regions are unremarkable. The cerebellar tonsils are in normal position. The cerebellum is unremarkable. The orbits and globes are unremarkable. The paranasal sinuses and mastoids are clear. There are no worrisome calvarial lesions. Bilateral nasal polyps. Impression: Left occipital lobe hypodensity which may represent an area of acute/subacute infarct. MRI would be helpful for further evaluation. Critical Result: Stroke Alert Findings discussed with Dr. Egan , at 03/13/2025 04:42 PM, and acknowledged receipt and understanding of the findings. .. Labs Test 03/13/25 21:57 03/13/25 15:40 Range/Units POC Glucose 254 H 70-106 mg/dl White Blood Count 10.6 4.4-10.8 10^3/uL Red Blood Count 4.84 4.5-5.90 10^6/uL Hemoglobin 15.5 13.5-17.5 g/dL Hematocrit 45.7 41.0-53.0 % Mean Corpuscular Volume 94.3 # 80.0-100.0 fL Mean Corpuscular Hemoglobin 32.1 H 28.0-32.0 pg Mean Corpuscular Hemoglobin Concent 34.0 32.0-36.0 g/dL Red Cell Distribution Width 15.3 H 11.8-14.3 % Platelet Count 193 140-450 10^3/uL Mean Platelet Volume 7.8 6.9-10.8 fL Neutrophils (%) (Auto) 76.0 37.0-80.0 % Lymphocytes (%) (Auto) 11.1 10.0-50.0 % Monocytes (%) (Auto) 11.4 0.0-12.0 % Eosinophils (%) (Auto) 1.0 0.0-7.0 % Basophils (%) (Auto) 0.5 0.0-2.0 % Neutrophils # (Auto) 8.0 1.6-8.6 10 ^3/uL Lymphocytes # (Auto) 1.2 0.4-5.4 10 ^3/uL Monocytes # (Auto) 1.2 0-1.3 10 ^3/uL Eosinophils # (Auto) 0.1 0-0.8 10 ^3/uL Basophils # (Auto) 0.1 0-0.2 10 ^3/uL Nucleated Red Blood Cells 0.2 % Sodium Level 133 L 136-145 mmol/L Potassium Level 4.7 3.5-5.1 mmol/L Chloride Level 105 98-107 mmol/L Carbon Dioxide Level 17 L 20-31 mmol/L Anion Gap 11 5-15 Blood Urea Nitrogen 29 H 9-23 mg/dL Creatinine 1.73 H 0.700-1.30 mg/dL Glomerular Filtration Rate Calc 39 >90 mL/min BUN/Creatinine Ratio 16.8 10.0-20.0 Serum Glucose 267 #H 74-106 mg/dL Calcium Level 8.8 8.7-10.4 mg/dL Troponin I High Sensitivity 16 </=54 ng/L SEPSIS Sepsis Screen Date sepsis recognized/suspect: Mar 13, 2025 Time Sepsis recognized/suspect: 1939 Recent Procedure: No On Antibiotic Therapy: No Respiratory Rate >20: No Heart Rate >90: No Temp<36 C (96.8 F) or >38.3 C: No SBP <90 or MAP <65 mmHG: No New Acute Mental Status Change: No Is the patient on CPAP, BIPAP,: No Physician Orders * [facility] Electrical Maintenance Technician (03/14/25 04:40) Stool Bacterial Culture (03/14/25 04:40) Vital Signs Date Time Temp Pulse Resp B/P (MAP) Pulse Ox O2 Delivery O2 Flow Rate FiO2 03/14/25 04:10 91 20 111/79 (90) 96 03/14/25 03:21 85 16 95/77 (83) 97 03/14/25 02:20 98.4 100 20 119/83 (95) 98 98.4 03/14/25 02:13 109 24 99/78 (85) 96 03/14/25 00:19 98.4 80 24 108/78 (88) 97 98.4 03/13/25 22:00 97.6 80 19 108/85 (93) 98 97.6 Medications Medications Dose Ordered Sig/Peter Route Start Time Stop Time Status Last Admin Dose Admin Acetaminophen/ Hydrocodone Bitart 1 tab Q4HP PRN PO 03/13/25 19:00 03/13/25 20:32 1 TAB Atorvastatin Calcium 20 mg HS PO 03/13/25 22:00 03/13/25 22:00 20 MG Clopidogrel Bisulfate 75 mg ONCE ONCE PO 03/13/25 17:30 03/13/25 17:31 DC 03/13/25 17:35 75 MG Diagnostic Test (Pha) 1 strip ACHS 03/13/25 22:00 03/13/25 22:01 1 STRIP Insulin Human Regular ACHS SC 03/13/25 22:00 03/13/25 22:29 6 UNITS Assessment/Plan Assessment/Plan Assessment ? Acute CVA, nonhemorrhagic Diabetes mellitus Hypertension Acute on chronic renal failure Status post pacemaker Plan Admit the patient to [facility] to the hospitalist Nephrology consultation GI consult Resume home medications Continue treatment per orders Plan discussed with: Patient My Orders Orders - ELVIS VALDEZ Procedure Category Date Status Time Consistent DIET 03/14/25 Transmitted Carb(Ccho)Diabetes Breakfast Atorvastatin (Lipitor) PHA 03/13/25 In Process 22:00 Empagliflozin PHA 03/14/25 In Process (Jardiance) 10:00 Losartan Tablet PHA 03/14/25 In Process (Cozaar Tablet) 10:00 Metoprolol Xl PHA 03/14/25 In Process Succinate (Toprol Xl) 10:00 Pantoprazole Tablet PHA 03/14/25 In Process (Protonix Tablet) 06:00 Tamsulosin PHA 03/14/25 In Process Hydrochloride (Flomax) 18:00 Basic Metabolic Panel LAB 03/14/25 Logged 04:00 Glucose Blood PHA 03/13/25 In Process (Accu-Chek Comfort 22:00 Insulin R (Human) PHA 03/13/25 In Process (Insulin R) 22:00 Dextrose 50% Syringe PHA 03/13/25 In Process 19:00 Admit ADMIT 03/13/25 Transmitted 18:59 Hydrocodone-Acet PHA 03/13/25 In Process 5/325mg Tab ([place] 19:00 Ondansetron Hcl PHA 03/13/25 In Process (Zofran) 19:00 Condition: Stable MANUEL 03/13/25 In Process 18:59 Enoxaparin Sodium PHA 03/14/25 In Process (Lovenox) 10:00 Acetaminophen Tablet PHA 03/13/25 In Process (Tylenol Tablet) 19:00 Bedrest With Bathroom MANUEL 03/13/25 In Process Privileg 18:59 * [facility] Electrical Maintenance Technician CONS 03/14/25 Verified 04:40 Stool Bacterial KEVEN 03/14/25 Uncollected Culture 04:40 Date of Service: Mar 13, 2025 Billing Provider: ELVIS VALDEZ Common Visit Codes: [id number] INP/OBS CARE (HIGH) ELVIS VALDEZ Mar 14, 2025 04:44
[2025-03-14 05:11] LABS: Chloride 103 mmol/L (98-107); Potassium 5.1 mmol/L (3.5-5.1)
[2025-03-14 05:12] LABS: Anion Gap 7 (5-15); Carbon Dioxide 24 mmol/L (20-31)
[2025-03-14 05:13] LABS: Calcium 9.2 mg/dL (8.7-10.4); Sodium 134 mmol/L (136-145)
[2025-03-14 05:18] LABS: BUN/Creatinine Ratio 19.7 (10.0-20.0)
[2025-03-14 05:25] LABS: Blood Urea Nitrogen 34 mg/dL (9-23); Glucose 203 mg/dL (74-106)
--- NOTE | 2025-03-14 05:25 | ECG ---
[facility] Test Date: 2025-03-13 Test Time: 15:29:05 Pat Name: CRUZ JO Department: Room: 0218 Gender: M Marketing Operations Assistant: KORI : 1940 Requested By: MARION EGAN Order Number: [id number] Reading MD: Mark Correa Measurements Intervals [place] Rate: 97 P: 0 ID: [id number] QRS: 209 QRSD: 145 T: 28 QT: 449 QTc: 571 Interpretive Statements Ventricular-paced complexes No further analysis attempted due to paced rhythm Electronically Signed On 03-14-2025 19:18:28 PDT by Mark Correa Please click the below link to view image of tracing.
[2025-03-14] MEDS: PANTOPRAZOLE 40 MG TAB PO SCH (06:05)
[2025-03-14] MEDS: EMPAGLIFLOZIN 10 MG TAB PO SCH (10:00)
[2025-03-14] MEDS: METOPROLOL SUCCINATE XL 50 MG TAB PO SCH (10:00)
[2025-03-14] MEDS: LOSARTAN POTASSIUM 25 MG TAB PO SCH (10:21)
[2025-03-14] MEDS: ENOXAPARIN SOD 30 MG/0.3 ML SYRINGE SC SCH (10:24)
--- NOTE | 2025-03-14 13:30 | DVHPN2 ---
Subjective Continues to complain of diarrhea Reviewed: Care Plan, H&P, Labs, Medications, Previous Orders, Radiology, Other (Consultation) Changes from previous H/P or p: No Changes Objective Vitals Vital Signs Date Time Temp Pulse Resp B/P (MAP) Pulse Ox O2 Delivery O2 Flow Rate FiO2 03/14/25 10:21 103/75 03/14/25 10:00 51 03/14/25 09:00 97.1 18 90 97.1 03/14/25 07:40 Nasal Cannula* 4 36 General Appearance: Alert, Oriented X3, Cooperative, No acute distress HEENT: Atraumatic Lungs: Other (Decreased air entry bilateral) Chest/Breasts: Other (ICD in place) Cardiovascular: Regular rate, Normal S1, Normal S2 Abdomen: Normal bowel sounds, Soft, No tenderness Extremities: No edema Neuro: Normal gait, Normal speech, Strength at 5/5 X4 ext, Normal tone, S ensation intact, Cranial nerves 3-12 NL, Reflexes 2+, Other (Could not appreciate any deficits) Psych/Mental Status: Mental status NL, Mood NL Medications Current Medications Medications Dose Ordered Sig/Peter Route Start Time Stop Time Status Last Admin Dose Admin Atorvastatin Calcium 20 mg HS PO 03/13/25 22:00 03/13/25 22:00 20 MG Empaglifozin 10 mg DAILY PO 03/14/25 10:00 Losartan Potassium 25 mg DAILY PO 03/14/25 10:00 03/14/25 10:21 25 MG Metoprolol Succinate 25 mg DAILY PO 03/14/25 10:00 Pantoprazole Sodium 40 mg DAILY@0600 PO 03/14/25 06:00 03/14/25 06:05 40 MG Tamsulosin HCl 0.4 mg QPM PO 03/14/25 18:00 Diagnostic Test (Pha) 1 strip ACHS 03/13/25 22:00 03/14/25 11:30 1 STRIP Insulin Human Regular ACHS SC 03/13/25 22:00 03/14/25 11:30 4 UNITS Dextrose 50 ml UD PRN IV 03/13/25 19:00 Acetaminophen/ Hydrocodone Bitart 1 tab Q4HP PRN PO 03/13/25 19:00 03/13/25 20:32 1 TAB Ondansetron HCl 4 mg Q4HP PRN IV 03/13/25 19:00 Enoxaparin Sodium 30 mg DAILY SC 03/14/25 10:00 03/14/25 10:24 30 MG Acetaminophen 650 mg Q6HP PRN PO 03/13/25 19:00 Saccharomyces Boulardii 250 mg DAILY PO 03/15/25 10:00 UNV Laboratory Results Laboratory Tests 03/13/25 15:40 03/14/25 04:30 Chemistry Test 03/13/25 15:40 03/14/25 04:30 Calcium Level 8.8 mg/dL (8.7-10.4) 9.2 mg/dL (8.7-10.4) Labs and/or images reviewed: Labs reviewed by me, Image(s) reviewed by me Assessment/Plan Assessment/Plan Covering: Acute headache with weakness due to acute/subacute left occipital stroke Acute/subacute left occipital stroke per CT Atherosclerosis in carotid arteries 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; not in exacerbation Status post ICD Suspected DEVAN on CKD Chronic hypoxic respiratory failure; patient does not know the cause; on home oxygen 1 to 2 L/min via nasal cannula Uncontrolled diabetes mellitus type 2 with hemoglobin A1c of 8% Chronic diarrhea BPH Reviewed lab work and available imaging studies Continue aspirin, clopidogrel, and statin Neurology is following for acute/subacute left occipital stroke GI is following for chronic diarrhea Continue antihypertensive medications and adjust according to blood pressure readings Continue insulin management and adjust according to blood glucose monitoring Continue oxygen therapy as needed Continue tamsulosin Cardiology consulted Physical therapy consulted Avoid nephrotoxic agents Telemetry Continue monitoring Goals of care discussed with the patient for 20 minutes; full code Late Entry. This medical document was created using an electronic medical record system with computerized dictation system. Although this document has been carefully reviewed, there might still be some phonetic and typographical errors. These areas are purely typographical due to imperfections of the software programs, and do not reflect any compromise in the patient's medical care. Plan discussed with: Patient, Other (Nurse) Date of Service: Mar 14, 2025 Billing Provider: YOLANDE MICHAELS MD Common Visit Codes: [id number] INP/OBS CARE(HIGH) Secondary Visit Codes: [id number] CARE PLAN 30 MINUTES (20 minutes) YOLANDE MICHAELS MD Mar 14, 2025 13:30
--- NOTE | 2025-03-14 13:40 | DVHINCON2 ---
GI Consult Consult Note GI consult note Date of Consultation: 03/14/2025 Chief Complaint: Diarrhea Referring Physician: Milton BEDOLLA H&P: 84-year-old male presented to ER with complains of headache and weakness. Patient has neurology consult pending. Patient also complains of intermittent diarrhea the past three months, patient complains of feeling bloated and gassy, and having 3-4 bowel movements every day. No melena or red blood in stool. Patient mostly able to tolerate a liquid diet only. Per patient is status post colonoscopy 18 months ago within normal limits per patient but no reports found Patient is status post left colon resection and repair of colovesicular fistula by Dr. Singer 09/26/2009 Past Medical History: Hypertension, diabetes mellitus and congestive heart failure Past Surgical History: Pacemaker and appendectomy Social History: NO smoking, drinking ETOH and use of illegal drugs. Family History: Noncontributory Review of Systems: Constitutional: no fever, chill, weight loss HEENT: no eye pain, no hearing loss, no oral lesion, no scleral icterus Heart: no chest pain, no chest pressure Lung: no cough, no dyspnea with exertion Abdomen: see HPI Physical exam: General: NAD, AAOX3 Chest: lung hanson clear to auscultation Heart: RRR, no murmur Abdomen: non-distended, no tenderness to palpation, +BS Labs: Labs Test 03/14/25 11:52 03/14/25 04:30 03/13/25 15:40 Range/Units POC Glucose 240 H 70-106 mg/dl Sodium Level 134 L 136-145 mmol/L Potassium Level 5.1 3.5-5.1 mmol/L Chloride Level 103 98-107 mmol/L Carbon Dioxide Level 24 20-31 mmol/L Anion Gap 7 5-15 Blood Urea Nitrogen 34 H 9-23 mg/dL Creatinine 1.73 H 0.700-1.30 mg/dL Glomerular Filtration Rate Calc 39 >90 mL/min BUN/Creatinine Ratio 19.7 10.0-20.0 Serum Glucose 203 H 74-106 mg/dL Calcium Level 9.2 8.7-10.4 mg/dL White Blood Count 10.6 4.4-10.8 10^3/uL Red Blood Count 4.84 4.5-5.90 10^6/uL Hemoglobin 15.5 13.5-17.5 g/dL Hematocrit 45.7 41.0-53.0 % Mean Corpuscular Volume 94.3 # 80.0-100.0 fL Mean Corpuscular Hemoglobin 32.1 H 28.0-32.0 pg Mean Corpuscular Hemoglobin Concent 34.0 32.0-36.0 g/dL Red Cell Distribution Width 15.3 H 11.8-14.3 % Platelet Count 193 140-450 10^3/uL Mean Platelet Volume 7.8 6.9-10.8 fL Neutrophils (%) (Auto) 76.0 37.0-80.0 % Lymphocytes (%) (Auto) 11.1 10.0-50.0 % Monocytes (%) (Auto) 11.4 0.0-12.0 % Eosinophils (%) (Auto) 1.0 0.0-7.0 % Basophils (%) (Auto) 0.5 0.0-2.0 % Neutrophils # (Auto) 8.0 1.6-8.6 10 ^3/uL Lymphocytes # (Auto) 1.2 0.4-5.4 10 ^3/uL Monocytes # (Auto) 1.2 0-1.3 10 ^3/uL Eosinophils # (Auto) 0.1 0-0.8 10 ^3/uL Basophils # (Auto) 0.1 0-0.2 10 ^3/uL Nucleated Red Blood Cells 0.2 % Troponin I High Sensitivity 16 </=54 ng/L Imaging: Liver ultrasound 04/27/2024 IMPRESSION: 1. Nodular contour of the liver which may reflect cirrhosis. 2. Gallbladder wall thickening and pericholecystic free fluid, nonspecific. No positive sonographic dodson's sign or gallstones are present to suggest acute cholecystitis. CT abdomen and pelvis 03/07/2025 IMPRESSION: 1. Cardiomegaly, coronary artery disease, and right chest AICD. 2. Low to moderate volume abdominopelvic ascites. 3. Possible duodenal wall thickening versus artifactual appearance. Correlate for signs and symptoms of duodenitis. 4. Mild prostatic enlargement. 5. Advanced lumbar degenerative disc disease and facet arthropathy. 6. No evidence of bowel obstruction or other acute process in the abdomen or pelvis. Assessment: Possible acute CVA Persistent diarrhea possible infectious versus secondary to fluid overload Low to moderate ascites per CT abdomen 03/07/[address] findings of possible duodenitis 03/07/2025 Plan: -discussed with Dr. Seay stool for C diff, bacterial culture, WBC, stool occult blood Abdominal ultrasound Neurology consult pending We will continue to monitor patient Possible GI procedures to be considered when patient is medically stable and wilner ared from a neurological point of view Thank you for this consult Date of Service: Mar 14, 2025 Billing Provider: GEO MEZA Common Visit Codes: CONSULT ONLY Consultation Codes: [id number] CONSULT <60MIN GEO MEZA Mar 14, 2025 13:40
--- NOTE | 2025-03-14 14:02 | DVH ---
US ABDOMEN LIMITED HISTORY: ascites COMPARISON: CT CT AB PEL WO CON-NO ORAL OR IV on DOS: 03/07/25, CT CT AB PEL WO CON-NO ORAL OR IV on D OS: 02/26/25, US LIVER on DOS: 04/27/24 TECHNIQUE: Transverse and longitudinal sonographic images were obtained of all four quadrants of the abdomen and pelvis. FINDINGS: IMPRESSION: There is trace abdominal ascites too small for therapeutic paracentesis.
--- NOTE | 2025-03-14 14:41 | DVHINCON2 ---
Date of service: Mar 14, [address] Egan Reason for Consultation CVA History of Present Illness Mr. Grimes is a 84 years old right-handed gentleman with a history of hypertension, diabetes, diverticulosis, he came to the hospital with a chief complaint of general weakness. At this time, the patient alert and oriented x3, good social skills, can maintain good conversation, but is not a good historian I saw him on 03/26/2019 for TIA/ALOC (CT: Stroke) He reports he came to the hospital because of GI complaints, he confirmed difficulty understanding, some general but not weakness before he came to the hospital, he denies vision disturbance, but CT brain scan showed evidence suggestive of acute/subacute stroke According to our record, he was on Lipitor 20 mg daily at home CBC, 03/13/2025: Unremarkable BUN/CR, 03/12/2025: 34/1.73 TG/CHO L/LDL/HDL, 02/2019: 258/173/115/32, 04/21/2023: 185/150/97/29 Vitamin B12, 10/2018: 884, 04/27/2024: 2485 TSH, 02/2019: 4.11, 04/27/2024: 3.24 Echocardiogram, 03/08/2025: lvef 20% 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 Recommend CT angiogram of the neck and echocardiography to evaluate for possible cardiac etiology versus more proximal aortic/ great vessel stenosis. CT head, 03/25/2019: 1. No acute intracranial hemorrhage, transcortical infarction or mass effect. 2. Mild intracranial atherosclerosis and chronic small vessel ischemic changes. 3. Mild generalized cerebral and cerebellar volume loss. CT head, 03/26/2024: No acute intracranial abnormality. 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 This could be further evaluated with MRI of the brain if clinically indicated CT head, 03/13/2025: Left occipital lobe hypodensity which may represent an area of acute/subacute infarct. MRI would be helpful for further evaluation. Past Medical History Hypertension, diabetes, diverticulosis, BPH Past Surgical History Appendectomy, diverticulosis surgery Family History: Alcoholism G8 SISTER, Onset:50's - 60 Alzheimer's disease G8 SISTER, Onset:50's - 60 Cerebrovascular accident (CVA) G8 FATHER, Onset:60 years & older Hypertension G8 FATHER Family History Hypertension, diabetes, stroke, dementia Social History The patient is a non-smoker, no history of alcohol or recreational substance abuse Allergies: Coded Allergies: Glipizide (Verified Allergy, Intermediate, 09/15/24) Hydromorphone (Verified Allergy, Unknown, 09/15/24) Home Meds Active Scripts Metronidazole (Flagyl) 500 Mg Tab, 500 MG PO BID for 5 Days, #10 TAB Prov:FRANCINE MCDONNELL [facility] 03/08/25 Cephalexin (KEFLEX CAPSULE) 250 Mg Cp, 500 MG PO BID for 5 Days, #20 CAP Prov:ERIC [facility]LLANAID [facility] 03/08/25 Metronidazole (Flagyl) 500 Mg Tab, 1 TAB PO TID for 7 Days, #21 TAB Prov:MARION EGAN MD 02/26/25 Sulfamethoxazole W/Trimethopri (Bactrim Ds Tablet) 1 Tab Tb, 1 TAB PO BID for 7 Days, #14 TAB Prov:MARION EGAN MD 02/26/25 Cephalexin (KEFLEX CAPSULE) 250 Mg Cp, 500 MG PO TID for 10 Days, #30 CAP Prov:ROSETTE TOBIAS MD 09/22/24 Reported Medications Diphenhydramine Hcl (Benadryl Allergy) 25 Mg Cap, 1 CAP PO BIDP PRN for RASH, #30 CAP 1 Refill 09/15/24 Empagliflozin (Jardiance) 10 Mg Tab, 10 MG PO QAM for DIABETES, TAB 09/15/24 Furosemide (Furosemide) 20 Mg Tab, 20 MG PO DAILY for EDEMA, MG 09/15/24 Pantoprazole Sodium Sesquihydr (Pantoprazole Sodium) 40 Mg Tab, 40 MG PO DAILY for GERD, TAB 09/15/24 Metoprolol Succinate (Metoprolol Succinate Er) 25 Mg Tab, 25 MG PO DAILY for HEART for 30 Days, MG 09/15/24 Losartan Potassium (Losartan Potassium) 25 Mg Tab, 25 MG PO DAILY for HTN for 30 Days, MG 09/15/24 Atorvastatin Calcium (ATORVASTATIN CALCIUM) 20 Mg Tab, 1 TAB PO DAILY, #30 TAB 5 Refills 05/26/23 Tamsulosin Hcl (Tamsulosin Hcl) 0.4 Mg Cap, 1 CAP PO DAILY 04/19/23 Current Medications Current Medications Medications (Trade) Dose Ordered Sig/Peter Route PRN Reason Start Time Stop Time Status Last Admin Atorvastatin Calcium (Lipitor) 20 mg HS PO 03/13/25 22:00 03/13/25 22:00 Empaglifozin (Jardiance) 10 mg DAILY PO 03/14/25 10:00 Losartan Potassium (Cozaar Tablet) 25 mg DAILY PO 03/14/25 10:00 03/14/25 10:21 Metoprolol Succinate (Toprol Xl) 25 mg DAILY PO 03/14/25 10:00 Pantoprazole Sodium (Protonix Tablet) 40 mg DAILY@0600 PO 03/14/25 06:00 03/14/25 06:05 Tamsulosin HCl (Flomax) 0.4 mg QPM PO 03/14/25 18:00 Diagnostic Test (Pha) (Accu-Chek Comfort Curve T) 1 strip ACHS 03/13/25 22:00 03/14/25 11:30 Insulin Human Regular (InsuLIN R) ACHS SC 03/13/25 22:00 03/14/25 11:30 Dextrose 50 ml UD PRN IV Blood Sugar LESS THAN 60 03/13/25 19:00 Acetaminophen/ Hydrocodone Bitart (Wykoff 5/325MG Tab) 1 tab Q4HP PRN PO MODERATE PAIN (4-6 PAIN SCALE) 03/13/25 19:00 03/13/25 20:32 Ondansetron HCl (Zofran) 4 mg Q4HP PRN IV NAUSEA / VOMITING 03/13/25 19:00 Enoxaparin Sodium (Lovenox) 30 mg DAILY SC 03/14/25 10:00 03/14/25 10:24 Acetaminophen (Tylenol Tablet) 650 mg Q6HP PRN PO PAIN SCALE 1-3 OR TEMP>100.4 03/13/25 19:00 Saccharomyces Boulardii (Florastor) 250 mg DAILY PO 03/15/25 10:00 Aspirin 81 mg DAILY PO 03/15/25 10:00 Clopidogrel Bisulfate (Plavix) 75 mg DAILY PO 03/15/25 10:00 Review of Systems As above, the other system are negative Vital Signs Vital Signs Date Time Temp Pulse Resp B/P (MAP) Pulse Ox O2 Delivery O2 Flow Rate FiO2 03/14/25 10:21 103/75 03/14/25 10:00 51 03/14/25 09:00 97.1 18 90 97.1 03/14/25 07:40 Nasal Cannula* 4 36 Physical Exam GENERAL EXAM: General: the patient is well developed and nourished. No acute distress. HEENT: Normocephalic, neck is supple, no carotid bruits. No mass RESPIRATORY: Normal respiratory effort with symmetrical lung expansion. Lungs clear to auscultation. CARDIOVASCULAR: Regular rate and rhythm with no murmurs. S1, S2. ABDOMEN: Soft, nontender, normal bowel sound NEUROLOGICAL: MENTAL STATUS: Awake and alert. Oriented to person, place, time, poor historian SPEECH, LANGUAGE, HIGHER CORTICAL FUNCTION: no aphasia or dysathria. CRANIAL NERVES: #2: Questionable right homonymous hemianopsia but not confirmed with follow-up examined. The optic discs were sharp #3,4,6: Pupils are equal, round and reactive. EOMs full and conjugate. No nystagmus. #5: Facial sensation intact in all three divisions bilaterally. Mandibular strength intact. #7: Facial muscles symmetrical and strength intact. #8: Hearing grossly normal to voice. #9,10: Uvula and soft palate rise in the midline. Swallow and voice are normal. #11: Trapezius and sternomastoid strength intact bilaterally. #12: Tongue midline. No fasciculations or atrophy. SENSATION: Sensation to touch and pinprick is normal. MOTOR: Normal tone in the upper and lower extremity. Normal muscle bulk. No fasciculations. No abnormal movements or posturing. Muscle strength of the major groups in the upper extremities is 5/5. Muscle strength of the major groups in the lower extremities is 5/5. REFLEXES: Deep tendon reflexes are symmetrical. No pathological reflexes. CEREBELLAR/COORDINATION: Finger to nose is normal bilaterally. GAIT/STATION: deferred Labs/Diagnostic Data Labs Test 03/14/25 11:52 03/14/25 04:30 03/13/25 15:40 Range/Units POC Glucose 240 H 70-106 mg/dl Sodium Level 134 L 136-145 mmol/L Potassium Level 5.1 3.5-5.1 mmol/L Chloride Level 103 98-107 mmol/L Carbon Dioxide Level 24 20-31 mmol/L Anion Gap 7 5-15 Blood Urea Nitrogen 34 H 9-23 mg/dL Creatinine 1.73 H 0.700-1.30 mg/dL Glomerular Filtration Rate Calc 39 >90 mL/min BUN/Creatinine Ratio 19.7 10.0-20.0 Serum Glucose 203 H 74-106 mg/dL Calcium Level 9.2 8.7-10.4 mg/dL White Blood Count 10.6 4.4-10.8 10^3/uL Red Blood Count 4.84 4.5-5.90 10^6/uL Hemoglobin 15.5 13.5-17.5 g/dL Hematocrit 45.7 41.0-53.0 % Mean Corpuscular Volume 94.3 # 80.0-100.0 fL Mean Corpuscular Hemoglobin 32.1 H 28.0-32.0 pg Mean Corpuscular Hemoglobin Concent 34.0 32.0-36.0 g/dL Red Cell Distribution Width 15.3 H 11.8-14.3 % Platelet Count 193 140-450 10^3/uL Mean Platelet Volume 7.8 6.9-10.8 fL Neutrophils (%) (Auto) 76.0 37.0-80.0 % Lymphocytes (%) (Auto) 11.1 10.0-50.0 % Monocytes (%) (Auto) 11.4 0.0-12.0 % Eosinophils (%) (Auto) 1.0 0.0-7.0 % Basophils (%) (Auto) 0.5 0.0-2.0 % Neutrophils # (Auto) 8.0 1.6-8.6 10 ^3/uL Lymphocytes # (Auto) 1.2 0.4-5.4 10 ^3/uL Monocytes # (Auto) 1.2 0-1.3 10 ^3/uL Eosinophils # (Auto) 0.1 0-0.8 10 ^3/uL Basophils # (Auto) 0.1 0-0.2 10 ^3/uL Nucleated Red Blood Cells 0.2 % Troponin I High Sensitivity 16 </=54 ng/L Assessment Acute/subacute left occipital stroke per CT Atherosclerosis in carotid arteries Plan/Recommendation Monitoring Support treatment MRI brain scan MRA neck Aspirin 81 mg daily, Plavix 75 mg daily for 21 days Lipitor 40 mg daily DVT prophylaxis/Lovenox More recommendation per clinical course Progress: Poor This medical document was created using an electronic medical record system with [employer] computerized dictation system. Although this document has been carefully reviewed, there may still be some phonetic and typographical errors. These areas are purely typographical due to imperfections of the software programs, and do not reflect any compromise in the patient's medical care. Plan discussed with: Patient, Other ISHAAN GARCIA MD Mar 14, 2025 14:41
[2025-03-14] MEDS: CLOPIDOGREL BISULFATE 75 MG TAB PO ONE (15:07)
--- NOTE | 2025-03-14 15:17 | DVH ---
Indication: CVZ Technique: Real-time ultrasound images of the neck vessels with marmolejo-scale, color and wave Doppler we re obtained. Comparison: US CAROTID DUPLX W COLOR DOP on DOS: 04/26/24, ECHO 2D MODE CARDIAC DOP on DOS: 03/28/24 Findings: Diffuse atherosclerotic plaque. The following peak systolic velocities were recorded in cm/sec: Right internal carotid: 34 Right common carotid: 25 Right external carotid: 36 Right internal/common carotid ratio: 1.4 Left internal carotid: 44 Left common carotid: 27 Left external carotid: 35 Left internal/common carotid ratio: 1.6 Right vertebral artery: Patent with normal antegrade direction of flow. Left vertebral artery: Patent with normal antegrade direction of flow. Impression: Diffusely decreased velocities. Recommend CT angiogram of the neck and echocardiography to evaluate f or possible cardiac etiology versus more proximal aortic/ great vessel stenosis.
[2025-03-14] MEDS: TAMSULOSIN HYDROCHLORIDE 0.4 MG CAP PO SCH (17:28)
[2025-03-14] MEDS ORDERED: LORazepam 2MG/ML-1ML VIAL IV PRN (22:15)
[2025-03-14] MEDS: CLOPIDOGREL BISULFATE 75 MG TAB PO SCH (22:15)
[2025-03-15] VITALS (8 sets, daily range): BP systolic 95–118; BP diastolic 59–87; PULSE 52–88; RESP 17–18; TEMP 97.3–97.9; O2SAT 94–99
[2025-03-15 07:10] LABS: Albumin 3.6 g/dL (3.2-4.8); Anion Gap 9 (5-15); BUN/Creatinine Ratio 23.9 (10.0-20.0); Carbon Dioxide 21 mmol/L (20-31); Chloride 103 mmol/L (98-107); Potassium 4.4 mmol/L (3.5-5.1); Total Protein 6.4 g/dL (5.7-8.2)
[2025-03-15 07:14] LABS: Alanine Aminotransferase 74 U/L (7-40); Alkaline Phosphatase 129 U/L (46-116); Bilirubin, Total 1.4 mg/dL (0.2-1.0); Blood Urea Nitrogen 34 mg/dL (9-23); Calcium 8.6 mg/dL (8.7-10.4); Glucose 222 mg/dL (74-106); Sodium 133 mmol/L (136-145)
[2025-03-15 07:15] LABS: Hematocrit 42.1 % (41.0-53.0); Hemoglobin 14.7 g/dL (13.5-17.5); Mean Corpuscular Hemoglobin 31.8 pg (28.0-32.0); Mean Corpuscular Volume 91.2 fL (80.0-100.0); Nucleated Red Blood Cells % 0.1 %
[2025-03-15] MEDS: FLORASTOR (S. BOULARDII) 250 MG CAP PO SCH (09:18)
--- NOTE | 2025-03-15 09:23 | DVHPN2 ---
Progress Note - Dictate Date Seen: Mar 15, 2025 Medical Necessity Reason Pt with a Central, PICC or Fol: No Subjective Mr. Grimes is a 84 years old right-handed gentleman with a history of hypertension, diabetes, diverticulosis, he came to the hospital with a chief complaint of general weakness. 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 Recommend CT angiogram of the neck and echocardiography to evaluate for possible cardiac etiology versus more proximal aortic/ great vessel stenosis. CT head, 03/25/2019: 1. No acute intracranial hemorrhage, transcortical infarction or mass effect. 2. Mild intracranial atherosclerosis and chronic small vessel ischemic changes. 3. Mild generalized cerebral and cerebellar volume loss. CT head, 03/26/2024: No acute intracranial abnormality. 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 This could be further evaluated with MRI of the brain if clinically indicated CT head, 03/13/2025: Left occipital lobe hypodensity which may represent an area of acute/subacute infarct. MRI would be helpful for further evaluation. vital signs Vital Sign Date Time Temp Pulse Resp B/P (MAP) Pulse Ox O2 Delivery O2 Flow Rate FiO2 03/15/25 05:00 97.5 52 18 118/72 (87) 97 97.5 03/14/25 20:00 Nasal Cannula* 4 36 Total Intake and Output 03/14/25 03/14/25 03/15/25 15:00 23:00 07:00 Intake Total 0 ml 520 ml Output Total 0 ml Balance 0 ml 520 ml medications Current Medications Medications Dose Ordered Sig/Peter Route Start Time Stop Time Status Last Admin Dose Admin Atorvastatin Calcium 20 mg HS PO 03/13/25 22:00 03/14/25 21:52 20 MG Empaglifozin 10 mg DAILY PO 03/14/25 10:00 Losartan Potassium 25 mg DAILY PO 03/14/25 10:00 03/14/25 10:21 25 MG Metoprolol Succinate 25 mg DAILY PO 03/14/25 10:00 Pantoprazole Sodium 40 mg DAILY@0600 PO 03/14/25 06:00 03/15/25 06:12 40 MG Tamsulosin HCl 0.4 mg QPM PO 03/14/25 18:00 03/14/25 17:28 0.4 MG Diagnostic Test (Pha) 1 strip ACHS 03/13/25 22:00 03/15/25 06:13 1 STRIP Insulin Human Regular ACHS SC 03/13/25 22:00 03/15/25 06:13 4 UNITS Dextrose 50 ml UD PRN IV 03/13/25 19:00 Acetaminophen/ Hydrocodone Bitart 1 tab Q4HP PRN PO 03/13/25 19:00 03/13/25 20:32 1 TAB Ondansetron HCl 4 mg Q4HP PRN IV 03/13/25 19:00 Enoxaparin Sodium 30 mg DAILY SC 03/14/25 10:00 03/14/25 10:24 30 MG Acetaminophen 650 mg Q6HP PRN PO 03/13/25 19:00 Saccharomyces Boulardii 250 mg DAILY PO 03/15/25 10:00 Aspirin 81 mg DAILY PO 03/15/25 10:00 Clopidogrel Bisulfate 75 mg DAILY PO 03/14/25 22:15 04/03/25 23:00 Lorazepam 1 mg ONCE PRN IV 03/14/25 22:15 objective General: the patient is well developed and nourished. No acute distress. MENTAL STATUS: Awake and alert. Oriented to person, place, time, poor historian SPEECH, LANGUAGE, HIGHER CORTICAL FUNCTION: no aphasia or dysathria. CRANIAL NERVES: Visual hanson full to confrontation. Pupils are equal, round and reactive. EOMs full and conjugate. No nystagmus. Facial sensation intact in all three divisions bilaterally. Mandibular strength intact. Tongue midline. No fasciculations or atrophy. SENSATION: Sensation to touch and pinprick is normal. MOTOR: Normal tone in the upper and lower extremity. Normal muscle bulk. No fasciculations. No abnormal movements or posturing. Muscle strength of the major groups in the extremities is 5/5. REFLEXES: Deep tendon reflexes are symmetrical. No pathological reflexes. CEREBELLAR/COORDINATION: Finger to nose is normal bilaterally. GAIT/STATION: deferred laboratory and microbiology Laboratory Tests 03/15/25 05:12 Test 03/15/25 05:12 Range/Units Serum Glucose 222 H 74-106 mg/dL Problem List Acute/subacute left occipital stroke per CT Atherosclerosis in carotid arteries Assessment/Plan Monitoring Support treatment MRI brain scan MRA neck Aspirin 81 mg daily, Plavix 75 mg daily for 21 days Lipitor 40 mg daily DVT prophylaxis/Lovenox More recommendation per clinical course This medical document was created using an electronic medical record system with [employer] dictation system. Although this document has been carefully reviewed, there may still be some phonetic and typographical errors. These areas are purely typographical due to imperfections of the software programs, and do not reflect any compromise in the patient's medical care. Prognosis poor Plan discussed with: Patient, Other ISHAAN GARCIA MD Mar 15, 2025 09:23
[2025-03-15] MEDS ORDERED: CLOPIDOGREL BISULFATE 75 MG TAB PO SCH (10:00)
--- NOTE | 2025-03-15 13:01 | DVHPN2 ---
Progress Note - Dictate Date Seen: Mar 14, 2025 Medical Necessity Reason Pt with a Central, PICC or Fol: No Subjective PT WITH SS COMPLEX SEVERE HEAD SLURRYING SPEECH LEFT OCCIPITAL CVA HFrEF S/P BIV AICD The patient had implantation of Biotronik Rivacor 7 HF-T QP, model #568054, serial #[id number]. LV lead is Sentus ProMRI, model #459079, serial #[id number]. RV lead is Plexa ProMRI, model #877986, serial #[id number]. RA lead is Solia S45, model #971822, serial #[id number]. The patient's underlying rhythm is atrial fibrillation, but the RA lead was placed for better discrimination of VT versus SVT. Threshold parameters: Atrium P-wave amplitude of 3.9 millivolts, threshold of 0.9 volts at 0.4 milliseconds pulse duration, pacing impedance of 615 ohms. Right ventricular lead, R-wave amplitude of 24.2 millivolts, threshold of 0.5 volts at 0.4 milliseconds pulse duration, pacing impedance of 577 ohms. Left ventricular lead threshold parameters, R-wave amplitude of 11.4 millivolts, capture 0.8 volts at 0.4 milliseconds pulse duration, pacing impedance of 655 ohms. CONCLUSION: The patient has successful implantation of Bi-V AICD Biotronik MRI compatible system. vital signs Vital Sign Date Time Temp Pulse Resp B/P (MAP) Pulse Ox O2 Delivery O2 Flow Rate FiO2 03/15/25 09:19 80 113/70 03/15/25 09:00 97.7 17 98 97.7 03/15/25 08:00 Nasal Cannula* 4 36 Total Intake and Output 03/14/25 03/14/25 03/15/25 15:00 23:00 07:00 Intake Total 0 ml 520 ml Output Total 0 ml Balance 0 ml 520 ml medications Current Medications Medications Dose Ordered Sig/Peter Route Start Time Stop Time Status Last Admin Dose Admin Atorvastatin Calcium 20 mg HS PO 03/13/25 22:00 03/14/25 21:52 20 MG Empaglifozin 10 mg DAILY PO 03/14/25 10:00 03/15/25 09:19 10 MG Losartan Potassium 25 mg DAILY PO 03/14/25 10:00 03/15/25 09:19 25 MG Metoprolol Succinate 25 mg DAILY PO 03/14/25 10:00 03/15/25 09:19 25 MG Pantoprazole Sodium 40 mg DAILY@0600 PO 03/14/25 06:00 03/15/25 06:12 40 MG Tamsulosin HCl 0.4 mg QPM PO 03/14/25 18:00 03/14/25 17:28 0.4 MG Diagnostic Test (Pha) 1 strip ACHS 03/13/25 22:00 03/15/25 11:30 1 STRIP Insulin Human Regular ACHS SC 03/13/25 22:00 03/15/25 12:01 4 UNITS Dextrose 50 ml UD PRN IV 03/13/25 19:00 Acetaminophen/ Hydrocodone Bitart 1 tab Q4HP PRN PO 03/13/25 19:00 03/13/25 20:32 1 TAB Ondansetron HCl 4 mg Q4HP PRN IV 03/13/25 19:00 Enoxaparin Sodium 30 mg DAILY SC 03/14/25 10:00 03/15/25 09:18 30 MG Acetaminophen 650 mg Q6HP PRN PO 03/13/25 19:00 Saccharomyces Boulardii 250 mg DAILY PO 03/15/25 10:00 03/15/25 09:18 250 MG Aspirin 81 mg DAILY PO 03/15/25 10:00 03/15/25 09:18 81 MG Clopidogrel Bisulfate 75 mg DAILY PO 03/14/25 22:15 04/03/25 23:00 03/15/25 09:20 75 MG Lorazepam 1 mg ONCE PRN IV 03/14/25 22:15 laboratory and microbiology Laboratory Tests 03/15/25 05:12 Test 03/15/25 05:12 Range/Units Serum Glucose 222 H 74-106 mg/dL Problem List SS COMPLEX SEVERE HEAD SLURRYING SPEECH LEFT OCCIPITAL CVA HFrEF S/P BIV AICD The patient had implantation of Biotronik Rivacor 7 HF-T QP, model #660727, serial #[id number]. LV lead is Sentus ProMRI, model #383143, serial #[id number]. RV lead is Plexa ProMRI, model #271081, serial #[id number]. RA lead is Solia S45, model #877113, serial #[id number]. The patient's underlying rhythm is atrial fibrillation, but the RA lead was placed for better discrimination of VT versus SVT. Threshold parameters: Atrium P-wave amplitude of 3.9 millivolts, threshold of 0.9 volts at 0.4 milliseconds pulse duration, pacing impedance of 615 ohms. Right ventricular lead, R-wave amplitude of 24.2 millivolts, threshold of 0.5 volts at 0.4 milliseconds pulse duration, pacing impedance of 577 ohms. Left ventricular lead threshold parameters, R-wave amplitude of 11.4 millivolts, capture 0.8 volts at 0.4 milliseconds pulse duration, pacing impedance of 655 ohms. CONCLUSION: The patient has successful implantation of Bi-V AICD Biotronik MRI compatible system. Assessment/Plan PROCEED WITH MRI ANTI COAGULATION Plan discussed with: Patient ALENA RENEE MD Mar 15, 2025 13:01
--- NOTE | 2025-03-15 14:18 | DVHPN2 ---
Subjective Patient admits to feeling better Able to tolerate diet No nausea or vomiting Patient denies dysphagia Bowel movement this morning was more formed than loose Patient awaiting MRI today Reviewed: Care Plan, H&P, Labs, Medications, Previous Orders, Radiology, Other (Consultation) Changes from previous H/P or p: No Changes Objective Vitals Vital Signs Date Time Temp Pulse Resp B/P (MAP) Pulse Ox O2 Delivery O2 Flow Rate FiO2 03/15/25 09:19 80 113/70 03/15/25 09:00 97.7 17 98 97.7 03/15/25 08:00 Nasal Cannula* 4 36 Intake/Output Intake and Output 03/15/25 07:00 Intake Total 520 ml Output Total 0 ml Balance 520 ml Intake Oral 520 ml Output Urine Total 0 ml # Voids 2 General Appearance: Alert, Oriented X3, Cooperative, No acute distress, mild distress, moderate distress, severe distress, Other HEENT: Atraumatic Lungs: Clear to auscultation, Normal air movement, Other (Decreased air entry bilateral) Chest/Breasts: Other (ICD in place) Cardiovascular: Regular rate, Normal S1, Normal S2, No murmurs, Gallops, Rubs, Other Abdomen: Normal bowel sounds, Soft, No tenderness, No hepatospenomegaly, No masses, Other Extremities: No edema Neuro: Normal gait, Normal speech, Strength at 5/5 X4 ext, Normal tone, S ensation intact, Cranial nerves 3-12 NL, Reflexes 2+, Other (Could not appreciate any deficits) Psych/Mental Status: Mental status NL, Mood NL Medications Current Medications Medications Dose Ordered Sig/Peter Route Start Time Stop Time Status Last Admin Dose Admin Atorvastatin Calcium 20 mg HS PO 03/13/25 22:00 03/14/25 21:52 20 MG Empaglifozin 10 mg DAILY PO 03/14/25 10:00 03/15/25 09:19 10 MG Losartan Potassium 25 mg DAILY PO 03/14/25 10:00 03/15/25 09:19 25 MG Metoprolol Succinate 25 mg DAILY PO 03/14/25 10:00 03/15/25 09:19 25 MG Pantoprazole Sodium 40 mg DAILY@0600 PO 03/14/25 06:00 03/15/25 06:12 40 MG Tamsulosin HCl 0.4 mg QPM PO 03/14/25 18:00 03/14/25 17:28 0.4 MG Diagnostic Test (Pha) 1 strip ACHS 03/13/25 22:00 03/15/25 11:30 1 STRIP Insulin Human Regular ACHS SC 03/13/25 22:00 03/15/25 12:01 4 UNITS Dextrose 50 ml UD PRN IV 03/13/25 19:00 Acetaminophen/ Hydrocodone Bitart 1 tab Q4HP PRN PO 03/13/25 19:00 03/13/25 20:32 1 TAB Ondansetron HCl 4 mg Q4HP PRN IV 03/13/25 19:00 Enoxaparin Sodium 30 mg DAILY SC 03/14/25 10:00 03/15/25 09:18 30 MG Acetaminophen 650 mg Q6HP PRN PO 03/13/25 19:00 Saccharomyces Boulardii 250 mg DAILY PO 03/15/25 10:00 03/15/25 09:18 250 MG Aspirin 81 mg DAILY PO 03/15/25 10:00 03/15/25 09:18 81 MG Clopidogrel Bisulfate 75 mg DAILY PO 03/14/25 22:15 04/03/25 23:00 03/15/25 09:20 75 MG Lorazepam 1 mg ONCE PRN IV 03/14/25 22:15 Furosemide 20 mg BIDD IV 03/15/25 18:00 UNV Laboratory Results Laboratory Tests 03/15/25 05:12 Chemistry Test 03/15/25 05:12 Albumin 3.6 g/dL (3.2-4.8) Calcium Level 8.6 mg/dL (8.7-10.4) L Total Protein 6.4 g/dL (5.7-8.2) LFT Test 03/15/25 05:12 Alanine Aminotransferase (ALT) 74 U/L (7-40) H Alkaline Phosphatase 129 U/L (46-116) H Aspartate Amino Transferase (AST) 54 U/L (13-40) H Total Bilirubin 1.4 mg/dL (0.2-1.0) H Assessment/Plan Assessment/Plan Possible acute CVA Persistent diarrhea possible infectious versus secondary to fluid overload Low to moderate ascites per CT abdomen 03/07/[address] findings of possible duodenitis 03/07/2025 Plan: -discussed with Dr. Seay Ultrasound of liver Hepatitis meat hostess labs in a.m. Diet as tolerated Possible EGD discussed with patient and family at bedside when patient is cleared by Cardiology and Neurology, at this time patient is refusing to have these tests done We will continue to monitor patient Plan discussed with: Patient, Spouse, Daughter, Other (RN) Date of Service: Mar 15, 2025 Billing Provider: GEO MEZA Common Visit Codes: [id number] INP/OBS CARE(HIGH) GEO MEZA Mar 15, 2025 14:18
--- NOTE | 2025-03-15 15:42 | DVH ---
INDICATION: elevated LFTs TECHNIQUE: Multiple real-time sonographic images of the abdomen were obtained. COMPARISON: US ABDOMEN LIMITED on DOS: 03/14/25, US LIVER on DOS: 04/27/24, US KIDNEY on DOS: 04/19/23 FINDINGS: The liver is coarsened in echogenicity. The liver measures 16cm. No intrahepatic biliary d uctal dilatation is noted. Small volume ascites. The gallbladder wall measures 1.0 cm and is thickened. Contracted gallbladder which limits evaluatio n. No gallstones or sludge is seen. The common duct measures 0.5 cm and is unremarkable. No perich olecystic fluid is noted. The right kidney measures 9.3cm. No hydronephrosis. The left kidney measures 10.5 cm. No hydronephr osis. There is increased echogenicity of the bilateral kidneys suggestive of chronic medical renal di sease. The spleen measures 12 cm, which is on the upper limits of normal. The echogenicity is within normal limits. The pancreas is not well visualized due to obscuration from bowel gas. The visualized portions of the IVC and aorta are grossly unremarkable. IMPRESSION: Coarsened liver echotexture suggestive of chronic liver disease. Small volume ascites. Partially seen small right pleural effusion. Nonspecific gallbladder wall thickening which can be seen in the setting of chronic liver disease. Co ntracted gallbladder limits evaluation. Echogenic bilateral kidneys suggestive of chronic medical renal disease.
--- NOTE | 2025-03-15 15:54 | DVH ---
EXAM: MRI BRAIN HEAD WO CONTRAST INDICATION: CVA TECHNIQUE: Multiplanar, multisequence imaging of the brain without contrast. COMPARISON: CT HEAD WITHOUT CONTRAST on DOS: 03/13/25 FINDINGS: [PARENCHYMA]: Large area of diffusion restriction of the left posterior temporal to left occipital lo be corresponding with the left posterior cerebral artery territory. Additional small foci of diffusi on restriction of the right occipital lobe. No mass effect or herniation. No abnormal susceptibility weighted artifact. [VENTRICLES]: No hydrocephalus. [EXTRA-AXIAL SPACES]: No extra-axial fluid collections. [EXTRA-CRANIAL STRUCTURES]: The bony structures are intact. Visualized portions of the paranasal sinu ses and mastoid air cells are essentially clear. IMPRESSION: 1. Large area of diffusion restriction of the left posterior temporal to left occipital lobe correspo nding with the left posterior cerebral artery territory. 2. Additional small foci of diffusion restriction of the right occipital lobe in bilateral cerebellar hemispheres 3. Findings are consistent with acute infarcts. 4. No mass effect or herniation.
--- NOTE | 2025-03-15 16:00 | DVHPN2 ---
Subjective He is comfortable in bed. Alert awake oriented x3. Says his headache is resolved. No other complaints. Family is bedside. Reviewed: Care Plan, H&P, Labs, Medications, Previous Orders, Radiology, Other (Consultation) Changes from previous H/P or p: No Changes Objective Vitals Vital Signs Date Time Temp Pulse Resp B/P (MAP) Pulse Ox O2 Delivery O2 Flow Rate FiO2 03/15/25 09:19 80 113/70 03/15/25 09:00 97.7 17 98 97.7 03/15/25 08:00 Nasal Cannula* 4 36 Intake/Output Intake and Output 03/15/25 07:00 Intake Total 520 ml Output Total 0 ml Balance 520 ml Intake Oral 520 ml Output Urine Total 0 ml # Voids 2 General Appearance: Alert, Oriented X3, Cooperative, No acute distress, mild distress, moderate distress, severe distress, Other HEENT: Atraumatic Lungs: Clear to auscultation, Normal air movement, Other (Decreased air entry bilateral) Chest/Breasts: Other (ICD in place) Cardiovascular: Regular rate, Normal S1, Normal S2, No murmurs, Gallops, Rubs, Other Abdomen: Normal bowel sounds, Soft, No tenderness, No hepatospenomegaly, No masses, Other Extremities: No edema Neuro: Normal gait, Normal speech, Strength at 5/5 X4 ext, Normal tone, S ensation intact, Cranial nerves 3-12 NL, Reflexes 2+, Other (Could not appreciate any deficits) Psych/Mental Status: Mental status NL, Mood NL Medications Current Medications Medications Dose Ordered Sig/Peter Route Start Time Stop Time Status Last Admin Dose Admin Atorvastatin Calcium 20 mg HS PO 03/13/25 22:00 03/14/25 21:52 20 MG Empaglifozin 10 mg DAILY PO 03/14/25 10:00 03/15/25 09:19 10 MG Losartan Potassium 25 mg DAILY PO 03/14/25 10:00 03/15/25 09:19 25 MG Metoprolol Succinate 25 mg DAILY PO 03/14/25 10:00 03/15/25 09:19 25 MG Pantoprazole Sodium 40 mg DAILY@0600 PO 03/14/25 06:00 03/15/25 06:12 40 MG Tamsulosin HCl 0.4 mg QPM PO 03/14/25 18:00 03/14/25 17:28 0.4 MG Diagnostic Test (Pha) 1 strip ACHS 03/13/25 22:00 03/15/25 11:30 1 STRIP Insulin Human Regular ACHS SC 03/13/25 22:00 03/15/25 12:01 4 UNITS Dextrose 50 ml UD PRN IV 03/13/25 19:00 Acetaminophen/ Hydrocodone Bitart 1 tab Q4HP PRN PO 03/13/25 19:00 03/13/25 20:32 1 TAB Ondansetron HCl 4 mg Q4HP PRN IV 03/13/25 19:00 Enoxaparin Sodium 30 mg DAILY SC 03/14/25 10:00 03/15/25 09:18 30 MG Acetaminophen 650 mg Q6HP PRN PO 03/13/25 19:00 Saccharomyces Boulardii 250 mg DAILY PO 03/15/25 10:00 03/15/25 09:18 250 MG Aspirin 81 mg DAILY PO 03/15/25 10:00 03/15/25 09:18 81 MG Clopidogrel Bisulfate 75 mg DAILY PO 03/14/25 22:15 04/03/25 23:00 03/15/25 09:20 75 MG Lorazepam 1 mg ONCE PRN IV 03/14/25 22:15 Furosemide 20 mg BIDD IV 03/15/25 18:00 Laboratory Results Laboratory Tests 03/15/25 05:12 Chemistry Test 03/15/25 05:12 Albumin 3.6 g/dL (3.2-4.8) Calcium Level 8.6 mg/dL (8.7-10.4) L Total Protein 6.4 g/dL (5.7-8.2) LFT Test 03/15/25 05:12 Alanine Aminotransferase (ALT) 74 U/L (7-40) H Alkaline Phosphatase 129 U/L (46-116) H Aspartate Amino Transferase (AST) 54 U/L (13-40) H Total Bilirubin 1.4 mg/dL (0.2-1.0) H Assessment/Plan Assessment/Plan Acute headache with weakness due to acute/subacute left occipital stroke Acute/subacute left occipital stroke per CT Atherosclerosis in carotid arteries 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; not in exacerbation Status post ICD Suspected DEVAN on CKD Chronic hypoxic respiratory failure; patient does not know the cause; on home oxygen 1 to 2 L/min via nasal cannula Uncontrolled diabetes mellitus type 2 with hemoglobin A1c of 8% Chronic diarrhea BPH Reviewed lab work and available imaging studies Continue aspirin, clopidogrel, and statin Neurology is following for acute/subacute left occipital stroke GI is following for chronic diarrhea Continue antihypertensive medications and adjust according to blood pressure readings Continue insulin management and adjust according to blood glucose monitoring Continue oxygen therapy as needed Continue tamsulosin Cardiology consulted Physical therapy consulted Avoid nephrotoxic agents Telemetry Continue monitoring Patient is still pending MRI and MRA of the head and neck for further evaluation and stroke. Patient has a known cardiomyopathy EF 20%. This is discussed with the patient along with the family at bedside. Patient does have exertional dyspnea. We will evaluate for need for any oxygen. I will start him on IV diuretics for shortness for breath with cardiomyopathy. Discussed with the patient and family as well as nurse regarding care plan. Plan discussed with: Patient, Other My Orders Orders - DAKOTA COTTRELL MD Procedure Category Date Status Time Furosemide Injection PHA 03/15/25 In Process (Lasix Injection) 18:00 Basic Metabolic Panel LAB 03/16/25 Verified 05:00 Basic Metabolic Panel LAB 03/17/25 Verified 05:00 Basic Metabolic Panel LAB 03/18/25 Verified 05:00 Basic Metabolic Panel LAB 03/19/25 Verified 05:00 Basic Metabolic Panel LAB 03/20/25 Verified 05:00 Date of Service: Mar 15, 2025 Billing Provider: DAKOTA COTTRELL MD Common Visit Codes: [id number] INP/OBS CARE(MOD) DAKOTA COTTRELL MD Mar 15, 2025 16:00
[2025-03-15] MEDS: FUROSEMIDE 20 MG/2 ML VIAL IV SCH (17:41)
[2025-03-15] MEDS: MELATONIN 5 MG TAB PO ONE (22:29)
[2025-03-16] VITALS (9 sets, daily range): BP systolic 101–122; BP diastolic 54–78; PULSE 65–83; RESP 17–22; TEMP 97.6–98.7; O2SAT 95–100
[2025-03-16 07:38] LABS: Anion Gap 9 (5-15); Carbon Dioxide 22 mmol/L (20-31); Chloride 103 mmol/L (98-107); Potassium 4.2 mmol/L (3.5-5.1)
[2025-03-16 07:44] LABS: BUN/Creatinine Ratio 23.7 (10.0-20.0)
[2025-03-16 07:46] LABS: Blood Urea Nitrogen 31 mg/dL (9-23); Glucose 114 mg/dL (74-106); Sodium 134 mmol/L (136-145)
[2025-03-16 07:47] LABS: Calcium 8.4 mg/dL (8.7-10.4)
--- NOTE | 2025-03-16 09:32 | DVHPN2 ---
Progress Note - Dictate Date Seen: Mar 16, 2025 Medical Necessity Reason Pt with a Central, PICC or Fol: No Subjective Mr. Grimes is a 84 years old right-handed gentleman with a history of hypertension, diabetes, diverticulosis, he came to the hospital with a chief complaint of general weakness. I saw him on 03/26/2019 for TIA/ALOC (CT: Stroke) I have seen examined the patient, talked to his daytime in the night auditor nurses, he is oriented x3, no new complaints, no change on physical examination GI on case Re: Chronic diarrhea, dysphagia CBC, 03/13/2025: Unremarkable BUN/CR, 03/12/2025: 34/1.73 TBI/AST/ALT/AP, 03/15/2025: 03/15/2025: 1.4/54/74/129 Hepatitis panel, 03/15/2025: TG/CHO L/LDL/HDL, 02/2019: 258/173/115/32, 04/21/2023: 185/150/97/29. Vitamin B12, 10/2018: 884, 04/27/2024: 2485 TSH, 02/2019: 4.11, 04/27/2024: 3.24 Echocardiogram, 03/08/2025: lvef 20% 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 Recommend CT angiogram of the neck and echocardiography to evaluate for possible cardiac etiology versus more proximal aortic/ great vessel stenosis. CT head, 03/25/2019: 1. No acute intracranial hemorrhage, transcortical infarction or mass effect. 2. Mild intracranial atherosclerosis and chronic small vessel ischemic changes. 3. Mild generalized cerebral and cerebellar volume loss. CT head, 03/26/2024: No acute intracranial abnormality. 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 This could be further evaluated with MRI of the brain if clinically indicated CT head, 03/13/2025: Left occipital lobe hypodensity which may represent an area of acute/subacute infarct. MRI would be helpful for further evaluation. MRI head, 03/15/2025: 1. Large area of diffusion restriction of the left posterior temporal to left occipital lobe corresponding with the left posterior cerebral artery territory. 2. Additional small foci of diffusion restriction of the right occipital lobe in bilateral cerebellar hemispheres 3. Findings are consistent with acute infarcts. 4. No mass effect or herniation vital signs Vital Sign Date Time Temp Pulse Resp B/P (MAP) Pulse Ox O2 Delivery O2 Flow Rate FiO2 03/16/25 09:00 97.8 65 22 118/77 (91) 98 97.8 03/16/25 08:17 Nasal Cannula* 4 36 Total Intake and Output 03/15/25 03/15/25 03/16/25 15:00 23:00 07:00 Intake Total 660 ml 600 ml Output Total 200 ml 1300 ml Balance 460 ml -700 ml medications Current Medications Medications Dose Ordered Sig/Peter Route Start Time Stop Time Status Last Admin Dose Admin Atorvastatin Calcium 20 mg HS PO 03/13/25 22:00 03/15/25 21:47 20 MG Empaglifozin 10 mg DAILY PO 03/14/25 10:00 03/15/25 09:19 10 MG Losartan Potassium 25 mg DAILY PO 03/14/25 10:00 03/15/25 09:19 25 MG Metoprolol Succinate 25 mg DAILY PO 03/14/25 10:00 03/15/25 09:19 25 MG Pantoprazole Sodium 40 mg DAILY@0600 PO 03/14/25 06:00 03/16/25 06:09 40 MG Tamsulosin HCl 0.4 mg QPM PO 03/14/25 18:00 03/15/25 17:41 0.4 MG Diagnostic Test (Pha) 1 strip ACHS 03/13/25 22:00 03/16/25 06:10 1 STRIP Insulin Human Regular ACHS SC 03/13/25 22:00 03/16/25 06:10 2 UNITS Dextrose 50 ml UD PRN IV 03/13/25 19:00 Acetaminophen/ Hydrocodone Bitart 1 tab Q4HP PRN PO 03/13/25 19:00 03/13/25 20:32 1 TAB Ondansetron HCl 4 mg Q4HP PRN IV 03/13/25 19:00 Enoxaparin Sodium 30 mg DAILY SC 03/14/25 10:00 03/15/25 09:18 30 MG Acetaminophen 650 mg Q6HP PRN PO 03/13/25 19:00 Saccharomyces Boulardii 250 mg DAILY PO 03/15/25 10:00 03/15/25 09:18 250 MG Aspirin 81 mg DAILY PO 03/15/25 10:00 03/15/25 09:18 81 MG Clopidogrel Bisulfate 75 mg DAILY PO 03/14/25 22:15 04/03/25 23:00 03/15/25 09:20 75 MG Lorazepam 1 mg ONCE PRN IV 03/14/25 22:15 Furosemide 20 mg BIDD IV 03/15/25 18:00 03/16/25 06:09 20 MG objective General: the patient is well developed and nourished. No acute distress. MENTAL STATUS: Awake and alert. Oriented to person, place, time, poor historian SPEECH, LANGUAGE, HIGHER CORTICAL FUNCTION: no aphasia or dysathria. CRANIAL NERVES: Visual hanson full to confrontation. Pupils are equal, round and reactive. EOMs full and conjugate. No nystagmus. Facial sensation intact in all three divisions bilaterally. Mandibular strength intact. Tongue midline. No fasciculations or atrophy. SENSATION: Sensation to touch and pinprick is normal. MOTOR: Normal tone in the upper and lower extremity. Normal muscle bulk. No fasciculations. No abnormal movements or posturing. Muscle strength of the major groups in the extremities is 5/5. REFLEXES: Deep tendon reflexes are symmetrical. No pathological reflexes. CEREBELLAR/COORDINATION: Finger to nose is normal bilaterally. GAIT/STATION: deferred laboratory and microbiology Laboratory Tests 03/16/25 06:06 03/15/25 05:12 Test 03/16/25 06:06 Range/Units Serum Glucose 114 #H 74-106 mg/dL Problem List Acute/subacute left occipital stroke per CT Atherosclerosis in carotid arteries Assessment/Plan Monitoring Support treatment MRI brain scan MRA neck Aspirin 81 mg daily, Plavix 75 mg daily for 21 days Lipitor 40 mg daily DVT prophylaxis/Lovenox GI on case Re: Chronic diarrhea, dysphagia More recommendation per clinical course This medical document was created using an electronic medical record system with [employer] dictation system. Although this document has been carefully reviewed, there may still be some phonetic and typographical errors. These areas are purely typographical due to imperfections of the software programs, and do not reflect any compromise in the patient's medical care. Prognosis poor Dietary Evaluation Review Comments: Nutrition Recommendation 1) Glucerna 240ml TID 2) Consider BRAT diet 3) Monitor PO intake, lab values, weight trend, and I/O Expected Outcomes/Goals: To meet >75% estimated needs GI symptoms to improve Fu 3-5 days Plan discussed with: Other ISHAAN GARCIA MD Mar 16, 2025 09:32
[2025-03-16 11:34] LABS: Hepatitis A Total Antibody Positive (Negative)
[2025-03-16 11:35] LABS: Hepatitis B Surface Antigen Negative (Negative); Hepatitis C Antibody Negative (Negative)
--- NOTE | 2025-03-16 13:28 | DVHPN2 ---
Progress Note - Dictate Date Seen: Mar 16, 2025 Medical Necessity Reason Pt with a Central, PICC or Fol: No Subjective PT WITH SS COMPLEX SEVERE HEAD SLURRYING SPEECH LEFT OCCIPITAL CVA HFrEF S/P BIV AICD The patient had implantation of Biotronik Rivacor 7 HF-T QP, model #079387, serial #[id number]. LV lead is Sentus ProMRI, model #494287, serial #[id number]. RV lead is Plexa ProMRI, model #176736, serial #[id number]. RA lead is Solia S45, model #355407, serial #[id number]. The patient's underlying rhythm is atrial fibrillation, but the RA lead was placed for better discrimination of VT versus SVT. Threshold parameters: Atrium P-wave amplitude of 3.9 millivolts, threshold of 0.9 volts at 0.4 milliseconds pulse duration, pacing impedance of 615 ohms. Right ventricular lead, R-wave amplitude of 24.2 millivolts, threshold of 0.5 volts at 0.4 milliseconds pulse duration, pacing impedance of 577 ohms. Left ventricular lead threshold parameters, R-wave amplitude of 11.4 millivolts, capture 0.8 volts at 0.4 milliseconds pulse duration, pacing impedance of 655 ohms. CONCLUSION: The patient has successful implantation of Bi-V AICD Biotronik MRI compatible system. vital signs Vital Sign Date Time Temp Pulse Resp B/P (MAP) Pulse Ox O2 Delivery O2 Flow Rate FiO2 03/16/25 09:31 65 118/77 03/16/25 09:00 97.8 22 98 97.8 03/16/25 08:17 Nasal Cannula* 4 36 Total Intake and Output 03/15/25 03/15/25 03/16/25 15:00 23:00 07:00 Intake Total 660 ml 600 ml Output Total 200 ml 1300 ml Balance 460 ml -700 ml medications Current Medications Medications Dose Ordered Sig/Peter Route Start Time Stop Time Status Last Admin Dose Admin Atorvastatin Calcium 20 mg HS PO 03/13/25 22:00 03/15/25 21:47 20 MG Empaglifozin 10 mg DAILY PO 03/14/25 10:00 03/16/25 09:30 10 MG Losartan Potassium 25 mg DAILY PO 03/14/25 10:00 03/16/25 09:30 25 MG Metoprolol Succinate 25 mg DAILY PO 03/14/25 10:00 03/16/25 09:31 25 MG Pantoprazole Sodium 40 mg DAILY@0600 PO 03/14/25 06:00 03/16/25 06:09 40 MG Tamsulosin HCl 0.4 mg QPM PO 03/14/25 18:00 03/15/25 17:41 0.4 MG Diagnostic Test (Pha) 1 strip ACHS 03/13/25 22:00 03/16/25 06:10 1 STRIP Insulin Human Regular ACHS SC 03/13/25 22:00 03/16/25 06:10 2 UNITS Dextrose 50 ml UD PRN IV 03/13/25 19:00 Acetaminophen/ Hydrocodone Bitart 1 tab Q4HP PRN PO 03/13/25 19:00 03/13/25 20:32 1 TAB Ondansetron HCl 4 mg Q4HP PRN IV 03/13/25 19:00 Enoxaparin Sodium 30 mg DAILY SC 03/14/25 10:00 03/16/25 09:29 30 MG Acetaminophen 650 mg Q6HP PRN PO 03/13/25 19:00 Saccharomyces Boulardii 250 mg DAILY PO 03/15/25 10:00 03/16/25 09:30 250 MG Aspirin 81 mg DAILY PO 03/15/25 10:00 03/16/25 09:29 81 MG Clopidogrel Bisulfate 75 mg DAILY PO 03/14/25 22:15 04/03/25 23:00 03/16/25 09:29 75 MG Lorazepam 1 mg ONCE PRN IV 03/14/25 22:15 Furosemide 20 mg BIDD IV 03/15/25 18:00 03/16/25 06:09 20 MG laboratory and microbiology Laboratory Tests 03/16/25 06:06 03/15/25 05:12 Test 03/16/25 06:06 Range/Units Serum Glucose 114 #H 74-106 mg/dL Problem List SS COMPLEX SEVERE HEAD SLURRYING SPEECH LEFT OCCIPITAL CVA HFrEF S/P BIV AICD The patient had implantation of Biotronik Rivacor 7 HF-T QP, model #206854, serial #[id number]. LV lead is Sentus ProMRI, model #151323, serial #[id number]. RV lead is Plexa ProMRI, model #990184, serial #[id number]. RA lead is Solia S45, model #654009, serial #[id number]. The patient's underlying rhythm is atrial fibrillation, but the RA lead was placed for better discrimination of VT versus SVT. Threshold parameters: Atrium P-wave amplitude of 3.9 millivolts, threshold of 0.9 volts at 0.4 milliseconds pulse duration, pacing impedance of 615 ohms. Right ventricular lead, R-wave amplitude of 24.2 millivolts, threshold of 0.5 volts at 0.4 milliseconds pulse duration, pacing impedance of 577 ohms. Left ventricular lead threshold parameters, R-wave amplitude of 11.4 millivolts, capture 0.8 volts at 0.4 milliseconds pulse duration, pacing impedance of 655 ohms. CONCLUSION: The patient has successful implantation of Bi-V AICD Biotronik MRI compatible system. Assessment/Plan PROCEED WITH MRI ANTI COAGULATION Dietary Evaluation Review Comments: Nutrition Recommendation 1) Glucerna 240ml TID 2) Consider BRAT diet 3) Monitor PO intake, lab values, weight trend, and I/O Expected Outcomes/Goals: To meet >75% estimated needs GI symptoms to improve Fu 3-5 days Plan discussed with: Patient ALENA RENEE MD Mar 16, 2025 13:28
--- NOTE | 2025-03-16 15:09 | DVHPN2 ---
Subjective Patient admits to feeling better Patient denies problems swallowing but per RN patient has difficulty with this diet No nausea or vomiting Patient denies dysphagia Reviewed: Care Plan, H&P, Labs, Medications, Previous Orders, Radiology, Other (Consultation) Changes from previous H/P or p: No Changes Objective Vitals Vital Signs Date Time Temp Pulse Resp B/P (MAP) Pulse Ox O2 Delivery O2 Flow Rate FiO2 03/16/25 13:00 98.7 66 20 120/68 (85) 100 98.7 03/16/25 08:17 Nasal Cannula* 4 36 Intake/Output Intake and Output 03/16/25 07:00 Intake Total 1260 ml Output Total 1500 ml Balance -240 ml Intake Oral 1260 ml Output Urine Total 1500 ml # Voids 2 # Bowel Movements 3 General Appearance: Alert, Oriented X3, Cooperative, No acute distress, mild distress, moderate distress, severe distress, Other HEENT: Atraumatic Lungs: Clear to auscultation Chest/Breasts: Other (ICD in place) Cardiovascular: Regular rate, Normal S1, Normal S2, No murmurs, Gallops, Rubs, Other Abdomen: Normal bowel sounds, Soft, No tenderness, No hepatospenomegaly, No masses, Other Extremities: No edema Neuro: Normal gait, Normal speech, Strength at 5/5 X4 ext, Normal tone, S ensation intact, Cranial nerves 3-12 NL, Reflexes 2+, Other (Could not appreciate any deficits) Psych/Mental Status: Mental status NL, Mood NL Medications Current Medications Medications Dose Ordered Sig/Peter Route Start Time Stop Time Status Last Admin Dose Admin Atorvastatin Calcium 20 mg HS PO 03/13/25 22:00 03/15/25 21:47 20 MG Empaglifozin 10 mg DAILY PO 03/14/25 10:00 03/16/25 09:30 10 MG Losartan Potassium 25 mg DAILY PO 03/14/25 10:00 03/16/25 09:30 25 MG Metoprolol Succinate 25 mg DAILY PO 03/14/25 10:00 03/16/25 09:31 25 MG Pantoprazole Sodium 40 mg DAILY@0600 PO 03/14/25 06:00 03/16/25 06:09 40 MG Tamsulosin HCl 0.4 mg QPM PO 03/14/25 18:00 03/15/25 17:41 0.4 MG Diagnostic Test (Pha) 1 strip ACHS 03/13/25 22:00 03/16/25 13:51 1 STRIP Insulin Human Regular ACHS SC 03/13/25 22:00 03/16/25 13:52 4 UNITS Dextrose 50 ml UD PRN IV 03/13/25 19:00 Acetaminophen/ Hydrocodone Bitart 1 tab Q4HP PRN PO 03/13/25 19:00 03/13/25 20:32 1 TAB Ondansetron HCl 4 mg Q4HP PRN IV 03/13/25 19:00 Enoxaparin Sodium 30 mg DAILY SC 03/14/25 10:00 03/16/25 09:29 30 MG Acetaminophen 650 mg Q6HP PRN PO 03/13/25 19:00 Saccharomyces Boulardii 250 mg DAILY PO 03/15/25 10:00 03/16/25 09:30 250 MG Aspirin 81 mg DAILY PO 03/15/25 10:00 03/16/25 09:29 81 MG Clopidogrel Bisulfate 75 mg DAILY PO 03/14/25 22:15 04/03/25 23:00 03/16/25 09:29 75 MG Lorazepam 1 mg ONCE PRN IV 03/14/25 22:15 Furosemide 20 mg BIDD IV 03/15/25 18:00 03/16/25 06:09 20 MG Laboratory Results Laboratory Tests 03/15/25 05:12 03/16/25 06:06 Chemistry Test 03/16/25 06:06 Calcium Level 8.4 mg/dL (8.7-10.4) L Liver ultrasound IMPRESSION: Coarsened liver echotexture suggestive of chronic liver disease. Small volume ascites. Partially seen small right pleural effusion. Nonspecific gallbladder wall thickening which can be seen in the setting of chronic liver disease. Contracted gallbladder limits evaluation. Echogenic bilateral kidneys suggestive of chronic medical renal disease. Microbiology Microbiology Date/Time Source Procedure Growth Status 03/14/25 19:25 Stool Clostridium difficile Toxin Assay - Final Complete Assessment/Plan Assessment/Plan Possible acute CVA Persistent diarrhea possible infectious versus secondary to fluid overload Possible dysphagia Abnormal CT findings of possible duodenitis 03/07/2025 Plan: Patient also seen by Dr. Seay Swallow eval Barium swallow Possible EGD to be considered if necessary after above test in the next 24-48 hours Hold blood thinners Plan discussed with: Patient, Other (RN) My Orders Orders - GEO MEZA Procedure Category Date Status Time * Swallow Request ST 03/16/25 Verified 15:04 Esophagus Barium XY 03/16/25 Verified Swallow 15:04 Date of Service: Mar 16, 2025 Billing Provider: GEO MEZA Common Visit Codes: [id number] INP/OBS CARE(HIGH) GEO MEZA Mar 16, 2025 15:09
--- NOTE | 2025-03-16 17:11 | DVHPN2 ---
Subjective He is comfortable in bed. Alert awake oriented x3. Apparently he complained of some stomach discomfort distress when he eats food. He says he is able to chew solids and swallow but does get discomfort in the stomach. He is evaluated by GI and ordered further GI evaluations for tomorrow. Reviewed: Care Plan, H&P, Labs, Medications, Previous Orders, Radiology, Other (Consultation) Changes from previous H/P or p: No Changes Objective Vitals Vital Signs Date Time Temp Pulse Resp B/P (MAP) Pulse Ox O2 Delivery O2 Flow Rate FiO2 03/16/25 16:49 98.6 83 20 122/75 (91) 95 98.6 03/16/25 08:17 Nasal Cannula* 4 36 Intake/Output Intake and Output 03/16/25 07:00 Intake Total 1260 ml Output Total 1500 ml Balance -240 ml Intake Oral 1260 ml Output Urine Total 1500 ml # Voids 2 # Bowel Movements 3 General Appearance: Alert, Oriented X3, Cooperative, No acute distress, mild distress, moderate distress, severe distress, Other HEENT: Atraumatic Lungs: Clear to auscultation Chest/Breasts: Other (ICD in place) Cardiovascular: Regular rate, Normal S1, Normal S2, No murmurs, Gallops, Rubs, Other Abdomen: Normal bowel sounds, Soft, No tenderness, No hepatospenomegaly, No masses, Other Extremities: No edema Neuro: Normal gait, Normal speech, Strength at 5/5 X4 ext, Normal tone, S ensation intact, Cranial nerves 3-12 NL, Reflexes 2+, Other (Could not appreciate any deficits) Psych/Mental Status: Mental status NL, Mood NL Medications Current Medications Medications Dose Ordered Sig/Peter Route Start Time Stop Time Status Last Admin Dose Admin Atorvastatin Calcium 20 mg HS PO 03/13/25 22:00 03/15/25 21:47 20 MG Empaglifozin 10 mg DAILY PO 03/14/25 10:00 03/16/25 09:30 10 MG Losartan Potassium 25 mg DAILY PO 03/14/25 10:00 03/16/25 09:30 25 MG Metoprolol Succinate 25 mg DAILY PO 03/14/25 10:00 03/16/25 09:31 25 MG Pantoprazole Sodium 40 mg DAILY@0600 PO 03/14/25 06:00 03/16/25 06:09 40 MG Tamsulosin HCl 0.4 mg QPM PO 03/14/25 18:00 03/15/25 17:41 0.4 MG Diagnostic Test (Pha) 1 strip ACHS 03/13/25 22:00 03/16/25 16:44 1 STRIP Insulin Human Regular ACHS SC 03/13/25 22:00 03/16/25 16:45 2 UNITS Dextrose 50 ml UD PRN IV 03/13/25 19:00 Acetaminophen/ Hydrocodone Bitart 1 tab Q4HP PRN PO 03/13/25 19:00 03/13/25 20:32 1 TAB Ondansetron HCl 4 mg Q4HP PRN IV 03/13/25 19:00 Enoxaparin Sodium 30 mg DAILY SC 03/14/25 10:00 03/16/25 09:29 30 MG Acetaminophen 650 mg Q6HP PRN PO 03/13/25 19:00 Saccharomyces Boulardii 250 mg DAILY PO 03/15/25 10:00 03/16/25 09:30 250 MG Aspirin 81 mg DAILY PO 03/15/25 10:00 03/16/25 09:29 81 MG Clopidogrel Bisulfate 75 mg DAILY PO 03/14/25 22:15 04/03/25 23:00 03/16/25 09:29 75 MG Lorazepam 1 mg ONCE PRN IV 03/14/25 22:15 Furosemide 20 mg BIDD IV 03/15/25 18:00 03/16/25 06:09 20 MG Laboratory Results Laboratory Tests 03/15/25 05:12 03/16/25 06:06 Chemistry Test 03/16/25 06:06 Calcium Level 8.4 mg/dL (8.7-10.4) L Microbiology Microbiology Date/Time Source Procedure Growth Status 03/14/25 19:25 Stool Clostridium difficile Toxin Assay - Final Complete Assessment/Plan Assessment/Plan Abdominal/GI discomfort post meals could be related to cardiac cachexia with fluid retention in the stomach versus other GI causes. Acute headache with weakness due to acute/subacute left occipital stroke Acute/subacute left occipital stroke per CT Atherosclerosis in carotid arteries 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; not in exacerbation Status post ICD Suspected DEVAN on CKD Chronic hypoxic respiratory failure; patient does not know the cause; on home oxygen 1 to 2 L/min via nasal cannula Uncontrolled diabetes mellitus type 2 with hemoglobin A1c of 8% Chronic diarrhea BPH Reviewed lab work and available imaging studies Continue aspirin, clopidogrel, and statin Neurology is following for acute/subacute left occipital stroke GI is following for chronic diarrhea Continue antihypertensive medications and adjust according to blood pressure readings Continue insulin management and adjust according to blood glucose monitoring Continue oxygen therapy as needed Continue tamsulosin Cardiology consulted Physical therapy consulted Avoid nephrotoxic agents Telemetry Continue monitoring Continue IV diuresis given patient gained 4-5 lb in the last one month and having GI is stomach problems post meals. I believe this is related to fluid retention in the stomach from is of weight gain therefore encouraged fluid restriction and IV diuresis in the hospital as well as oral Lasix at home given his ejection fraction is only 20%. Meantime proceed with a GI evaluations as recommended in the next 24 hours. If GI workup is unremarkable he can be discharged home with outpatient follow up. Discussed with the patient along with the nurse at bedside regarding his care plan. Plan discussed with: Patient, Other Date of Service: Mar 16, 2025 Billing Provider: DAKOTA COTTRELL MD Common Visit Codes: [id number] INP/OBS CARE(MOD) DAKOTA COTTRELL MD Mar 16, 2025 17:11
[2025-03-17 01:00] VITALS: BP 100/76; PULSE 80; RESP 19; TEMP 98.1; O2SAT 98
[2025-03-17 05:00] VITALS: BP 106/71; PULSE 80; RESP 18; TEMP 98; O2SAT 96
[2025-03-17 07:08] LABS: Albumin 3.7 g/dL (3.2-4.8); Anion Gap 14 (5-15); BUN/Creatinine Ratio 29.9 (10.0-20.0); Carbon Dioxide 20 mmol/L (20-31); Total Protein 6.5 g/dL (5.7-8.2)
[2025-03-17 07:14] LABS: Alanine Aminotransferase 55 U/L (7-40); Alkaline Phosphatase 120 U/L (46-116); Bilirubin, Total 1.7 mg/dL (0.2-1.0); Blood Urea Nitrogen 41 mg/dL (9-23); Calcium 8.5 mg/dL (8.7-10.4); Chloride 101 mmol/L (98-107); Glucose 140 mg/dL (74-106); Lipase 130 U/L (12-53); Potassium 3.8 mmol/L (3.5-5.1); Sodium 135 mmol/L (136-145)
[2025-03-17 08:00] VITALS: PULSE 80; PULSE 84; RESP 18; O2SAT 99
[2025-03-17] MEDS: EZ PAQUE SUSP 12OZ BTL ONE (08:23)
[2025-03-17] MEDS: GASTROGRAFIN 120 ML SOL ONE (08:56)
[2025-03-17 09:00] VITALS: BP 117/70; PULSE 80; RESP 18; TEMP 98.2; O2SAT 99
--- NOTE | 2025-03-17 10:05 | DVH ---
XY ESOPHAGUS GASTROGRAFIN SWALLOW, HISTORY: difficulty swallowing COMPARISON: None PROCEDURE: A line technician radiograph was obtained prior to the procedure. Gastrografin was administered oral ly, and radiographs were obtained under intermittent fluoroscopic observation. Total fluoroscopic landy e was 0.5. FINDINGS: The esophagus was normal in caliber with no stricture, filling defect or wall irregularity demonstrat ed. Abnormal esophageal peristalsis was observed. IMPRESSION: Abnormal esophageal peristalsis otherwise unremarkable esophagram.
--- NOTE | 2025-03-17 10:19 | DVHPN2 ---
Reviewed: Care Plan, H&P, Labs, Medications, Previous Orders, Radiology, Other (Consultation) Objective Vitals Vital Signs Date Time Temp Pulse Resp B/P (MAP) Pulse Ox O2 Delivery O2 Flow Rate FiO2 03/17/25 08:00 80 03/17/25 08:00 18 99 Nasal Cannula* 4 36 03/17/25 06:16 106/71 03/17/25 05:00 98.0 98.0 Intake/Output Intake and Output 03/17/25 07:00 Intake Total 1750 ml Output Total 1850 ml Balance -100 ml Intake Oral 1750 ml Output Urine Total 1850 ml General Appearance: Alert, Oriented X3, Cooperative, No acute distress, mild distress, moderate distress, severe distress, Other HEENT: Atraumatic Lungs: Clear to auscultation Chest/Breasts: Other (ICD in place) Cardiovascular: Regular rate, Normal S1, Normal S2, No murmurs, Gallops, Rubs, Other Abdomen: Normal bowel sounds, Soft, No tenderness, No hepatospenomegaly, No masses, Other Extremities: No edema Neuro: Normal gait, Normal speech, Strength at 5/5 X4 ext, Normal tone, S ensation intact, Cranial nerves 3-12 NL, Reflexes 2+, Other (Could not appreciate any deficits) Psych/Mental Status: Mental status NL, Mood NL Medications Current Medications Medications Dose Ordered Sig/Peter Route Start Time Stop Time Status Last Admin Dose Admin Atorvastatin Calcium 20 mg HS PO 03/13/25 22:00 03/16/25 21:14 20 MG Empaglifozin 10 mg DAILY PO 03/14/25 10:00 03/16/25 09:30 10 MG Losartan Potassium 25 mg DAILY PO 03/14/25 10:00 03/16/25 09:30 25 MG Metoprolol Succinate 25 mg DAILY PO 03/14/25 10:00 03/16/25 09:31 25 MG Pantoprazole Sodium 40 mg DAILY@0600 PO 03/14/25 06:00 03/16/25 06:09 40 MG Tamsulosin HCl 0.4 mg QPM PO 03/14/25 18:00 03/16/25 17:32 0.4 MG Diagnostic Test (Pha) 1 strip ACHS 03/13/25 22:00 03/17/25 06:17 1 STRIP Insulin Human Regular ACHS SC 03/13/25 22:00 03/16/25 21:42 3 UNITS Dextrose 50 ml UD PRN IV 03/13/25 19:00 Acetaminophen/ Hydrocodone Bitart 1 tab Q4HP PRN PO 03/13/25 19:00 03/13/25 20:32 1 TAB Ondansetron HCl 4 mg Q4HP PRN IV 03/13/25 19:00 Enoxaparin Sodium 30 mg DAILY SC 03/14/25 10:00 03/16/25 09:29 30 MG Acetaminophen 650 mg Q6HP PRN PO 03/13/25 19:00 Saccharomyces Boulardii 250 mg DAILY PO 03/15/25 10:00 03/16/25 09:30 250 MG Aspirin 81 mg DAILY PO 03/15/25 10:00 03/16/25 09:29 81 MG Clopidogrel Bisulfate 75 mg DAILY PO 03/14/25 22:15 04/03/25 23:00 03/16/25 09:29 75 MG Lorazepam 1 mg ONCE PRN IV 03/14/25 22:15 Furosemide 20 mg BIDD IV 03/15/25 18:00 03/17/25 06:16 20 MG Laboratory Results Laboratory Tests 03/15/25 05:12 03/17/25 05:20 Chemistry Test 03/17/25 05:20 Albumin 3.7 g/dL (3.2-4.8) Calcium Level 8.5 mg/dL (8.7-10.4) L Total Protein 6.5 g/dL (5.7-8.2) Lipid panel Test 03/17/25 05:20 Lipase 130 U/L (12-53) H LFT Test 03/17/25 05:20 Alanine Aminotransferase (ALT) 55 U/L (7-40) H Alkaline Phosphatase 120 U/L (46-116) H Aspartate Amino Transferase (AST) 36 U/L (13-40) Total Bilirubin 1.7 mg/dL (0.2-1.0) H Microbiology Microbiology Date/Time Source Procedure Growth Status 03/14/25 19:25 Stool Clostridium difficile Toxin Assay - Final Complete LEXIS NEELY MD Mar 17, 2025 10:19
--- NOTE | 2025-03-17 10:34 | DVHPN2 ---
Progress Note - Dictate Date Seen: Mar 17, 2025 Medical Necessity Reason Pt with a Central, PICC or Fol: No Subjective Mr. Grimes is a 84 years old right-handed gentleman with a history of hypertension, diabetes, diverticulosis, he came to the hospital with a chief complaint of general weakness. 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 Vitamin B12, 10/2018: 884, 04/27/2024: 2485 TSH, 02/2019: 4.11, 04/27/2024: 3.24 Echocardiogram, 03/08/2025: lvef 20% 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 Recommend CT angiogram of the neck and echocardiography to evaluate for possible cardiac etiology versus more proximal aortic/ great vessel stenosis. Esophagus Castrografin swallow 03/17/2025: Abnormal esophageal peristalsis otherwise unremarkable esophagram. CT head, 03/25/2019: 1. No acute intracranial hemorrhage, transcortical infarction or mass effect. 2. Mild intracranial atherosclerosis and chronic small vessel ischemic changes. 3. Mild generalized cerebral and cerebellar volume loss. CT head, 03/26/2024: No acute intracranial abnormality. 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 This could be further evaluated with MRI of the brain if clinically indicated CT head, 03/13/2025: Left occipital lobe hypodensity which may represent an area of acute/subacute infarct. MRI would be helpful for further evaluation. MRI head, 03/15/2025: 1. Large area of diffusion restriction of the left posterior temporal to left occipital lobe corresponding with the left posterior cerebral artery territory. 2. Additional small foci of diffusion restriction of the right occipital lobe in bilateral cerebellar hemispheres 3. Findings are consistent with acute infarcts. 4. No mass effect or herniation vital signs Vital Sign Date Time Temp Pulse Resp B/P (MAP) Pulse Ox O2 Delivery O2 Flow Rate FiO2 03/17/25 10:27 80 119/74 03/17/25 09:00 98.2 18 99 98.2 03/17/25 08:00 Nasal Cannula* 4 36 Total Intake and Output 03/16/25 03/16/25 03/17/25 15:00 23:00 07:00 Intake Total 900 ml 850 ml Output Total 1100 ml 750 ml Balance -200 ml 100 ml medications Current Medications Medications Dose Ordered Sig/Peter Route Start Time Stop Time Status Last Admin Dose Admin Atorvastatin Calcium 20 mg HS PO 03/13/25 22:00 03/16/25 21:14 20 MG Empaglifozin 10 mg DAILY PO 03/14/25 10:00 03/17/25 10:26 10 MG Losartan Potassium 25 mg DAILY PO 03/14/25 10:00 03/17/25 10:26 25 MG Metoprolol Succinate 25 mg DAILY PO 03/14/25 10:00 03/17/25 10:27 25 MG Pantoprazole Sodium 40 mg DAILY@0600 PO 03/14/25 06:00 03/16/25 06:09 40 MG Tamsulosin HCl 0.4 mg QPM PO 03/14/25 18:00 03/16/25 17:32 0.4 MG Diagnostic Test (Pha) 1 strip ACHS 03/13/25 22:00 03/17/25 06:17 1 STRIP Insulin Human Regular ACHS SC 03/13/25 22:00 03/16/25 21:42 3 UNITS Dextrose 50 ml UD PRN IV 03/13/25 19:00 Acetaminophen/ Hydrocodone Bitart 1 tab Q4HP PRN PO 03/13/25 19:00 03/13/25 20:32 1 TAB Ondansetron HCl 4 mg Q4HP PRN IV 03/13/25 19:00 Enoxaparin Sodium 30 mg DAILY SC 03/14/25 10:00 03/17/25 10:27 30 MG Acetaminophen 650 mg Q6HP PRN PO 03/13/25 19:00 Saccharomyces Boulardii 250 mg DAILY PO 03/15/25 10:00 03/17/25 10:26 250 MG Aspirin 81 mg DAILY PO 03/15/25 10:00 03/17/25 10:25 81 MG Clopidogrel Bisulfate 75 mg DAILY PO 03/14/25 22:15 04/03/25 23:00 03/17/25 10:26 75 MG Lorazepam 1 mg ONCE PRN IV 03/14/25 22:15 Furosemide 20 mg BIDD IV 03/15/25 18:00 03/17/25 06:16 20 MG objective General: the patient is well developed and nourished. No acute distress. MENTAL STATUS: Awake and alert. Oriented to person, place, time, poor historian SPEECH, LANGUAGE, HIGHER CORTICAL FUNCTION: no aphasia or dysathria. CRANIAL NERVES: Visual hanson full to confrontation. Pupils are equal, round and reactive. EOMs full and conjugate. No nystagmus. Facial sensation intact in all three divisions bilaterally. Mandibular strength intact. Tongue midline. No fasciculations or atrophy. SENSATION: Sensation to touch and pinprick is normal. MOTOR: Normal tone in the upper and lower extremity. Normal muscle bulk. No fasciculations. No abnormal movements or posturing. Muscle strength of the major groups in the extremities is 5/5. REFLEXES: Deep tendon reflexes are symmetrical. No pathological reflexes. CEREBELLAR/COORDINATION: Finger to nose is normal bilaterally. GAIT/STATION: deferred laboratory and microbiology Laboratory Tests 03/17/25 05:20 03/15/25 05:12 Test 03/17/25 05:20 Range/Units Serum Glucose 140 H 74-106 mg/dL Problem List Acute/subacute left occipital stroke per CT Atherosclerosis in carotid arteries Assessment/Plan Monitoring Support treatment Telemetry Aspirin 81 mg daily, Plavix 75 mg daily for 21 days Lipitor 40 mg daily DVT prophylaxis/Lovenox GI on case Re: Chronic diarrhea, dysphagia More recommendation per clinical course This medical document was created using an electronic medical record system with [employer] dictation system. Although this document has been carefully reviewed, there may still be some phonetic and typographical errors. These areas are purely typographical due to imperfections of the software programs, and do not reflect any compromise in the patient's medical care. Prognosis poor Dietary Evaluation Review Comments: Nutrition Recommendation 1) Glucerna 240ml TID 2) Consider BRAT diet 3) Monitor PO intake, lab values, weight trend, and I/O Expected Outcomes/Goals: To meet >75% estimated needs GI symptoms to improve Fu 3-5 days Plan discussed with: Patient, Other ISHAAN GARCIA MD Mar 17, 2025 10:34
--- NOTE | 2025-03-17 11:00 | DVHPN2 ---
Progress Note - Dictate Date Seen: Mar 17, 2025 Medical Necessity Reason Pt with a Central, PICC or Fol: No Subjective PT WITH SS COMPLEX SEVERE HEAD SLURRYING SPEECH LEFT OCCIPITAL CVA HFrEF S/P BIV AICD The patient had implantation of Biotronik Rivacor 7 HF-T QP, model #315895, serial #[id number]. LV lead is Sentus ProMRI, model #844031, serial #[id number]. RV lead is Plexa ProMRI, model #137747, serial #[id number]. RA lead is Solia S45, model #598377, serial #[id number]. The patient's underlying rhythm is atrial fibrillation, but the RA lead was placed for better discrimination of VT versus SVT. Threshold parameters: Atrium P-wave amplitude of 3.9 millivolts, threshold of 0.9 volts at 0.4 milliseconds pulse duration, pacing impedance of 615 ohms. Right ventricular lead, R-wave amplitude of 24.2 millivolts, threshold of 0.5 volts at 0.4 milliseconds pulse duration, pacing impedance of 577 ohms. Left ventricular lead threshold parameters, R-wave amplitude of 11.4 millivolts, capture 0.8 volts at 0.4 milliseconds pulse duration, pacing impedance of 655 ohms. CONCLUSION: The patient has successful implantation of Bi-V AICD Biotronik MRI compatible system. vital signs Vital Sign Date Time Temp Pulse Resp B/P (MAP) Pulse Ox O2 Delivery O2 Flow Rate FiO2 03/17/25 10:27 80 119/74 03/17/25 09:00 98.2 18 99 98.2 03/17/25 08:00 Nasal Cannula* 4 36 Total Intake and Output 03/16/25 03/16/25 03/17/25 15:00 23:00 07:00 Intake Total 900 ml 850 ml Output Total 1100 ml 750 ml Balance -200 ml 100 ml medications Current Medications Medications Dose Ordered Sig/Peter Route Start Time Stop Time Status Last Admin Dose Admin Atorvastatin Calcium 20 mg HS PO 03/13/25 22:00 03/16/25 21:14 20 MG Empaglifozin 10 mg DAILY PO 03/14/25 10:00 03/17/25 10:26 10 MG Losartan Potassium 25 mg DAILY PO 03/14/25 10:00 03/17/25 10:26 25 MG Metoprolol Succinate 25 mg DAILY PO 03/14/25 10:00 03/17/25 10:27 25 MG Pantoprazole Sodium 40 mg DAILY@0600 PO 03/14/25 06:00 03/16/25 06:09 40 MG Tamsulosin HCl 0.4 mg QPM PO 03/14/25 18:00 03/16/25 17:32 0.4 MG Diagnostic Test (Pha) 1 strip ACHS 03/13/25 22:00 03/17/25 06:17 1 STRIP Insulin Human Regular ACHS SC 03/13/25 22:00 03/16/25 21:42 3 UNITS Dextrose 50 ml UD PRN IV 03/13/25 19:00 Acetaminophen/ Hydrocodone Bitart 1 tab Q4HP PRN PO 03/13/25 19:00 03/13/25 20:32 1 TAB Ondansetron HCl 4 mg Q4HP PRN IV 03/13/25 19:00 Enoxaparin Sodium 30 mg DAILY SC 03/14/25 10:00 03/17/25 10:27 30 MG Acetaminophen 650 mg Q6HP PRN PO 03/13/25 19:00 Saccharomyces Boulardii 250 mg DAILY PO 03/15/25 10:00 03/17/25 10:26 250 MG Aspirin 81 mg DAILY PO 03/15/25 10:00 03/17/25 10:25 81 MG Clopidogrel Bisulfate 75 mg DAILY PO 03/14/25 22:15 04/03/25 23:00 03/17/25 10:26 75 MG Lorazepam 1 mg ONCE PRN IV 03/14/25 22:15 Furosemide 20 mg BIDD IV 03/15/25 18:00 03/17/25 06:16 20 MG laboratory and microbiology Laboratory Tests 03/17/25 05:20 03/15/25 05:12 Test 03/17/25 05:20 Range/Units Serum Glucose 140 H 74-106 mg/dL Problem List SS COMPLEX SEVERE HEAD SLURRYING SPEECH LEFT OCCIPITAL CVA HFrEF S/P BIV AICD The patient had implantation of Biotronik Rivacor 7 HF-T QP, model #506671, serial #[id number]. LV lead is Sentus ProMRI, model #179808, serial #[id number]. RV lead is Plexa ProMRI, model #136177, serial #[id number]. RA lead is Solia S45, model #425530, serial #[id number]. The patient's underlying rhythm is atrial fibrillation, but the RA lead was placed for better discrimination of VT versus SVT. Threshold parameters: Atrium P-wave amplitude of 3.9 millivolts, threshold of 0.9 volts at 0.4 milliseconds pulse duration, pacing impedance of 615 ohms. Right ventricular lead, R-wave amplitude of 24.2 millivolts, threshold of 0.5 volts at 0.4 milliseconds pulse duration, pacing impedance of 577 ohms. Left ventricular lead threshold parameters, R-wave amplitude of 11.4 millivolts, capture 0.8 volts at 0.4 milliseconds pulse duration, pacing impedance of 655 ohms. CONCLUSION: The patient has successful implantation of Bi-V AICD Biotronik MRI compatible system. Assessment/Plan PROCEED WITH MRI ANTI COAGULATION Dietary Evaluation Review Comments: Nutrition Recommendation 1) Glucerna 240ml TID 2) Consider BRAT diet 3) Monitor PO intake, lab values, weight trend, and I/O Expected Outcomes/Goals: To meet >75% estimated needs GI symptoms to improve Fu 3-5 days Plan discussed with: Patient ALENA RENEE MD Mar 17, 2025 11:00
[2025-03-17] MEDS ORDERED: METO25TA36 PO (11:41)
[2025-03-17] MEDS ORDERED: LOS25T PO (11:41)
[2025-03-17] MEDS ORDERED: SACC250C PO (11:41)
[2025-03-17] MEDS ORDERED: ASPI-325 PO (11:41)
[2025-03-17] MEDS ORDERED: CLOP75TA70 PO (11:41)
--- NOTE | 2025-03-17 11:42 | DVHDS2 ---
Discharge Summary Date of Admission Mar 13, 2025 at 18:59 Date of Discharge: Mar 17, 2025 Admitting Diagnosis Acute headache with weakness due to acute/subacute left occipital stroke Acute/subacute left occipital stroke per CT Atherosclerosis in carotid arteries 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; not in exacerbation Status post ICD Suspected DEVAN on CKD Chronic hypoxic respiratory failure; patient does not know the cause; on home oxygen 1 to 2 L/min via nasal cannula Uncontrolled diabetes mellitus type 2 with hemoglobin A1c of 8% Chronic diarrhea BPH Labs/Diagnostic Data: Laboratory Results Test 03/17/25 06:06 03/17/25 05:20 03/15/25 05:12 03/14/25 19:25 POC Glucose 139 mg/dl (70-106) Sodium Level 135 mmol/L (136-145) Potassium Level 3.8 mmol/L (3.5-5.1) Chloride Level 101 mmol/L (98-107) Carbon Dioxide Level 20 mmol/L (20-31) Anion Gap 14 (5-15) Blood Urea Nitrogen 41 mg/dL (9-23) Creatinine 1.37 mg/dL (0.700-1.30) Glomerular Filtration Rate Calc 51 mL/min (>90) BUN/Creatinine Ratio 29.9 (10.0-20.0) Serum Glucose 140 mg/dL (74-106) Calcium Level 8.5 mg/dL (8.7-10.4) Total Bilirubin 1.7 mg/dL (0.2-1.0) Aspartate Amino Transferase (AST) 36 U/L (13-40) Alanine Aminotransferase (ALT) 55 U/L (7-40) Alkaline Phosphatase 120 U/L (46-116) Total Protein 6.5 g/dL (5.7-8.2) Albumin 3.7 g/dL (3.2-4.8) Lipase 130 U/L (12-53) White Blood Count 10.2 10^3/uL (4.4-10.8) Red Blood Count 4.62 10^6/uL (4.5-5.90) Hemoglobin 14.7 g/dL (13.5-17.5) Hematocrit 42.1 % (41.0-53.0) Mean Corpuscular Volume 91.2 fL (80.0-100.0) Mean Corpuscular Hemoglobin 31.8 pg (28.0-32.0) Mean Corpuscular Hemoglobin Concent 34.9 g/dL (32.0-36.0) Red Cell Distribution Width 14.7 % (11.8-14.3) Platelet Count 206 10^3/uL (140-450) Mean Platelet Volume 7.8 fL (6.9-10.8) Neutrophils (%) (Auto) 75.6 % (37.0-80.0) Lymphocytes (%) (Auto) 10.4 % (10.0-50.0) Monocytes (%) (Auto) 10.7 % (0.0-12.0) Eosinophils (%) (Auto) 2.8 % (0.0-7.0) Basophils (%) (Auto) 0.5 % (0.0-2.0) Neutrophils # (Auto) 7.7 10 ^3/uL (1.6-8.6) Lymphocytes # (Auto) 1.1 10 ^3/uL (0.4-5.4) Monocytes # (Auto) 1.1 10 ^3/uL (0-1.3) Eosinophils # (Auto) 0.3 10 ^3/uL (0-0.8) Basophils # (Auto) 0.1 10 ^3/uL (0-0.2) Nucleated Red Blood Cells 0.1 % Hepatitis A Antibody Total Positive (Negative) Hepatitis B Surface Antigen Negative (Negative) Hepatitis B Surface Antibody Negative (Negative) Hepatitis B Core Total Antibody Negative (Negative) Hepatitis C Antibody Negative (Negative) Stool Occult Blood Negative (Negative) Stool Occult Blood Sample #3 (Negative) Test 03/14/25 13:24 03/13/25 15:40 Stool for White Cells None seen Troponin I High Sensitivity 16 ng/L (</=54) Other Laboratory Tests 03/17/25 05:20 03/15/25 05:12 Brief Hx & Hospital Course: This is an 84 years old male come into emergency department because of headache. Patient had a history of sharp headache radiating down to his shoulder for one day. The patient denied any weakness, blurred vision, slurred speech. The patient does have a diarrhea intermittently for the past three months and the patient is supposed to see a GI specialist this week. Patient was admitted. CT head showed Left occipital lobe hypodensity which may represent an area of acute/subacute infarct. MRI showed Large area of diffusion restriction of the left posterior temporal to left occipital lobe corresponding with the left posterior cerebral artery territory. Additional small foci of diffusion restriction of the right occipital lobe in bilateral cerebellar hemispheres Findings are consistent with acute infarcts. No mass effect or herniation. Neurology was consulted. Dr. Coreas see the patient and recommend: Aspirin 81 mg daily, Plavix 75 mg daily for 21 days, Lipitor 40 mg daily the patient also worked with physical therapy in patients showed no extremity weakness. The patient able to ambulate. To his diarrhea. Workup was done. The C diff profile is negative. Stool culture is negative. GI specialist did a Gastrografin study. It showed The esophagus was normal in caliber with no stricture, filling defect or wall irregularity demonstrated. Abnormal esophageal peristalsis was observed. GI impression is the patient will have dysphagia due to esophageal peristalsis also CT scan abdomen pelvis showed duodenitis. GI specialist recommend puree diet. Follow up with GI specialist in 4-6 weeks. Activity as tolerated. Diet per home diet recommended. Diet. Follow up with primary care physician 1-2 weeks. Physical exam. HEENT: Normocephalic atraumatic pupils equal react to light and accommodation. Extraocular muscles intact, conjunctiva pink, oropharynx moist, no thrush, no exudate. Lymphatic: No lymphadenopathy Cardiovascular exam: S1, S2 was heard. No murmurs, rubs, gallops Lung: Clear on auscultation bilaterally, no wheeze, rale, rhonchi. GI: Abdominal soft, nondistended, nontenderness, positive bowel sounds. Extremity: No crepitus, cyanosis, edema. Pedal pulses present bilateral. Full range of motion. Skin: Normal turgor, no rash. Psych: Alert, oriented x3. Neurology: No focal deficits, cranial nerve II to XII grossly intact. This medical document was created using an electronic medical record system with [employer] computerized dictation system. Although this document has been carefully reviewed, there may still be some phonetic and typographical errors. These areas are purely typographical due to imperfections of the software programs, and do not reflect any compromise in the patient's medical care. Condition at Discharge: Stable Final Diagnosis/Problems List Acute headache with weakness due to acute/subacute left occipital stroke Acute/subacute left occipital stroke per CT Atherosclerosis in carotid arteries 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; not in exacerbation Status post ICD Suspected DEVAN on CKD Chronic hypoxic respiratory failure; patient does not know the cause; on home oxygen 1 to 2 L/min via nasal cannula Uncontrolled diabetes mellitus type 2 with hemoglobin A1c of 8% Chronic diarrhea BPH Abdominal/GI discomfort post meals probable related to duodenitis and also esophageal peristalsis, GI specialist recommend puree Diet at home. Discharge Disposition: Home Discharge Instruct/Medications Diet: Cardiac 2g Na,low cholest Activity: No Restrictions, As Tolerated Follow Up/Referral: pcp 1-2 weeks Medications: see med list Scheduled Aspirin (Aspirin Low Dose), 81 MG PO DAILY Atorvastatin Calcium (Atorvastatin Calcium), 1 TAB PO DAILY, (Reported) Clopidogrel Bisulfate (Clopidogrel), 75 MG PO DAILY Empagliflozin (Jardiance), 10 MG PO QAM, (Reported) Furosemide (Furosemide), 20 MG PO DAILY, (Reported) Losartan Potassium (Losartan Potassium), 25 MG PO DAILY, (Reported) Losartan Potassium (Losartan Potassium), 25 MG PO DAILY Metoprolol Succinate (Metoprolol Succinate Er), 25 MG PO DAILY, (Reported) Metoprolol Succinate (Toprol Xl), 1 TAB PO DAILY Pantoprazole Sodium Sesquihydr (Pantoprazole Sodium), 40 MG PO DAILY, (Reported) Sulfamethoxazole W/Trimethopri (Bactrim Ds Tablet), 1 TAB PO BID Tamsulosin Hcl (Tamsulosin Hcl), 1 CAP PO DAILY, (Reported) Yeast (S. Boulardii)(S. Cerevi (Florastor), 250 MG PO DAILY Scheduled PRN Diphenhydramine Hcl (Benadryl Allergy), 1 CAP PO BIDP PRN for RASH, (Reported) Discontinued Medications Cephalexin (Keflex Capsule), 500 MG PO TID Cephalexin (Keflex Capsule), 500 MG PO BID Metronidazole (Flagyl), 1 TAB PO TID Metronidazole (Flagyl), 500 MG PO BID Discharge Statement: "Patient was advised to return to the ER or call 911 if any headaches, dizziness, shortness of breath, chest pain, abdominal pain, bleeding, fevers, or worsening of medical condition. Patient was counseled about treatment plan, medications, possible side effects, patientverbalized understanding. All questions were answered to the best of my ability. This discharge took greater then 30 minutes in planning, reviewing documentation, counseling the patient, and discussing with other team members." ASSESSMENT ASSESSMENT Assessment CVA Date of Service: Mar 17, 2025 Billing Provider: LEXIS NEELY MD Common Visit Codes: [id number] DISCH DAY >30min LEXIS NEELY MD Mar 17, 2025 11:42
[2025-03-17 11:59] VITALS: BP 119/74; PULSE 80; TEMP 36.8
--- NOTE | 2025-03-17 15:08 | DVHPN2 ---
Subjective Patient admits to feeling better Status post Gastrografin swallow which shows abnormal esophageal peristalsis Status post swallow evaluation recommend pureed diet with thin liquids Reviewed: Care Plan, H&P, Labs, Medications, Previous Orders, Radiology, Other (Consultation) Changes from previous H/P or p: No Changes Objective Vitals Vital Signs Date Time Temp Pulse Resp B/P (MAP) Pulse Ox O2 Delivery O2 Flow Rate FiO2 03/17/25 11:59 36.8 80 03/17/25 10:27 119/74 03/17/25 09:00 18 99 03/17/25 08:00 Nasal Cannula* 4 36 Intake/Output Intake and Output 03/17/25 07:00 Intake Total 1750 ml Output Total 1850 ml Balance -100 ml Intake Oral 1750 ml Output Urine Total 1850 ml Exam General: NAD, AAOX3 Chest: lung hanson clear to auscultation Heart: RRR, no murmur Abdomen: non-distended, no tenderness to palpation, +BS General Appearance: Alert, Oriented X3, Cooperative, No acute distress, mild distress, moderate distress, severe distress, Other HEENT: Atraumatic Lungs: Clear to auscultation Chest/Breasts: Other (ICD in place) Cardiovascular: Regular rate, Normal S1, Normal S2, No murmurs, Gallops, Rubs, Other Abdomen: Normal bowel sounds, Soft, No tenderness, No hepatospenomegaly, No masses, Other Extremities: No edema Neuro: Normal gait, Normal speech, Strength at 5/5 X4 ext, Normal tone, S ensation intact, Cranial nerves 3-12 NL, Reflexes 2+, Other (Could not appreciate any deficits) Psych/Mental Status: Mental status NL, Mood NL Laboratory Results Laboratory Tests 03/15/25 05:12 03/17/25 05:20 Chemistry Test 03/17/25 05:20 Albumin 3.7 g/dL (3.2-4.8) Calcium Level 8.5 mg/dL (8.7-10.4) L Total Protein 6.5 g/dL (5.7-8.2) Lipid panel Test 03/17/25 05:20 Lipase 130 U/L (12-53) H LFT Test 03/17/25 05:20 Alanine Aminotransferase (ALT) 55 U/L (7-40) H Alkaline Phosphatase 120 U/L (46-116) H Aspartate Amino Transferase (AST) 36 U/L (13-40) Total Bilirubin 1.7 mg/dL (0.2-1.0) H Microbiology Microbiology Date/Time Source Procedure Growth Status 03/14/25 19:25 Stool Clostridium difficile Toxin Assay - Final Complete Assessment/Plan Assessment/Plan Possible acute CVA Persistent diarrhea possible infectious versus secondary to fluid overload Possible dysphagia Abnormal CT findings of possible duodenitis 03/07/2025 Plan: Patient also seen by Dr. Seay Pureed diet recommended Outpatient GI follow-up in 4-6 weeks Plan discussed with: Patient, Other (RN) Date of Service: Mar 17, 2025 Billing Provider: GEO MEZA Common Visit Codes: [id number] INP/OBS CARE(HIGH) GEO MEZA Mar 17, 2025 15:08
== END 2025-03-17 14:15 | disposition home or self-care (01) | DRG 65 ==
LOC: ER 15:17 → EDBD 15:17 → OVERFLOW 18:59 → CENTRAL 03-14 15:21 → TELE-CENTR 03-15 06:42
PROVIDERS: ADMIT Internal Medicine; ATTEND Internal Medicine
DX: I63.89 Other cerebral infarction (principal); I13.0 Hypertensive heart and chronic kidney disease with heart failure and stage 1 through stage 4 chronic kidney disease, or unspecified chronic kidney disease; R18.8 Other ascites; I42.9 Cardiomyopathy, unspecified; N17.9 Acute kidney failure, unspecified; J96.11 Chronic respiratory failure with hypoxia; I50.42 Chronic combined systolic (congestive) and diastolic (congestive) heart failure; R13.10 Dysphagia, unspecified; K29.80 Duodenitis without bleeding; I65.23 Occlusion and stenosis of bilateral carotid arteries; I34.0 Nonrheumatic mitral (valve) insufficiency; I07.1 Rheumatic tricuspid insufficiency; E11.65 Type 2 diabetes mellitus with hyperglycemia; E11.22 Type 2 diabetes mellitus with diabetic chronic kidney disease; N18.9 Chronic kidney disease, unspecified; K52.9 Noninfective gastroenteritis and colitis, unspecified; M47.816 Spondylosis without myelopathy or radiculopathy, lumbar region; N40.0 Benign prostatic hyperplasia without lower urinary tract symptoms; M51.369 Other intervertebral disc degeneration, lumbar region without mention of lumbar back pain or lower extremity pain; I67.2 Cerebral atherosclerosis; I48.91 Unspecified atrial fibrillation; I25.10 Atherosclerotic heart disease of native coronary artery without angina pectoris; Z95.810 Presence of automatic (implantable) cardiac defibrillator; Z79.899 Other long term (current) drug therapy; Z79.82 Long term (current) use of aspirin; Z79.02 Long term (current) use of antithrombotics/antiplatelets; Z83.3 Family history of diabetes mellitus; Z82.49 Family history of ischemic heart disease and other diseases of the circulatory system; Z82.3 Family history of stroke; Z82.0 Family history of epilepsy and other diseases of the nervous system; Z88.5 Allergy status to narcotic agent
CPT/HCPCS: 36415; 36600; 70450; 70551; 71045; 74220; 76700; 76705; 80048; 80053; 82270; 82805; 82962; 83690; 84484; 85025; 85048; 86704; 86706; 86708; 86803; 87045; 87340; 87427; 87493; 92610; 93005; 93886; 97110; 97163; G0378; J1815

== ENCOUNTER 2025-04-06 07:55 | Outpatient (CLI) | payer OTHER ==
[~2025-04-06 07:55] MED LIST changes: +ASPI-325 PO; -CEPH250C PO; +CLOP75TA70 PO; +LOS25T PO; +METO25TA36 PO; -METR-344 PO; +SACC250C PO
[2025-04-06 08:23] LABS: Hematocrit 45.2 % (41.0-53.0); Hemoglobin 15.8 g/dL (13.5-17.5); Mean Corpuscular Hemoglobin 30.8 pg (28.0-32.0); Mean Corpuscular Volume 88.0 fL (80.0-100.0); Nucleated Red Blood Cells % 0.1 %
[2025-04-06 09:30] LABS: Albumin 4.2 g/dL (3.2-4.8); Anion Gap 13 (5-15); BUN/Creatinine Ratio 31.3 (10.0-20.0); Calcium 9.4 mg/dL (8.7-10.4); Carbon Dioxide 26 mmol/L (20-31); Chloride 103 mmol/L (98-107); Cholesterol 72 mg/dL (< 200); Potassium 4.3 mmol/L (3.5-5.1); Sodium 142 mmol/L (136-145); Total Protein 7.4 g/dL (5.7-8.2); Triglycerides 119 mg/dL (< 150)
[2025-04-06 09:37] LABS: Urine Protein, UAD TRACE (Negative)
[2025-04-06 09:41] LABS: Alanine Aminotransferase 50 U/L (7-40); Alkaline Phosphatase 190 U/L (46-116); Bilirubin, Direct 1.3 mg/dL (<0.3); Bilirubin, Total 2.6 mg/dL (0.2-1.0); Blood Urea Nitrogen 45 mg/dL (9-23); Glucose 231 mg/dL (74-106); HDL Cholesterol 23 mg/dL (40-59)
== END 2025-04-06 17:00 | disposition home or self-care (01) ==
LOC: LAB 07:55
PROVIDERS: ATTEND Internal Medicine
DX: C61 Malignant neoplasm of prostate (principal); I11.0 Hypertensive heart disease with heart failure; I50.9 Heart failure, unspecified; E11.9 Type 2 diabetes mellitus without complications; R00.2 Palpitations; E55.9 Vitamin D deficiency, unspecified; D64.9 Anemia, unspecified
CPT/HCPCS: 36415; 80048; 80061; 80076; 81003; 83036; 84403; 84443; 85025

== ENCOUNTER 2025-05-05 10:41 | Outpatient (CLI) | payer OTHER ==
--- NOTE | 2025-05-06 14:56 | DVHSR ---
APPROVED REPORT EXAM: Two-dimensional and M-mode echocardiogram with Doppler and color Doppler. Surgery/Intervention Pacemaker: DIMENSIONS LVDd 6.2 (3.8-5.7cm) LA (2D) 5.5 (1.9-4.0cm) Aortic Root 3.4 (2.0-3.7cm) LVDs 5.6 (2.5-4.0cm) LA (MM) (1.9-4.0cm) Aortic Cusp Exc 1.7 (1.5-2.0cm) EF (%) 20.0 (55-70%) Rt. Atrium 5.6 (1.9-4.0cm) Asc. Aorta cm IVSd 0.9 (0.7-1.1cm) RV (D) (1.8-2.4cm) PWd 1.0 (0.7-1.1cm) Mitral Valve Mitral Mitral Stenosis E wave 0.80m/s MV Mean GR. mmHg A wave 0.40m/s MV Peak GR. mmHg E/A ratio 2.0 2D MVA cm2 Aortic Valve Aortic Valve Aortic Stenosis V1 0.50m/s AO Mean GR. 1mmHg V2 0.70m/s AO Peak GR. 2mmHg LVOT Diameter 2.1 (1.8-2.4cm) Doppler RUSSELL 2.47cm2 Tricuspid Valve TR Velocity 2.10m/s RVSP 30mmHg LEFT VENTRICLE The left ventricle is enlarged. The Ejection Fraction is <25%. RIGHT VENTRICLE The right ventricle is enlarged. ATRIA The left atrium is enlarged. The right atrium is enlarged. The interatrial septum is intact with no evidence for an atrial septal defect. MITRAL VALVE The mitral valve is normal in structure and function. Mitral regurgitation is mild. PULMONIC VALVE The pulmonic valve is not well visualized. TRICUSPID VALVE The tricuspid valve is grossly normal. There is trace tricuspid regurgitation. AORTIC VALVE The aortic valve opens well. No aortic regurgitation is present. GREAT VESSELS The aortic root is normal size. PERICARDIAL EFFUSION There is no pericardial effusion. Conclusion EF >25% LAE CARMEN
== END 2025-05-05 17:00 | disposition home or self-care (01) ==
LOC: Rad HDHVI 10:41
PROVIDERS: ATTEND Internal Medicine Cardiovascular Disease
DX: I34.0 Nonrheumatic mitral (valve) insufficiency (principal); I50.23 Acute on chronic systolic (congestive) heart failure; I49.5 Sick sinus syndrome
CPT/HCPCS: 93306